=== PATIENT | female | born 1930 | race Caucasian/White ===

== ENCOUNTER 2016-03-25 19:11 | Emergency (ER) | payer MEDICARE, OTHER ==
[~2016-03-25] VITALS: Ht 157.5 cm; Wt 55.0 kg
[~2016-03-25 19:11] MED LIST: CALC-176 PO; ESOM40CA PO; FENO145T25 PO; FOLI-49 PO; IBUP-1542 PO; LEVO100T87 PO; LOSA25TA5 PO
[2016-03-25 19:22] VITALS: Ht 157.5 cm; Wt 55.0 kg
[2016-03-25] MEDS ORDERED: KETOROLAC 30 MG INJ IM STA (23:13)
[2016-03-25] MEDS ORDERED: CYCL5TAB PO (23:23)
[2016-03-25] MEDS ORDERED: ACET1TAB40 PO (23:26)
[2016-03-25] MEDS ORDERED: DICL1ADH6 TD (23:27)
[2016-03-25] MEDS ORDERED: BENZ-5 PO (23:28)
[2016-03-25] MEDS ORDERED: CHOL100062 PO (23:29)
[2016-03-25] MEDS ORDERED: morphine 10 MG INJ IM ONE (23:30)
[2016-03-25] MEDS ORDERED: DIAZEPAM 5 MG/ML SYG IM ONE (23:30)
[2016-03-25] MEDS ORDERED: MAGN250T5 PO (23:34)
[2016-03-25] MEDS ORDERED: DICL100G37 TOP (23:35)
[2016-03-25] MEDS ORDERED: HYDR-3498 PO (23:38)
[2016-03-25] MEDS ORDERED: NAPR-688 PO (23:39)
[2016-03-26] MEDS ORDERED: POLY17PO6 PO (00:34)
[2016-03-26] MEDS ORDERED: MAGN296S40 PO (00:34)
[2016-03-26] MEDS ORDERED: METH500T PO (00:58)
[2016-03-26 01:00] VITALS: BP 136/71; PULSE 89; RESP 17; TEMP 97.8
[2016-03-26] MEDS: HYDROmorphONE 1 MG/ML SYG IM STA ×2 (01:02→01:08)
[2016-03-26] MEDS ORDERED: morphine 10 MG INJ IM ONE (01:30)
[2016-03-27] MEDS ORDERED: LEVO300T PO (01:16)
--- NOTE | 2016-04-11 04:18 | ERD ---
DATE OF SERVICE: 03/26/2016 HISTORY OF PRESENT ILLNESS: This 86-year-old female presented to the emergency room for bilateral l ower back pain that is worse on the left side and radiates down the left thigh posteriorly to the kn ee. She is ambulatory. The patient states that she has chronic back pain with lumbar disk problems and has had back surgery. She states that the pain is exacerbated. She denies any new trauma. Sh e denies any dysuria, fever, chills. She does not have numbness or extra weakness in her legs. She also states that she is out of her home pain medication for which she has taken a variety of things including OxyContin. She states that she has been having trouble with her pain management speciali sts in getting pain medicine. REVIEW OF SYSTEMS: A 10-point review of systems is negative except as in the HPI. PAST MEDICAL HISTORY: Chronic back pain, hypertension, hypercholesterolemia, history of stomach can cer cured. PAST SURGICAL HISTORY: Partial gastrectomy, hysterectomy, and laminectomy at L4 and L5. SOCIAL HISTORY: Denies tobacco, alcohol, or drugs. She is able to care for herself and is ambulato ry with a cane and walker. FAMILY HISTORY: Noncontributory. PHYSICAL EXAMINATION: VITAL SIGNS: Temperature 97.8, pulse 88, blood pressure 154/80, respiratory rate 20, oxygen saturat ion 98% on room air. GENERAL: No acute distress. BACK: Bilateral paraspinal muscle spasm, left greater than right. Tenderness to palpation along th priya paraspinal areas. No midline tenderness. NEUROLOGIC: Alert and oriented x3, no focal deficits. BILATERAL LOWER EXTREMITIES: Strength 5/5. Distal pulses intact. No deformities. ABDOMEN: Soft, nontender, nondistended, no masses. EMERGENCY DEPARTMENT COURSE AND MEDICAL DECISION MAKING: The patient had an exacerbation of her chr onic back pain that feels like her exacerbations of back pain. She does have bilateral paraspinal m uscle spasm. She was given IM Valium 5 mg, IM morphine 4 mg, and Toradol 30 mg IM. She was then gi subha 1 mg of Dilaudid additionally as her pain was only somewhat helped. She stated she was feeling much better with the pain medications. I am having her follow up with her primary care doctor as we ll as her spine doctor. I have also given her verbal and written instructions to see her pain docto r or obtain a new hand touch up painter for chronic narcotic medications. I am discharging wit h Johnson, naproxen, and Robaxin for continued relief of back pain and alleviation of muscle spasm. I have given her return precautions to the ER if these pain medications are not continuing to allevia te her pain. DISCHARGE DIAGNOSES: 1. Acute on chronic back pain. 2. Lumbar muscle spasm. 3. Sciatica. DISPOSITION: Home in stable condition. Dictated By: YANETH HARGROVE/JIGNA Conf#: [id number] DID#: [id number]
== END 2016-03-26 03:05 | disposition home or self-care (01) ==
LOC: E/R 19:11
DX: M54.42 Lumbago with sciatica, left side (principal); M54.41 Lumbago with sciatica, right side; M62.830 Muscle spasm of back; I10 Essential (primary) hypertension; E03.9 Hypothyroidism, unspecified; Z85.028 Personal history of other malignant neoplasm of stomach
CPT/HCPCS: 96372; 99284; J1170; J1885; J2270; J3360

== ENCOUNTER 2016-03-26 12:27 | Inpatient (IN) | payer MEDICARE, OTHER ==
[~2016-03-26] VITALS: Ht 152.4 cm; Wt 49.6 kg
[~2016-03-26 12:27] MED LIST changes: +ACET1TAB40 PO; +BENZ-5 PO; -CALC-176 PO; +CHOL100062 PO; +CYCL5TAB PO; +DICL100G37 TOP; +DICL1ADH6 TD; +HYDR-3498 PO; +MAGN250T5 PO; +MAGN296S40 PO; +METH500T PO; +NAPR-688 PO; +POLY17PO6 PO
[2016-03-26] MEDS ORDERED: morphine 4 MG/ML VIAL IV STA (18:02)
[2016-03-26] MEDS ORDERED: SOD CHLORIDE 0.9% 1,000 ML IV STA (18:02)
[2016-03-26] MEDS ORDERED: ONDANSETRON 4 MG INJ IV STA (18:02)
--- NOTE | 2016-03-26 18:16 | ERA ---
ER Documentation Chief Complaint Date/Time DATE: 03/26/16 TIME: 18:13 Chief Complaint vomiting x3 since yesterday was seen here yesterday for back pain (GASTON ADAMSON) HPI Patient is an 86-year-old female who was seen here yesterday for back pain. The daughter states that she received several injections after which she began vomiting when she returned turned home. The patient has a history of gastric carcinoma which was treated back in 2005. She apparently has difficulty eating at baseline but has been unable to eat even her small meals or drink any liquids since yesterday. The daughter is very concerned as she has also been a unable to hold down any of her medications either. She has not had any fever, diarrhea, dysuria, hematuria, or flank pain. She has continued to complain of her back pain which is chronic. She is also complaining of upper abdominal pain. She denies any chest pain, shortness of breath, coughing, congestion, headache, vertigo, paresthesias, or focal weakness. The remainder of the systems are negative. (GASTON ADAMSON) ROS All systems reviewed and are negative except as per history of present illness. (GASTON ADAMSON) Medications Home Meds Active Scripts Methocarbamol* (Robaxin*) 500 Mg Tab, 500 MG PO Q8, #14 TAB Prov:YANETH RAY DO 03/26/16 Magnesium Citrate* (Magnesium Citrate*) 296 Ml Solution, 296 ML PO ONCE, #1 BOTTLE Prov:YANETH RAY DO 03/26/16 Polyethylene Glycol* (Miralax*) 17 Gm Powd.pack, 17 GM PO DAILY, #7 Prov:YANETH RAY DO 03/26/16 Ibuprofen* (Ibuprofen*) 600 Mg Tablet, 400 MG PO TID for PAIN AND/OR INFLAMMATION, #30 TAB Prov:JUANPABLO OVIEDO MD 08/27/15 Reported Medications Naproxen* (Naproxen*) 500 Mg Tablet, 500 MG PO DAILY Y for PRN, TAB 03/25/16 Hydrocodone Bit-Acetaminophen (Hydrocodone Bit-APAP) 5-325MG Tablet, 1 TAB PO Q6H Y for PAIN, TAB 03/25/16 Diclofenac Sodium* (Voltaren* Gel) 1% -100 Gm Gel, 2 GM TOP TID, #1 TUB 03/25/16 Magnesium Oxide (Magnesium) 250 Mg Tablet, 250 MG PO DAILY, TAB 03/25/16 Cholecalciferol* (Vitamin D3*) 1,000 Unit Tablet, 1000 UNIT PO DAILY, TAB 03/25/16 Benzonatate* (Benzonatate*) 100 Mg Capsule, 100 MG PO TID Y for COUGH, CAP 03/25/16 Diclofenac Epolamine (Flector) 1 Each Patch.td12, 1 EACH TD DAILY 03/25/16 Acetaminophen with Codeine (Acetaminophen-Cod #3 Tablet) 1 Each Tablet, 1 TAB PO Q4 Y for PRN, #20 TAB 03/25/16 Cyclobenzaprine Hcl* (Cyclobenzaprine Hcl*) 5 Mg Tablet, 2.5 MG PO Q4H Y for PRN , #60 TAB 03/25/16 Folic Acid* (Folic Acid*) 1 Mg Tablet, 1 MG PO DAILY, TAB 03/20/14 Levothyroxine Sodium* (Levothyroxine Sodium*) 100 Mcg Tablet, 100 MCG PO DAILY, TAB 03/20/14 Losartan Potassium* (Losartan Potassium*) 25 Mg Tablet, 25 MG PO DAILY, TAB 10/17/13 Esomeprazole Mag Trihydrate (Nexium) 40 Mg Capsule.dr, 40 MG PO DAILY 08/21/11 Fenofibrate Nanocrystallized* (Tricor*) 145 Mg Tablet, 145 MG PO DAILY 08/21/11 Discontinued Reported Medications Calcium Cmb 2-Mag Cmb 12-Vit D3 (Calcium 500) 1 Each Tablet, 1 TAB PO BID, TAB 03/20/14 Allergies Allergies: Coded Allergies: Influenza Virus Vaccines (Verified Allergy, Mild, 03/26/16) iodine (Verified Adverse Reaction, Mild, DIFFICULTY OF BREATHING, 03/26/16) PMhx/Soc History of Surgery: Yes (PARTIAL GASTRECTOMY, HYSTERECTOMY, ABD LAPAROSCOPY, lamenectomy L4 L5) Anesthesia Reaction: No Hx Neurological Disorder: No Hx Respiratory Disorders: No Hx Cardiac Disorders: Yes (HTN) Hx Psychiatric Problems: No Hx Miscellaneous Medical Probl: Yes (HIGH CHOLESTEROL, STOMACH CANCER,sciatica) Hx Alcohol Use: No Hx Substance Use: No Hx Tobacco Use: No Smoking Status: Never smoker (GASTON ADAMSON) Physical Exam Vitals Vital Signs Date Time Temp Pulse Resp B/P Pulse Ox O2 Delivery O2 Flow Rate FiO2 03/26/16 12:51 97.8 86 18 105/50 97 ([place]TA[place],STEVE) Physical Exam Const: [] Well-developed thin female lying on the bed, appears chronically ill Head: Atraumatic normocephalic Eyes: Normal Conjunctiva ENT: Normal External Ears, Nose and Mouth. Mucous membranes appear dry Neck: Full range of motion..~ No meningismus. Resp: Clear to auscultation bilaterally Cardio: Regular rate and rhythm, no murmurs Abd: Soft, non tender, non distended. Normal bowel sounds, no masses, no rebound, no guarding Skin: No petechiae or rashes Back: Patient reports tenderness to palpation throughout her lower lumbosacral region Ext: No cyanosis, or edema Neur: Awake and alert oriented 3 with a GCS of 15, moves all extremities equally Psych: Normal Mood and Affect (GASTON ADAMSON) Result Diagram: 03/26/16192103/26/161921 Results 24 hrs Laboratory Tests Test 03/26/16 19:22 Alanine Aminotransferase (ALT/SGPT) 22IU/L Albumin 3.7g/dl Albumin/Globulin Ratio 1.19 Alkaline Phosphatase 102IU/L Anion Gap 17 Aspartate Amino Transf (AST/SGOT) 29IU/L Basophils # 0.010^3/ul Basophils % 0.3% Blood Urea Nitrogen 26mg/dl Calcium Level 8.3mg/dl Carbon Dioxide Level 24mmol/L Chloride Level 101mmol/L Creatinine 0.64mg/dl Direct Bilirubin 0.00mg/dl Eosinophils # 0.110^3/ul Eosinophils % 1.0% Globulin 3.10g/dl Glucose Level 91mg/dl Hematocrit 35.0% Hemoglobin 11.7g/dl Indirect Bilirubin 0.3mg/dl Lactic Acid Level 1.3mmol/L Lipase 84U/L Lymphocytes # 0.910^3/ul Lymphocytes % 6.3% Mean Corpuscular Hemoglobin 30.2pg Mean Corpuscular Hemoglobin Concent 33.5g/dl Mean Corpuscular Volume 90.2fl Mean Platelet Volume 10.4fl Monocytes # 1.510^3/ul Monocytes % 10.1% Neutrophils # 12.310^3/ul Neutrophils % 82.3% Nucleated Red Blood Cells # 0.010^3/ul Nucleated Red Blood Cells % 0.0/100WBC Platelet Count 78348^3/UL Potassium Level 5.3mmol/L Red Blood Count 3.8810^6/ul Red Cell Distribution Width 12.9% Sodium Level 137mmol/L Total Bilirubin 0.3mg/dl Total Protein 6.8g/dl Urine Bacteria FEW Urine Bilirubin NEGATIVE Urine Clarity SLIGHTLY CLOUDY Urine Color LT. YELLOW Urine Glucose NEGATIVE% Urine Hemoglobin NEGATIVE Urine Ketones NEGATIVE Urine Leukocyte Esterase 1+ Urine Microscopic RBC 0-2/HPF Urine Microscopic WBC 10-25/HPF Urine Nitrite NEGATIVE Urine Specific [place] 1.015 Urine Squamous Epithelial Cells MANY Urine Total Protein NEGATIVE Urine Urobilinogen 0.2 E.U./dL Urine pH 5.5 White Blood Count 14.910^3/ul Current Medications Medications (Trade) Dose Ordered Sig/Jayashree Route PRN Reason Start Time Stop Time Status Last Admin Dose Admin Sodium Chloride (NS) 1,000 ml @ 1,000 mls/hr Q1H STAT IV 03/26/16 18:02 03/26/16 19:01 DC 03/26/16 19:22 Morphine Sulfate (morphine) 4 mg ONCE STAT IV 03/26/16 18:02 03/26/16 18:04 DC 03/26/16 19:13 Ondansetron HCl (Zofran Inj) 4 mg ONCE STAT IV 03/26/16 18:02 03/26/16 18:04 DC 03/26/16 19:13 (STEVE BOYLE) Procedures/MDM Differential includes but is not limited to vomiting, recurrent cancer, bowel obstruction, dehydration, chronic back pain, metastatic cancer, narcotic withdrawal, nonspecific abdominal pain, viral syndrome (GASTON ADAMSON) This patient been seen and evaluated by Dr. Pendleton and signed out to myself, Dr. Boyle. The patient had a urinary tract infection and intractable abdominal pain. CT scan showed no surgical abdomen and an ultrasound of the gallbladder did indicate that there was mild dilatation of the common bile duct but no findings to suggest choledocholithiasis. The patient had leukocytosis. A urine culture was obtained. The patient was given ceftriaxone intravenously by myself. Her primary care physician is Dr. Robbins and I spoke with Dr. Hernandez who was taking call for Dr. Robbins who stated he would admit the patient for observation. She received further antiemetics by myself. When I reevaluated this patient she had no peritoneal signs. (STEVE BOYLE) Departure Diagnosis: Primary Impression: UTI (urinary tract infection) Qualified Code: N30.00 - Acute cystitis without hematuria Additional Impression: Intractable vomiting with nausea Qualified Code: R11.2 - Intractable vomiting with nausea, unspecified vomiting type Condition: Serious GASTON ADAMSON Mar 26, 2016 18:16 STEVE BOYLE Mar 26, 2016 21:01
--- NOTE | 2016-03-26 19:09 | RADRPT ---
PROCEDURE: CT abdomen and pelvis without contrast. CLINICAL INDICATION: Abdominal pain. Clinical concern for small-bowel obstruction TECHNIQUE: CT scan of the abdomen and pelvis without contrast was performed. Sagittal and coronal reformatted images were obtained from the axial source images. CTDI = 4.64 mGy; DLP = 233.44 mGy-cm COMPARISON: CT 01/18/2015 FINDINGS: Visualized lower thorax: Mild dependent bibasilar subsegmental atelectasis is present. Extensive l eft anterior descending coronary artery calcification is visible. There are some microcystic honeyc ombing changes of the lung parenchyma. There is no evidence for pleural effusion. Liver, gallbladder, pancreas and spleen: The liver is normal and size, contour and attenuation. Th ere is no evidence for a solid liver mass or ductal dilatation on this unenhanced exam, scattered si mple cysts of the hepatic parenchyma are unchanged. The gallbladder is unremarkable. The common bi le duct is dilated measuring 13 mm but there is no evidence of calcified choledocholithiasis. Some calcifications adjacent to the common bile duct are similar to the previous examination but there is no obvious pancreatic mass on this unenhanced examination. No pancreatic ductal dilatation is pres ent. The spleen is normal in size. Adrenal glands and genitourinary system: The adrenal glands are normal bilaterally. The kidneys are normal and size, contour and attenuation with no evidence for masses, calculi or hydronephrosis. T he ureters are unremarkable. No urinary bladder abnormality is demonstrated. The uterus is surgica lly absent, clips within the pelvis are again seen. Gastrointestinal system: Postoperative changes compatible with prior gastric surgery are again note d, probably partial gastrectomy. The small bowel is normal in caliber with no ileus, obstruction or wall thickening. The appendix and surrounding fat are within the limits of normal. The colon show s no evidence for wall thickening or acute abnormality. There is no evidence for colitis or diverti culitis. Peritoneum, retroperitoneum, lymph nodes and vessels: The abdominal aorta is normal in caliber. The re is mild aortic atherosclerotic calcification. The inferior vena cava is unremarkable. There is no evidence for adenopathy or mass. There is no ascites. No pneumoperitoneum is present Osseous structures and musculoskeletal findings: There is no fracture, lytic or blastic lesion. Mil d demineralization and diffuse spondylosis of the spine is present No muscular abnormality or soft tissue pathology is present. RPTAT:HJJR IMPRESSION: 1. No evidence of small bowel obstruction in this patient who is status post partial gastrectomy. 2. Common bile duct dilatation of 13 mm is now evident without calcified choledocholithiasis or obv ious pancreatic mass on this unenhanced exam. The gallbladder is unremarkable. Correlation with live r function tests is suggested. 3. Incidental hepatic cysts are again noted. 4. Changes of prior hysterectomy again noted. Pato Matson Physician Date Time Electronically viewed and signed by Pato Matson Physician on 03/26/2016 19:08 JR/
[2016-03-26 19:40] LABS: BASOPHILS % 0.3 % (0.0-2.0); EOSINOPHILS # 0.1 10^3/ul (0.0-0.5); HEMOGLOBIN 11.7 g/dl (12.0-16.0); LYMPHOCYTES # 0.9 10^3/ul (0.8-2.9); LYMPHOCYTES % 6.3 % (15.0-51.0); MEAN CORPUSCULAR HEMOGLOBIN 30.2 pg (29.0-33.0); MEAN CORPUSCULAR HGB CONC 33.5 g/dl (32.0-37.0); MEAN CORPUSCULAR VOLUME 90.2 fl (82.0-101.0); MEAN PLATELET VOLUME 10.4 fl (7.4-10.4); MONOCYTE # 1.5 10^3/ul (0.3-0.9); MONOCYTES % 10.1 % (0.0-11.0); NEUTROPHIL # 12.3 10^3/ul (1.6-7.5); NEUTROPHILS % 82.3 % (39.0-77.0); PLATELET COUNT 168 10^3/UL (140-440); RED BLOOD COUNT 3.88 10^6/ul (4.20-5.40); RED CELL DISTRIBUTION WIDTH 12.9 % (11.5-14.5); UNCORRECTED WBC 14.9 10^3/ul (4.8-10.8); WHITE BLOOD COUNT 14.9 10^3/ul (4.8-10.8)
[2016-03-26 19:42] LABS: CONDITION 1
[2016-03-26 19:44] LABS: ADD UMIC YES; URINE BILIRUBIN (Dip) NEGATIVE (NEGATIVE); URINE BLOOD (Dip) NEGATIVE (NEGATIVE); URINE COLOR LT. YELLOW (YELLOW); URINE GLUCOSE (Dip) NEGATIVE (NEGATIVE); URINE KETONES (Dip) NEGATIVE (NEGATIVE); URINE LEUKOCYTE ESTERASE (Dip) 1+ (NEGATIVE); URINE NITRITE (Dip) NEGATIVE (NEGATIVE); URINE TOTAL PROTEIN (Dip) NEGATIVE (NEGATIVE); URINE UROBILINOGEN (Dip) 0.2 E.U./dL (0.1-1.0)
[2016-03-26 19:50] LABS: ALBUMIN 3.7 g/dl (3.3-4.9); POTASSIUM 5.3 mmol/L (3.5-5.1)
[2016-03-26 19:52] LABS: BILIRUBIN,INDIRECT 0.3 mg/dl (0-1.1); BILIRUBIN,TOTAL 0.3 mg/dl (0.2-1.3); CREATININE 0.64 mg/dl (0.44-1.00)
[2016-03-26 19:53] LABS: ALBUMIN/GLOBULIN RATIO 1.19; CALCIUM 8.3 mg/dl (8.4-10.2); TOTAL PROTEIN 6.8 g/dl (6.1-8.1)
[2016-03-26 20:09] LABS: SQUAMOUS EPITHELIAL CELL,UR MANY; URINE RBCS 0-2 /HPF (0)
[2016-03-26 20:10] LABS: BACTERIA,URINE FEW
--- NOTE | 2016-03-26 20:43 | RADRPT ---
PROCEDURE: US right upper quadrant CLINICAL INDICATION: Abdominal pain. Dilated common bile duct TECHNIQUE: Multiple real-time images were acquired of the patient's right upper abdomen utilizing a high resolution transducer. COMPARISON: CT abdomen and pelvis 03/26/2016 FINDINGS: Liver: Simple cysts of the liver again noted the largest in the right hepatic lobe measures 2.3 x 2 .1 x 1.8 cm. There is normal liver contour without ductal dilatation. The liver size is normal. T he maximum dimension estimated at 14.3 cm . Gallbladder: No gallstones or sludge are identified. There is no evidence of gallbladder wall thick ening or pericholecystic fluid. No sonographic Burroughs's sign is reported. Common bile duct: Dilated; 13 mm. There is no evidence for choledocholithiasis. Right Kidney: Mild hydronephrosis not seen on CT is probably physiologic; maximum length measured a t approximately 9.5 cm. Pancreas: Obscured by bowel gas. RPTAT:HJJR IMPRESSION: 1. Common bile duct dilatation is confirmed measuring 13 mm but without evidence of choledocholithia sis or cholelithiasis, the gallbladder is unremarkable. 2. No evidence of intrahepatic ductal dilatation, simple cysts of the liver are incidentally noted. 3. Mild hydronephrosis of the right kidney not seen on CT is probably physiologic, no right renal c alculus is present. 4. Bowel gas obscures evaluation of the pancreas. Physician Cherie Date Time Electronically viewed and signed by Physician Cherie on 03/26/2016 20:43 JR/
[2016-03-26] MEDS ORDERED: ONDANSETRON 4 MG INJ IV PRN (21:00)
[2016-03-26] MEDS ORDERED: ACETAMINOPHEN 325 MG TAB PO PRN (21:00)
[2016-03-26] MEDS ORDERED: CEFTRIAXONE 1 GM/50 ML (PMX) 50 ML IVPB ONE (21:00)
[2016-03-26 21:09] VITALS: TEMP 97.9
[2016-03-26] MEDS ORDERED: METOCLOPRAMIDE 10 MG INJ IV ONE (21:30)
[2016-03-26 22:47] VITALS: Ht 152.4 cm; Wt 49.6 kg
[2016-03-26 23:03] VITALS: BP 143/71; PULSE 97; RESP 18
[2016-03-26] MEDS ORDERED: morphine 10 MG INJ IM PRN (23:30)
[2016-03-26] MEDS: SOD CHLORIDE 0.45% 1,000 ML IV SCH (23:51)
[2016-03-27] MEDS ORDERED: LEVO300T PO (01:16)
[2016-03-27] MEDS: LEVOTHYROXINE 100 MCG TAB PO SCH (05:49)
[2016-03-27 07:54] VITALS: BP 143/67; RESP 18
[2016-03-27 08:03] LABS: ALBUMIN 3.2 g/dl (3.3-4.9)
[2016-03-27 08:06] LABS: ALBUMIN/GLOBULIN RATIO 1.06; BILIRUBIN,INDIRECT 0.1 mg/dl (0-1.1); BILIRUBIN,TOTAL 0.1 mg/dl (0.2-1.3); CALCIUM 7.5 mg/dl (8.4-10.2); CREATININE 0.65 mg/dl (0.44-1.00); TOTAL PROTEIN 6.2 g/dl (6.1-8.1)
[2016-03-27 08:25] LABS: BASOPHILS % 0.1 % (0.0-2.0); EOSINOPHILS # 0.1 10^3/ul (0.0-0.5); EOSINOPHILS % 0.7 % (0.0-7.0); HEMATOCRIT 32.7 % (37.0-47.0); LYMPHOCYTES # 1.1 10^3/ul (0.8-2.9); LYMPHOCYTES % 9.6 % (15.0-51.0); MEAN CORPUSCULAR HEMOGLOBIN 30.4 pg (29.0-33.0); MEAN CORPUSCULAR HGB CONC 33.7 g/dl (32.0-37.0); MEAN CORPUSCULAR VOLUME 90.4 fl (82.0-101.0); MEAN PLATELET VOLUME 10.9 fl (7.4-10.4); MONOCYTE # 1.8 10^3/ul (0.3-0.9); MONOCYTES % 15.2 % (0.0-11.0); NEUTROPHIL # 8.8 10^3/ul (1.6-7.5); NEUTROPHILS % 74.4 % (39.0-77.0); PLATELET COUNT 162 10^3/UL (140-440); RED BLOOD COUNT 3.62 10^6/ul (4.20-5.40); UNCORRECTED WBC 11.9 10^3/ul (4.8-10.8); WHITE BLOOD COUNT 11.9 10^3/ul (4.8-10.8)
[2016-03-27 08:28] LABS: CONDITION 1; LH ANALYZER COMMENTS 1
[2016-03-27] MEDS: LOSARTAN 25 MG TAB PO SCH (10:18)
[2016-03-27] MEDS: ENOXAPARIN 30 MG/0.3 ML SYG SC SCH (10:19)
[2016-03-27] MEDS: ACETAMINOPHEN 500 MG TAB PO PRN ×2 (10:48→17:39)
[2016-03-27] MEDS: CYCLOBENZAPRINE 10 MG TAB PO PRN ×2 (10:48→17:39)
[2016-03-27] MEDS: CEFTRIAXONE 2 GM/50 ML (PMX) 50 ML IVPB SCH (12:29)
--- NOTE | 2016-03-27 12:52 | CONS ---
DATE OF ADMISSION: 03/26/2016 DATE OF CONSULTATION: 03/27/2016 Thank you for having me see this patient. HISTORY OF PRESENT ILLNESS: As you know, she is an 86-year-old woman whom I am asked to see sudhir bellamy persistent nausea and vomiting. The patient has been seen for numerous gastrointestinal issues i n the past. Most recently she has been most troubled by back pain. Because of this she was seen in the emergency room and given narcotic analgesia. After being discharged with this medicine she beg an vomiting at home. She was then readmitted because of the nausea and vomiting. Since being admit [facility] she has had no further vomiting. Of note, the patient has a gastrointestinal history significan t for gastric cancer resection in 2005. This was followed by chemo and radiation therapy. She most recently had a followup endoscopy in March 2015. PAST MEDICAL HISTORY AND HOSPITALIZATION: For gastric cancer, hysterectomy, small-bowel obstruction . ADULT ILLNESSES: Significant for Rojo's esophagus, CVA, colon polyps, arteriosclerotic heart dis ease, diverticulitis, fibromyalgia, gastric cancer, hyperlipidemia, hypertension, hypothyroidism. CHILDHOOD: Denies rheumatic fever or scarlet fever. ALLERGIES: INCLUDE: 1. INFLUENZA VIRUS VACCINE. 2. HYDROMORPHONE. 3. IODINE. INJURIES: None. MEDICATIONS: Currently include: 1. Ceftriaxone. 2. Lovenox. 3. Cozaar 4. Synthroid. 5. Flexeril. 6. Tylenol. 7. Morphine. 8. Catapres. SOCIAL HISTORY: The patient does not smoke or drink alcohol. FAMILY HISTORY: Noncontributory. REVIEW OF SYSTEMS: Negative except as noted above. PHYSICAL EXAMINATION: GENERAL: Shows in general, the patient is a well-developed, well-nourished female in no acute distr ess. VITAL SIGNS: Temperature 98.2, pulse 80, respirations 18, blood pressure 143/67. SKIN: Clear. HEENT: Negative. LUNGS: Clear to percussion and auscultation. CARDIAC: No murmurs or gallops. ABDOMEN: Soft, nontender, liver 8 cm. Spleen not palpable. No masses. LABORATORY DATA: Remarkable for white count 11, hemoglobin 11, hematocrit 32, platelets 162. Chemi stries: AST 21, ALT 22, alkaline phosphatase 91. CT scan is remarkable for common bile duct of 13 mm. Ultrasound of the gallbladder is remarkable for common bile duct at 13 mm. IMPRESSION: It is most likely that the patient's nausea and vomiting is on the basis of her narcoti c analgesia. I do note the incidental 13 mm common bile duct. Certainly, in the face of normal lulu er tests I think it is far less likely that this is responsible for any her symptoms. It is certain ly possible that she may have had some biliary duct dilatation related to her previous abdominal jil flo. In addition, her narcotic analgesia may be contributing to this as well. PLAN: 1. I have discussed the above in depth with the patient and her daughter. 2. We will proceed with MRCP to rule out choledocholithiasis. 3. Continue conservative management with discharge plans per Dr. Fareed Robbins. Dictated By: LAILA MINAYA/JIGNA Conf#: [id number] DID#: [id number] CC: FAREED ROBBINS MD; LAILA GONG MD;*EndCC*
[2016-03-27] MEDS: SOD CHLORIDE 0.45% 1,000 ML IV SCH (19:13)
[2016-03-27] MEDS: KETOROLAC 30 MG INJ IV PRN (19:52)
[2016-03-27 19:55] VITALS: BP 142/67; RESP 18
[2016-03-27] MEDS ORDERED: PANTOPRAZOLE 40 MG INJ IV ONE (20:00)
--- NOTE | 2016-03-27 21:18 | HP ---
DATE OF ADMISSION: 03/26/2016 ADMITTING DIAGNOSIS: Urinary tract infection with intractable nausea and vomiting. HISTORY OF PRESENT ILLNESS: The patient is an 86-year-old female with a history of gastric c arcinoma status post resection, coronary artery disease, hypertension, fibromyalgia, peripheral neur opathy, and lumbar radiculopathy who presented to the emergency room due to her back pain. The sylvia ent was seen on Sunday and was given a shot for her pain and returned on Sunday with persistent na usea and vomiting while home. The patient has had no further nausea and vomiting since admission an d is currently feeling well without any problems except for her back pain. REVIEW OF SYSTEMS: Significant for moderate to severe, left greater than right, lower back pain rad iating to her legs with knee pain, shoulder pain, and burning sensation over her extremities. No dy suria, no hematuria, no urgency noted. PAST MEDICAL HISTORY: Significant for gastric carcinoma status post partial gastrectomy, chemothera py, and radiation; hypothyroidism, hyperlipidemia, fibromyalgia, peripheral neuropathy, osteoarthrit is, cervical spondylosis, lumbar spondylosis with radiculitis status post laminectomy and decompress ion, type 2 diabetes, diet controlled, chronic constipation, history of a partial small-bowel obstru ction. PAST SURGICAL HISTORY: Status post cataract extraction with lens implantation, status post small-margaret wel obstruction repair, status post partial gastrectomy, status post total abdominal hysterectomy, a nd bilateral salpingo-oophorectomy. FAMILY HISTORY: Noncontributory. ALLERGIES: INTOLERANT TO STATINS WITH SEVERE MUSCLE ACHES AND PAINS. MEDICATIONS: 1. Levothyroxine 0.1 mg daily. 2. Losartan 25 mg daily. 3. Omeprazole 20 mg daily. 4. Tricor 145 mg daily. 5. Lovaza 2 grams daily. 6. PRN Tylenol No.3 or [place] depending on pain control. 7. PRN Dulcolax. SOCIAL HISTORY: The patient is a , lives with her daughter. No tobacco, no alcohol use. PHYSICAL EXAMINATION: VITAL SIGNS: Temperature 98.2, blood pressure 143/67, respirations 18, pulse 80 and regular. Oxyge n saturation 94% on room air. GENERAL: Well-developed, well-nourished female in no acute distress, lying in bed. SKIN: Mild diffuse xerosis and hyperpigmentation. Otherwise, no rashes. HEENT: EOMI, PERRLA. Oropharynx clear without exudate. NECK: Decreased range of motion in all directions, 2+ carotid upstroke without bruits. No lymphade nopathy, no thyromegaly. LUNGS: Clear to auscultation bilaterally. HEART: Regular rate and rhythm. Normal S1, S2. No murmurs, gallops, or rubs noted. ABDOMEN: Soft, nontender, nondistended, normoactive bowel sounds. No hepatosplenomegaly, no masses noted. GENITOURINARY: Normal female externally. Internal exam not performed. RECTAL: Deferred to gastroenterology. NEUROLOGIC: Nonfocal other than decreased pinprick, fine touch, temperature, and vibration in bilat eral upper and lower extremities in a stocking glove distribution. LABORATORY EXAMINATION: Initial white blood cell count of 14.9, which decreased to 11.9 on repeat; hemoglobin 11.7, which decreased to 11.0 on repeat; hematocrit of 35%, which decreased to 32.7 with hydration and repeat; platelet count of 168 initially with decrease to 162. Initial potassium was 5 .3, but on repeat it was 4.0. Sodium of 142, chloride 107, bicarbonate 22, BUN of 17, creatinine 0. 65. AST of 21, ALT of 22, alkaline phosphatase 91, total bilirubin is 0.1. Albumin 3.2. Lipase is 84. Gallbladder ultrasound: Common bile duct is dilated at 13 mm without evidence of choledocholi thiasis or cholelithiasis. Otherwise unremarkable gallbladder. Mild hydronephrosis of the right no t seen on CT. Abdominal and pelvic CT scan without contrast shows no evidence of small-bowel obstru ction, common bile duct 13 mm, with no evidence of choledocholithiasis or pancreatic mass or other. Changes of prior hysterectomy, incidental hepatic cysts. IMPRESSION: The patient is an 86-year-old female with severe low back pain due to her radicu lopathy and compression fracture, coronary artery disease, history of gastric carcinoma, history of small-bowel obstruction who was admitted for persistent nausea and vomiting as well as urinary tract infection. The patient's nausea and vomiting has since resolved since she has been admitted. The patient remains stable. 1. Nausea and vomiting. This may be related to the patient having taken the narcotic on an empty s tomach and had a reaction to that. The patient has had narcotics before without this reaction. The patient is currently without nausea and vomiting since admission almost 24 hours ago, yesterday. I appreciate Dr. Rawls's input into this case. We will be conservative in her management and patient does not require any further workup regarding her nausea and vomiting at this time. Will continue t o feed the patient as tolerated. 2. Urinary tract infection. Urine culture is negative at this point. The patient is on antibiotic s. We will continue this and discharge the patient home on oral antibiotics when discharged. 3. Coronary disease/hypertension. We will continue the patient's losartan. 4. Hypothyroidism. We will continue the patient's levothyroxine. 5. Lumbar spondylosis with compression fracture of lumbar spine. We will continue with p.r.n. anal gesics and increase mobility as tolerated. 6. Hyperlipidemia. We will hold her cholesterol medications for now. Dictated By: OLI CARR MD SR/NTS Conf#: [id number] DID#: [id number] CC: RAUL SANCHEZ MD;*EndCC*
[2016-03-28] MEDS: ACETAMINOPHEN/CODEINE #3 TAB PO PRN (00:38)
[2016-03-28] MEDS: KETOROLAC 30 MG INJ IV PRN ×3 (02:12→19:05)
[2016-03-28 05:41] LABS: BASOPHILS % 0.4 % (0.0-2.0); EOSINOPHILS # 0.2 10^3/ul (0.0-0.5); EOSINOPHILS % 2.2 % (0.0-7.0); HEMATOCRIT 30.8 % (37.0-47.0); HEMOGLOBIN 10.3 g/dl (12.0-16.0); LYMPHOCYTES # 1.5 10^3/ul (0.8-2.9); LYMPHOCYTES % 18.3 % (15.0-51.0); MEAN CORPUSCULAR HEMOGLOBIN 30.5 pg (29.0-33.0); MEAN CORPUSCULAR HGB CONC 33.5 g/dl (32.0-37.0); MEAN PLATELET VOLUME 10.6 fl (7.4-10.4); MONOCYTE # 1.5 10^3/ul (0.3-0.9); NEUTROPHIL # 4.9 10^3/ul (1.6-7.5); NEUTROPHILS % 61.1 % (39.0-77.0); PLATELET COUNT 153 10^3/UL (140-440); RED BLOOD COUNT 3.38 10^6/ul (4.20-5.40); RED CELL DISTRIBUTION WIDTH 13.2 % (11.5-14.5); UNCORRECTED WBC 8.1 10^3/ul (4.8-10.8); WHITE BLOOD COUNT 8.1 10^3/ul (4.8-10.8)
[2016-03-28 05:47] LABS: ALBUMIN 2.9 g/dl (3.3-4.9)
[2016-03-28 05:48] LABS: POTASSIUM 3.9 mmol/L (3.5-5.1)
[2016-03-28 05:50] LABS: BILIRUBIN,INDIRECT 0.1 mg/dl (0-1.1); BILIRUBIN,TOTAL 0.1 mg/dl (0.2-1.3); CREATININE 0.61 mg/dl (0.44-1.00)
[2016-03-28 05:51] LABS: ALBUMIN/GLOBULIN RATIO 0.93; CALCIUM 7.4 mg/dl (8.4-10.2)
[2016-03-28] MEDS: LEVOTHYROXINE 100 MCG TAB PO SCH ×2 (06:00→06:48)
[2016-03-28] MEDS: PANTOPRAZOLE (EC) 40 MG TAB PO SCH ×2 (06:00→06:48)
[2016-03-28 06:12] LABS: CONDITION 1; LH ANALYZER COMMENTS 1
[2016-03-28] MEDS: LOSARTAN 25 MG TAB PO SCH (08:12)
[2016-03-28] MEDS: ENOXAPARIN 30 MG/0.3 ML SYG SC SCH (08:13)
[2016-03-28 08:27] VITALS: BP 146/71; RESP 19
[2016-03-28] MEDS: CEFTRIAXONE 2 GM/50 ML (PMX) 50 ML IVPB SCH (11:26)
--- NOTE | 2016-03-28 14:26 | SP ---
DATE OF VISIT: 03/28/2016 MEDICAL PROGRESS NOTE: SUBJECTIVE: The patient is feeling better but still having moderate to severe right shoulder pain as well as back pain. No more nausea and vomiting. No dysuria. OBJECTIVE: VITAL SIGNS: Temperature 97.7, pulse 73, respirations 19, blood pressure 146/ 71, oxygen saturation 96% on room air. GENERAL: Well-developed, well-nourished female in no acute distress. SKIN: Diffuse xerosis, although no rashes. LUNGS: Clear to auscultation bilaterally. HEART: Regular rate and rhythm, normal S1, S2. No murmurs, gallops or rubs noted. ABDOMEN: Soft, nontender. Normoactive bowel sounds, no masses. EXTREMITIES: Right shoulder with moderate impingement as well as decreased internal and external range of motion as well as decreased abduction with moderate to severe pain throughout the range of motion. Moderate acromioclavicular tenderness as well. LABORATORY EXAMINATION: White blood cell count 8.1, hemoglobin 10.3, hematocrit 30.8, platelets 153. Sodium 140, potassium 3.9, chloride 107, bicarbonate 23, BUN of 10, creatinine 0.61, blood sugar 80. Albumin 2.9. Urine culture shows 10,000 to 20,000 gram-negative rods. PRELIMINARY IMPRESSION: 1. Nausea and vomiting. This has improved since admission. This is likely related to medications, but with an enlarged common bile duct. Patient is to undergo MRCP which keeps getting delayed due to emergencies. The patient will undergo MRCP and if this is unremarkable, the patient will be discharged home. 2. Urinary tract infection. Patient will be continued on IV antibiotics and if she is discharged, she will be discharged on Macrobid 100 mg b.i.d. 3. Hypertension. 4. Coronary artery disease, stable. Continue the patient's medications and diet. 5. 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 We will continue with p.r.n. analgesics and physical therapy as an outpatient. DISCHARGE PLANNING: If the MRCP is negative, we will discharge home later today with followup with Dr. Robbins as scheduled. Dictated By: OLI ROBBINS MD, SR/JIGNA Conf#: [id number] DID#: [id number] [facility]
--- NOTE | 2016-03-28 14:27 | CONS ---
Date/Time of Note Date/Time of Note DATE: 03/28/16 TIME: 14:24 Consult Date/Type/Reason Admit Date/Time Mar 26, 2016 at 20:57 Initial Consult Date Type of Consultation: GI Subjective No further vomiting Tolerating diet Objective Vital Signs Date Time Temp Pulse Resp B/P Pulse Ox O2 Delivery O2 Flow Rate FiO2 03/28/16 08:27 97.7 73 19 146/71 96 03/26/16 23:03 Room Air Abdomen: soft, non tender, nl bs Intake and Output 03/27/16 03/27/16 03/28/16 15:00 23:00 07:00 Intake Total 100 ml 860 ml Balance 100 ml 860 ml Results/Medications Result Diagram: 03/28/1644903/28/16 0450 Results 24 hrs Laboratory Tests Test 03/28/16 04:50 Alanine Aminotransferase (ALT/SGPT) 22 Albumin 2.9 L Albumin/Globulin Ratio 0.93 Alkaline Phosphatase 79 Anion Gap 14 Aspartate Amino Transf (AST/SGOT) 29 Basophils # 0.0 Basophils % 0.4 Blood Morphology Comment Blood Urea Nitrogen 10 Calcium Level 7.4 L Carbon Dioxide Level 23 Chloride Level 107 Creatinine 0.61 Direct Bilirubin 0.00 Eosinophils # 0.2 Eosinophils % 2.2 Globulin 3.10 Glucose Level 80 Hematocrit 30.8 L Hemoglobin 10.3 L Indirect Bilirubin 0.1 Lymphocytes # 1.5 Lymphocytes % 18.3 Mean Corpuscular Hemoglobin 30.5 Mean Corpuscular Hemoglobin Concent 33.5 Mean Corpuscular Volume 91.0 Mean Platelet Volume 10.6 H Monocytes # 1.5 H Monocytes % 18.0 H Neutrophils # 4.9 Neutrophils % 61.1 Nucleated Red Blood Cells # 0.0 Nucleated Red Blood Cells % 0.0 Platelet Count 153 Potassium Level 3.9 Red Blood Count 3.38 L Red Cell Distribution Width 13.2 Sodium Level 140 Total Bilirubin 0.1 L Total Protein 6.0 L White Blood Count 8.1 # Medications Current Medications Ceftriaxone Sodium (Rocephin) 50 ml @ 100 mls/hr Q24H IVPB Last administered on 03/28/16t 11:26; Admin Dose 100 MLS/HR; Start 03/27/16 at 12:00 Morphine Sulfate 2 mg 2 mg Q4H PRN IM pain; Start 03/26/16 at 23:30 Sodium Chloride (1/2 NS) 1,000 ml @ 50 mls/hr Q20H IV Last administered on 03/27 19:13; Admin Dose 50 MLS/HR; Start 03/26/16 at 23:30 Clonidine (Catapres) 0.1 mg TID PRN PO sbp>170; Start 03/26/16 at 23:30 Enoxaparin Sodium (Lovenox) 30 mg DAILY SC Last administered on 03/28/16 08:13 ; Admin Dose 30 MG; Start 03/27/16 at 09:00 Cyclobenzaprine HCl (Flexeril) 2.5 mg Q4H PRN PO MUSCLE SPASM Last administered on 03/27/16 17:39; Admin Dose 2.5 MG; Start 03/27/16 at 01:30 Losartan Potassium (Cozaar) 25 mg DAILY PO Last administered on 03/28/16 08:12 ; Admin Dose 25 MG; Start 03/27/16 at 09:00 Levothyroxine Sodium (Synthroid) 100 mcg DAILY@06 PO Last administered on 06:48; Admin Dose 100 MCG; Start 03/27/16 at 06:00 Acetaminophen (Tylenol Tab) 500 mg Q6H PRN PO PAIN AND OR ELEVATED TEMP Last administered on 03/27/16 17:39; Admin Dose 500 MG; Start 03/27/16 at 01:30 Pantoprazole (Protonix Tab) 40 mg DAILY@06 PO Last administered on 03/28/16 06: 48; Admin Dose 40 MG; Start 03/28/16 at 06:00 Ketorolac Tromethamine (Toradol) 30 mg Q6H PRN IV PAIN Last administered on 03/28 13:29; Admin Dose 30 MG; Start 03/27/16 at 20:00; Stop 03/30/16 at 19:59 Acetaminophen/ Codeine Phosphate (Tylenol No.3) 1 tab Q4H PRN PO PAIN Last administered on 03/28/16 00:38; Admin Dose 1 TAB; Start 03/27/16 at 20:00 Assessment/Plan Chief Complaint/Hosp Course Impression: 1. Nausea and vomiting likely from narcotics - resolved 2. Dilated CBD with normal lfts - likely post op related Plan: 1. Await MRCP which is scheduled for 4pm 2. Anticipate discharge per Dr. Robbins 3. Have spoken to daughter - will see again prn Problems: LAILA GONG MD Mar 28, 2016 14:27
[2016-03-28] MEDS: SOD CHLORIDE 0.45% 1,000 ML IV SCH (14:53)
--- NOTE | 2016-03-28 18:29 | RADRPT ---
PROCEDURE: MRI abdomen / MRCP CLINICAL INDICATION: Abdominal pain. Intractable vomiting. Abnormal CT showing dilated common bi le duct TECHNIQUE: MRI of the abdomen is performed without contrast utilizing axial T2 and T2 fat suppress ion sequences as well as in and out of phase imaging. The MRCP is performed and the MIP series subm itted for review. COMPARISON: CT abdomen and pelvis and gallbladder ultrasound 03/26/2016 FINDINGS: The study is limited by motion artifact Visualized lower thorax: Trace bilateral dependent pleural effusions are present. Liver: Approximately 8 ovoid circumscribed hyperintense T2 foci within the liver parenchyma range i n size from 5 mm up to 2.5 cm consistent with simple cysts. Liver signal intensity, size and contou r are normal. There is mild intrapelvic ductal dilatation involving the left greater than right hep atic lobes. Gallbladder: Normal in caliber with no filling defects to suggest cholelithiasis and no wall [place]. There is no pericholecystic inflammation. Common bile duct: On the axial T2-weighted image (series 5 image 19) an approximately 3 mm filling defect within the mid to distal common bile duct is visualized and raises concern for choledocholith iasis. The caliber of the duct is increased estimated at 12 mm. The MRCP shows evidence for both i ntrahepatic or extrahepatic ductal dilatation, the ductal system of the right hepatic lobe having so me small low signal intensity filling defects concerning for additional small calculi (series 5 imag e 14-16). Some folds of the distal common bile duct are present and a stricture at the most distal aspect is difficult to exclude. Pancreas: There is no finding to suggest pancreatitis, mass or ductal dilatation. Spleen: Normal in size with no masses evident. Adrenal glands: Unremarkable bilaterally. Kidneys: Normal in size with no evidence for masses or hydronephrosis. Simple cortical cyst in the posterior left upper pole is incidentally noted. Stomach, visualized small bowel and visualized large intestine: Susceptibility artifact from clips r elated to partial gastrectomy is noted. The included small bowel and large intestine are unremarkab le. Abdominal aorta: Normal in caliber estimated at 2 cm. Inferior vena cava: Normal. Vertebral bodies and osseous structures: Normal. Musculature and soft tissues: Mild multilevel degenerative spondylosis with superior L4 endplate de generative change. RPTAT:HJJR IMPRESSION: 1. Limited exam because of motion artifact. 2. Tiny filling defect within the mid to distal common bile duct concerning for choledocholithiasis or sludge with a suspected stricture of the most distal common bile duct. 3. Mild intrahepatic ductal dilatation involving the left greater than right lobes with equivocal t iny filling defects in the right intrahepatic ducts reflecting additional calculi. 4. No evidence of pancreatic mass or pancreatic ductal dilatation. 5. Incidental hepatic and renal cysts. Physician Cherie Date Time Electronically viewed and signed by Pato Matson Physician on 03/28/2016 18:29 /
[2016-03-28 19:10] VITALS: BP 143/67; RESP 19
[2016-03-28] MEDS: ACETAMINOPHEN 500 MG TAB PO PRN (22:04)
[2016-03-28] MEDS: MAGNESIUM HYDROXIDE 30ML CUP PO PRN (22:05)
[2016-03-28] MEDS: CYCLOBENZAPRINE 10 MG TAB PO PRN (22:05)
[2016-03-29] MEDS: KETOROLAC 30 MG INJ IV PRN ×3 (01:36→22:24)
[2016-03-29] MEDS: CYCLOBENZAPRINE 10 MG TAB PO PRN (05:42)
[2016-03-29] MEDS: ACETAMINOPHEN 500 MG TAB PO PRN (05:42)
[2016-03-29] MEDS: PANTOPRAZOLE (EC) 40 MG TAB PO SCH (05:43)
[2016-03-29] MEDS: LEVOTHYROXINE 100 MCG TAB PO SCH (05:43)
[2016-03-29 06:36] LABS: INR 0.98
[2016-03-29 06:37] LABS: PARTIAL THROMBOPLASTIN TIME 39.8 Sec (25.0-35.0)
[2016-03-29 06:46] LABS: ALBUMIN 3.5 g/dl (3.3-4.9)
[2016-03-29 06:47] LABS: POTASSIUM 4.5 mmol/L (3.5-5.1)
[2016-03-29 06:49] LABS: ALBUMIN/GLOBULIN RATIO 0.97; CREATININE 0.65 mg/dl (0.44-1.00); TOTAL PROTEIN 7.1 g/dl (6.1-8.1)
[2016-03-29 06:50] LABS: CALCIUM 8.1 mg/dl (8.4-10.2)
[2016-03-29] MEDS ORDERED: DOCUSATE SODIUM 100 MG CAP PO PRN (07:00)
[2016-03-29 07:55] VITALS: BP 141/63; RESP 20
[2016-03-29] MEDS: LOSARTAN 25 MG TAB PO SCH (08:37)
[2016-03-29] MEDS: ENOXAPARIN 30 MG/0.3 ML SYG SC SCH (08:41)
[2016-03-29] MEDS: CEFTRIAXONE 2 GM/50 ML (PMX) 50 ML IVPB SCH (11:02)
[2016-03-29] MEDS: SOD CHLORIDE 0.45% 1,000 ML IV SCH (11:03)
--- NOTE | 2016-03-29 12:46 | CONS ---
DATE OF ADMISSION: 03/28/2016 DATE OF CONSULTATION: 03/29/2016 REFERRING PHYSICIAN: Fareed Robbins MD REASON FOR CONSULTATION: Dilated bile duct. HISTORY OF PRESENT ILLNESS: The patient is an 86-year-old female presented to the ER for nausea and vomiting. The patient was evaluated in the emergency room, had a CAT scan of the abdomen and pelvi s done which showed dilated biliary system. Patient also had a sonogram. She has got intact gallbl adder with dilatation of the biliary system up to 13 mm. MRCP showed multiple stones and a strictur e in the distal part of the bile duct, so GI consult was called in. Looking at the history she also had a history of gastric cancer for which she had a partial gastrectomy and this was confirmed also on CAT scan. We do not know whether patient had intact duodenal bulb or she had been a Billroth II or I surgery. This was done in 2005, almost 10 years ago. Patient had endoscopy in March 2015 a nd I do not have the report. The patient now has no nausea, no vomiting, no abdominal pain. She perdomo s chronic back pain. PAST MEDICAL HISTORY: Surgery for gastric cancer, hysterectomy, small-bowel obstruction for which s he had a surgery. Also Rojo esophagus, CVA, colon polyp, history of gastric cancer, hyperlipidem ia, hypertension and hypothyroidism. ALLERGIES: 1. INFLUENZA VIRUS. 2. HYDROMORPHONE. 3. IODINE. INJURIES: None. MEDICATIONS: All reviewed. She is also on Lovenox. SOCIAL HISTORY: Patient does not smoke or drink alcohol. FAMILY HISTORY: Nothing contributory. PHYSICAL EXAMINATION: GENERAL: Looks good for her age. CARDIOVASCULAR: No murmur, gallop or click. LUNGS: Clear. ABDOMEN: Soft, nontender, no organomegaly, no mass upper abdomen. EXTREMITIES: No edema. BATCH MAKER: Grossly within normal limits. LABORATORY DATA: WBC was 14.9 dropped down to 8.1, hematocrit also . Liver function has been totally normal. Coagulation also was normal. Urine grew E. coli. IMPRESSION: 1. 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 2. Gastric cancer for which she had surgery 10 years ago. 3. Urinary tract infection. 4. Back pain. 5. Hypertension. 6. History of Rojo's. 7. History of colon polyp. 8. Dyslipidemia. 9. Hypothyroidism. 10. Fibromyalgia. 11. History of small-bowel obstruction. 12. Hysterectomy. PLAN: At this point, is to proceed with ERCP. I do not know if the patient has altered anatomy or not. If the altered anatomy is there then technically it is going to be difficult to do ERCP depend ing upon the afferent limbs length. This I would know when I do endoscopy on the patient tomorrow. I have discussed with the daughter also, and everybody is in agreement for the procedure. Thank monico salazar. We will continue antibiotic. We will stop Lovenox tonight. Dictated By: DANIELLA COSTELLO/NTS Conf#: [id number] DID#: [id number] CC: DANIELLA SCANLON MD;*EndCC*
--- NOTE | 2016-03-29 13:46 | SP ---
DATE OF VISIT: 03/29/2016 MEDICAL PROGRESS NOTE: SUBJECTIVE: The patient denies any nausea or vomiting. No dysuria. No abdominal pain. The patient still complains of left shoulder pain greater than her back pain. OBJECTIVE: Temperature 97.0, blood pressure 141/63, pulse 55, respirations 20, oxygen saturation 97% on room air. GENERAL: Well-developed, well-nourished female in no acute distress. CHEST: Clear to auscultation bilaterally. HEART: Regular rate and rhythm without murmurs, gallops or rubs noted. ABDOMEN: Soft, nontender, nondistended, normoactive bowel sounds. LABORATORY EXAMINATION: Shows a sodium 142, potassium 4.5, chloride 106, bicarbonate 23, BUN of 15, creatinine 0.65, blood sugar of 123, AST 26, ALT of 17, alkaline phosphatase 97, total bilirubin 0.0, PT of 13, INR 0.98, PTT 39.8. ASSESSMENT AND PLAN: 1. Choledocholithiasis. The patient had abnormal MRI yesterday showing a filling defect, possible sludge versus stone within the common bile duct as well as a possible stricture. The patient will need ERCP in order to evaluate this and possibly remove the stone and place a stent. Appreciate Dr. Suh's consultation to this patient's care. This will occur tomorrow. 2. Urinary tract infection. Patient is growing Escherichia coli sensitive to antibiotics. We will change her over to oral antibiotics tomorrow after the procedure. 3. Coronary artery disease/hypertension. This is stable. Continue this patient 's medications. 4. Shoulder bursitis and osteoarthritis, stable, but persistent. We will continue with p.r.n. analgesics. 5. Hypothyroidism:stable; Continue the patient's medication. Dictated By: OLI CARR MD SR/NTS Conf#: [id number] DID#: [id number] MTDD
[2016-03-29] MEDS: ACETAMINOPHEN/CODEINE #3 TAB PO PRN (15:21)
[2016-03-29 20:24] VITALS: BP 140/94; RESP 18
[2016-03-30] VITALS (12 sets, daily range): BP systolic 137–172; BP diastolic 67–100; PULSE 76–92; RESP 16–31
[2016-03-30 05:44] LABS: INR 0.96; PROTIME 12.8 Sec (12.2-14.2)
[2016-03-30 05:45] LABS: PARTIAL THROMBOPLASTIN TIME 36.3 Sec (25.0-35.0)
[2016-03-30 05:50] LABS: POTASSIUM 4.9 mmol/L (3.5-5.1)
[2016-03-30 05:52] LABS: CREATININE 0.66 mg/dl (0.44-1.00)
[2016-03-30 05:53] LABS: CALCIUM 8.4 mg/dl (8.4-10.2)
[2016-03-30] MEDS: PANTOPRAZOLE (EC) 40 MG TAB PO SCH (06:00)
[2016-03-30] MEDS: LEVOTHYROXINE 100 MCG TAB PO SCH (06:00)
[2016-03-30] MEDS: LOSARTAN 25 MG TAB PO SCH (08:10)
[2016-03-30] MEDS: SOD CHLORIDE 0.45% 1,000 ML IV SCH (08:47)
[2016-03-30] MEDS: KETOROLAC 30 MG INJ IV PRN (10:09)
[2016-03-30] MEDS: CEFTRIAXONE 2 GM/50 ML (PMX) 50 ML IVPB SCH (11:26)
--- NOTE | 2016-03-30 14:21 | SP ---
MEDICAL PROGNESS NOTE: DATE OF VISIT: 03/30/2016 SUBJECTIVE: The patient denies nausea, vomiting or abdominal pain. Patient does have back pain and shoulder pain. OBJECTIVE: VITAL SIGNS: Temperature 98.7, blood pressure 137/76, pulse of 90, respirations 20, oxygen saturation 97% on room air. GENERAL: Well-developed, well-nourished female in no acute distress, lying in bed. Lungs clear to auscultation bilaterally. HEART: Regular rhythm, normal S1, S2. No murmurs, gallops or rub noted. ABDOMEN: Soft, nontender, nondistended, normoactive bowel sounds. EXTREMITIES: No cyanosis, clubbing or edema. LABORATORY EXAMINATION: Sodium 139, potassium 4.9, chloride 103, bicarbonate 25 , BUN of 12, creatinine 0.82, blood sugar 82, calcium 8.2. INR 0.96, PT of 12.8 , PTT of 36.3. ASSESSMENT AND PLAN: 1. Choledocholithiasis. Patient is to undergo ERCP today by Dr. Suh, it is scheduled at 6:00 p.m. We will continue the patient n.p.o. at this point. If things go well and no complications related to the procedure, patient will likely go home tomorrow. 2. Urinary tract infection. Will continue with antibiotics and ticket dispenser changer to oral antibiotics tomorrow at the time of discharge. 3. Coronary artery disease/hypertension is stable. Continue the patient's medication. 4. Back pain. Continue p.r.n. analgesics. Dictated By: OLI CARR MD, SR/JIGNA Conf#: [id number] DID#: [id number] MTDD
[2016-03-30] MEDS ORDERED: INDOMETHACIN 50 MG SUPP PR ONE (17:17)
[2016-03-30] MEDS ORDERED: IOHEXOL 300MG/ML 30 ML BTL ONE (17:17)
[2016-03-30] MEDS ORDERED: DIPHENHYDRAMINE 50 MG INJ IV PRN (17:30)
[2016-03-30] MEDS ORDERED: FENTAnyl 50 MCG/ML VIAL IV PRN (17:30)
[2016-03-30] MEDS ORDERED: ONDANSETRON 4 MG INJ IV PRN (17:30)
[2016-03-30] MEDS ORDERED: MEPERIDINE 25 MG INJ IV PRN (17:30)
[2016-03-30] MEDS ORDERED: SUCCINYLCHOLINE CHLORIDE 100 MG/5 ML SYG IV ONE (17:36)
[2016-03-30] MEDS ORDERED: LIDOCAINE 2% (SDV) 5 ML INJ ONE (17:36)
[2016-03-30] MEDS ORDERED: PROPOFOL 20 ML ONE (17:36)
[2016-03-30] MEDS ORDERED: MIDAZOLAM 1 MG/ML 2 ML INJ ONE (17:36)
[2016-03-30] MEDS ORDERED: FENTAnyl 50 MCG/ML VIAL ONE ×2 (17:36→18:52)
[2016-03-30] MEDS ORDERED: ONDANSETRON 4 MG INJ ONE (17:58)
[2016-03-30] MEDS ORDERED: LABETALOL HCL 20MG INJ ONE (18:09)
[2016-03-30] MEDS ORDERED: GLUCAGON 1 MG INJ ONE (18:28)
[2016-03-30] MEDS ORDERED: hydrALAzine 20 MG INJ ONE (19:42)
[2016-03-30] MEDS ORDERED: hydrALAzine 20 MG INJ IV PRN (20:00)
[2016-03-30] MEDS ORDERED: LABETALOL HCL 20MG INJ IV PRN (20:00)
[2016-03-31] MEDS: SOD CHLORIDE 0.45% 1,000 ML IV SCH ×2 (03:30→11:15)
--- NOTE | 2016-03-31 04:38 | GILP ---
DATE OF PROCEDURE: PROCEDURE: Endoscopic retrograde cholangiopancreatography with sphincterotomy and placement of sten t. INDICATION: The patient is an 86-year-old female who presented with nausea and vomiting. Sonogram showed dilated bile duct. MRCP confirmed the dilatation and also questionable stone in the distal p art of the bile duct. The purpose of this procedure is to evaluate the biliary system and perform t herapeutic endoscopy at the same time. The risk of the procedure, related and unrelated complicatio ns were thoroughly explained to the patient's daughter who understood, agreed, and consented for it. In view of the altered anatomy, also they were educated that the procedure may be challenging. DESCRIPTION OF PROCEDURE: The patient was brought to the OR room #3. Time-out was done. She was i ntubated by the anesthesiologist and placed in the prone position. Indocin suppository was administe red. Scope was passed with much ease into esophagus, advanced into the stomach. The patient had al most like subtotal gastrectomy, and the anastomosis was identified. ERCP scope to pass beyond that and right in front the ampulla identified. It was not clear cut that this was Billroth I or Billrot h II. I did not see the other loop. 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 Initially tried to selectively cannulate. We were not sure whether it w as in the pancreatic duct or bile duct because of the altered anatomy. We injected a little dye and realized that it was the pancreatic duct. We tried to cannulate the bile duct. It was difficult w ith a normal sphincterotome, so we changed it to the thinner sphincterotome with a guidewire of 0.02 5. We successfully cannulated the bile duct. The wire was deep inside, but the cannula would not g o due to the very tight stenosis. 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 At this point, we did a sphincterotomy, extended the biliary ductal portion of the ampulla, and by extending the sphi ncterotomy by 2 mm, we were able to go deep inside and get a proper cholangiogram. The bile duct ap peared dilated. After obtaining the cholangiogram, we extended the sphincterotomy and stent, 10-Mikhail nch 5 cm successfully deployed with good drainage. The scope was removed. The patient tolerated th e procedure very well. IMPRESSION: Successful sphincterotomy done. Stent deployed,10-Mexican 5 cm. Total fluoro time was 4 to 5 seconds. The patient had altered anatomy. Maybe it was Billroth I. PLAN: Monitor LFT and continue antibiotic, and we will keep the patient n.p.o. until the morning. Dictated By: DANIELLA COSTELLO/NTS Conf#: [id number] DID#: [id number] CC: OLI CARR MD;*End*
[2016-03-31] MEDS: PANTOPRAZOLE (EC) 40 MG TAB PO SCH (05:51)
[2016-03-31] MEDS: LEVOTHYROXINE 100 MCG TAB PO SCH (05:51)
[2016-03-31 07:58] VITALS: BP 167/78; RESP 20
[2016-03-31] MEDS: LOSARTAN 25 MG TAB PO SCH (09:24)
--- NOTE | 2016-03-31 09:30 | RADRPT ---
PROCEDURE: ERCP. CLINICAL INDICATION: Stent placement. TECHNIQUE: AP views in surgery of the right upper quadrant of the abdomen. Radiology: Exposure dose or time reported for procedure using fluoroscopy. 1.86 mGy: The exposure time 15 seconds and 24 fluoroscopic images. COMPARISON: No. FINDINGS: The endoscope was then right upper quadrant with contrast injected into the common bile duct and sharon n pancreatic duct. There is a filling defect in the proximal common bile duct suspicious for a fantasma ined stone. A second 3 mm filling defect is present in the left hepatic ducts suspicious for a fantasma ined stone. There is subsequent placement of a biliary stent in the right upper quadrant with contr ast leaving the biliary system and faintly seen in the area of the duodenum. IMPRESSION: 1. 2 filling defects were identified as described above suspicious for retained stones with subsequ ent placement of a biliary stent in the common bile duct which appears well positioned. RPTAT:AAJJ Physician Iker Date Time Electronically viewed and signed by Physician Iker on 03/31/2016 09:29 RED/
[2016-03-31] MEDS: CEFTRIAXONE 2 GM/50 ML (PMX) 50 ML IVPB SCH (12:53)
[2016-03-31] MEDS ORDERED: ALBUTEROL 0.083% (NEB) 2.5 MG/3 ML AMP HHN PRN (14:30)
[2016-03-31] MEDS ORDERED: TRIMETHOPRIM/SULFAMETHOX (DS) TAB PO SCH (14:30)
--- NOTE | 2016-03-31 14:50 | SP ---
DATE OF VISIT: 03/31/2016 MEDICAL PROGRESS NOTE SUBJECTIVE: The patient complains of cough, weakness, lack of appetite, chest congestion, mild abdominal pain, and ongoing shoulder and back pain. OBJECTIVE: VITAL SIGNS: Temperature 99.4, respirations 20, pulse 89, blood pressure 167/78 , oxygen saturation 96% on room air. GENERAL: Well-developed, thin female, in no acute distress. Ill-appearing, lying in bed. HEENT: Oropharynx with mild posterior pharyngeal erythema. No exudate. CHEST: Bilateral coarse rhonchi. CARDIOVASCULAR: Regular rate and rhythm. ABDOMEN: Soft. Mild right upper quadrant tenderness. Normal active bowel sounds, nondistended, soft. NEUROLOGIC: Alert and oriented x1, is confused. ASSESSMENT AND PLAN 1. Fever, cough, altered mental status. This is new. Patient with a probable upper respiratory infection, possibly viral versus bacterial. The patient has a fever and congestion, as well as altered mental status. Will hold the discharge today. Will do a chest x-ray, CBC, start Bactrim double strength b.i.d. and revaluate tomorrow regarding discharge. 2. Choledocholithiasis. Status post endoscopic retrograde cholangiopancreatography and sphincterotomy. The patient remains stable, without symptoms. The patient has a poor appetite, likely related to #1. Will continue to monitor and check a comprehensive metabolic panel to follow up. 3. Urinary tract infection. Will place the patient on Bactrim which will cover both the lungs, as well as the urine. Will discontinue the ceftriaxone. 4. Coronary artery disease/hypertension. Stable. Continue the patient's medications. 5. Back pain and compression fracture. This is stable. Continue the pain medications, analgesics, and bed rest for now. Dictated By: OLI CARR MD SR/JIGNA Conf#: [id number] DID#: [id number] MTDD
--- NOTE | 2016-03-31 14:59 | CONS ---
Date/Time of Note Date/Time of Note DATE: 03/31/16 TIME: 14:57 Assessment/Plan Assessment/Plan Additional Assessment/Plan MPRESSION: 1. 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 2. Gastric cancer for which she had surgery 10 years ago. 3. Urinary tract infection. 4. Back pain. 5. Hypertension. 6. History of Rojo's. 7. History of colon polyp. 8. Dyslipidemia. 9. Hypothyroidism. 10. Fibromyalgia. 11. History of small-bowel obstruction. 12. Hysterectomy. 13 s/p sphincterotomy and placement of stent Plan advance diet repeat ERCP after 3 months and will remove stones,by that tome ampullary opening will be larger. pt.had severe papillary stenosis Consultation Date/Type/Reason Admit Date/Time Mar 28, 2016 at 19:13 Initial Consult Date Type of Consultation: GI 24 HR Interval Summary Constitutional: improved, no complaints Exam/Review of Systems Vital Signs Vitals Vital Signs Date Time Temp Pulse Resp B/P Pulse Ox O2 Delivery O2 Flow Rate FiO2 03/31/16 13:00 99.2 03/31/16 07:58 89 20 167/78 96 03/30/16 19:59 Room Air 03/30/16 19:23 8.0 Intake and Output 03/30/16 03/30/16 03/31/16 15:00 23:00 07:00 Intake Total 150 ml 450 ml Output Total 1025 ml Balance 150 ml -575 ml Exam Constitutional: alert, oriented, well developed Psych: nl mood/affect, no complaints Head: atraumatic, normocephalic Eyes: EOMI, PERRL, nl conjunctiva, nl lids, nl sclera ENMT: nl external ears & nose, nl lips & teeth, nl nasal mucosa & septum Neck: non-tender, supple Respiratory: clear to auscultation, normal air movement Cardiovascular: nl pulses, regular rate and rhythm Gastrointestinal: nl liver, spleen, non-tender, soft Musculoskeletal: nl extremities to inspection, nl gait and stance Extremities: normal pulses Neurological: PATHOLOGICAL TECHNICIAN II-XII intact, nl mental status, nl speech, nl strength Skin: nl turgor, No rash or lesions Lymph: nl lymph nodes Results Result Diagram: 03/28/16 0450 03/30/16 0453 Medications Medications Current Medications Morphine Sulfate 2 mg 2 mg Q4H PRN IM pain; Start 03/26/16 at 23:30 Sodium Chloride (1/2 NS) 1,000 ml @ 50 mls/hr Q20H IV Last administered on 11:15; Admin Dose 50 MLS/HR; Start 03/26/16 at 23:30 Clonidine (Catapres) 0.1 mg TID PRN PO sbp>170; Start 03/26/16 at 23:30 Cyclobenzaprine HCl (Flexeril) 2.5 mg Q4H PRN PO MUSCLE SPASM Last administered on 03/29/16 05:42; Admin Dose 2.5 MG; Start 03/27/16 at 01:30 Losartan Potassium (Cozaar) 25 mg DAILY PO Last administered on 03/31/16 09:24 ; Admin Dose 25 MG; Start 03/27/16 at 09:00 Levothyroxine Sodium (Synthroid) 100 mcg DAILY@06 PO Last administered on 05:43; Admin Dose 100 MCG; Start 03/27/16 at 06:00 Acetaminophen (Tylenol Tab) 500 mg Q6H PRN PO PAIN AND OR ELEVATED TEMP Last administered on 03/29/16 05:42; Admin Dose 500 MG; Start 03/27/16 at 01:30 Pantoprazole (Protonix Tab) 40 mg DAILY@06 PO Last administered on 03/29/16 05: 43; Admin Dose 40 MG; Start 03/28/16 at 06:00 Acetaminophen/ Codeine Phosphate (Tylenol No.3) 1 tab Q4H PRN PO PAIN Last administered on 03/29/16 15:21; Admin Dose 1 TAB; Start 03/27/16 at 20:00 Magnesium Hydroxide (Milk Of Mag) 30 ml DAILY PRN PO CONSTIPATION Last administered on 03/28/16 22:05; Admin Dose 30 ML; Start 03/28/16 at 19:30 Docusate Sodium 200 mg 200 mg DAILY PRN PO CONSTIPATION Last administered on 11:03; Admin Dose 200 MG; Start 03/29/16 at 07:00 Levofloxacin/ Dextrose (Levaquin 250 Mg/ D5W 50 ml (Pmx)) 50 ml @ 50 mls/hr Q24H IVPB ; Start 03/31/16 at 16:00 Ketorolac Tromethamine (Toradol) 15 mg Q6H PRN IV PAIN; Start 03/31/16 at 15:00 ; Stop 04/03/16 at 14:59 DANIELLA SCANLON MD Mar 31, 2016 14:59
[2016-03-31] MEDS: KETOROLAC 15 MG INJ IV PRN ×2 (15:00→21:36)
[2016-03-31 15:21] LABS: ADD SCAN DIFF NO
[2016-03-31 15:43] LABS: ALBUMIN 3.5 g/dl (3.3-4.9); POTASSIUM 4.6 mmol/L (3.5-5.1)
[2016-03-31 15:46] LABS: ALBUMIN/GLOBULIN RATIO 1.02; CALCIUM 7.6 mg/dl (8.4-10.2); CREATININE 0.63 mg/dl (0.44-1.00); TOTAL PROTEIN 6.9 g/dl (6.1-8.1)
[2016-03-31 15:50] LABS: BASOPHILS % 0.1 % (0.0-2.0); EOSINOPHILS % 0.1 % (0.0-7.0); HEMATOCRIT 36.3 % (37.0-47.0); HEMOGLOBIN 11.8 g/dl (12.0-16.0); LYMPHOCYTES # 0.8 10^3/ul (0.8-2.9); MEAN CORPUSCULAR HEMOGLOBIN 29.7 pg (29.0-33.0); MEAN CORPUSCULAR HGB CONC 32.5 g/dl (32.0-37.0); MEAN CORPUSCULAR VOLUME 91.4 fl (82.0-101.0); MONOCYTE # 1.5 10^3/ul (0.3-0.9); MONOCYTES % 17.1 % (0.0-11.0); NEUTROPHIL # 6.3 10^3/ul (1.6-7.5); NEUTROPHILS % 73.2 % (39.0-77.0); PLATELET COUNT 185 10^3/UL (140-415); RED BLOOD COUNT 3.97 10^6/ul (4.20-5.40); RED CELL DISTRIBUTION WIDTH 12.6 % (11.5-14.5); WHITE BLOOD COUNT 8.5 10^3/ul (4.8-10.8)
[2016-03-31] MEDS: LEVOFLOXACIN 250MG/D5W (PMX) 50 ML IVPB SCH (17:32)
--- NOTE | 2016-03-31 17:44 | RADRPT ---
PROCEDURE: XR Chest. CLINICAL INDICATION: Fever. TECHNIQUE: Single frontal view of the chest was obtained COMPARISON: Chest x-ray 03/14/2015 a of 01:00 p.m. FINDINGS: There are atherosclerotic calcifications in the aortic arch. There are degenerative osteophytes in the thoracic spine. The soft tissues are generous. The heart, pulmonary vasculature, lung lopez an d pleural spaces are normal. There has been no significant change when compared to the prior study. IMPRESSION: 1. There is no evidence of an acute infiltrate. 2. Atherosclerosis and aortic arch. 3. Spondylosis of the thoracic spine. RPTAT:AAJJ Physician Ikre Date Time Electronically viewed and signed by Yunior Tineo Physician on 03/31/2016 17:44 /
[2016-03-31 20:16] VITALS: BP 153/70; RESP 19
[2016-03-31 21:20] VITALS: BP 143/69; PULSE 81
[2016-04-01] MEDS: PROMETHAZINE/CODEINE 5ML CUP PO PRN ×4 (00:14→20:12)
[2016-04-01] MEDS: PANTOPRAZOLE (EC) 40 MG TAB PO SCH (06:00)
[2016-04-01] MEDS: LEVOTHYROXINE 100 MCG TAB PO SCH (06:00)
[2016-04-01] MEDS: SOD CHLORIDE 0.45% 1,000 ML IV SCH (06:07)
[2016-04-01 06:41] LABS: ADD SCAN DIFF NO
[2016-04-01 06:52] LABS: ALBUMIN 3.2 g/dl (3.3-4.9); POTASSIUM 4.3 mmol/L (3.5-5.1)
[2016-04-01 06:54] LABS: CREATININE 0.6 mg/dl (0.44-1.00)
[2016-04-01 06:55] LABS: CALCIUM 7.2 mg/dl (8.4-10.2); TOTAL PROTEIN 6.4 g/dl (6.1-8.1)
[2016-04-01 07:46] LABS: RED BLOOD COUNT 3.94 10^6/ul (4.20-5.40); WHITE BLOOD COUNT 5.4 10^3/ul (4.8-10.8)
[2016-04-01 07:47] LABS: HEMATOCRIT 35.5 % (37.0-47.0); HEMOGLOBIN 11.8 g/dl (12.0-16.0); MEAN CORPUSCULAR HGB CONC 33.3 g/dl (32.0-37.0); MEAN CORPUSCULAR VOLUME 90.1 fl (82.0-101.0); PLATELET COUNT 183 10^3/UL (140-440); RED CELL DISTRIBUTION WIDTH 13.1 % (11.5-14.5)
[2016-04-01] MEDS: KETOROLAC 15 MG INJ IV PRN ×3 (08:04→20:12)
[2016-04-01 08:20] VITALS: BP 148/78; RESP 20
[2016-04-01] MEDS: LOSARTAN 25 MG TAB PO SCH (08:20)
[2016-04-01 09:46] LABS: AMYLASE 119 U/L (11-123)
[2016-04-01] MEDS: LEVOFLOXACIN 250MG/D5W (PMX) 50 ML IVPB SCH (16:03)
[2016-04-01 20:28] VITALS: BP 137/65; RESP 20
[2016-04-02] MEDS: PROMETHAZINE/CODEINE 5ML CUP PO PRN ×4 (00:39→17:33)
[2016-04-02] MEDS: KETOROLAC 15 MG INJ IV PRN ×2 (02:42→13:09)
[2016-04-02] MEDS: SOD CHLORIDE 0.45% 1,000 ML IV SCH (02:42)
[2016-04-02] MEDS: CYCLOBENZAPRINE 10 MG TAB PO PRN (05:49)
[2016-04-02] MEDS: PANTOPRAZOLE (EC) 40 MG TAB PO SCH ×2 (05:49→05:55)
[2016-04-02] MEDS: LEVOTHYROXINE 100 MCG TAB PO SCH (05:51)
[2016-04-02 06:17] LABS: BASOPHILS % 0.2 % (0.0-2.0); EOSINOPHILS # 0.1 10^3/ul (0.0-0.5); EOSINOPHILS % 1.1 % (0.0-7.0); HEMATOCRIT 33.4 % (37.0-47.0); HEMOGLOBIN 11.5 g/dl (12.0-16.0); LYMPHOCYTES # 0.6 10^3/ul (0.8-2.9); LYMPHOCYTES % 9.5 % (15.0-51.0); MEAN CORPUSCULAR HEMOGLOBIN 30.8 pg (29.0-33.0); MEAN CORPUSCULAR HGB CONC 34.3 g/dl (32.0-37.0); MEAN CORPUSCULAR VOLUME 89.7 fl (82.0-101.0); MEAN PLATELET VOLUME 9.5 fl (7.4-10.4); MONOCYTE # 1.1 10^3/ul (0.3-0.9); NEUTROPHIL # 4.4 10^3/ul (1.6-7.5); NEUTROPHILS % 71.2 % (39.0-77.0); PLATELET COUNT 163 10^3/UL (140-440); RED BLOOD COUNT 3.73 10^6/ul (4.20-5.40); RED CELL DISTRIBUTION WIDTH 12.8 % (11.5-14.5); UNCORRECTED WBC 6.2 10^3/ul (4.8-10.8); WHITE BLOOD COUNT 6.2 10^3/ul (4.8-10.8)
[2016-04-02 06:37] LABS: CONDITION 1; LH ANALYZER COMMENTS 1
[2016-04-02 06:44] LABS: POTASSIUM 4.6 mmol/L (3.5-5.1)
[2016-04-02 06:47] LABS: CREATININE 0.64 mg/dl (0.44-1.00)
[2016-04-02 06:48] LABS: CALCIUM 7.4 mg/dl (8.4-10.2)
--- NOTE | 2016-04-02 07:10 | PN ---
DATE: 04/01/2016 The patient is feeling a little bit better, but still has moderate cough with moderate phlegm, as we ll as abdominal pain in the right upper quadrant. OBJECTIVE VITAL SIGNS: Temperature 98.4, pulse of 80, respirations 20, blood pressure 137/65, oxygen saturati on 96% on room air. GENERAL: Well developed, thin female in no acute distress. CHEST: Bilateral rhonchi with increased expiratory phase. HEART: Regular rate and rhythm. Normal S1 and S2. No gallop. ABDOMEN: Mild right upper quadrant tenderness to palpation. Normoactive bowel sounds. Soft, nonte nder, and nondistended. EXTREMITIES: With no cyanosis, clubbing, or edema. LABORATORY EXAMINATION: Sodium 133, potassium 4.3, chloride 100, bicarbonate is 22, BUN 11, creatin ine 0.6, glucose 75, amylase 119, lipase 313, albumin 3.2, total bilirubin 0.0. Urine culture was g rowing E. coli, sensitive to Levaquin. Influenza A and B are negative ASSESSMENT AND PLAN 1. Choledocholithiasis, status post endoscopic retrograde cholangiopancreatogram (ERCP), sphinctero alejandro, stent placement. The patient is doing well, except for some mild right upper quadrant pain. We will continue with advancing diet, as well as p.r.n. analgesics and antiemetics. 2. Cough, congestion. The patient with negative chest x-ray and negative influenza A and B. The p atient with moderate cough and on antibiotics at this point. We will continue with any antibiotics and p.r.n. nebulizer therapy at this time. 3. Urinary tract infection (UTI). The patient is on antibiotics and will continue with these. 4. Coronary artery disease/hypertension. Continue the patient's routine medications. Dictated By: OLI CARR MD SR/NTS Conf#: [id number] DID#: [id number]
[2016-04-02 08:22] VITALS: BP 136/80; RESP 16
[2016-04-02] MEDS: LOSARTAN 25 MG TAB PO SCH (08:52)
[2016-04-02] MEDS: LEVOFLOXACIN 250MG/D5W (PMX) 50 ML IVPB SCH (16:17)
--- NOTE | 2016-04-02 17:01 | CONS ---
Date/Time of Note Date/Time of Note DATE: 04/02/16 TIME: 17:00 Assessment/Plan Assessment/Plan Additional Assessment/Plan Additional Assessment/Plan MPRESSION: 1. 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 2. Gastric cancer for which she had surgery 10 years ago. 3. Urinary tract infection. 4. Back pain. 5. Hypertension. 6. History of Rojo's. 7. History of colon polyp. 8. Dyslipidemia. 9. Hypothyroidism. 10. Fibromyalgia. 11. History of small-bowel obstruction. 12. Hysterectomy. 13 s/p sphincterotomy and placement of stent Plan advance diet repeat ERCP after 3 months and will remove stones,by that tome ampullary opening will be larger. pt.had severe papillary stenosis pt.is stable will remove stone and stent after 3 months Consultation Date/Type/Reason Admit Date/Time Mar 28, 2016 at 19:13 Type of Consultation: GI 24 HR Interval Summary Constitutional: improved Exam/Review of Systems Vital Signs Vitals Vital Signs Date Time Temp Pulse Resp B/P Pulse Ox O2 Delivery O2 Flow Rate FiO2 04/02/16 08:22 98.7 86 16 136/80 96 03/30/16 19:59 Room Air 03/30/16 19:23 8.0 Intake and Output 04/01/16 04/01/16 04/02/16 15:00 23:00 07:00 Intake Total 1390 ml 1080 ml Balance 1390 ml 1080 ml Exam Constitutional: alert, oriented, well developed Psych: nl mood/affect, no complaints Head: atraumatic, normocephalic Eyes: EOMI, PERRL, nl conjunctiva, nl lids, nl sclera ENMT: nl external ears & nose, nl lips & teeth, nl nasal mucosa & septum Neck: non-tender, supple Respiratory: clear to auscultation, normal air movement Cardiovascular: nl pulses, regular rate and rhythm Gastrointestinal: nl liver, spleen, non-tender, soft Musculoskeletal: nl extremities to inspection, nl gait and stance Extremities: normal pulses Neurological: CORPORATE REPRESENTATIVE II-XII intact, nl mental status, nl speech, nl strength Skin: nl turgor, No rash or lesions Lymph: nl lymph nodes Results Result Diagram: 04/02/16 0540 04/02/16 0540 Results 24 hrs Laboratory Tests Test 04/02/16 05:40 Anion Gap 16 Basophils # 0.0 Basophils % 0.2 Blood Urea Nitrogen 13 Calcium Level 7.4 L Carbon Dioxide Level 22 Chloride Level 100 Creatinine 0.64 Eosinophils # 0.1 Eosinophils % 1.1 Glucose Level 82 Hematocrit 33.4 L Hemoglobin 11.5 L Lymphocytes # 0.6 L Lymphocytes % 9.5 L Mean Corpuscular Hemoglobin 30.8 Mean Corpuscular Hemoglobin Concent 34.3 Mean Corpuscular Volume 89.7 Mean Platelet Volume 9.5 Monocytes # 1.1 H Monocytes % 18.0 H Neutrophils # 4.4 Neutrophils % 71.2 Nucleated Red Blood Cells # 0.0 Nucleated Red Blood Cells % 0.0 Platelet Count 163 Potassium Level 4.6 Red Blood Count 3.73 L Red Cell Distribution Width 12.8 Sodium Level 133 L White Blood Count 6.2 Medications Medications Current Medications Morphine Sulfate 2 mg 2 mg Q4H PRN IM pain; Start 03/26/16 at 23:30 Sodium Chloride (1/2 NS) 1,000 ml @ 50 mls/hr Q20H IV Last administered on 02:42; Admin Dose 50 MLS/HR; Start 03/26/16 at 23:30 Clonidine (Catapres) 0.1 mg TID PRN PO sbp>170; Start 03/26/16 at 23:30 Cyclobenzaprine HCl (Flexeril) 2.5 mg Q4H PRN PO MUSCLE SPASM Last administered on 03/29/16 05:42; Admin Dose 2.5 MG; Start 03/27/16 at 01:30 Losartan Potassium (Cozaar) 25 mg DAILY PO Last administered on 04/02/16 08:52 ; Admin Dose 25 MG; Start 03/27/16 at 09:00 Levothyroxine Sodium (Synthroid) 100 mcg DAILY@06 PO Last administered on 05:51; Admin Dose 100 MCG; Start 03/27/16 at 06:00 Acetaminophen (Tylenol Tab) 500 mg Q6H PRN PO PAIN AND OR ELEVATED TEMP Last administered on 03/29/16 05:42; Admin Dose 500 MG; Start 03/27/16 at 01:30 Pantoprazole (Protonix Tab) 40 mg DAILY@06 PO Last administered on 04/01/16 06 :00; Admin Dose 40 MG; Start 03/28/16 at 06:00 Acetaminophen/ Codeine Phosphate (Tylenol No.3) 1 tab Q4H PRN PO PAIN Last administered on 03/29/16 15:21; Admin Dose 1 TAB; Start 03/27/16 at 20:00 Magnesium Hydroxide (Milk Of Mag) 30 ml DAILY PRN PO CONSTIPATION Last administered on 03/28/16 22:05; Admin Dose 30 ML; Start 03/28/16 at 19:30 Docusate Sodium 200 mg 200 mg DAILY PRN PO CONSTIPATION Last administered on 11:03; Admin Dose 200 MG; Start 03/29/16 at 07:00 Levofloxacin/ Dextrose (Levaquin 250 Mg/ D5W 50 ml (Pmx)) 50 ml @ 50 mls/hr Q24H IVPB Last administered on 04/02/16 16:17; Admin Dose 50 MLS/HR; Start 12/05 at 16:00 Ketorolac Tromethamine (Toradol) 15 mg Q6H PRN IV PAIN Last administered on 13:09; Admin Dose 15 MG; Start 03/31/16 at 15:00; Stop 04/03/16 at 14:59 Promethazine HCl/ Codeine (Phenergan/ Codeine) 5 ml Q4H PRN PO COUGH Last administered on 04/02/16 11:28; Admin Dose 5 ML; Start 03/31/16 at 21:30 DANIELLA SCANLON MD Apr 02, 2016 17:01
--- NOTE | 2016-04-02 19:05 | CONS ---
DATE OF ADMISSION: 03/28/2016 DATE OF CONSULTATION: 04/01/2016 HISTORY OF PRESENT ILLNESS: An 86-year-old female was seen by me yesterday in the morning. She was complaining of diffuse sternal pain, but no nausea, no vomiting, no chest pain, no shortness of chandler ath. OBJECTIVE: VITAL SIGNS: Stable. ABDOMEN: Benign. CARDIOVASCULAR AND CENTRAL NERVOUS SYSTEM: Grossly within normal limits. LABORATORY DATA: CBC was stable. CMP was stable. LFTs all within normal limits. Amylase, lipase, and those were within normal limits. IMPRESSION: 1. Status post sphincterotomy with the placement of stent. 2. Urinary tract infection. 3. Epigastric discomfort for most probably related to her position while during the ERCP, so it is muscular in origin. PLAN: To control the pain. Advance the diet as tolerated by the patient. Dictated By: DANIELLA COSTELLO/NTS Conf#: [id number] DID#: [id number] CC: DANIELLA SCANLON MD; RAUL SANCHEZ MD;*EndCC*
[2016-04-02 20:00] VITALS: BP 138/79; PULSE 87; RESP 17
[2016-04-02 20:37] VITALS: BP 138/79; RESP 17
[2016-04-03] MEDS: PROMETHAZINE/CODEINE 5ML CUP PO PRN ×3 (00:59→11:11)
[2016-04-03] MEDS: KETOROLAC 15 MG INJ IV PRN ×2 (01:00→09:49)
[2016-04-03] MEDS: SOD CHLORIDE 0.45% 1,000 ML IV SCH (01:01)
--- NOTE | 2016-04-03 02:25 | SP ---
MEDICAL PROGRESS NOTE: DATE OF VISIT: 04/02/2016 SUBJECTIVE: The patient is feeling better, has less cough, less abdominal pain , no nausea or vomiting. No dysuria. OBJECTIVE: VITAL SIGNS: Temperature 98.4, pulse 87, respirations 17, blood pressure 138/79 , oxygen saturation 97% on room air. GENERAL: Well-developed, thin female in no acute distress. CHEST: Scant bilateral rhonchi. CARDIOVASCULAR: Regular rate and rhythm. No murmurs, gallops or rubs noted. ABDOMEN: Mild right upper quadrant tenderness to deep palpation, otherwise soft , nondistended, normoactive bowel sounds. No masses noted. EXTREMITIES: No cyanosis, clubbing or edema. LABORATORY EXAMINATION: White blood cell count is 6.2, hemoglobin 11.5, hematocrit 33.4, platelets 163. Sodium 133, potassium 4.6, bicarbonate 22, chloride 100, BUN of 13, creatinine 0.64, blood sugar of 82. ASSESSMENT AND PLAN 1. Choledocholithiasis, status post endoscopic retrograde cholangiopancreatography and sphincterotomy. The patient is improved and having less abdominal pain and tolerating diet. Will advance diet and continue to give p.r.n. analgesics. 2. Urinary tract infection. The patient remains stable on antibiotics and will change management consultant to oral antibiotics tomorrow. 3. Cough, congestion. This is improved and likely represents bronchitis. Continue with antibiotics and discharge the patient home on oral antibiotics. 4. Coronary artery disease/hypertension. This remains stable. Continue the patient's routine medications. 5. Shoulder bursitis and compression fracture of the back and lumbar radiculitis. This remains stable. The patient continues to receive p.r.n. analgesics and will have patient get PT, OT possibly after discharge. Dictated By: OLI CARR MD SR/NTS Conf#: [id number] DID#: [id number] MTDD
[2016-04-03 06:01] LABS: HEMATOCRIT 34.2 % (37.0-47.0); HEMOGLOBIN 11.7 g/dl (12.0-16.0); MEAN CORPUSCULAR HEMOGLOBIN 30.5 pg (29.0-33.0); MEAN CORPUSCULAR HGB CONC 34.2 g/dl (32.0-37.0); MEAN CORPUSCULAR VOLUME 89.1 fl (82.0-101.0); MEAN PLATELET VOLUME 10.1 fl (7.4-10.4); PLATELET COUNT 166 10^3/UL (140-440); RED BLOOD COUNT 3.84 10^6/ul (4.20-5.40); RED CELL DISTRIBUTION WIDTH 12.8 % (11.5-14.5); UNCORRECTED WBC 5.3 10^3/ul (4.8-10.8); WHITE BLOOD COUNT 5.3 10^3/ul (4.8-10.8)
[2016-04-03] MEDS: PANTOPRAZOLE (EC) 40 MG TAB PO SCH (06:01)
[2016-04-03] MEDS: LEVOTHYROXINE 100 MCG TAB PO SCH (06:01)
[2016-04-03 06:15] LABS: CONDITION 1; LH ANALYZER COMMENTS 1; SUSPECT 1
[2016-04-03 06:21] LABS: ALBUMIN 2.9 g/dl (3.3-4.9); POTASSIUM 4.6 mmol/L (3.5-5.1)
[2016-04-03 06:24] LABS: ALBUMIN/GLOBULIN RATIO 0.93; CALCIUM 7.5 mg/dl (8.4-10.2); CREATININE 0.66 mg/dl (0.44-1.00)
[2016-04-03 08:25] VITALS: BP 132/63; RESP 16
[2016-04-03] MEDS: LOSARTAN 25 MG TAB PO SCH (09:49)
[2016-04-03] MEDS: MAGNESIUM HYDROXIDE 30ML CUP PO PRN (11:11)
--- NOTE | 2016-04-03 12:41 | PDOCDIS ---
Discharge Instructions DIAGNOSIS Discharge Diagnosis: 1.UTI 2.CHOLEDOCHLITHIASIS 3.BRONCHITIS CONDITION Patient Condition: Good HOME CARE INSTRUCTIONS: Diet Instructions: Low Fat /Cholesterol ACTIVITY: Activity Restrictions: No Restrictions FOLLOW UP/APPOINTMENTS Appointments follow up with Dr. Robbins within the next 2wks; call for appt OLI ROBBINS MD- Apr 03, 2016 12:41
[2016-04-03 12:42] LABS: EOSINOPHILS # 0.2 10^3/ul (0.0-0.5); LYMPHOCYTES # 0.8 10^3/ul (0.8-2.9); MONOCYTE # 0.9 10^3/ul (0.3-0.9); NEUTROPHIL # 3.4 10^3/ul (1.6-7.5)
[2016-04-03] MEDS: ACETAMINOPHEN/CODEINE #3 TAB PO PRN (13:53)
[2016-04-03] MEDS: LEVOFLOXACIN 250MG/D5W (PMX) 50 ML IVPB SCH (17:00)
--- NOTE | 2016-04-03 17:04 | SP ---
DATE OF PROCEDURE: 04/03/2016 SUBJECTIVE: The patient is feeling better, has less cough, less abdominal pain. OBJECTIVE: VITAL SIGNS: Temperature 98.3, pulse of 72, respirations 16, blood pressure 132/63, oxygen saturati on 97% room air. GENERAL: Well-developed, thin female in no acute distress, lying in bed. CHEST: Scant bilateral rhonchi that decreases with cough. Otherwise, clear. HEART: Regular rate and rhythm, normal S1, S2. No murmurs, gallops or rubs noted. ABDOMEN: Soft, nondistended, normoactive bowel sounds. No hepatosplenomegaly. ASSESSMENT AND PLAN: 1. Choledocholithiasis, status post endoscopic retrograde cholangiopancreatography with sphincterot kristyn, stone removal and stent placement. The patient remained stable, tolerating diet with no abdomi nal pain, nausea, vomiting. Patient is stable for discharge. 2. Bronchitis, stable. Continue patient on antibiotics. 3. Urinary tract infection, remains stable. The patient will be able to be discharged on p.o. Leva jessy 250 mg daily for 7 days. 4. Coronary disease/hypertension. She remains stable and continue patient's routine medications. 5. Shoulder bursitis and compression fracture of the vertebra and lumbar radiculitis. These are st able, but persistent. We will continue with p.r.n. analgesics. 6. Discharge plan: The patient is stable for discharge to home. Patient will follow up with Dr. Barb booker as scheduled. Dictated By: OLI CARR MD, SR/JIGNA Conf#: [id number] DID#: [id number]
--- NOTE | 2016-04-03 19:21 | CONS ---
Date/Time of Note Date/Time of Note DATE: 04/03/16 TIME: 19:13 Assessment/Plan Assessment/Plan Additional Assessment/Plan IMPRESSION: 1. Status post sphincterotomy with the placement of stent. 2. Urinary tract infection. 3. Epigastric discomfort for most probably related to her position while during the ERCP, so it is muscular in origin. Plan stable advance diet Consultation Date/Type/Reason Admit Date/Time Mar 28, 2016 at 19:13 Type of Consultation: GI 24 HR Interval Summary Constitutional: improved Exam/Review of Systems Vital Signs Vitals Vital Signs Date Time Temp Pulse Resp B/P Pulse Ox O2 Delivery O2 Flow Rate FiO2 04/03/16 08:25 98.3 72 16 132/63 97 04/02/16 20:00 Room Air 03/30/16 19:23 8.0 Intake and Output 04/02/16 04/02/16 04/03/16 15:00 23:00 07:00 Intake Total 1160 ml 860 ml Output Total 1200 ml Balance -40 ml 860 ml Exam Constitutional: alert, oriented, well developed Psych: nl mood/affect, no complaints Head: atraumatic, normocephalic Eyes: EOMI, PERRL, nl conjunctiva, nl lids, nl sclera ENMT: nl external ears & nose, nl lips & teeth, nl nasal mucosa & septum Neck: non-tender, supple Respiratory: clear to auscultation, normal air movement Cardiovascular: nl pulses, regular rate and rhythm Gastrointestinal: nl liver, spleen, non-tender, soft Musculoskeletal: nl extremities to inspection, nl gait and stance Extremities: normal pulses Neurological: GRIEVANCE AND APPEALS COORDINATOR II-XII intact, nl mental status, nl speech, nl strength Skin: nl turgor, No rash or lesions Lymph: nl lymph nodes Results Result Diagram: 04/03/1652104/03/16521 Results 24 hrs Laboratory Tests Test 04/03/16 05:22 Alanine Aminotransferase (ALT/SGPT) 21 Albumin 2.9 L Albumin/Globulin Ratio 0.93 Alkaline Phosphatase 73 Anion Gap 16 Aspartate Amino Transf (AST/SGOT) 28 Basophils # Basophils % Blood Urea Nitrogen 13 Calcium Level 7.5 L Carbon Dioxide Level 22 Chloride Level 101 Creatinine 0.66 Direct Bilirubin 0.00 Eosinophils # 0.2 Eosinophils % 3.0 Globulin 3.10 Glucose Level 81 Hematocrit 34.2 L Hemoglobin 11.7 L Indirect Bilirubin 0.0 Lymphocytes # 0.8 Lymphocytes % 15.0 Magnesium Level 2.0 Mean Corpuscular Hemoglobin 30.5 Mean Corpuscular Hemoglobin Concent 34.2 Mean Corpuscular Volume 89.1 Mean Platelet Volume 10.1 Monocytes # 0.9 Monocytes % 17.0 H Neutrophils # 3.4 Neutrophils % 64.0 Nucleated Red Blood Cells # Nucleated Red Blood Cells % 0.0 Platelet Count 166 Potassium Level 4.6 Red Blood Count 3.84 L Red Cell Distribution Width 12.8 Sodium Level 134 L Total Bilirubin 0.0 L Total Protein 6.0 L White Blood Count 5.3 Medications Medications Current Medications Morphine Sulfate 2 mg 2 mg Q4H PRN IM pain; Start 03/26/16 at 23:30 Sodium Chloride (1/2 NS) 1,000 ml @ 50 mls/hr Q20H IV Last administered on 01:01; Admin Dose 50 MLS/HR; Start 03/26/16 at 23:30 Clonidine (Catapres) 0.1 mg TID PRN PO sbp>170; Start 03/26/16 at 23:30 Cyclobenzaprine HCl (Flexeril) 2.5 mg Q4H PRN PO MUSCLE SPASM Last administered on 03/29/16 05:42; Admin Dose 2.5 MG; Start 03/27/16 at 01:30 Losartan Potassium (Cozaar) 25 mg DAILY PO Last administered on 04/03/16 09:49 ; Admin Dose 25 MG; Start 03/27/16 at 09:00 Levothyroxine Sodium (Synthroid) 100 mcg DAILY@06 PO Last administered on 06:01; Admin Dose 100 MCG; Start 03/27/16 at 06:00 Acetaminophen (Tylenol Tab) 500 mg Q6H PRN PO PAIN AND OR ELEVATED TEMP Last administered on 03/29/16 05:42; Admin Dose 500 MG; Start 03/27/16 at 01:30 Pantoprazole (Protonix Tab) 40 mg DAILY@06 PO Last administered on 04/03/16 06 :01; Admin Dose 40 MG; Start 03/28/16 at 06:00 Acetaminophen/ Codeine Phosphate (Tylenol No.3) 1 tab Q4H PRN PO PAIN Last administered on 04/03/16 13:53; Admin Dose 1 TAB; Start 03/27/16 at 20:00 Magnesium Hydroxide (Milk Of Mag) 30 ml DAILY PRN PO CONSTIPATION Last administered on 04/03/16 11:11; Admin Dose 30 ML; Start 03/28/16 at 19:30 Docusate Sodium 200 mg 200 mg DAILY PRN PO CONSTIPATION Last administered on 11:03; Admin Dose 200 MG; Start 03/29/16 at 07:00 Levofloxacin/ Dextrose (Levaquin 250 Mg/ D5W 50 ml (Pmx)) 50 ml @ 50 mls/hr Q24H IVPB Last administered on 04/03/16 17:00; Admin Dose 50 MLS/HR; Start 12/05 at 16:00 Promethazine HCl/ Codeine (Phenergan/ Codeine) 5 ml Q4H PRN PO COUGH Last administered on 04/03/16 11:11; Admin Dose 5 ML; Start 03/31/16 at 21:30 DANIELLA SCANLON MD Apr 03, 2016 19:21
== END 2016-04-03 19:57 | disposition home or self-care (01) | DRG 445 ==
LOC: E/R 12:27 → PP2 20:57 → OBSVTOIN 03-28 19:13 → PP2 04-03 15:57
PROVIDERS: ADMIT Internal Medicine; ATTEND Internal Medicine
PROC: 0FJB8ZZ Inspection of Hepatobiliary Duct, Via Natural or Artificial Opening Endoscopic (ICD-10-PCS; 2016-03-30)
PROC: 0F798ZZ Dilation of Common Bile Duct, Via Natural or Artificial Opening Endoscopic (ICD-10-PCS; principal; 2016-03-30 18:00)
DX: K80.50 Calculus of bile duct without cholangitis or cholecystitis without obstruction (principal); N39.0 Urinary tract infection, site not specified; I25.10 Atherosclerotic heart disease of native coronary artery without angina pectoris; I10 Essential (primary) hypertension; E03.9 Hypothyroidism, unspecified; M47.896 Other spondylosis, lumbar region; E78.5 Hyperlipidemia, unspecified; Z90.3 Acquired absence of stomach [part of]; Z85.028 Personal history of other malignant neoplasm of stomach; R05 Cough
CPT/HCPCS: 36415; 71010; 74176; 74181; 74330; 76705; 80048; 80053; 81001; 81003; 82150; 83605; 83690; 83735; 85025; 85610; 85730; 87086; 87400; 96374; 96375; 99217; G0378; A4310; C2617; C9113; J0330; J0360; J0696; J1200; J1610; J1650; J1885; J1956; J2250; J2270; J2405; J2765; J3010; J7030; Q9967

== ENCOUNTER 2016-05-16 22:59 | Emergency (ER) | payer MEDICARE, OTHER ==
[~2016-05-16] VITALS: Ht 149.9 cm; Wt 45.5 kg
[~2016-05-16 22:59] MED LIST changes: -BENZ-5 PO; -DICL1ADH6 TD; -IBUP-1542 PO; -NAPR-688 PO
[2016-05-16 23:17] VITALS: Ht 149.9 cm; Wt 45.5 kg
[2016-05-16] MEDS ORDERED: ONDANSETRON 4 MG INJ IV STA (23:52)
[2016-05-16] MEDS ORDERED: DICLOFENAC SODIUM 37.5 MG/ML VIAL IV STA (23:52)
[2016-05-16] MEDS ORDERED: SOD CHLORIDE 0.9% 500 ML IV STA (23:52)
[2016-05-17 00:40] LABS: ADD SCAN DIFF NO
[2016-05-17 00:53] LABS: BASOPHILS % 0.4 % (0.0-2.0); EOSINOPHILS % 0.3 % (0.0-7.0); HEMATOCRIT 34.9 % (37.0-47.0); HEMOGLOBIN 11.3 g/dl (12.0-16.0); LYMPHOCYTES # 1.4 10^3/ul (0.8-2.9); LYMPHOCYTES % 12.3 % (15.0-51.0); MEAN CORPUSCULAR HEMOGLOBIN 29.5 pg (29.0-33.0); MEAN CORPUSCULAR HGB CONC 32.4 g/dl (32.0-37.0); MEAN CORPUSCULAR VOLUME 91.1 fl (82.0-101.0); MEAN PLATELET VOLUME 11.5 fl (7.4-10.4); MONOCYTE # 1.1 10^3/ul (0.3-0.9); MONOCYTES % 9.8 % (0.0-11.0); NEUTROPHIL # 8.6 10^3/ul (1.6-7.5); NEUTROPHILS % 76.8 % (39.0-77.0); PLATELET COUNT 231 10^3/UL (140-415); RED BLOOD COUNT 3.83 10^6/ul (4.20-5.40); RED CELL DISTRIBUTION WIDTH 13.4 % (11.5-14.5); WHITE BLOOD COUNT 11.1 10^3/ul (4.8-10.8)
[2016-05-17 00:57] LABS: ADD UMIC NO; URINE BILIRUBIN (Dip) NEGATIVE (NEGATIVE); URINE BLOOD (Dip) NEGATIVE (NEGATIVE); URINE COLOR LT. YELLOW (YELLOW); URINE GLUCOSE (Dip) NEGATIVE (NEGATIVE); URINE KETONES (Dip) NEGATIVE (NEGATIVE); URINE LEUKOCYTE ESTERASE (Dip) NEGATIVE (NEGATIVE); URINE NITRITE (Dip) NEGATIVE (NEGATIVE); URINE TOTAL PROTEIN (Dip) NEGATIVE (NEGATIVE); URINE UROBILINOGEN (Dip) 0.2 E.U./dL (0.1-1.0)
[2016-05-17 01:00] LABS: ALBUMIN 4.1 g/dl (3.3-4.9)
[2016-05-17 01:01] LABS: POTASSIUM 4.5 mmol/L (3.5-5.1)
[2016-05-17 01:03] LABS: ALBUMIN/GLOBULIN RATIO 1.02; BILIRUBIN,INDIRECT 0.1 mg/dl (0-1.1); BILIRUBIN,TOTAL 0.1 mg/dl (0.2-1.3); CREATININE 0.89 mg/dl (0.44-1.00); TOTAL PROTEIN 8.1 g/dl (6.1-8.1)
[2016-05-17 01:04] LABS: CALCIUM 9.1 mg/dl (8.4-10.2)
--- NOTE | 2016-05-17 01:48 | ERD ---
ER Documentation Chief Complaint Date/Time DATE: 05/17/16 TIME: 01:46 Chief Complaint Pt c/o back pain and vomiting today HPI This is an 86-year-old female who is brought in for low back pain. Patient states she has been vomiting because s back hurts so much. Patient has history of metastatic cancer. No numbness no tingling. Pain radiates down the right leg. Patient does have history of sciatica and this does fit her sciatic nerve pain pattern. Pain is mild to moderate ROS All systems reviewed and are negative except as per history of present illness. Medications Home Meds Active Scripts Methocarbamol* (Robaxin*) 500 Mg Tab, 500 MG PO Q8, #14 TAB Prov:YANETH RAY DO 03/26/16 Magnesium Citrate* (Magnesium Citrate*) 296 Ml Solution, 296 ML PO ONCE, #1 BOTTLE Prov:YANETH RAY DO 03/26/16 Polyethylene Glycol* (Miralax*) 17 Gm Powd.pack, 17 GM PO DAILY, #7 Prov:CORYYANETH DO 03/26/16 Reported Medications Hydrocodone Bit-Acetaminophen (Hydrocodone Bit-APAP) 5-325MG Tablet, 1 TAB PO Q6H Y for PAIN, TAB 03/25/16 Diclofenac Sodium* (Voltaren* Gel) 1% -100 Gm Gel, 2 GM TOP TID, #1 TUB 03/25/16 Magnesium Oxide (Magnesium) 250 Mg Tablet, 250 MG PO DAILY, TAB 03/25/16 Cholecalciferol* (Vitamin D3*) 1,000 Unit Tablet, 1000 UNIT PO DAILY, TAB 03/25/16 Acetaminophen with Codeine (Acetaminophen-Cod #3 Tablet) 1 Each Tablet, 1 TAB PO Q4 Y for PRN, #20 TAB 03/25/16 Cyclobenzaprine Hcl* (Cyclobenzaprine Hcl*) 5 Mg Tablet, 2.5 MG PO Q4H Y for PRN , #60 TAB 03/25/16 Folic Acid* (Folic Acid*) 1 Mg Tablet, 1 MG PO DAILY, TAB 03/20/14 Levothyroxine Sodium* (Levothyroxine Sodium*) 100 Mcg Tablet, 100 MCG PO DAILY, TAB 03/20/14 Losartan Potassium* (Losartan Potassium*) 25 Mg Tablet, 25 MG PO DAILY, TAB 10/17/13 Esomeprazole Mag Trihydrate (Nexium) 40 Mg Capsule.dr, 40 MG PO DAILY 08/21/11 Fenofibrate Nanocrystallized* (Tricor*) 145 Mg Tablet, 145 MG PO DAILY 08/21/11 Allergies Allergies: Coded Allergies: hydromorphone (Verified Allergy, Intermediate, 03/27/16) Influenza Virus Vaccines (Verified Allergy, Mild, 03/26/16) iodine (Verified Adverse Reaction, Mild, DIFFICULTY OF BREATHING, 03/26/16) PMhx/Soc Anesthesia Reaction: No Hx Neurological Disorder: Yes (SCIATICA, PINCHED NERVE BELOW L4, STROKE 35 YRS AGO) Hx Respiratory Disorders: No Hx Cardiac Disorders: Yes (HTN, 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 Neck: Full range of motion..~ No meningismus. Resp: Clear to auscultation bilaterally Cardio: Regular rate and rhythm, no murmurs Abd: Soft, non tender, non distended. Normal bowel sounds Skin: No petechiae or rashes Back: No midline or flank tenderness Ext: No cyanosis, or edema Neur: Awake and alert Psych: Normal Mood and Affect Result Diagram: 05/17/16 0010 05/17/16 0010 Results 24 hrs Laboratory Tests Test 05/17/16 00:10 White Blood Count 11.110^3/ul Red Blood Count 3.8310^6/ul Hemoglobin 11.3g/dl Hematocrit 34.9% Mean Corpuscular Volume 91.1fl Mean Corpuscular Hemoglobin 29.5pg Mean Corpuscular Hemoglobin Concent 32.4g/dl Red Cell Distribution Width 13.4% Platelet Count 84956^3/UL Mean Platelet Volume 11.5fl Neutrophils % 76.8% Lymphocytes % 12.3% Monocytes % 9.8% Eosinophils % 0.3% Basophils % 0.4% Nucleated Red Blood Cells % 0.0/100WBC Neutrophils # 8.610^3/ul Lymphocytes # 1.410^3/ul Monocytes # 1.110^3/ul Eosinophils # 0.010^3/ul Basophils # 0.010^3/ul Nucleated Red Blood Cells # 0.010^3/ul Urine Color LT. YELLOW Urine Clarity CLEAR Urine pH 5.0 Urine Specific [place] 1.020 Urine Ketones NEGATIVE Urine Nitrite NEGATIVE Urine Bilirubin NEGATIVE Urine Urobilinogen 0.2 E.U./dL Urine Leukocyte Esterase NEGATIVE Urine Hemoglobin NEGATIVE Urine Glucose NEGATIVE% Urine Total Protein NEGATIVE Sodium Level 130mmol/L Potassium Level 4.5mmol/L Chloride Level 98mmol/L Carbon Dioxide Level 22mmol/L Anion Gap 15 Blood Urea Nitrogen 43mg/dl Creatinine 0.89mg/dl Glucose Level 160mg/dl Calcium Level 9.1mg/dl Total Bilirubin 0.1mg/dl Direct Bilirubin 0.00mg/dl Indirect Bilirubin 0.1mg/dl Aspartate Amino Transf (AST/SGOT) 21IU/L Alanine Aminotransferase (ALT/SGPT) 16IU/L Alkaline Phosphatase 104IU/L Total Protein 8.1g/dl Albumin 4.1g/dl Globulin 4.00g/dl Albumin/Globulin Ratio 1.02 Lipase 181U/L Current Medications Medications (Trade) Dose Ordered Sig/Jayashree Route PRN Reason Start Time Stop Time Status Last Admin Dose Admin Sodium Chloride (NS) 500 ml @ 500 mls/hr Q1H STAT IV 05/16/16 23:52 05/17/16 00:51 DC 05/17/16 00:32 Ondansetron HCl (Zofran Inj) 4 mg ONCE STAT IV 05/16/16 23:52 05/16/16 23:54 DC 05/17/16 00:32 Diclofenac Sodium (Dyloject) 37.5 mg ONCE STAT IV 05/16/16 23:52 05/16/16 23:54 DC 05/17/16 00:32 Procedures/MDM Medical decision-making: Patient's musculoskeletal symptoms have stabilized while they have been evaluated in the department and are appropriate for outpatient work up. No evidence of cauda equina, cord compression, infiltrative, or infectious etiology. Departure Diagnosis: Primary Impression: Back pain Back pain location: back pain in unspecified location Chronicity: chronic Back pain laterality: right Qualified Code: M54.9 - Chronic right-sided back pain, unspecified back location Condition: Stable ERENDIRA CANTRELL S. May 17, 2016 01:48
[2016-05-17] MEDS ORDERED: FENT1PAT7 TD (01:49)
[2016-05-17 02:00] VITALS: BP 147/83; PULSE 68; RESP 16; TEMP 98
== END 2016-05-17 02:17 | disposition home or self-care (01) ==
LOC: E/R 22:59
DX: M54.5 Low back pain (principal); I10 Essential (primary) hypertension; E03.9 Hypothyroidism, unspecified; R11.10 Vomiting, unspecified; Z85.9 Personal history of malignant neoplasm, unspecified
CPT/HCPCS: 36415; 80053; 81003; 83690; 85025; 87086; 96374; 96375; 99284; J2405; J7040

== ENCOUNTER 2016-05-20 13:13 | Emergency (ER) | payer MEDICARE, OTHER ==
[~2016-05-20] VITALS: Wt 62.0 kg
[~2016-05-20 13:13] MED LIST changes: +FENT1PAT7 TD
[2016-05-20] MEDS ORDERED: KETOROLAC 15 MG INJ IM STA (13:51)
[2016-05-20] MEDS ORDERED: FENT1PAT7 TD (14:19)
--- NOTE | 2016-05-20 14:39 | ERD ---
ER Documentation Chief Complaint Date/Time DATE: 05/20/16 TIME: 14:35 Chief Complaint CONSTIPATION HPI 86-year-old female history of chronic pain, chronic back pain and constipation presents with constipation. However the family does note that the patient had a bowel movement earlier today. She states that she tried to manually disimpact the patient without success. She also after the fact reported that the patient has been falling and did hit her lumbar back. She is describing of worsening lumbar back pain. No motor weakness. No head trauma or loss of consciousness. ROS All systems reviewed and are negative except as per history of present illness. Medications Home Meds Active Scripts Glycerin* (Glycerin (Adult)*) 1 Each Supp.rect, 1 EACH [place] DAILY Y for CONSTIPATION, #10 SUPP.RECT Prov:MISAEL LIGHT MD 05/20/16 Magnesium Citrate* (Magnesium Citrate*) 296 Ml Solution, 296 ML PO ONCE Y for CONSTIPATION, #1 BOTTLE 5 Refills Prov:MISAEL LIGHT MD 05/20/16 Fentanyl Patch* (Duragesic Patch*) 12 Mcg/Hr Transdermal Patch, 1 PATCH TD Q72H , #5 PATCH Prov:ERENDIRA CANTRELL 05/17/16 Methocarbamol* (Robaxin*) 500 Mg Tab, 500 MG PO Q8, #14 TAB Prov:YANETH RAY DO 03/26/16 Magnesium Citrate* (Magnesium Citrate*) 296 Ml Solution, 296 ML PO ONCE, #1 BOTTLE Prov:YANETH RAY DO 03/26/16 Polyethylene Glycol* (Miralax*) 17 Gm Powd.pack, 17 GM PO DAILY, #7 Prov:YANETH RAY DO 03/26/16 Reported Medications Fentanyl Patch* (Duragesic Patch*) 12 Mcg/Hr Transdermal Patch, 1 PATCH TD Q72H , PATCH 25MCG 05/20/16 Hydrocodone Bit-Acetaminophen (Hydrocodone Bit-APAP) 5-325MG Tablet, 1 TAB PO Q6H Y for PAIN, TAB 03/25/16 Diclofenac Sodium* (Voltaren* Gel) 1% -100 Gm Gel, 2 GM TOP TID, #1 TUB 03/25/16 Magnesium Oxide (Magnesium) 250 Mg Tablet, 250 MG PO DAILY, TAB 03/25/16 Cholecalciferol* (Vitamin D3*) 1,000 Unit Tablet, 1000 UNIT PO DAILY, TAB 03/25/16 Acetaminophen with Codeine (Acetaminophen-Cod #3 Tablet) 1 Each Tablet, 1 TAB PO Q4 Y for PRN, #20 TAB 03/25/16 Cyclobenzaprine Hcl* (Cyclobenzaprine Hcl*) 5 Mg Tablet, 2.5 MG PO Q4H Y for PRN , #60 TAB 03/25/16 Folic Acid* (Folic Acid*) 1 Mg Tablet, 1 MG PO DAILY, TAB 03/20/14 Levothyroxine Sodium* (Levothyroxine Sodium*) 100 Mcg Tablet, 100 MCG PO DAILY, TAB 03/20/14 Losartan Potassium* (Losartan Potassium*) 25 Mg Tablet, 25 MG PO DAILY, TAB 10/17/13 Esomeprazole Mag Trihydrate (Nexium) 40 Mg Capsule.dr, 40 MG PO DAILY 08/21/11 Fenofibrate Nanocrystallized* (Tricor*) 145 Mg Tablet, 145 MG PO DAILY 08/21/11 Allergies Allergies: Coded Allergies: hydromorphone (Verified Allergy, Intermediate, 05/20/16) Influenza Virus Vaccines (Verified Allergy, Mild, 05/20/16) iodine (Verified Adverse Reaction, Mild, DIFFICULTY OF BREATHING, 05/20/16) PMhx/Soc Anesthesia Reaction: No Hx Neurological Disorder: Yes (SCIATICA, PINCHED NERVE BELOW L4, 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 Eyes: Pupils equally reactive, EOM intact ENT: Moist mucous membranes Neck: Supple, no lymphadenopathy, The patient does not meet high-risk criteria and based on NEXUS cervical spine criteria there is no indication for cervical spine imaging at this time. Respiratory: Lungs clear bilaterally, no distress Cardiovascular: RRR, no murmurs, rubs, or gallops Abdominal: Soft, non-tender, non-distended, no peritoneal signs : Undercover Cop rectal exam with no stool in the vault MSK: No edema, no unilateral swelling, 5/5 strength, no midline tenderness deformities or step-offs to the thoracolumbar spine Neurologic: Alert and oriented, moving all extremities, normal speech, no focal weakness, no cerebellar signs Skin: No rash Psych: Normal mood Results 24 hrs Current Medications Medications (Trade) Dose Ordered Sig/Jayashree Route PRN Reason Start Time Stop Time Status Last Admin Dose Admin Ketorolac Tromethamine (Toradol) 15 mg ONCE STAT IM 05/20/16 13:51 05/20/16 13:52 DC 05/20/16 14:09 Procedures/MDM EKG, MONITORS, & DIAGNOSTIC IMAGING: X-ray lumbar spine: IMPRESSION: 1. No evidence of acute fracture or malalignment. 2. Mild diffuse degenerative spondylosis and mild to moderate lower lumbar facet arthrosis are noted. RPTAT: QQ MEDICAL DECISION MAKING: The patient has chronic pain and chronic back pain. Back pain is unchanged from baseline. The family after the fact reported that she did have a fall several days ago. No head trauma or loss of consciousness. The patient's low back pain is unlikely related to serious etiology. The patient exhibits no clinical signs or symptoms and has no history or risk factors to suggest cauda equina, cord compression, epidural abscess, epidural hematoma, acute aortic aneurysm or dissection. Family is requesting x-ray imaging of the lumbar spine which seems reasonable. On digital rectal examination the patient has no stool in the vault. I advised Fleet enema and or glycerin suppository with magnesium citrate at home. 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 The patient uses fentanyl patches. The patient is asking for pain medication the emergency room and I advised that this is likely can worsen her constipation. She agreed with Toradol. She has a recent blood draw that showed normal renal function. ER COURSE: Pain is improved. X-ray imaging is negative. Outpatient management of constipation is reasonable. I kept the patient and/or family informed of laboratory and diagnostic imaging results throughout the emergency room course. DISPOSITION PLAN: We discussed follow up with the patient's primary care doctor within 24 to 48 hours as needed. We also discussed return to the emergency room for worsening symptoms or worsening condition. Outpatient referral: [None required] Discharge Medications: Magnesium citrate, glycerin suppository Departure Diagnosis: Primary Impression: Constipation Constipation type: unspecified constipation type Qualified Code: K59.00 - Constipation, unspecified constipation type Additional Impression: Chronic back pain Back pain location: low back pain Back pain laterality: unspecified Sciatica presence: without sciatica Qualified Code: M54.5 - Chronic low back pain without sciatica, unspecified back pain laterality Condition: MISAEL Kim MD May 20, 2016 14:39
--- NOTE | 2016-05-20 15:07 | RADRPT ---
PROCEDURE: XR Lumbar Spine. CLINICAL INDICATION: Fall, back pain TECHNIQUE: 5 views of the lumbar spine are available for review COMPARISON: None available FINDINGS: No acute fracture or malalignment is identified. The vertebral body heights and intervertebral disk spaces are all maintained. There is mild diffuse endplate osteophyte formation. Mild to moderate facet arthrosis is noted at L4-5 and L5-S1. On the frontal view, there is normal alignment. Parasp inous soft tissues are grossly unremarkable. Common bile duct stent projects over the right upper qu adrant of the abdomen. IMPRESSION: 1. No evidence of acute fracture or malalignment. 2. Mild diffuse degenerative spondylosis and mild to moderate lower lumbar facet arthrosis are note d. RPTAT: QQ .Cuong Bhandari MD, Date Time Electronically viewed and signed by .Cuong Bhandari MD, on 05/20/2016 15:07 .R/
[2016-05-20] MEDS ORDERED: MAGN296S40 PO (15:11)
[2016-05-20] MEDS ORDERED: GLYC1SUP92 PR (15:11)
[2016-05-20] MEDS ORDERED: morphine 10 MG INJ IM ONE (15:30)
[2016-05-20 16:10] VITALS: BP 126/71; PULSE 75; RESP 18; TEMP 98
== END 2016-05-20 16:10 | disposition home or self-care (01) ==
LOC: E/R 13:13
DX: K59.00 Constipation, unspecified (principal); M54.5 Low back pain; I10 Essential (primary) hypertension; E03.9 Hypothyroidism, unspecified
CPT/HCPCS: 72110; 96372; 99284; J1885; J2270

== ENCOUNTER 2016-05-24 16:53 | Emergency (ER) | payer MEDICARE, OTHER ==
[~2016-05-24] VITALS: Ht 152.4 cm; Wt 45.0 kg
[~2016-05-24 16:53] MED LIST changes: +GLYC1SUP92 PR
[2016-05-24 17:16] VITALS: Ht 152.4 cm; Wt 45.0 kg
== END 2016-05-24 19:30 | disposition left against medical advice (07) ==
LOC: E/R 16:53
DX: Z53.21 Procedure and treatment not carried out due to patient leaving prior to being seen by health care provider (principal)

== ENCOUNTER 2016-05-28 21:17 | Emergency (ER) | payer MEDICARE, OTHER ==
[~2016-05-28] VITALS: Ht 144.8 cm; Wt 45.4 kg
[2016-05-28 21:20] VITALS: Ht 144.8 cm; Wt 45.4 kg
--- NOTE | 2016-05-28 23:26 | RADRPT ---
PROCEDURE: XR Chest. CLINICAL INDICATION: Chest pain. Abdominal pain TECHNIQUE: Portable AP upright view of the chest was obtained. COMPARISON: 03/31/2016 FINDINGS: The cardiomediastinal silhouette is within normal limits. The lungs are clear. There is no evidenc e for pleural effusion, pneumothorax or pulmonary vascular congestion. The osseous structures are i ntact with no evidence for acute abnormality. Calcification of the aorta is again noted RPTAT:HJJR IMPRESSION: No evidence for acute intrathoracic pathology or interval change from 03/31/2016. Physician Cherie Date Time Electronically viewed and signed by Physician Cherie on 05/28/2016 23:26 /
[2016-05-29 00:12] LABS: ADD SCAN DIFF NO
[2016-05-29 00:13] LABS: BASOPHILS % 0.3 % (0.0-2.0); EOSINOPHILS # 0.1 10^3/ul (0.0-0.5); EOSINOPHILS % 0.6 % (0.0-7.0); HEMOGLOBIN 11.5 g/dl (12.0-16.0); LYMPHOCYTES # 1.5 10^3/ul (0.8-2.9); LYMPHOCYTES % 12.3 % (15.0-51.0); MEAN CORPUSCULAR HEMOGLOBIN 29.9 pg (29.0-33.0); MEAN CORPUSCULAR HGB CONC 31.9 g/dl (32.0-37.0); MEAN CORPUSCULAR VOLUME 93.5 fl (82.0-101.0); MEAN PLATELET VOLUME 11.3 fl (7.4-10.4); MONOCYTES % 8.4 % (0.0-11.0); NEUTROPHIL # 9.2 10^3/ul (1.6-7.5); PLATELET COUNT 206 10^3/UL (140-415); RED BLOOD COUNT 3.85 10^6/ul (4.20-5.40); RED CELL DISTRIBUTION WIDTH 13.3 % (11.5-14.5); WHITE BLOOD COUNT 11.8 10^3/ul (4.8-10.8)
--- NOTE | 2016-05-29 00:22 | RADRPT ---
PROCEDURE: CT Abdomen and pelvis without contrast. CLINICAL INDICATION: Abdominal pain. TECHNIQUE: CT scan of the abdomen and pelvis was performed on a multi-detector high-resolution CT scanner. Contiguous axial images were obtained from the lung bases to the ischial tuberosities wit hout intravenous contrast. Coronal and sagittal reformatted images were also obtained. Images were reviewed on the PACS workstation. One or more of the following dose reduction techniques were used: - Automated exposure control. - Adjustment of the mA and/or kV according to patient size. - Use of iterative reconstruction technique. Exam CTD/vol = 4.93 mGy. Total exam DLP = 247.81 mGy-cm. COMPARISON: 03/26/2016. FINDINGS: Evaluation of the lung bases demonstrates mild bibasilar atelectasis. There are interstitial fibrot ic changes within the left lung base. Abdomen: The liver is normal in size. There are multiple hepatic cysts with the largest measuring 1.9 x 2.1 cm which are stable compared with the prior study. There is a biliary stent present. The re is moderate pneumobilia within the left lobe of the liver, gallbladder and common bile duct. The gallbladder is not distended. The spleen, pancreas and bilateral adrenal glands are within normal limits. Bilateral kidneys are normal in size with no contour deforming mass identified. There is n o radiopaque renal or ureteral calculus identified. There is no hydronephrosis or hydroureter. The re is no retroperitoneal adenopathy. The abdominal aorta is of normal caliber with scattered athero sclerotic calcifications. There is prior gastric surgery. There is moderate rectal fecal impaction. There is no bowel obstru ction or free air. A normal appendix is identified. There is no diverticulosis or diverticulitis. There is no ascites. Pelvis: The bladder is unremarkable. The uterus is absent. There is no significant pelvic adenopat hy or free fluid. Evaluation of the osseous structures demonstrates no suspicious lytic or blastic lesion. There are c alcified injection granulomas over bilateral buttocks. IMPRESSION: Status post biliary stent placement with moderate pneumobilia as described. Mild bibasilar atelectasis and left basilar interstitial fibrotic changes. Multiple hepatic cysts. Vascular calcifications reflective of atherosclerosis. Prior gastric surgery. Moderate rectal fecal impaction. .Justin Pérez MD, MD Date Time Electronically viewed and signed by .Justin Pérez MD, MD on 05/29/2016 00:21 .T/
[2016-05-29 00:26] LABS: INR 0.93; PROTIME 12.5 Sec (12.2-14.2)
[2016-05-29 00:32] LABS: ALBUMIN/GLOBULIN RATIO 1.25; BILIRUBIN,INDIRECT 0.2 mg/dl (0-1.1); BILIRUBIN,TOTAL 0.2 mg/dl (0.2-1.3); CREATININE 0.81 mg/dl (0.44-1.00); POTASSIUM 4.9 mmol/L (3.5-5.1); TOTAL PROTEIN 7.2 g/dl (6.1-8.1)
[2016-05-29] MEDS ORDERED: ONDANSETRON 4 MG INJ IV STA (00:36)
[2016-05-29] MEDS ORDERED: morphine 4 MG/ML VIAL IV STA (00:36)
[2016-05-29 00:39] LABS: ADD UMIC YES; URINE BILIRUBIN (Dip) NEGATIVE (NEGATIVE); URINE BLOOD (Dip) NEGATIVE (NEGATIVE); URINE COLOR LT. YELLOW (YELLOW); URINE GLUCOSE (Dip) NEGATIVE (NEGATIVE); URINE KETONES (Dip) NEGATIVE (NEGATIVE); URINE LEUKOCYTE ESTERASE (Dip) TRACE (NEGATIVE); URINE NITRITE (Dip) NEGATIVE (NEGATIVE); URINE TOTAL PROTEIN (Dip) NEGATIVE (NEGATIVE); URINE UROBILINOGEN (Dip) 0.2 E.U./dL (0.1-1.0)
[2016-05-29 00:40] LABS: PARTIAL THROMBOPLASTIN TIME 88.9 Sec (25.0-35.0)
[2016-05-29 00:52] LABS: BACTERIA,URINE RARE; URINE RBCS NONE SEEN /HPF (0)
--- NOTE | 2016-05-29 01:08 | ERD ---
ER Documentation Chief Complaint Date/Time DATE: 05/29/16 TIME: 01:06 Chief Complaint blood in stool x 1 day HPI This is an 86-year-old female complaining of blood in the stool for 1 day. Patient noticed blood in one bowel movement today after she was straining significantly. Patient has had constipation over the past few weeks. No nausea no vomiting no fevers no chills. No other noted bleeding from any other orifice. ROS All systems reviewed and are negative except as per history of present illness. Medications Home Meds Active Scripts Glycerin* (Glycerin (Adult)*) 1 Each Supp.rect, 1 EACH [place] DAILY Y for CONSTIPATION, #10 SUPP.RECT Prov:MISAEL LIGHT MD 05/20/16 Magnesium Citrate* (Magnesium Citrate*) 296 Ml Solution, 296 ML PO ONCE Y for CONSTIPATION, #1 BOTTLE 5 Refills Prov:MISAEL LIGHT MD 05/20/16 Fentanyl Patch* (Duragesic Patch*) 12 Mcg/Hr Transdermal Patch, 1 PATCH TD Q72H , #5 PATCH Prov:ERENDIRA CANTRELL 05/17/16 Methocarbamol* (Robaxin*) 500 Mg Tab, 500 MG PO Q8, #14 TAB Prov:YANETH RAY DO 03/26/16 Magnesium Citrate* (Magnesium Citrate*) 296 Ml Solution, 296 ML PO ONCE, #1 BOTTLE Prov:YANETH RAY DO 03/26/16 Polyethylene Glycol* (Miralax*) 17 Gm Powd.pack, 17 GM PO DAILY, #7 Prov:YANETH RAY DO 03/26/16 Reported Medications Fentanyl Patch* (Duragesic Patch*) 12 Mcg/Hr Transdermal Patch, 1 PATCH TD Q72H , PATCH 25MCG 05/20/16 Hydrocodone Bit-Acetaminophen (Hydrocodone Bit-APAP) 5-325MG Tablet, 1 TAB PO Q6H Y for PAIN, TAB 03/25/16 Diclofenac Sodium* (Voltaren* Gel) 1% -100 Gm Gel, 2 GM TOP TID, #1 TUB 03/25/16 Magnesium Oxide (Magnesium) 250 Mg Tablet, 250 MG PO DAILY, TAB 03/25/16 Cholecalciferol* (Vitamin D3*) 1,000 Unit Tablet, 1000 UNIT PO DAILY, TAB 03/25/16 Acetaminophen with Codeine (Acetaminophen-Cod #3 Tablet) 1 Each Tablet, 1 TAB PO Q4 Y for PRN, #20 TAB 03/25/16 Cyclobenzaprine Hcl* (Cyclobenzaprine Hcl*) 5 Mg Tablet, 2.5 MG PO Q4H Y for PRN , #60 TAB 03/25/16 Folic Acid* (Folic Acid*) 1 Mg Tablet, 1 MG PO DAILY, TAB 03/20/14 Levothyroxine Sodium* (Levothyroxine Sodium*) 100 Mcg Tablet, 100 MCG PO DAILY, TAB 03/20/14 Losartan Potassium* (Losartan Potassium*) 25 Mg Tablet, 25 MG PO DAILY, TAB 10/17/13 Esomeprazole Mag Trihydrate (Nexium) 40 Mg Capsule.dr, 40 MG PO DAILY 08/21/11 Fenofibrate Nanocrystallized* (Tricor*) 145 Mg Tablet, 145 MG PO DAILY 08/21/11 Allergies Allergies: Coded Allergies: hydromorphone (Verified Allergy, Intermediate, 05/20/16) Influenza Virus Vaccines (Verified Allergy, Mild, 05/20/16) iodine (Verified Adverse Reaction, Mild, DIFFICULTY OF BREATHING, 05/20/16) PMhx/Soc Anesthesia Reaction: No Hx Neurological Disorder: Yes (SCIATICA, PINCHED NERVE BELOW L4, 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 Neck: Full range of motion..~ No meningismus. Resp: Clear to auscultation bilaterally Cardio: Regular rate and rhythm, no murmurs Abd: Soft, non tender, non distended. Normal bowel sounds Skin: No petechiae or rashes Back: No midline or flank tenderness Ext: No cyanosis, or edema Neur: Awake and alert Psych: Normal Mood and Affect Result Diagram: 05/28/16 2350 05/28/16 2350 Results 24 hrs Laboratory Tests Test 05/28/16 23:50 White Blood Count 11.810^3/ul Red Blood Count 3.8510^6/ul Hemoglobin 11.5g/dl Hematocrit 36.0% Mean Corpuscular Volume 93.5fl Mean Corpuscular Hemoglobin 29.9pg Mean Corpuscular Hemoglobin Concent 31.9g/dl Red Cell Distribution Width 13.3% Platelet Count 93395^3/UL Mean Platelet Volume 11.3fl Neutrophils % 78.0% Lymphocytes % 12.3% Monocytes % 8.4% Eosinophils % 0.6% Basophils % 0.3% Nucleated Red Blood Cells % 0.0/100WBC Neutrophils # 9.210^3/ul Lymphocytes # 1.510^3/ul Monocytes # 1.010^3/ul Eosinophils # 0.110^3/ul Basophils # 0.010^3/ul Nucleated Red Blood Cells # 0.010^3/ul Prothrombin Time 12.5Sec Prothrombin Time Ratio 1.0 INR International Normalized Ratio 0.93 Activated Partial Thromboplast Time 88.9Sec Urine Color LT. YELLOW Urine Clarity CLEAR Urine pH 5.5 Urine Specific [place] 1.020 Urine Ketones NEGATIVE Urine Nitrite NEGATIVE Urine Bilirubin NEGATIVE Urine Urobilinogen 0.2 E.U./dL Urine Leukocyte Esterase TRACE Urine Microscopic RBC NONE SEEN/HPF Urine Microscopic WBC 2-5/HPF Urine Bacteria RARE Urine Hemoglobin NEGATIVE Urine Glucose NEGATIVE% Urine Total Protein NEGATIVE Sodium Level 131mmol/L Potassium Level 4.9mmol/L Chloride Level 101mmol/L Carbon Dioxide Level 21mmol/L Anion Gap 14 Blood Urea Nitrogen 30mg/dl Creatinine 0.81mg/dl Glucose Level 110mg/dl Lactic Acid Level 1.3mmol/L Calcium Level 9.0mg/dl Total Bilirubin 0.2mg/dl Direct Bilirubin 0.00mg/dl Indirect Bilirubin 0.2mg/dl Aspartate Amino Transf (AST/SGOT) 23IU/L Alanine Aminotransferase (ALT/SGPT) 20IU/L Alkaline Phosphatase 87IU/L Total Protein 7.2g/dl Albumin 4.0g/dl Globulin 3.20g/dl Albumin/Globulin Ratio 1.25 Lipase 166U/L Current Medications Medications (Trade) Dose Ordered Sig/Jayashree Route PRN Reason Start Time Stop Time Status Last Admin Dose Admin Morphine Sulfate (morphine) 4 mg ONCE STAT IV 05/29/16 00:36 05/29/16 00:37 DC 05/29/16 00:47 Ondansetron HCl (Zofran Inj) 4 mg ONCE STAT IV 05/29/16 00:36 05/29/16 00:37 DC 05/29/16 00:47 Procedures/MDM EKG: Rate/Rhythm: Normal Sinus Rhythm QRS, ST, T-waves: No changes consistent w/ acute ischemia Impression: No evidence of ischemia or arrhythmia Chest X-ray 1V Interpreted by me: Soft Tissue: No acute abnormalities Bones: No acute abnormalities Mediastinum/Cardiac Silhouette/Lungs: No acute abnormalities Medical decision-makin-year-old female as well as to be is mild fecal impaction and constipation. At this point is clinically stable for outpatient management. She will be discharged home with Colace and Fleet enema. She is follow-up with PCP tomorrow. Return in 8 hours for serial abdominal exams. Departure Diagnosis: Primary Impression: Abdominal pain Abdominal location: generalized Qualified Code: R10.84 - Generalized abdominal pain Condition: Stable ERENDIRA CANTRELL May 29, 2016 01:07
[2016-05-29] MEDS ORDERED: DOCU-144 PO (01:09)
[2016-05-29] MEDS ORDERED: FLEETOIL PR (01:09)
[2016-05-29 02:12] VITALS: BP 110/68; PULSE 75; RESP 16
== END 2016-05-29 02:14 | disposition home or self-care (01) ==
LOC: E/R 21:17
DX: R10.84 Generalized abdominal pain (principal); R07.9 Chest pain, unspecified
CPT/HCPCS: 36415; 71010; 74176; 80053; 81001; 81003; 83605; 83690; 85025; 85610; 85730; 96374; 96375; 99285; J2270; J2405

== ENCOUNTER 2016-05-30 09:07 | Day surgery (SDC) | payer MEDICARE, OTHER ==
[~2016-05-30] VITALS: Ht 147.3 cm; Wt 44.3 kg
[~2016-05-30 09:07] MED LIST changes: +CLINDAMYCIN IVPB SCH; +DESFLURANE 15 MIN ONE; +DIPHENHYDRAMINE 50 MG INJ IV PRN; +DOCU-144 PO; +EPHEDrine SULFATE 50 MG/5 ML SYG IV PRN; +FENTAnyl 50 MCG/ML VIAL IV PRN; +FENTAnyl 50 MCG/ML VIAL ONE; +FLEETOIL PR; +LABETALOL HCL 20MG INJ IV PRN; +LIDOCAINE 2% (SDV) 5 ML INJ ONE; +MEPERIDINE 25 MG INJ IV PRN; +ONDANSETRON 4 MG INJ IV PRN; +OXYCODONE/ACETAMINOPHEN (5/325) TAB PO PRN; +PROCHLORPERAZINE 10 MG INJ IV PRN; +PROPOFOL 20 ML ONE; +SOD CHLORIDE 0.9% IVPB SCH; +SUCCINYLCHOLINE CHLORIDE 100 MG/5 ML SYG IV ONE; +hydrALAzine 20 MG INJ IV PRN
[2016-05-30] MEDS ORDERED: LACTATED RINGER'S 1,000 ML IV* SCH (10:00)
[2016-05-30 11:12] VITALS: Ht 147.3 cm; Wt 44.3 kg
[2016-05-30 11:23] LABS: ADD SCAN DIFF NO
[2016-05-30 11:30] LABS: BASOPHILS % 0.2 % (0.0-2.0); EOSINOPHILS # 0.1 10^3/ul (0.0-0.5); EOSINOPHILS % 1.4 % (0.0-7.0); HEMATOCRIT 30.7 % (37.0-47.0); HEMOGLOBIN 10.3 g/dl (12.0-16.0); LYMPHOCYTES # 1.2 10^3/ul (0.8-2.9); LYMPHOCYTES % 14.3 % (15.0-51.0); MEAN CORPUSCULAR HEMOGLOBIN 30.6 pg (29.0-33.0); MEAN CORPUSCULAR HGB CONC 33.6 g/dl (32.0-37.0); MEAN CORPUSCULAR VOLUME 91.1 fl (82.0-101.0); MEAN PLATELET VOLUME 11.3 fl (7.4-10.4); MONOCYTE # 0.9 10^3/ul (0.3-0.9); MONOCYTES % 10.6 % (0.0-11.0); NEUTROPHIL # 5.9 10^3/ul (1.6-7.5); PLATELET COUNT 179 10^3/UL (140-415); RED BLOOD COUNT 3.37 10^6/ul (4.20-5.40); RED CELL DISTRIBUTION WIDTH 13.2 % (11.5-14.5)
[2016-05-30] MEDS ORDERED: INDOMETHACIN 50 MG SUPP PR ONE (11:44)
[2016-05-30] MEDS ORDERED: CIPROFLOXACIN 400MG/D5W 200 ML ONE (11:44)
[2016-05-30 11:45] VITALS: BP 149/75; PULSE 77; RESP 16
--- NOTE | 2016-05-30 11:49 | HPN ---
Date/Time of Note Date/Time of Note DATE: 05/30/16 TIME: 11:49 Interval H&P Admission Note Pt. seen H&P reviewed: No system changes DANIELLA SCANLON MD May 30, 2016 11:49
[2016-05-30 12:03] LABS: CALCIUM 8.3 mg/dl (8.4-10.2); CREATININE 0.75 mg/dl (0.44-1.00); POTASSIUM 4.7 mmol/L (3.5-5.1)
[2016-05-30] MEDS ORDERED: ONDANSETRON 4 MG INJ ONE (12:11)
[2016-05-30] MEDS ORDERED: DEXAMETHASONE 4 MG/ML 1 ML INJ ONE (12:11)
[2016-05-30 12:36] VITALS: BP_SYST 161; BP_SYST 162; BP_DIAS 80; BP_DIAS 82; PULSE 71; PULSE 78; RESP 16; RESP 25
[2016-05-30 12:41] VITALS: BP 162/80; PULSE 80; RESP 16
[2016-05-30 12:46] VITALS: BP 161/82; PULSE 74; RESP 16
[2016-05-30 12:51] VITALS: BP 158/72; PULSE 70; RESP 16
[2016-05-30 13:35] VITALS: BP 168/78; PULSE 66; RESP 18
--- NOTE | 2016-05-30 13:44 | RADRPT ---
PROCEDURE: CHEST 1VW CLINICAL INDICATION: Preoperative TECHNIQUE: Single frontal view of the chest was obtained COMPARISON: 05/28/2016 FINDINGS: The cardiac size is normal. Aortic vascular calcifications are demonstrated. There is no pulmonary vascular congestion. The lungs are clear. No consolidation, effusion, or pneumothorax. Mild degenerative changes of the visualized osseous structures are visualized. IMPRESSION: 1. No acute cardiopulmonary process. 2. Atherosclerosis. RPTAT:PP .Cristofer Larose MD, MD Date Time Electronically viewed and signed by .Cristofer Larose MD, on 05/30/2016 13:43 .V/
--- NOTE | 2016-05-30 14:27 | GILP ---
DATE OF PROCEDURE: PROCEDURE PERFORMED: ERCP, removal of stent and stone. INDICATION: An 86-year-old female had a bile duct stone. She has a Billroth I type of surgery. Th e patient had a CAT scan done after the placement of biliary stent and there were 2 small stones teodoro ntified. So the purpose of this procedure is to remove the stent and also remove the stone. INFORMED CONSENT: The risk of the procedure, related and unrelated complications, anesthetic risks, alternatives discussed. Informed consent was obtained. DESCRIPTION OF PROCEDURE: The patient was brought to the GI lab, sedated by Dr. Hicks and after opti mal sedation, the patient was placed in a prone position. She was intubated, Indocin suppository w as given, the patient also received Cipro. The ERCP scope passed with much ease into esophagus and advanced further down into stomach. The patient had an antrectomy, went into the duodenum, the sten t was identified which was barely visible. With the help of a snare we removed the stent and then s electively cannulated the bile duct with the help of balloon, a 9 to 12 mm balloon was used and we s wept the bile duct multiple times. A small stone and debris came out. Bile duct was ____. A 12 mm balloon also would come out easily through the sphincterotomy site. On the repeat occlusive cholan giogram, no stone was identified, so the wire and the balloon both were removed along with the scope . The patient tolerated the procedure very well. Total fluid time was 3 seconds. IMPRESSION: 1. Removal of stent. 2. Removal of debris and small stone. 3. Status post Billroth I surgery. PLAN: Monitor the symptoms and LFT as an outpatient. 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 Dictated By: DANIELLA COSTELLO/NTS Conf#: [id number] DID#: [id number] CC: OLI CARR MD;*End*
--- NOTE | 2016-05-30 15:41 | RADRPT ---
PROCEDURE: Intraoperative imaging for ERCP with fluoroscopy. CLINICAL INDICATION: Right upper quadrant pain. Intraoperative. TECHNIQUE: 3 images of the right upper quadrant of the abdomen were obtained in the operating room with an image intensifier. No radiologist was in attendance. 2.2 seconds of fluoroscopy time was used. COMPARISON: ERCP dated 03/30/2016. FINDINGS: Images demonstrate the endoscope in position and contrast injected into the common bile duct. A bal loon sweep was made. The pancreatic duct was not injected. IMPRESSION: 1. ERCP as described above. RPTAT: QQ .John Lopez MD, Date Time Electronically viewed and signed by .John Lopez MD, on 05/30/2016 15:41 .R/
--- NOTE | 2016-05-30 18:30 | RADRPT ---
Vent Rate: 76 bpm RR Interval: 0 msec MT Interval: 162 msec QRS Duration: 78 msec QT Interval: 378 msec QTC Interval: 425 msec P-R-T [place]: 64 - 41 - 72 degrees Normal sinus rhythm Normal ECG Electronically Signed By: Daniel Mendoza [id number]
== END 2016-05-30 15:20 | disposition home or self-care (01) ==
LOC: SDS 09:07
PROVIDERS: ATTEND Internal Medicine Gastroenterology
DX: K80.50 Calculus of bile duct without cholangitis or cholecystitis without obstruction (principal); I10 Essential (primary) hypertension; E03.9 Hypothyroidism, unspecified; I25.10 Atherosclerotic heart disease of native coronary artery without angina pectoris; E78.5 Hyperlipidemia, unspecified; Z86.73 Personal history of transient ischemic attack (TIA), and cerebral infarction without residual deficits
CPT/HCPCS: 43264; 71010; 74330; 80048; 85025; 93005; J0330; J0744; J1100; J2405; J3010

== ENCOUNTER 2016-06-10 22:10 | Emergency (ER) | payer MEDICARE, OTHER ==
[~2016-06-10] VITALS: Ht 144.8 cm; Wt 44.1 kg
[~2016-06-10 22:10] MED LIST changes: -CLINDAMYCIN IVPB SCH; -DESFLURANE 15 MIN ONE; -DIPHENHYDRAMINE 50 MG INJ IV PRN; -EPHEDrine SULFATE 50 MG/5 ML SYG IV PRN; -FENTAnyl 50 MCG/ML VIAL IV PRN; -FENTAnyl 50 MCG/ML VIAL ONE; -LABETALOL HCL 20MG INJ IV PRN; -LIDOCAINE 2% (SDV) 5 ML INJ ONE; -MEPERIDINE 25 MG INJ IV PRN; -ONDANSETRON 4 MG INJ IV PRN; -OXYCODONE/ACETAMINOPHEN (5/325) TAB PO PRN; -PROCHLORPERAZINE 10 MG INJ IV PRN; -PROPOFOL 20 ML ONE; -SOD CHLORIDE 0.9% IVPB SCH; -SUCCINYLCHOLINE CHLORIDE 100 MG/5 ML SYG IV ONE; -hydrALAzine 20 MG INJ IV PRN
[2016-06-10 22:16] VITALS: Ht 144.8 cm; Wt 44.1 kg
[2016-06-11] MEDS ORDERED: HYDROCODONE/APAP (5/325) TAB PO ONE (02:00)
--- NOTE | 2016-06-11 03:57 | RADRPT ---
PROCEDURE: RIGHT KNEE - 3 VIEWS CLINICAL INDICATION: 86-year-old female with chronic right knee pain. TECHNIQUE: AP, lateral and oblique view of the right knee were obtained. The images reviewed on a PACS workstation. COMPARISON: None. FINDINGS: There is no evidence for an acute fracture or dislocation. There is mild narrowing of the medial an d lateral compartments with marked narrowing of the patellofemoral compartment. There are small ost eophyte present. There is a small superior patellar enthesiophyte. The bone marrow mineralization is within normal limits. Scattered vascular calcifications are present. IMPRESSION: 1. No acute fracture or dislocation. 2. Degenerative changes most prominently within the patellofemoral compartment. 3. Vascular calcifications. .Tyshawn Cutler MD, MD Date Time Electronically viewed and signed by .Tyshawn Cutler MD, on 06/11/2016 03:57 .M/
--- NOTE | 2016-06-11 04:08 | RADRPT ---
PROCEDURE: LEFT HIP - 2 VIEWS CLINICAL INDICATION: 86-year-old female with chronic left hip pain. TECHNIQUE: AP and frog lateral views of the left hip were performed. The images reviewed on a PACS workstation. COMPARISON: CT abdomen/pelvis May 28, 2016; lumbar spine radiographs May 20, 2016. FINDINGS: There is no evidence for an acute fracture or dislocation. Dystrophic calcification is seen adjacen t to the lateral aspect of the right iliac crest. Mild scattered vascular calcifications are noted. IMPRESSION: 1. No acute fracture or dislocation. 2. Dystrophic calcification adjacent to the lateral aspect of the left iliac crest. 3. Minimal vascular calcifications. .Tyshawn Cutler MD, MD Date Time Electronically viewed and signed by .Tyshawn Cutler MD, on 06/11/2016 04:08 .[employer]
[2016-06-11] MEDS ORDERED: ONDA4TAB11 PO (05:47)
[2016-06-11] MEDS ORDERED: MAGN296S40 PO (05:47)
[2016-06-11] MEDS ORDERED: NAPR-685 PO (05:47)
[2016-06-11] MEDS ORDERED: LACT20SO2 PO (05:47)
--- NOTE | 2016-06-11 05:54 | ERD ---
ER Documentation Chief Complaint Date/Time DATE: 06/11/16 TIME: 05:49 Chief Complaint chronic left hip pain and right knee pain that started today HPI 86-year-old female comes with her daughter for having left hip pain and right knee pain for several years. Patient was complaining of it being worse today. Granddaughter Isai she is afraid to take medicine and she takes a single regular strength Tylenol only. Daughter gave her naproxen tab today. Currently the patient states that she is pain-free. Another issue is that she suffers from chronic constipation is also afraid to take medications because she is afraid it'll upset her stomach. She is on Nexium for acid reflux. No history of any kidney problems. She has bowel movements daily but they're very small. ROS All systems reviewed and are negative except as per history of present illness. Medications Home Meds Active Scripts Naproxen* (Naproxen*) 375 Mg Tablet, 375 MG PO BID Y for leann, #20 TAB Prov:YANETH RAY DO 06/11/16 Ondansetron (Zofran Odt) 4 Mg Tab.rapdis, 4 MG PO Q6 for NAUSEA AND/OR VOMITING , #10 Prov:YANETH RAY DO 06/11/16 Magnesium Citrate* (Magnesium Citrate*) 296 Ml Solution, 296 ML PO ONCE, #1 BOTTLE Prov:YANETH RAY DO 06/11/16 Lactulose* (Lactulose*) 20 Gm/30 Ml Solution, 20 GM PO BID for 7 Days, ML Prov:YANETH RAY DO 06/11/16 Mineral Oil* (Fleet* Mineral Oil Enema) 133 Ml Oil, 133 ML [place] DAILY Y for CONSTIPATION, #3 ENEMA Prov:REENDIRA CANTRELL 05/29/16 Docusate Sodium* (Colace*) 100 Mg Capsule, 100 MG PO TID, #30 CAP Prov:ERENDIRA CANTRELL 05/29/16 Glycerin* (Glycerin (Adult)*) 1 Each Supp.rect, 1 EACH [place] DAILY Y for CONSTIPATION, #10 SUPP.RECT Prov:MISAEL LIGHT MD 05/20/16 Magnesium Citrate* (Magnesium Citrate*) 296 Ml Solution, 296 ML PO ONCE Y for CONSTIPATION, #1 BOTTLE 5 Refills Prov:MISAEL LIGHT MD 05/20/16 Methocarbamol* (Robaxin*) 500 Mg Tab, 500 MG PO Q8, #14 TAB Prov:YANETH RAY DO 03/26/16 Polyethylene Glycol* (Miralax*) 17 Gm Powd.pack, 17 GM PO DAILY, #7 Prov:YANETH RAY DO 03/26/16 Reported Medications Fentanyl Patch* (Duragesic Patch*) 12 Mcg/Hr Transdermal Patch, 1 PATCH TD Q72H , PATCH 25MCG 05/20/16 Hydrocodone Bit-Acetaminophen (Hydrocodone Bit-APAP) 5-325MG Tablet, 1 TAB PO Q6H Y for PAIN, TAB 03/25/16 Diclofenac Sodium* (Voltaren* Gel) 1% -100 Gm Gel, 2 GM TOP TID, #1 TUB 03/25/16 Magnesium Oxide (Magnesium) 250 Mg Tablet, 250 MG PO DAILY, TAB 03/25/16 Cholecalciferol* (Vitamin D3*) 1,000 Unit Tablet, 1000 UNIT PO DAILY, TAB 03/25/16 Acetaminophen with Codeine (Acetaminophen-Cod #3 Tablet) 1 Each Tablet, 1 TAB PO Q4 Y for PRN, #20 TAB 03/25/16 Cyclobenzaprine Hcl* (Cyclobenzaprine Hcl*) 5 Mg Tablet, 2.5 MG PO Q4H Y for PRN , #60 TAB 03/25/16 Folic Acid* (Folic Acid*) 1 Mg Tablet, 1 MG PO DAILY, TAB 03/20/14 Levothyroxine Sodium* (Levothyroxine Sodium*) 100 Mcg Tablet, 100 MCG PO DAILY, TAB 03/20/14 Losartan Potassium* (Losartan Potassium*) 25 Mg Tablet, 25 MG PO DAILY, TAB 10/17/13 Esomeprazole Mag Trihydrate (Nexium) 40 Mg Capsule.dr, 40 MG PO DAILY 08/21/11 Fenofibrate Nanocrystallized* (Tricor*) 145 Mg Tablet, 145 MG PO DAILY 08/21/11 Allergies Allergies: Coded Allergies: hydromorphone (Verified Allergy, Intermediate, 05/30/16) Influenza Virus Vaccines (Verified Allergy, Mild, 05/30/16) iodine (Verified Adverse Reaction, Mild, DIFFICULTY OF BREATHING, 05/30/16) PMhx/Soc 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 Normal bowel sounds Back: No midline or flank tenderness Ext: Bilateral crepitus with knee movement. Patient reports no pain on passive movement. Ligaments laxity. Rocking of the hips and palpation also produces no pain. No deformities. Distal pulses intact bilateral lower extremities. Neur: Awake and alert and oriented 3 Results 24 hrs Current Medications Medications (Trade) Dose Ordered Sig/Jayashree Route PRN Reason Start Time Stop Time Status Last Admin Dose Admin Acetaminophen/ Hydrocodone Bitart ([place] (5/325)) 1 tab ONCE ONCE PO 06/11/16 02:00 06/11/16 02:01 DC 06/11/16 01:58 Procedures/MDM Patient with chronic pain of arthritis and seemed to respond well to naproxen given prior to the emergency room. Also gave her single [place] tablet and the ER and she is currently pain-free completely. Says she is not currently having abdominal pain or nausea but does have chronic constipation. Going to prescribe her Naprosyn for this arthritis pain. Also going to help with the constipation by prescribing lactulose and magnesium citrate. She's been using Colace only home. Jen any of Zofran ODT's T-sheet breezes any nausea so that she can hydrate properly as I explained hydration is very important with these medications. Primary care follow-up in 2-3 days and return precautions given. Departure Diagnosis: Primary Impression: Constipation Additional Impression: Osteoarthritis Condition: Stable Patient Instructions: Treating Constipation, Osteoarthritis: Coping with Pain Additional Instructions: Llame al doctor MAANA y shannan vito OJ PARA DENTRO DE 2-3 SEVERINO.Dgale a la secretaria que nosotros le instruimos hacer esta oj.Avise o llame si breen condicin se empeora antes de la oj. Regresa aqui si peor o no mejor. YANETH RAY DO Jun 11, 2016 05:53
[2016-06-11 06:24] VITALS: BP 138/71; PULSE 78; RESP 18; TEMP 98.9
== END 2016-06-11 06:28 | disposition home or self-care (01) ==
LOC: E/R 22:10
DX: K59.00 Constipation, unspecified (principal); M17.11 Unilateral primary osteoarthritis, right knee; I10 Essential (primary) hypertension
CPT/HCPCS: 73510; 73562

== ENCOUNTER 2016-07-26 22:16 | Emergency (ER) | payer MEDICARE, OTHER ==
[~2016-07-26] VITALS: Ht 157.5 cm; Wt 45.0 kg
[~2016-07-26 22:16] MED LIST changes: +LACT20SO2 PO; +NAPR-685 PO; +ONDA4TAB11 PO
[2016-07-26 22:18] VITALS: Ht 157.5 cm; Wt 45.0 kg
--- NOTE | 2016-07-26 23:02 | ERA ---
ER Documentation Chief Complaint Date/Time DATE: 07/26/16 TIME: 23:01 Chief Complaint back pain . hx- back surgeries, laminectomy 2016 HPI The patient is a 86-year-old female, presenting with history of chronic lower back pain. She was on fentanyl patch 25 mcg/hr for the last 3 months, however she took it off 4 days ago because it made her dizzy. She has not been on any pain medication for the last 4 days. She complains of diarrhea, denies fever, chills, neck pain, chest pain, abdominal pain, vomiting, dysuria. She does not smoke nor drink Past medical history: Chronic pain syndrome, chronic low back pain, fibromyalgia , history of CVA, hypertension, CAD, lumbar radiculopathy, peripheral neuropathy , history of vertebral fractures, history of gastric cancer status post surgery many years ago Past surgical history: History of choledocholithiasis with stent and sphincterotomy ROS All systems reviewed and are negative except as per history of present illness. Medications Home Meds Active Scripts Ondansetron (Ondansetron Odt) 4 Mg Tab.rapdis, 4 MG PO Q6H Y for NAUSEA AND/OR VOMITING, #10 TAB Prov:MITCH ROSADO MD 07/26/16 Hydrocodone/Acetaminophen ([place] 5-325 Tablet) 1 Each Tablet, 1 EACH PO Q6, #10 TAB Prov:MITCH ROSADO MD 07/26/16 Naproxen* (Naproxen*) 375 Mg Tablet, 375 MG PO BID Y for leann, #20 TAB Prov:YANETH RAY DO 06/11/16 Ondansetron (Zofran Odt) 4 Mg Tab.rapdis, 4 MG PO Q6 for NAUSEA AND/OR VOMITING , #10 Prov:YANETH RAY DO 06/11/16 Magnesium Citrate* (Magnesium Citrate*) 296 Ml Solution, 296 ML PO ONCE, #1 BOTTLE Prov:YANETH RAY DO 06/11/16 Lactulose* (Lactulose*) 20 Gm/30 Ml Solution, 20 GM PO BID for 7 Days, ML Prov:YANETH RAY DO 06/11/16 Mineral Oil* (Fleet* Mineral Oil Enema) 133 Ml Oil, 133 ML [place] DAILY Y for CONSTIPATION, #3 ENEMA Prov:ERENDIRA CANTRELL 05/29/16 Docusate Sodium* (Colace*) 100 Mg Capsule, 100 MG PO TID, #30 CAP Prov:ERENDIRA CANTRELLMagi 05/29/16 Glycerin* (Glycerin (Adult)*) 1 Each Supp.rect, 1 EACH [place] DAILY Y for CONSTIPATION, #10 SUPP.RECT Prov:MISAEL LIGHT MD 05/20/16 Magnesium Citrate* (Magnesium Citrate*) 296 Ml Solution, 296 ML PO ONCE Y for CONSTIPATION, #1 BOTTLE 5 Refills Prov:MISAEL LIGHT MD 05/20/16 Methocarbamol* (Robaxin*) 500 Mg Tab, 500 MG PO Q8, #14 TAB Prov:JULIENNE RAYTIMOTHY LEGGETT 03/26/16 Polyethylene Glycol* (Miralax*) 17 Gm Powd.pack, 17 GM PO DAILY, #7 Prov:CORYYANETHTIMOTHY LEGGETT 03/26/16 Reported Medications Fentanyl Patch* (Duragesic Patch*) 12 Mcg/Hr Transdermal Patch, 1 PATCH TD Q72H , PATCH 25MCG 05/20/16 Hydrocodone Bit-Acetaminophen (Hydrocodone Bit-APAP) 5-325MG Tablet, 1 TAB PO Q6H Y for PAIN, TAB 03/25/16 Diclofenac Sodium* (Voltaren* Gel) 1% -100 Gm Gel, 2 GM TOP TID, #1 TUB 03/25/16 Magnesium Oxide (Magnesium) 250 Mg Tablet, 250 MG PO DAILY, TAB 03/25/16 Cholecalciferol* (Vitamin D3*) 1,000 Unit Tablet, 1000 UNIT PO DAILY, TAB 03/25/16 Acetaminophen with Codeine (Acetaminophen-Cod #3 Tablet) 1 Each Tablet, 1 TAB PO Q4 Y for PRN, #20 TAB 03/25/16 Cyclobenzaprine Hcl* (Cyclobenzaprine Hcl*) 5 Mg Tablet, 2.5 MG PO Q4H Y for PRN , #60 TAB 03/25/16 Folic Acid* (Folic Acid*) 1 Mg Tablet, 1 MG PO DAILY, TAB 03/20/14 Levothyroxine Sodium* (Levothyroxine Sodium*) 100 Mcg Tablet, 100 MCG PO DAILY, TAB 03/20/14 Losartan Potassium* (Losartan Potassium*) 25 Mg Tablet, 25 MG PO DAILY, TAB 10/17/13 Esomeprazole Mag Trihydrate (Nexium) 40 Mg Capsule., 40 MG PO DAILY 08/21/11 Fenofibrate Nanocrystallized* (Tricor*) 145 Mg Tablet, 145 MG PO DAILY 08/21/11 Allergies Allergies: Coded Allergies: hydromorphone (Verified Allergy, Intermediate, 05/30/16) Influenza Virus Vaccines (Verified Allergy, Mild, 05/30/16) iodine (Verified Adverse Reaction, Mild, DIFFICULTY OF BREATHING, 05/30/16) PMhx/Soc 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 Head: Atraumatic. Eyes: Normal Conjunctiva. ENT: Normal External Ears, Nose and Mouth. Neck: Full range of motion. No meningismus. Resp: Clear to auscultation bilaterally. Cardio: Regular rate and rhythm. Abd: Soft, non distended, normal bowel sounds, non tender. Skin: No petechiae or rashes. Back: No midline or flank tenderness. Ext: No cyanosis, or edema. Neur: Awake and alert. No focal deficit Psych: Normal Mood and Affect. Results 24 hrs Current Medications Medications (Trade) Dose Ordered Sig/Jayashree Route PRN Reason Start Time Stop Time Status Last Admin Dose Admin Acetaminophen/ Hydrocodone Bitart ([place] (5/325)) 1 tab ONCE ONCE PO 07/26/16 23:30 07/26/16 23:31 Ondansetron HCl (Zofran Odt) 4 mg ONCE STAT ODT 07/26/16 23:21 07/26/16 23:22 DC Procedures/MDM MEDICAL MAKING DECISION: The patient is a 86-year-old female, presenting to the ER because of chronic low back pain, acute opioid withdrawal. She is stable for outpatient follow-up. She was treated with [place] 5 mg p.o. and Zofran ODT for nausea with good response. The differential diagnoses considered include but are not limited to caudal equina syndrome, spinal abscess, DJD, diskitis, lumbar radiculopathy. Departure Diagnosis: Primary Impression: Chronic pain syndrome Additional Impression: Acute opioid withdrawal Condition: Good Comments I discussed the findings with the patient. I advised the patient to follow-up with the primary physician in the morning for reevaluation and decrease fentanyl patch and referral to chronic pain management physician, advised to return if any concern MITCH ROSADO MD Jul 26, 2016 23:02
[2016-07-26] MEDS ORDERED: ONDANSETRON (ODT) 4 MG TAB ODT STA (23:21)
[2016-07-26] MEDS ORDERED: ONDA4TAB14 PO (23:23)
[2016-07-26] MEDS ORDERED: HYDR-906 PO (23:23)
[2016-07-26] MEDS ORDERED: HYDROCODONE/APAP (5/325) TAB PO ONE (23:30)
== END 2016-07-26 23:43 | disposition home or self-care (01) ==
LOC: E/R 22:16
DX: G89.4 Chronic pain syndrome (principal); F11.23 Opioid dependence with withdrawal; R11.0 Nausea; I10 Essential (primary) hypertension; I25.10 Atherosclerotic heart disease of native coronary artery without angina pectoris; Z85.028 Personal history of other malignant neoplasm of stomach
CPT/HCPCS: 99284

== ENCOUNTER 2016-07-27 12:56 | Inpatient (IN) | payer MEDICARE, OTHER ==
[~2016-07-27] VITALS: Ht 152.4 cm; Wt 50.0 kg
[~2016-07-27 12:56] MED LIST changes: +HYDR-906 PO; +ONDA4TAB14 PO
[2016-07-27 13:07] VITALS: Ht 152.4 cm; Wt 50.0 kg
--- NOTE | 2016-07-27 14:09 | ERD ---
ER Documentation Chief Complaint Date/Time DATE: 07/27/16 TIME: 14:08 Chief Complaint BACK PAIN, HERE YESTERDAY, NAUSEA,POOR APETITE HPI 86-year-old woman here with multiple complaints including chronic recurrent abdominal pain, back pain, multiple episodes of clear nonbloody nonbilious emesis and multiple episodes of diarrhea over the last few days. She was seen and evaluated recently and workup was unremarkable and she was discharged with prescriptions which she has not yet taken, she returns here for reevaluation and for continued symptomatology. She denies blood per rectum, no fevers or chills, no dysuria, no complaints of chest pain or shortness of breath. ROS All systems reviewed and are negative except as per history of present illness. Medications Home Meds Active Scripts Ondansetron (Ondansetron Odt) 4 Mg Tab.rapdis, 4 MG PO Q6H Y for NAUSEA AND/OR VOMITING, #10 TAB Prov:MITCH ROSADO MD 07/26/16 Naproxen* (Naproxen*) 375 Mg Tablet, 375 MG PO BID Y for leann, #20 TAB Prov:YANETH RAY DO 06/11/16 Lactulose* (Lactulose*) 20 Gm/30 Ml Solution, 20 GM PO BID for 7 Days, ML Prov:YANETH RAY DO 06/11/16 Mineral Oil* (Fleet* Mineral Oil Enema) 133 Ml Oil, 133 ML [place] DAILY Y for CONSTIPATION, #3 ENEMA Prov:ERENDIRA CANTRELL 05/29/16 Docusate Sodium* (Colace*) 100 Mg Capsule, 100 MG PO TID, #30 CAP Prov:ERENDIRA CANTRELL 05/29/16 Glycerin* (Glycerin (Adult)*) 1 Each Supp.rect, 1 EACH [place] DAILY Y for CONSTIPATION, #10 SUPP.RECT Prov:MISAEL LIGHT MD 05/20/16 Methocarbamol* (Robaxin*) 500 Mg Tab, 500 MG PO Q8, #14 TAB Prov:YANETH RAY DO 03/26/16 Reported Medications Fentanyl Patch* (Duragesic Patch*) 12 Mcg/Hr Transdermal Patch, 1 PATCH TD Q72H , PATCH 25MCG 05/20/16 Hydrocodone Bit-Acetaminophen (Hydrocodone Bit-APAP) 5-325MG Tablet, 1 TAB PO Q6H Y for PAIN, TAB 03/25/16 Diclofenac Sodium* (Voltaren* Gel) 1% -100 Gm Gel, 2 GM TOP TID, #1 TUB 03/25/16 Magnesium Oxide (Magnesium) 250 Mg Tablet, 250 MG PO DAILY, TAB 03/25/16 Cholecalciferol* (Vitamin D3*) 1,000 Unit Tablet, 1000 UNIT PO DAILY, TAB 03/25/16 Cyclobenzaprine Hcl* (Cyclobenzaprine Hcl*) 5 Mg Tablet, 2.5 MG PO Q4H Y for PRN , #60 TAB 03/25/16 Folic Acid* (Folic Acid*) 1 Mg Tablet, 1 MG PO DAILY, TAB 03/20/14 Levothyroxine Sodium* (Levothyroxine Sodium*) 100 Mcg Tablet, 100 MCG PO DAILY, TAB 03/20/14 Losartan Potassium* (Losartan Potassium*) 25 Mg Tablet, 25 MG PO DAILY, TAB 10/17/13 Esomeprazole Mag Trihydrate (Nexium) 40 Mg Capsule.dr, 40 MG PO DAILY 08/21/11 Fenofibrate Nanocrystallized* (Tricor*) 145 Mg Tablet, 145 MG PO DAILY 08/21/11 Discontinued Reported Medications Acetaminophen with Codeine (Acetaminophen-Cod #3 Tablet) 1 Each Tablet, 1 TAB PO Q4 Y for PRN, #20 TAB 03/25/16 Discontinued Scripts Hydrocodone/Acetaminophen ([place] 5-325 Tablet) 1 Each Tablet, 1 EACH PO Q6, #10 TAB Prov:MITCH ROSADO MD 07/26/16 Ondansetron (Zofran Odt) 4 Mg Tab.rapdis, 4 MG PO Q6 for NAUSEA AND/OR VOMITING , #10 Prov:YANETH RAY DO 06/11/16 Magnesium Citrate* (Magnesium Citrate*) 296 Ml Solution, 296 ML PO ONCE, #1 BOTTLE Prov:YANETH RAY DO 06/11/16 Magnesium Citrate* (Magnesium Citrate*) 296 Ml Solution, 296 ML PO ONCE Y for CONSTIPATION, #1 BOTTLE 5 Refills Prov:MISAEL LIGHT MD 05/20/16 Polyethylene Glycol* (Miralax*) 17 Gm Powd.pack, 17 GM PO DAILY, #7 Prov:YANETH RAY DO 03/26/16 Allergies Allergies: Coded Allergies: hydromorphone (Verified Allergy, Intermediate, 07/27/16) Influenza Virus Vaccines (Verified Allergy, Mild, 07/27/16) iodine (Verified Adverse Reaction, Mild, DIFFICULTY OF BREATHING, 07/27/16) PMhx/Soc Chronic pain syndrome, opioid dependence, chronic low back pain, stroke, fibromyalgia, hypertension, peripheral and lumbar radiculopathy, coronary artery disease, gastric cancer chronic pain syndrome, history of vertebral fractures, recent ERCP with sphincterectomy and biliary stent placement. 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) Hx Respiratory Disorders: No Hx Cardiac Disorders: Yes (HTN) Hx Psychiatric Problems: No Hx Miscellaneous Medical Probl: Yes (COMPLEX H AND P ) Hx Alcohol Use: Yes (NOT CURRENTLY) Hx Substance Use: Yes Hx Tobacco Use: No (UNKOWN) FmHx Family History: diabetes Physical Exam Vitals Vital Signs Date Time Temp Pulse Resp B/P Pulse Ox O2 Delivery O2 Flow Rate FiO2 07/27/16 16:00 99.1 83 18 157/79 99 Room Air 07/27/16 13:07 99.5 81 20 169/75 99 Physical Exam GENERAL: Well-developed, elderly, appears dehydrated, afebrile HEENT: Dry mucous membranes, pink conjunctiva, no cervical spine tenderness or step-off deformities, no goiter, no jaundice or icterus, extraocular movements intact without pain. No submandibular induration, and no pharyngeal erythema NEURO: Alert and oriented 3, cranial nerves II through XII intact bilaterally, pupils equal round reactive to light, no focal deficits or facial asymmetry, sensation intact distally Strength 5/5 in upper and lower extremities bilaterally CARDIAC: Regular rate and rhythm, no murmurs rubs or gallops LUNGS: Clear bilaterally no wheezing crackles or stridor ABDOMEN: Soft nontender, no guarding, no rigidity, no rebound, no psoas sign no obturator sign. SKIN: Warm and dry to touch, no abrasions, contusions, or hematomas, no lacerations, no ecchymosis, no target lesions, and without ulcers EXTREMITIES: No clubbing cyanosis or edema, calves are bilaterally symmetrical, no Homans sign, no popliteal cord sign. Distal pulses equal and bilateral PSYCH: Anxious Result Diagram: 07/27/16 1449 07/27/16 1449 Results 24 hrs Laboratory Tests Test 07/27/16 14:49 White Blood Count 13.910^3/ul Red Blood Count 3.7310^6/ul Hemoglobin 11.1g/dl Hematocrit 33.1% Mean Corpuscular Volume 88.7fl Mean Corpuscular Hemoglobin 29.8pg Mean Corpuscular Hemoglobin Concent 33.5g/dl Red Cell Distribution Width 12.4% Platelet Count 24888^3/UL Mean Platelet Volume 10.8fl Neutrophils % 83.7% Lymphocytes % 7.2% Monocytes % 8.3% Eosinophils % 0.2% Basophils % 0.2% Nucleated Red Blood Cells % 0.0/100WBC Neutrophils # 11.610^3/ul Lymphocytes # 1.010^3/ul Monocytes # 1.210^3/ul Eosinophils # 0.010^3/ul Basophils # 0.010^3/ul Nucleated Red Blood Cells # 0.010^3/ul Prothrombin Time 12.9Sec Prothrombin Time Ratio 1.0 INR International Normalized Ratio 0.97 Urine Color LT. YELLOW Urine Clarity CLEAR Urine pH 5.5 Urine Specific [place] 1.015 Urine Ketones NEGATIVE Urine Nitrite NEGATIVE Urine Bilirubin NEGATIVE Urine Urobilinogen 0.2 E.U./dL Urine Leukocyte Esterase NEGATIVE Urine Hemoglobin NEGATIVE Urine Glucose NEGATIVE% Urine Total Protein NEGATIVE Sodium Level 125mmol/L Potassium Level 5.2mmol/L Chloride Level 92mmol/L Carbon Dioxide Level 23mmol/L Anion Gap 15 Blood Urea Nitrogen 22mg/dl Creatinine 0.93mg/dl Glucose Level 93mg/dl Calcium Level 9.4mg/dl Total Bilirubin 0.2mg/dl Direct Bilirubin 0.00mg/dl Indirect Bilirubin 0.2mg/dl Aspartate Amino Transf (AST/SGOT) 27IU/L Alanine Aminotransferase (ALT/SGPT) 24IU/L Alkaline Phosphatase 148IU/L Troponin I < 0.012ng/ml Total Protein 7.9g/dl Albumin 4.7g/dl Globulin 3.20g/dl Albumin/Globulin Ratio 1.46 Lipase 219U/L Current Medications Medications (Trade) Dose Ordered Sig/Jayashree Route PRN Reason Start Time Stop Time Status Last Admin Dose Admin Sodium Chloride (NS) 1,000 ml @ 1,000 mls/hr Q1H STAT IV 07/27/16 14:35 07/27/16 15:34 DC 07/27/16 14:48 Hydromorphone HCl (Dilaudid) 1 mg ONCE STAT IV 07/27/16 14:35 07/27/16 14:42 DC Ondansetron HCl (Zofran Inj) 4 mg ONCE STAT IV 07/27/16 14:35 07/27/16 14:37 DC 07/27/16 14:48 Ketorolac Tromethamine (Toradol) 15 mg ONCE STAT IV 07/27/16 14:41 07/27/16 14:43 DC 07/27/16 14:48 Losartan Potassium (Cozaar) 25 mg AM PO 07/28/16 09:00 Ondansetron HCl (Zofran Inj) 4 mg Q4 PRN IV NAUSEA AND/OR VOMITING 07/27/16 17:30 Pantoprazole (Protonix Iv) 40 mg DAILY IV 07/28/16 09:00 Levothyroxine Sodium (Synthroid) 100 mcg AM PO 07/28/16 09:00 Hydralazine HCl (Apresoline) 5 mg Q6 PRN IV SBP>180 OR DBP>100 07/27/16 17:30 Morphine Sulfate (morphine) 2 mg Q3H PRN IV PAIN LEVEL 6-10 07/27/16 17:30 Acetaminophen 650 mg 650 mg Q6 PRN PO PAIN OR TEMP ABOVE 38C 07/27/16 17:30 Sodium Chloride (NS) 1,000 ml @ 125 mls/hr Q8H IV 07/27/16 17:30 Procedures/MDM IV line was established patient was placed on teletypesetter monitor rhythm strip revealed a sinus rhythm at about 70 bpm with upright P and T waves. Patient was afebrile. EKG performed, read by me: 71 bpm, normal sinus rhythm, normal axis, no acute ST segment changes, narrow QRS complex, with good R-wave progression in precordial leads. CT scan of the abdomen and pelvis was performed there was no acute infectious or inflammatory pathology noted. Please refer to radiologist dictation for full report. CBC reveals a leukocytosis of 14, consistent with recent vomiting, hemoglobin is low at 11, electrolytes revealed dehydration with a BUN/creatinine of 22/0.9 and hyponatremia at 125. Liver function tests were normal, troponin was negative, urine analysis was negative for infection. I administered 1 L normal saline intravenously for dehydration, Zofran 4 mg IV, Toradol 15 mg IV with minimal effect. Patient initially refused opioid analgesics although she has continued pain. Patient will be admitted to [facility] for continued medical management and rehydration. I then administered hydromorphone 1 mg IV Departure Diagnosis: Primary Impression: Abdominal pain of unknown etiology Additional Impressions: Vomiting and diarrhea Dehydration Hyponatremia Condition: JUANPABLO Lopez MD Jul 27, 2016 14:09
[2016-07-27] MEDS ORDERED: ONDANSETRON 4 MG INJ IV STA (14:35)
[2016-07-27] MEDS ORDERED: HYDROmorphONE 1 MG/ML SYG IV STA (14:35)
[2016-07-27] MEDS ORDERED: SOD CHLORIDE 0.9% 1,000 ML IV STA (14:35)
[2016-07-27] MEDS ORDERED: KETOROLAC 15 MG INJ IV STA (14:41)
[2016-07-27 15:01] LABS: ADD SCAN DIFF NO
[2016-07-27 15:03] LABS: BASOPHILS % 0.2 % (0.0-2.0); EOSINOPHILS % 0.2 % (0.0-7.0); HEMATOCRIT 33.1 % (37.0-47.0); HEMOGLOBIN 11.1 g/dl (12.0-16.0); LYMPHOCYTES % 7.2 % (15.0-51.0); MEAN CORPUSCULAR HEMOGLOBIN 29.8 pg (29.0-33.0); MEAN CORPUSCULAR HGB CONC 33.5 g/dl (32.0-37.0); MEAN CORPUSCULAR VOLUME 88.7 fl (82.0-101.0); MEAN PLATELET VOLUME 10.8 fl (7.4-10.4); MONOCYTE # 1.2 10^3/ul (0.3-0.9); MONOCYTES % 8.3 % (0.0-11.0); NEUTROPHIL # 11.6 10^3/ul (1.6-7.5); NEUTROPHILS % 83.7 % (39.0-77.0); PLATELET COUNT 229 10^3/UL (140-415); RED BLOOD COUNT 3.73 10^6/ul (4.20-5.40); RED CELL DISTRIBUTION WIDTH 12.4 % (11.5-14.5); WHITE BLOOD COUNT 13.9 10^3/ul (4.8-10.8)
[2016-07-27 15:19] LABS: ADD UMIC NO; URINE BILIRUBIN (Dip) NEGATIVE (NEGATIVE); URINE BLOOD (Dip) NEGATIVE (NEGATIVE); URINE COLOR LT. YELLOW (YELLOW); URINE GLUCOSE (Dip) NEGATIVE (NEGATIVE); URINE KETONES (Dip) NEGATIVE (NEGATIVE); URINE LEUKOCYTE ESTERASE (Dip) NEGATIVE (NEGATIVE); URINE NITRITE (Dip) NEGATIVE (NEGATIVE); URINE TOTAL PROTEIN (Dip) NEGATIVE (NEGATIVE); URINE UROBILINOGEN (Dip) 0.2 E.U./dL (0.1-1.0)
[2016-07-27 15:21] LABS: INR 0.97; PROTIME 12.9 Sec (12.2-14.2)
[2016-07-27 15:27] LABS: ALANINE AMINOTRANSFERASE 24 IU/L (13-69); ALBUMIN 4.7 g/dl (3.3-4.9); ALBUMIN/GLOBULIN RATIO 1.46; ALKALINE PHOSPHATASE 148 IU/L (42-121); ANION GAP 15 (8-16); ASPARTATE AMINO TRANSFERASE 27 IU/L (15-46); BILIRUBIN,INDIRECT 0.2 mg/dl (0-1.1); BILIRUBIN,TOTAL 0.2 mg/dl (0.2-1.3); BLOOD UREA NITROGEN 22 mg/dl (7-20); CALCIUM 9.4 mg/dl (8.4-10.2); CARBON DIOXIDE 23 mmol/L (21-31); CHLORIDE 92 mmol/L (97-110); CREATININE 0.93 mg/dl (0.44-1.00); GLUCOSE 93 mg/dl (70-220); POTASSIUM 5.2 mmol/L (3.5-5.1); SODIUM 125 mmol/L (135-144); TOTAL PROTEIN 7.9 g/dl (6.1-8.1)
--- NOTE | 2016-07-27 15:35 | RADRPT ---
PROCEDURE: CT Abdomen and Pelvis without contrast. CLINICAL INDICATION: Abdominal pain TECHNIQUE: CT scan of the abdomen and pelvis was performed on a multidetector high-resolution CT s canner without intravenous contrast. Coronal and sagittal reformatted images were obtained from the axial source images. Images were reviewed on a high-resolution PACS workstation. The total exam CTD I equals 5mGy and the total exam DLP equals 258mGy-cm. One or more of the following dose reduction t echniques were used: Automated exposure control, Adjustment of the mA and/or kV according to patient size, and/or use of iterative reconstruction technique. COMPARISON: Abdominal CT 05/28/2016 FINDINGS: Evaluation of the solid organs is limited given the lack of intravenous contrast administration. Bilateral lung base fibrotic changes, left greater than right. Multiple hepatic cysts. The prior biliary stent has been removed with resolution of prior intrahepa tic pneumobilia. Now seen is mild left intrahepatic biliary dilatation. Gastric surgical changes are seen. The pancreas, spleen and adrenals are unchanged in appearance. No focal pericholecystic inflammatory changes. No hydronephrosis. No renal or ureteral stone. No bowel obstruction. Normal-caliber appendix. No significant retroperitoneal lymphadenopathy, ascites or evidence of pneumoperitoneum. Aortoiliac atherosclerosis. Mild chronic L4 compression fracture. Uterus is absent. Bilateral gluteal calcified injection granulomas. IMPRESSION: The prior biliary stent has been removed with resolution of prior intrahepatic pneumobilia. Now see n is mild left intrahepatic biliary dilatation. Recommend correlation with bilirubin values. If war ranted, consider follow-up MRCP. No other significant change since 05/28/2016. No renal or ureteral stone. No evidence of bowel obstruction. Normal-caliber appendix. Prior gastric surgery. Status post hysterectomy. Mild chronic L4 compression fracture. RPTAT: AA .Luc Anderson MD, MD Date Time Electronically viewed and signed by .Luc Anderson MD, on 07/27/2016 15:34 .T/
[2016-07-27 15:43] LABS: TROPONIN-I < 0.012 ng/ml (0.00-0.12)
[2016-07-27] MEDS ORDERED: ACETAMINOPHEN 325 MG TAB PO PRN (17:30)
[2016-07-27] MEDS ORDERED: ONDANSETRON 4 MG INJ IV PRN (17:30)
[2016-07-27] MEDS ORDERED: hydrALAzine 20 MG INJ IV PRN (17:30)
[2016-07-27] MEDS: morphine 2 MG INJ IV PRN ×2 (18:31→21:26)
[2016-07-27] MEDS: SOD CHLORIDE 0.9% 1,000 ML IV SCH (18:32)
[2016-07-27 18:43] VITALS: TEMP 98.9
[2016-07-27 22:15] VITALS: BP 138/68; RESP 20
[2016-07-28 00:15] VITALS: BP 138/68; PULSE 66; RESP 18
[2016-07-28] MEDS: SOD CHLORIDE 0.9% 1,000 ML IV SCH ×5 (01:30→19:58)
[2016-07-28 05:32] LABS: ADD SCAN DIFF NO
[2016-07-28 05:39] LABS: BASOPHILS % 0.2 % (0.0-2.0); EOSINOPHILS # 0.1 10^3/ul (0.0-0.5); EOSINOPHILS % 0.7 % (0.0-7.0); HEMATOCRIT 26.1 % (37.0-47.0); HEMOGLOBIN 8.8 g/dl (12.0-16.0); LYMPHOCYTES # 1.2 10^3/ul (0.8-2.9); LYMPHOCYTES % 13.8 % (15.0-51.0); MEAN CORPUSCULAR HEMOGLOBIN 29.9 pg (29.0-33.0); MEAN CORPUSCULAR HGB CONC 33.7 g/dl (32.0-37.0); MEAN CORPUSCULAR VOLUME 88.8 fl (82.0-101.0); MEAN PLATELET VOLUME 10.9 fl (7.4-10.4); MONOCYTE # 1.2 10^3/ul (0.3-0.9); MONOCYTES % 13.4 % (0.0-11.0); NEUTROPHIL # 6.4 10^3/ul (1.6-7.5); NEUTROPHILS % 71.6 % (39.0-77.0); PLATELET COUNT 179 10^3/UL (140-415); RED BLOOD COUNT 2.94 10^6/ul (4.20-5.40); RED CELL DISTRIBUTION WIDTH 12.2 % (11.5-14.5)
[2016-07-28 05:57] LABS: ALBUMIN 3.5 g/dl (3.3-4.9); ALBUMIN/GLOBULIN RATIO 1.45; BILIRUBIN,INDIRECT 0.2 mg/dl (0-1.1); BILIRUBIN,TOTAL 0.2 mg/dl (0.2-1.3); CALCIUM 8.4 mg/dl (8.4-10.2); CREATININE 0.8 mg/dl (0.44-1.00); MAGNESIUM 1.7 mg/dl (1.7-2.5); POTASSIUM 4.6 mmol/L (3.5-5.1); TOTAL PROTEIN 5.9 g/dl (6.1-8.1)
--- NOTE | 2016-07-28 08:02 | CONS ---
DATE OF ADMISSION: 07/27/2016 DATE OF CONSULTATION: 07/28/2016 Thank you for having me see this patient. HISTORY OF PRESENT ILLNESS: As you know, Mrs. Rodriguez is an 86-year-old woman who I am asked to se e regarding abdominal complaints. I have obtained a history from the daughter, who acts as translat or. The patient has a long and complicated gastrointestinal history, including issues in the past w ith gastric cancer which was resected, Rojo's esophagus, colon polyps, diverticulosis, a small-margaret wel obstruction, and most recently bile duct stones. Nonetheless, she has been complaining a great deal of back pain. With this, she receives various narcotic analgesics. She has used Zo-Colace a nd lactulose as laxatives. Nonetheless, she has had severe back pain over the past week. In additi on, she had an emergency room visit on Sunday, at which time she was given [place] for pain. She r eturned on with complaints of nausea, vomiting and diarrhea as well. By this morning her p ain complaints have resolved. Currently she has not had any further bowel movements. She denies an y nausea, vomiting, fever or chills. In fact, she is hungry for breakfast. Of note, her laboratory data on admission revealed an elevated alkaline phosphatase, which has since returned to normal. I n addition, her CAT scan shows dilation of the left intrahepatic biliary system. PAST MEDICAL HISTORY: Significant for hospitalization related to gastric cancer surgery, small-conner l obstruction, hysterectomy and oophorectomy. ADULT ILLNESSES: Include arthritis, Rojo's, CVA, colon polyps, arteriosclerotic heart disease, d epression, diverticulitis, fibromyalgia, gastric cancer, gastric ulcer, hyperlipidemia, hypertension , hypothyroidism, duodenal diverticulum, liver cyst, bile duct stone. CHILDHOOD: Denies rheumatic fever or scarlet fever. ALLERGIES: IODINE. INJURIES: None. MEDICATIONS: Include: 1. Thyroid. 2. Losartan. 3. Megace. 4. Nexium. 5. Zo-Colace 6. Tramadol. 7. Tricor. 8. Fentanyl patch. 9. Forteo. SOCIAL HISTORY: The patient has never been a smoker and does not drink alcohol. 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 FAMILY HISTORY: Noncontributory. REVIEW OF SYSTEMS: Negative, except as noted above. PHYSICAL EXAMINATION: GENERAL: The patient is an elderly, well-developed, well-nourished, thin female, in no acute distres s. SKIN: Clear. HEENT: Negative. LUNGS: Clear to percussion and auscultation. CARDIAC: No murmurs, rubs or gallops. ABDOMEN: Soft, nontender, scar noted. No rebound or rigidity. RECTAL: No stool in rectal vault. LABORATORY DATA: Remarkable for white count initially on admission of 13.9, subsequently 9.0. Hemo globin 11, repeat 8.8. Platelets 229, repeat 179. Chemistries remarkable for an alkaline phosphata se of 148 on admission, which has since dropped to 94. CAT scan has been reviewed and is remarkable for left intrahepatic biliary dilation. IMPRESSION: At this point the patient's abdominal complaints have resolved. However, I am concerned about her bump in her alkaline phosphatase, as well as her CT scan findings. This raises the possi bility of a retained stone within the bile duct. PLAN: 1. Discussed above with Dr. Robbins. 2. MRCP ordered. 3. Advance diet. 4. Further recommendations to follow above and clinical course. Thank you for having me see this patient. Dictated By: LAILA MINAYA/JIGNA Conf#: [id number] DID#: [id number]
[2016-07-28 08:15] VITALS: BP 154/72; RESP 18
[2016-07-28] MEDS: LEVOTHYROXINE 100 MCG TAB PO SCH (08:48)
[2016-07-28] MEDS: PANTOPRAZOLE (EC) 40 MG TAB PO SCH ×2 (08:49→18:46)
[2016-07-28] MEDS: LOSARTAN 25 MG TAB PO SCH (08:49)
[2016-07-28] MEDS: morphine 2 MG INJ IV PRN ×4 (08:51→19:58)
[2016-07-28] MEDS ORDERED: PANTOPRAZOLE 40 MG INJ IV SCH (09:00)
--- NOTE | 2016-07-28 09:45 | HP ---
DATE OF ADMISSION: 07/27/2016 ADMITTING DIAGNOSIS: Intractable nausea and vomiting. HISTORY OF PRESENT ILLNESS: The patient is an 86-year-old female with a history of choledoch olithiasis, gastric cancer, coronary artery disease, fibromyalgia, peripheral neuropathy, who presen maxwell to the hospital with complaints of nausea, vomiting, and diarrhea. The patient had presented to the emergency room the day prior and was given antibiotics and [place] for possible urinary tract inf ection. The patient continued to get worse with persistent nausea and vomiting, and he presented to the emergency room. At this time, patient has no more nausea, vomiting and no more bowel movements since yesterday. The patient is currently without abdominal pain, and has an appetite and is curre ntly eating. REVIEW OF SYSTEMS: No chest pain, no shortness of breath. Has severe low back pain radiating to th e left greater than the right leg. PAST MEDICAL HISTORY: 1. Post laminectomy syndrome with lumbar radiculopathy. 2. History of choledocholithiasis, status post ERCP, stenting, with recent stent removal. 3. History of gastric cancer. 4. Coronary artery disease. 5. Hypertension. 6. Hypothyroidism. 7. Fibromyalgia. 8. Diverticulitis and diverticulosis. 9. Hyperlipidemia. 10. Osteoporosis. 11. Peripheral neuropathy. PAST SURGICAL HISTORY: Significant for partial gastrectomy, small bowel resection and repair, hyste rectomy and oophorectomy, cataract extraction, lens implantation of the right. FAMILY HISTORY: Noncontributory. ALLERGIES: IODINE. MEDICATIONS: 1. Levothyroxine 100 mcg daily. 2. Losartan 25 mg daily. 3. Nexium 40 mg daily. 4. Zo-Colace 1 daily. 5. Fentanyl patch, stopped, last placed July 27. 6. Forteo, daily injections. SOCIAL HISTORY: The patient is . No tobacco, no alcohol use. Lives with her daughter. PHYSICAL EXAMINATION: VITAL SIGNS: Temperature 98.3, pulse 66, respirations 18, blood pressure 138/68, pulse oximetry 97% on room air oxygen saturation. GENERAL: Well-developed, thin female in no acute distress, sitting up in bed eating. HEENT: EOMI, post surgical changes right eye. Oropharynx clear without exudate. NECK: No jugular venous distention, 2+ carotid upstroke decreased range of motion in all directions . CHEST: Clear to auscultation bilaterally. HEART: Regular rate and rhythm. Normal S1, S2. No murmurs, gallops, or rubs. ABDOMEN: Soft, nontender, nondistended, normoactive bowel sounds. No rebound, no masses. EXTREMITIES: No cyanosis, clubbing, or edema. There is tenderness to palpation in the left lumbosa cral junction and sciatic notch causing pain to radiate down left lower extremity. Otherwise, nonfo philip. LABORATORY EXAMINATION: White blood cell count on admission was 13.9, platelet count 229, hemoglobi n 11.1, hematocrit 33.1. White blood cell count this morning shows a 9.0 with a hemoglobin of 8.8, and hematocrit of 26.1, platelets 179. Initial sodium was 125, potassium 5.2, chloride 92, BUN 22, creatinine 0.93, calcium 9.2, AST of 27, ALT of 24, alkaline phosphatase 148. Troponin is less than 0.012, albumin 4.7. Sodium this morning is 130, potassium 4.6, chloride 103, bicarbonate 23, BUN o f 13, creatinine 0.8. Magnesium is 1.7. Alkaline phosphatase 94, ALT of 28, AST of 17, total bilir ubin is 0.2. Urinalysis is unremarkable. Urine sodium is [address] scan without contrast shows prior biliary stent was removed with mild left intrahepatic biliary dilatation, but n o stones noted, mild chronic L4 compression fracture, otherwise unremarkable. IMPRESSION: The patient is an 86-year-old female with history of choledocholithiasis, status post stenting and removal, history of gastric cancer, chronic pain from post-laminectomy syndrome w ho presented with intractable nausea and vomiting and diarrhea yesterday. The patient admitted for further evaluation and treatment. 1. Nausea, vomiting. The patient is improved now and in part, her symptoms may have been a result of narcotic withdrawal, as the patient's daughter removed her narcotic patch a few days ago. The kulwinder isbell does have intrahepatic dilatation of the biliary duct and is to get an MRCP later today to riddhi santiagoate further. I appreciate Dr. Johnson's input into this case. We will continue with pantoprazole fo r her GI prophylaxis and history of gastritis and gastric cancer and advance diet as tolerated and p rovide p.r.n. morphine for pain as well as p.r.n. Zofran for nausea. 2. Post laminectomy syndrome, lumbar radiculopathy. The patient has severe low back pain, unresolv ed with various treatment modalities. The patient has been receiving fentanyl patch with some relie f in her pain. Will continue this at this time at 25 mcg every 3 days. 3. Coronary disease/hypertension. This is stable. Continue with the patient's medications. 4. Hyperlipidemia. Continue with diet but hold medications at this time. 5. Hypothyroidism. We will continue with the patient's medications. Dictated By: OLI CARR MD SR/NTS Conf#: [id number] DID#: [id number]
--- NOTE | 2016-07-28 12:04 | RADRPT ---
PROCEDURE: MRCP. CLINICAL INDICATION: Abdominal pain. TECHNIQUE: MRCP was performed on the a high-resolution, high Devika field strength scanner. Patien t was examined without contrast. 3-D coronal rotating MIP images of the biliary tree are available for review. COMPARISON: CT abdomen and pelvis 07/27/2016 and 05/28/2016. And MRCP 03/28/2016 FINDINGS: Gallbladder is unremarkable. There is mild intrahepatic biliary ductal dilatation more evident in th e left hepatic lobe. There is common bile duct dilatation measures up to 1.2 cm which previously me asures up to 1.4 cm on MRI dated 03/28/2016. No CBD stone is identified. There are multiple hepatic cysts and small left renal cysts. There are postsurgical changes of gastric bypass. IMPRESSION: The study is somewhat limited due to motion artifacts. The patient was unable to tolerate thin-slic e MRCP images. 1. Mild intrahepatic biliary ductal dilatation more evident in the left hepatic lobe, slightly impr neo compared to MRCP dated 03/28/2016. 2. Slightly improved caliber of moderately dilated common bile duct with persistent distal strictur e. No CBD stone is identified. RPTAT: BB .Mike Finnegan MD, MD Date Time Electronically viewed and signed by .Mike Finnegan MD, on 07/28/2016 12:04 .O/
[2016-07-28 19:30] VITALS: BP 155/77; RESP 18
[2016-07-28 21:02] VITALS: BP 156/75; PULSE 73
[2016-07-29] MEDS: SOD CHLORIDE 0.9% 1,000 ML IV SCH ×4 (01:30→17:30)
[2016-07-29 05:44] LABS: ADD SCAN DIFF NO
[2016-07-29 05:52] LABS: BASOPHILS % 0.5 % (0.0-2.0); EOSINOPHILS # 0.2 10^3/ul (0.0-0.5); EOSINOPHILS % 1.8 % (0.0-7.0); HEMOGLOBIN 9.5 g/dl (12.0-16.0); LYMPHOCYTES % 11.7 % (15.0-51.0); MEAN CORPUSCULAR HEMOGLOBIN 30.1 pg (29.0-33.0); MEAN CORPUSCULAR HGB CONC 32.8 g/dl (32.0-37.0); MEAN CORPUSCULAR VOLUME 91.8 fl (82.0-101.0); MEAN PLATELET VOLUME 10.7 fl (7.4-10.4); MONOCYTE # 1.1 10^3/ul (0.3-0.9); MONOCYTES % 12.5 % (0.0-11.0); NEUTROPHIL # 6.5 10^3/ul (1.6-7.5); NEUTROPHILS % 73.3 % (39.0-77.0); PLATELET COUNT 213 10^3/UL (140-415); RED BLOOD COUNT 3.16 10^6/ul (4.20-5.40); RED CELL DISTRIBUTION WIDTH 12.4 % (11.5-14.5); WHITE BLOOD COUNT 8.9 10^3/ul (4.8-10.8)
[2016-07-29] MEDS: morphine 2 MG INJ IV PRN ×5 (06:12→23:48)
[2016-07-29] MEDS: PANTOPRAZOLE (EC) 40 MG TAB PO SCH ×2 (06:12→18:12)
[2016-07-29 06:20] LABS: ALBUMIN 3.7 g/dl (3.3-4.9); ALBUMIN/GLOBULIN RATIO 1.42; CALCIUM 8.9 mg/dl (8.4-10.2); CREATININE 0.71 mg/dl (0.44-1.00); MAGNESIUM 1.7 mg/dl (1.7-2.5); POTASSIUM 4.7 mmol/L (3.5-5.1); TOTAL PROTEIN 6.3 g/dl (6.1-8.1)
[2016-07-29 08:00] VITALS: BP 153/69; RESP 17
[2016-07-29] MEDS: LEVOTHYROXINE 100 MCG TAB PO SCH (09:31)
[2016-07-29] MEDS: LOSARTAN 25 MG TAB PO SCH (09:31)
[2016-07-29] MEDS ORDERED: NA PHOSPHATE/BIPHOS 133 ML ENEMA PR ONE (12:00)
[2016-07-29] MEDS ORDERED: MAGNESIUM HYDROXIDE 30ML CUP PO SCH (12:00)
--- NOTE | 2016-07-29 12:08 | HP ---
DATE OF ADMISSION: 07/27/2016 SUBJECTIVE: The patient having lumbar pain, is awake and alert and complaining of constipation. OBJECTIVE: VITAL SIGNS: Temperature is 98.5, pulse 65, respirations 17, blood pressure is 153/68, pulse ox is 98 on room air. HEENT: Head is normocephalic, atraumatic. EYES: Pupils are equal, round, and react to light and accommodation. CARDIOVASCULAR: Regular rate and rhythm. LUNGS: Clear to auscultation bilaterally. ABDOMEN: Soft, nontender. No palpable masses. LABORATORY TESTS: Demonstrates a WBC of 8.9, hemoglobin 9.5. Sodium 138, potassium is 4.7, creatin ine is 0.71. MRI on 07/28/2016 of the abdomen the patient was unable to tolerate the thin slice [facility] P. Had mild biliary ductal dilatation, which was improved from March. No common bile duct stone . ASSESSMENT AND PLAN: 1. Lower back pain with lumbar radiculopathy. Still having pain medications and is getting constipa maxwell due to these pain medications. 2. Constipation. Patient normally takes Colace at home and does not work too well. Will continue with the Colace, add Milk of Magnesia and for 1 time will give a Fleets enema. DISCHARGE possibilities: Will wait for Dr. Johnson if any other orders are going to be becoming up and wait for the pain management to be controlled. Dictated By: RAUL CANTU/JIGNA Conf#: [id number] DID#: [id number]
[2016-07-29] MEDS: DOCUSATE SODIUM 100 MG CAP PO SCH ×2 (12:12→21:19)
[2016-07-29] MEDS ORDERED: VITAMIN A & D 5 GM OINT PACKET TOP ONE (13:42)
[2016-07-29 19:39] VITALS: BP 120/62; RESP 20
[2016-07-30] MEDS: SOD CHLORIDE 0.9% 1,000 ML IV SCH ×4 (00:52→23:45)
[2016-07-30] MEDS: PANTOPRAZOLE (EC) 40 MG TAB PO SCH ×2 (05:36→17:20)
[2016-07-30 06:30] LABS: CREATININE 0.68 mg/dl (0.44-1.00); POTASSIUM 4.6 mmol/L (3.5-5.1)
[2016-07-30 08:00] VITALS: BP 145/71; PULSE 69; RESP 18
[2016-07-30] MEDS: LEVOTHYROXINE 100 MCG TAB PO SCH (08:09)
[2016-07-30] MEDS: DOCUSATE SODIUM 100 MG CAP PO SCH ×2 (08:09→20:39)
[2016-07-30] MEDS: LOSARTAN 25 MG TAB PO SCH (08:13)
[2016-07-30] MEDS: morphine 2 MG INJ IV PRN ×3 (09:53→23:45)
--- NOTE | 2016-07-30 14:10 | PN ---
DATE: 07/30/2016 SUBJECTIVE: No acute changes. The patient reports having had a bowel movement and less pain. OBJECTIVE: VITAL SIGNS: Temperature 98.6, pulse of 69, respirations 18, blood pressure 145/71, pulse ox is 97% on room air. HEENT: Normocephalic, atraumatic. Eyes: Pupils equal, round, react to light and accommodation. CARDIOVASCULAR: Regular rate and rhythm. LUNGS: Clear to auscultation bilaterally. ABDOMEN: Soft. LABORATORY DATA: Demonstrate sodium 137, potassium 4.6, creatinine is 0.68. ASSESSMENT AND PLAN: 1. Lower back pain with radiculopathy on pain medication which seems to be helping. Pain seems to have improved. 2. Constipation. The patient has been started on Milk of magnesia and Colace and a Fleet enema to continue up until the time the patient has a bowel movement. Currently, it appears the patient has had some improvement. Dictated By: RAUL CANTU/JIGNA Conf#: [id number] DID#: [id number]
[2016-07-30 20:05] VITALS: BP 155/67; RESP 16
[2016-07-31] MEDS: PANTOPRAZOLE (EC) 40 MG TAB PO SCH (05:18)
[2016-07-31] MEDS: morphine 2 MG INJ IV PRN ×4 (05:18→16:25)
[2016-07-31 05:43] LABS: ADD SCAN DIFF NO
[2016-07-31] MEDS: SOD CHLORIDE 0.9% 1,000 ML IV SCH ×2 (05:52→14:09)
[2016-07-31 06:04] LABS: BASOPHILS % 0.2 % (0.0-2.0); EOSINOPHILS # 0.2 10^3/ul (0.0-0.5); EOSINOPHILS % 1.9 % (0.0-7.0); HEMATOCRIT 26.6 % (37.0-47.0); HEMOGLOBIN 8.9 g/dl (12.0-16.0); LYMPHOCYTES # 1.5 10^3/ul (0.8-2.9); MEAN CORPUSCULAR HEMOGLOBIN 31.1 pg (29.0-33.0); MEAN CORPUSCULAR HGB CONC 33.5 g/dl (32.0-37.0); MEAN PLATELET VOLUME 10.8 fl (7.4-10.4); MONOCYTES % 10.5 % (0.0-11.0); NEUTROPHIL # 6.6 10^3/ul (1.6-7.5); NEUTROPHILS % 71.1 % (39.0-77.0); PLATELET COUNT 201 10^3/UL (140-415); RED BLOOD COUNT 2.86 10^6/ul (4.20-5.40); RED CELL DISTRIBUTION WIDTH 12.8 % (11.5-14.5); WHITE BLOOD COUNT 9.3 10^3/ul (4.8-10.8)
[2016-07-31 06:17] LABS: CALCIUM 9.1 mg/dl (8.4-10.2); CREATININE 0.67 mg/dl (0.44-1.00); POTASSIUM 4.5 mmol/L (3.5-5.1)
[2016-07-31 07:25] VITALS: BP 144/66; RESP 20
[2016-07-31] MEDS: DOCUSATE SODIUM 100 MG CAP PO SCH (08:05)
[2016-07-31] MEDS: LEVOTHYROXINE 100 MCG TAB PO SCH (08:05)
[2016-07-31] MEDS: LOSARTAN 25 MG TAB PO SCH (08:07)
--- NOTE | 2016-07-31 09:12 | PN ---
DATE: 07/31/2016 SUBJECTIVE: The patient is feeling better, complains of back pain, but otherwise no nausea, vomitin g, or abdominal pain. OBJECTIVE: VITAL SIGNS: Temperature 97.8, blood pressure 144/66, pulse 65, respirations 20, oxygen saturation 96% on room air. GENERAL: Well-developed, thin female in no obvious distress, lying in bed. CHEST: Clear to auscultation bilaterally. HEART: Regular rate and rhythm. ABDOMEN: Soft, nontender, nondistended, normoactive bowel sounds. LABORATORY DATA: White blood cell count 9.3, hemoglobin of 8.9, hematocrit 26.6, platelets 201,000. Sodium 139, potassium 4.5, chloride 111, creatinine 0.67, blood sugar 76. ASSESSMENT AND PLAN 1. Intractable nausea and vomiting, resolved, and no further symptoms. The patient is tolerating e ating without any symptoms. The patient had unremarkable MRCP, showed no stones or obstruction, but mild stricture narrowing, but improved compared to last. 2. Post-laminectomy syndrome. Low back pain, stable, but persistent. We will continue with fentan yl patch and p.r.n. analgesics. 3. Constipation, improved. We will continue with Lactulose, p.r.n. enemas, and diet. 4. Coronary artery disease/hypertension, stable. Continue with medications. 5. Hypothyroidism, stable. Continue with medications. 6. Hyperlipidemia, stable. Continue with medications. Dictated By: OLI CARR MD SR/JIGNA Conf#: [id number] DID#: [id number]
[2016-07-31] MEDS ORDERED: DOCU-216 PO (10:53)
[2016-07-31 16:45] VITALS: BP 199/93; PULSE 98
[2016-07-31 17:00] VITALS: BP 179/79; PULSE 79
[2016-07-31 17:15] VITALS: BP 162/77; PULSE 78
[2016-07-31 18:00] VITALS: BP 149/69; PULSE 80
== END 2016-07-31 18:55 | disposition home or self-care (01) | DRG 897 ==
LOC: E/R 12:56 → MS2 17:19
PROVIDERS: ADMIT Internal Medicine; ATTEND Internal Medicine
DX: F11.23 Opioid dependence with withdrawal (principal); G62.9 Polyneuropathy, unspecified; E87.1 Hypo-osmolality and hyponatremia; E86.0 Dehydration; R11.2 Nausea with vomiting, unspecified; T40.2X5A Adverse effect of other opioids, initial encounter; Y92.019 Unspecified place in single-family (private) house as the place of occurrence of the external cause; M96.1 Postlaminectomy syndrome, not elsewhere classified; Y84.8 Other medical procedures as the cause of abnormal reaction of the patient, or of later complication, without mention of misadventure at the time of the procedure; I10 Essential (primary) hypertension; E03.9 Hypothyroidism, unspecified; E78.5 Hyperlipidemia, unspecified; M81.0 Age-related osteoporosis without current pathological fracture; M79.7 Fibromyalgia; I25.10 Atherosclerotic heart disease of native coronary artery without angina pectoris; M54.16 Radiculopathy, lumbar region; K59.00 Constipation, unspecified; Z96.1 Presence of intraocular lens; Z98.41 Cataract extraction status, right eye; Z90.3 Acquired absence of stomach [part of]; Z90.710 Acquired absence of both cervix and uterus; Z85.028 Personal history of other malignant neoplasm of stomach
CPT/HCPCS: 36415; 74176; 74181; 80048; 80053; 81003; 82270; 83690; 83735; 83935; 84300; 84484; 85025; 85610; 87086; 93005; 96361; 96374; 96375; J0360; J1885; J2270; J2405; J7030

== ENCOUNTER 2016-09-23 02:26 | Emergency (ER) | payer MEDICARE, OTHER ==
[~2016-09-23] VITALS: Ht 160 cm; Wt 39.0 kg
[~2016-09-23 02:26] MED LIST changes: -ACET1TAB40 PO; -DICL100G37 TOP; +DOCU-216 PO; -FENT1PAT7 TD; -FLEETOIL PR; -HYDR-3498 PO; -HYDR-906 PO; -MAGN296S40 PO; -METH500T PO; -NAPR-685 PO; -ONDA4TAB11 PO; -ONDA4TAB14 PO; -POLY17PO6 PO
[2016-09-23 02:28] VITALS: Ht 160 cm; Wt 39.0 kg
[2016-09-23] MEDS ORDERED: POLY17PO6 PO (18:21)
[2016-09-23] MEDS ORDERED: CIPR500T4 PO (18:21)
[2016-09-23] MEDS ORDERED: HYDR-906 PO (18:22)
[2016-09-23] MEDS ORDERED: TYL500 PO (18:22)
== END 2016-09-23 02:58 | disposition left against medical advice (07) ==
LOC: E/R 02:26
DX: Z53.21 Procedure and treatment not carried out due to patient leaving prior to being seen by health care provider (principal)

== ENCOUNTER 2016-09-23 15:55 | Emergency (ER) | payer MEDICARE, OTHER ==
[~2016-09-23] VITALS: Wt 39.0 kg
[2016-09-23] MEDS ORDERED: ONDANSETRON 4 MG INJ IV STA (16:01)
[2016-09-23] MEDS ORDERED: morphine 4 MG/ML VIAL IV STA (16:01)
[2016-09-23] MEDS ORDERED: SOD CHLORIDE 0.9% 1,000 ML IV STA (16:01)
[2016-09-23 16:42] LABS: BASOPHILS % 0.2 % (0.0-2.0); EOSINOPHILS # 0.1 10^3/ul (0.0-0.5); EOSINOPHILS % 0.6 % (0.0-7.0); HEMATOCRIT 33.1 % (37.0-47.0); HEMOGLOBIN 10.7 g/dl (12.0-16.0); LYMPHOCYTES # 1.5 10^3/ul (0.8-2.9); LYMPHOCYTES % 11.7 % (15.0-51.0); MEAN CORPUSCULAR HEMOGLOBIN 29.2 pg (29.0-33.0); MEAN CORPUSCULAR HGB CONC 32.3 g/dl (32.0-37.0); MEAN CORPUSCULAR VOLUME 90.4 fl (82.0-101.0); MEAN PLATELET VOLUME 10.8 fl (7.4-10.4); MONOCYTE # 1.2 10^3/ul (0.3-0.9); MONOCYTES % 9.3 % (0.0-11.0); NEUTROPHIL # 9.7 10^3/ul (1.6-7.5); NEUTROPHILS % 77.8 % (39.0-77.0); PLATELET COUNT 180 10^3/UL (140-415); RED BLOOD COUNT 3.66 10^6/ul (4.20-5.40); RED CELL DISTRIBUTION WIDTH 12.9 % (11.5-14.5); WHITE BLOOD COUNT 12.4 10^3/ul (4.8-10.8)
--- NOTE | 2016-09-23 16:48 | RADRPT ---
PROCEDURE: CT Abdomen and Pelvis without contrast. CLINICAL INDICATION: Abdominal pain. TECHNIQUE: Routine abdominopelvic CT was performed without intravenous contrast. Radiation dose: CTDIvol (mGy) = 5.2; total DLP (mGy-cm) = 258. One or more of the following dose reduction techniques were used: - Automated exposure control. - Adjustment of the mA and/or kV according to patient size. - Use of iterative reconstruction technique. COMPARISON: 07/27/2016. FINDINGS: There are stable low density lesions in the liver that are likely benign. Unchanged mild dilatation of the left intrahepatic biliary system without significant dilatation of the extrahepatic biliary system. Gallbladder, pancreas, adrenal glands, and spleen are grossly unremarkable by unenhanced CT. Kidneys demonstrate symmetric attenuation without hydronephrosis or nephrolithiasis. There is a moderate amount of stool identified within the rectum. The appendix is within normal vasquez its. Mild to moderate aortic calcifications without aneurysm. The uterus is surgically absent. No adnexal cyst or mass. No free fluid or fluid collection. Mild nonspecific interstitial fibrotic changes are noted at the lung bases. Mild compression fracture involving the L4 vertebral body with evidence of prior kyphoplasty. IMPRESSION: This limited noncontrast CT demonstrates no significant change in comparison to the prior examinatio n. RPTAT: [facility] .Alex Wyatt MD, Date Time Electronically viewed and signed by .Alex Wyatt MD, on 09/23/2016 16:48 .C/
[2016-09-23 17:11] LABS: ALBUMIN 4.2 g/dl (3.3-4.9); ALBUMIN/GLOBULIN RATIO 1.2; BILIRUBIN,INDIRECT 0.3 mg/dl (0-1.1); BILIRUBIN,TOTAL 0.3 mg/dl (0.2-1.3); CALCIUM 9.1 mg/dl (8.4-10.2); CREATININE 1.01 mg/dl (0.44-1.00); POTASSIUM 4.5 mmol/L (3.5-5.1); TOTAL PROTEIN 7.7 g/dl (6.1-8.1)
[2016-09-23] MEDS ORDERED: KETOROLAC 15 MG INJ IV STA (17:14)
[2016-09-23] MEDS ORDERED: MAGNESIUM CITRATE 300 ML BTL PO ONE (17:30)
--- NOTE | 2016-09-23 17:58 | ERD ---
ER Documentation Chief Complaint Date/Time DATE: 09/23/16 TIME: 17:53 Chief Complaint ABD PAIN AND RECTAL PAIN FOR THE PAST FEW DAYS. CONSTIPATION NOTED. HPI This 86-year-old female presents for diffuse abdominal pain more pronounced in the mid and left abdomen as well as constipation. She is accompanied by her granddaughter who states that she does not like to take her laxatives. No vomiting she has gastric cancer long-standing and decreased p.o. intake. Is a new medication that is getting FDA approved that the patient will get next week for appetite increase. She has had no fevers or chills. This is a pain that she gets frequently with no significant changes. ROS All systems reviewed and are negative except as per history of present illness. Medications Home Meds Active Scripts Acetaminophen* (Tylenol*) 500 Mg Tab, 500 MG PO Q6 Y for MILD PAIN LEVEL 1-3, # 14 TAB Prov:CORYYANETH DO 09/23/16 Hydrocodone/Acetaminophen ([place] 5-325 Tablet) 1 Each Tablet, 1 EACH PO Q6 for SEVERE PAIN LEVEL 7-10, #10 TAB Prov:YANETH RAY DO 09/23/16 Ciprofloxacin Hcl* (Ciprofloxacin Hcl*) 500 Mg Tablet, 500 MG PO BID for 3 Days , TAB Prov:CORYYANETH DO 09/23/16 Polyethylene Glycol* (Miralax*) 17 Gm Powd.pack, 17 GM PO DAILY, #7 Prov:CORYYANETH DO 09/23/16 Docusate Sodium (Dok) 100 Mg Capsule, 100 MG PO BID for 30 Days, #30 CAP Prov:OLI CARR MD- 07/31/16 Lactulose* (Lactulose*) 20 Gm/30 Ml Solution, 20 GM PO BID for 7 Days, ML Prov:YANETH RAY DO 06/11/16 Docusate Sodium* (Colace*) 100 Mg Capsule, 100 MG PO TID, #30 CAP Prov:ERENDIRA CANTRELL 05/29/16 Glycerin* (Glycerin (Adult)*) 1 Each Supp.rect, 1 EACH UT DAILY Y for CONSTIPATION, #10 SUPP.RECT Prov:MISAEL LIGHT MD 05/20/16 Reported Medications Magnesium Oxide (Magnesium) 250 Mg Tablet, 250 MG PO DAILY, TAB 2/4/17 Cholecalciferol* (Vitamin D3*) 1,000 Unit Tablet, 1000 UNIT PO DAILY, TAB 03/25/16 Cyclobenzaprine Hcl* (Cyclobenzaprine Hcl*) 5 Mg Tablet, 2.5 MG PO Q4H Y for PRN , #60 TAB 03/25/16 Folic Acid* (Folic Acid*) 1 Mg Tablet, 1 MG PO DAILY, TAB 03/20/14 Levothyroxine Sodium* (Levothyroxine Sodium*) 100 Mcg Tablet, 100 MCG PO DAILY, TAB 03/20/14 Losartan Potassium* (Losartan Potassium*) 25 Mg Tablet, 25 MG PO DAILY, TAB 10/17/13 Esomeprazole Mag Trihydrate (Nexium) 40 Mg Capsule.dr, 40 MG PO DAILY 08/21/11 Fenofibrate Nanocrystallized* (Tricor*) 145 Mg Tablet, 145 MG PO DAILY 08/21/11 Allergies Allergies: Coded Allergies: hydromorphone (Verified Allergy, Intermediate, 07/27/16) Influenza Virus Vaccines (Verified Allergy, Mild, 07/27/16) iodine (Verified Adverse Reaction, Mild, DIFFICULTY OF BREATHING, 07/27/16) PMhx/Soc History of Surgery: Yes (GASTRECTOMY 2006, HYSTERECTOMY, EYE SX, BACK SX, lumbar sx (08/2016)) Anesthesia Reaction: No Hx Neurological Disorder: No Hx Respiratory Disorders: No Hx Cardiac Disorders: No Hx Psychiatric Problems: No Hx Miscellaneous Medical Probl: No Hx Alcohol Use: No Hx Substance Use: No Hx Tobacco Use: No Smoking Status: Never smoker Physical Exam Vitals Vital Signs Date Time Temp Pulse Resp B/P Pulse Ox O2 Delivery O2 Flow Rate FiO2 09/23/16 18:16 70 20 142/76 98 Room Air 09/23/16 15:58 98.9 88 18 122/64 96 Physical Exam Const: [] No distress, frail elderly female Eyes: Normal Conjunctiva ENT: Normal External Ears, Nose and Mouth. Neck: Full range of motion..~No JVD Resp: Clear to auscultation bilaterally Cardio: Regular rate and rhythm, no murmurs Abd: Soft, mild mid and left abdominal tenderness without guarding or rebound , non distended. Normal bowel sounds Skin: No petechiae or rashes Ext: No cyanosis, or edema Neur: Awake and alert and oriented 3, no focal deficit Psych: Normal Mood and Affect Result Diagram: 09/23/16 1635 09/23/16 1635 Results 24 hrs Laboratory Tests Test 09/23/16 16:35 09/23/16 18:13 White Blood Count 12.410^3/ul Red Blood Count 3.6610^6/ul Hemoglobin 10.7g/dl Hematocrit 33.1% Mean Corpuscular Volume 90.4fl Mean Corpuscular Hemoglobin 29.2pg Mean Corpuscular Hemoglobin Concent 32.3g/dl Red Cell Distribution Width 12.9% Platelet Count 73924^3/UL Mean Platelet Volume 10.8fl Neutrophils % 77.8% Lymphocytes % 11.7% Monocytes % 9.3% Eosinophils % 0.6% Basophils % 0.2% Nucleated Red Blood Cells % 0.0/100WBC Neutrophils # 9.710^3/ul Lymphocytes # 1.510^3/ul Monocytes # 1.210^3/ul Eosinophils # 0.110^3/ul Basophils # 0.010^3/ul Nucleated Red Blood Cells # 0.010^3/ul Sodium Level 140mmol/L Potassium Level 4.5mmol/L Chloride Level 100mmol/L Carbon Dioxide Level 24mmol/L Anion Gap 21 Blood Urea Nitrogen 37mg/dl Creatinine 1.01mg/dl Glucose Level 131mg/dl Calcium Level 9.1mg/dl Total Bilirubin 0.3mg/dl Direct Bilirubin 0.00mg/dl Indirect Bilirubin 0.3mg/dl Aspartate Amino Transf (AST/SGOT) 21IU/L Alanine Aminotransferase (ALT/SGPT) 22IU/L Alkaline Phosphatase 172IU/L Total Protein 7.7g/dl Albumin 4.2g/dl Globulin 3.50g/dl Albumin/Globulin Ratio 1.20 Lipase 217U/L Bedside Urine pH (LAB) 5.5 Bedside Urine Protein (LAB) Negative Bedside Urine Glucose (UA) Negative Bedside Urine Ketones (LAB) Negative Bedside Urine Blood Trace-intact Bedside Urine Nitrite (LAB) Negative Bedside Urine Leukocyte Esterase (L 1+ Current Medications Medications (Trade) Dose Ordered Sig/Jayashree Route PRN Reason Start Time Stop Time Status Last Admin Dose Admin Sodium Chloride (NS) 1,000 ml @ 1,000 mls/hr Q1H STAT IV 09/23/16 16:01 09/23/16 17:00 DC 09/23/16 16:26 Morphine Sulfate (morphine) 4 mg ONCE STAT IV 09/23/16 16:01 09/23/16 16:03 DC 09/23/16 16:31 Ondansetron HCl (Zofran Inj) 4 mg ONCE STAT IV 09/23/16 16:01 09/23/16 16:03 DC 09/23/16 16:31 Ketorolac Tromethamine (Toradol) 15 mg ONCE STAT IV 09/23/16 17:14 09/23/16 17:15 DC 09/23/16 17:48 Magnesium Citrate 300 ml 300 ml ONCE ONCE PO 09/23/16 17:30 09/23/16 17:31 DC 09/23/16 17:49 Sodium Chloride 500 ml @ 500 mls/hr Q1H ONCE IV 09/23/16 18:00 09/23/16 18:59 09/23/16 18:18 Sodium Chloride 500 ml @ 500 mls/hr Q1H ONCE IV 09/23/16 18:00 09/23/16 18:59 09/23/16 18:18 Ceftriaxone Sodium (Rocephin) 50 ml @ 100 mls/hr ONCE ONCE IVPB 09/23/16 18:30 09/23/16 18:59 Procedures/MDM Elderly female with long-standing gastric cancer, UTI, and constipation. Abdominal pain is likely secondary to partially constipation as well as possibly from the metastasis itself. She is dehydrated somewhat with mild renal insufficiency. She was given 2 mg of morphine as well as small dose of Toradol for the pain which did help with her pain. Was also given Zofran. She was hydrated 2 L of normal saline. Her CT is unchanged from prior and shows no signs of bowel obstruction. She was also given 1 g of Rocephin in the ER. Patient does not want to stay in the hospital. She is in stable condition. Going to discharge her with MiraLAX, a few [place] pills for severe pain only, Tylenol, ciprofloxacin. CT abdomen pelvis interpretation: Moderate constipation, no vijay bowel obstruction or ileus, no free air or abnormal fat stranding. All compression fracture with no new fractures Departure Diagnosis: Primary Impression: Abdominal pain, generalized Additional Impressions: Constipation Renal insufficiency Condition: Stable YANETH RAY DO Sep 23, 2016 17:58
[2016-09-23] MEDS ORDERED: SOD CHLORIDE 0.9% 500 ML IV ONE ×2 (18:00)
[2016-09-23 18:07] LABS: URINE BLOOD (Dip) POC Trace-intact (NEGATIVE)
[2016-09-23] MEDS ORDERED: CIPR500T4 PO (18:21)
[2016-09-23] MEDS ORDERED: POLY17PO6 PO (18:21)
[2016-09-23] MEDS ORDERED: TYL500 PO (18:22)
[2016-09-23] MEDS ORDERED: HYDR-906 PO (18:22)
[2016-09-23] MEDS ORDERED: CEFTRIAXONE 1 GM/50 ML (PMX) 50 ML IVPB ONE (18:30)
[2016-09-23 20:10] VITALS: BP 150/76; PULSE 76; RESP 15; TEMP 97.8
== END 2016-09-23 20:11 | disposition home or self-care (01) ==
LOC: E/R 15:55
DX: R10.84 Generalized abdominal pain (principal); K59.00 Constipation, unspecified; N28.9 Disorder of kidney and ureter, unspecified; Z85.028 Personal history of other malignant neoplasm of stomach
CPT/HCPCS: 36415; 74176; 80053; 81003; 83690; 85025; 96361; 96365; 96375; 99285; J0696; J1885; J2270; J2405; J7030; J7040

== ENCOUNTER 2016-09-27 03:00 | Emergency (ER) | payer MEDICARE, OTHER ==
[~2016-09-27] VITALS: Ht 157.5 cm; Wt 39.0 kg
[~2016-09-27 03:00] MED LIST changes: +CIPR500T4 PO; +HYDR-906 PO; +POLY17PO6 PO; +TYL500 PO
[2016-09-27 03:05] VITALS: Ht 157.5 cm; Wt 39.0 kg
[2016-09-27] MEDS ORDERED: SOD CHLORIDE 0.9% 500 ML IV STA (03:46)
[2016-09-27] MEDS ORDERED: ONDANSETRON 4 MG INJ IV STA (03:46)
[2016-09-27] MEDS ORDERED: morphine 2 MG INJ IV STA (03:46)
--- NOTE | 2016-09-27 04:25 | RADRPT ---
PROCEDURE: XR Chest. CLINICAL INDICATION: Abdominal Pain TECHNIQUE: Portable single view of the chest COMPARISON: 03/31/2016 FINDINGS: The heart size appears within normal limits. Minimal aortic calcification. No acute infiltrate, pl eural effusion, or overt congestive heart failure. Left upper quadrant clips are seen. Degenerativ e change of the spine and shoulders. Narrowing of the right acromiohumeral distance suggests underl monique rotator cuff tear. IMPRESSION: Aortic atherosclerosis. No definite acute pulmonary disease. RPTAT: [facility] Pauline Eugene Physician Date Time Electronically viewed and signed by Pauline Eugene, Physician on 09/27/2016 04:24 LE/
--- NOTE | 2016-09-27 04:28 | RADRPT ---
PROCEDURE: CT Abdomen and pelvis without contrast. CLINICAL INDICATION: Abdominal pain. TECHNIQUE: CT scan of the abdomen and pelvis was performed on a multi-detector high-resolution CT scanner. Contiguous axial images were obtained from the lung bases to the ischial tuberosities wit hout intravenous contrast. Coronal and sagittal reformatted images were also obtained. Images were reviewed on the PACS workstation. One or more of the following dose reduction techniques were used: - Automated exposure control. - Adjustment of the mA and/or kV according to patient size. - Use of iterative reconstruction technique. Exam CTD/vol = 6.98 mGy. Total exam DLP = 344.64 mGy-cm. COMPARISON: 09/23/2016. FINDINGS: Evaluation of the lung bases demonstrates mild bibasilar atelectasis and interstitial fibrotic mercado es. Abdomen: The liver is normal in size. There are multiple hepatic cysts with the largest measuring 2.1 x 2.1 cm. There is no dilatation of the biliary tree. The gallbladder is not distended. The s pleen, pancreas and bilateral adrenal glands are within normal limits. Bilateral kidneys are normal in size with a small left renal cysts. There is no radiopaque renal or ureteral calculus identifie d. There is no hydronephrosis or hydroureter. There is no retroperitoneal adenopathy. The abdomin al aorta is of normal caliber with mild scattered atherosclerotic calcifications. There is prior gastric surgery. There is no bowel obstruction or free air. A normal appendix is id entified. There is no diverticulosis or diverticulitis. There is no ascites. Pelvis: The bladder is unremarkable. The uterus is absent. There is no significant pelvic adenopa thy or free fluid. Evaluation of the osseous structures demonstrates no suspicious lytic or blastic lesion. There is mi nor mild compression deformity of L4 with evidence of prior vertebroplasty. There are bilateral philip cified injection granulomas. IMPRESSION: No acute abnormality identified within the abdomen and pelvis. Prior gastric surgery. Multiple hepatic cysts. Mild bibasilar atelectasis and interstitial fibrotic changes. Mild vascular calcifications reflective of atherosclerosis. .Justin Pérez MD, MD Date Time Electronically viewed and signed by .Justin Pérez MD, MD on 09/27/2016 04:28 .T/
[2016-09-27 05:01] LABS: ADD UMIC NO; UR ASCORBIC ACID NEGATIVE (NEGATIVE); UR BILIRUBIN (Dip) NEGATIVE (NEGATIVE); UR BLOOD (Dip) NEGATIVE (NEGATIVE); UR CLARITY CLEAR (CLEAR); UR COLOR YELLOW (YELLOW); UR GLUCOSE (Dip) NEGATIVE (NEGATIVE); UR KETONES (Dip) NEGATIVE (NEGATIVE); UR LEUKOCYTE ESTERASE (Dip) NEGATIVE Leu/ul (NEGATIVE); UR NITRITE (Dip) NEGATIVE (NEGATIVE); UR SPECIFIC GRAVITY (Dip) 1.019 (1.003-1.030); UR TOTAL PROTEIN (Dip) NEGATIVE (NEGATIVE); UR UROBILINOGEN (Dip) NEGATIVE (NEGATIVE)
--- NOTE | 2016-09-27 05:14 | ERD ---
ER Documentation Chief Complaint Date/Time DATE: 09/27/16 TIME: 05:13 Chief Complaint mid abd pain x 4 days HPI 86-year-old female mid lower abdominal pain that has been going on for 4 days. Patient has history of chronic constipation issues. She stopped taking her constipation meds. Pain is mild to moderate intensity. Mild nausea but no vomiting. No fevers no chills. No other current complaints. ROS All systems reviewed and are negative except as per history of present illness. Medications Home Meds Active Scripts Acetaminophen* (Tylenol*) 500 Mg Tab, 500 MG PO Q6 Y for MILD PAIN LEVEL 1-3, # 14 TAB Prov:YANETH RAY DO 09/23/16 Hydrocodone/Acetaminophen ([place] 5-325 Tablet) 1 Each Tablet, 1 EACH PO Q6 for SEVERE PAIN LEVEL 7-10, #10 TAB Prov:YANETH RAY DO 09/23/16 Ciprofloxacin Hcl* (Ciprofloxacin Hcl*) 500 Mg Tablet, 500 MG PO BID for 3 Days , TAB Prov:CORYYANETH DO 09/23/16 Polyethylene Glycol* (Miralax*) 17 Gm Powd.pack, 17 GM PO DAILY, #7 Prov:YANETH RAY DO 09/23/16 Docusate Sodium (Dok) 100 Mg Capsule, 100 MG PO BID for 30 Days, #30 CAP Prov:OLI CARR MD- 07/31/16 Lactulose* (Lactulose*) 20 Gm/30 Ml Solution, 20 GM PO BID for 7 Days, ML Prov:YANETH RAY 06/11/16 Docusate Sodium* (Colace*) 100 Mg Capsule, 100 MG PO TID, #30 CAP Prov:ERENDIRA CANTRELL 05/29/16 Glycerin* (Glycerin (Adult)*) 1 Each Supp.rect, 1 EACH UT DAILY Y for CONSTIPATION, #10 SUPP.RECT Prov:MISAEL LIGHT MD 05/20/16 Reported Medications Magnesium Oxide (Magnesium) 250 Mg Tablet, 250 MG PO DAILY, TAB 03/25/16 Cholecalciferol* (Vitamin D3*) 1,000 Unit Tablet, 1000 UNIT PO DAILY, TAB 03/25/16 Cyclobenzaprine Hcl* (Cyclobenzaprine Hcl*) 5 Mg Tablet, 2.5 MG PO Q4H Y for PRN , #60 TAB 03/25/16 Folic Acid* (Folic Acid*) 1 Mg Tablet, 1 MG PO DAILY, TAB 03/20/14 Levothyroxine Sodium* (Levothyroxine Sodium*) 100 Mcg Tablet, 100 MCG PO DAILY, TAB 03/20/14 Losartan Potassium* (Losartan Potassium*) 25 Mg Tablet, 25 MG PO DAILY, TAB 10/17/13 Esomeprazole Mag Trihydrate (Nexium) 40 Mg Capsule.dr, 40 MG PO DAILY 08/21/11 Fenofibrate Nanocrystallized* (Tricor*) 145 Mg Tablet, 145 MG PO DAILY 08/21/11 Allergies Allergies: Coded Allergies: hydromorphone (Verified Allergy, Intermediate, 07/27/16) Influenza Virus Vaccines (Verified Allergy, Mild, 07/27/16) iodine (Verified Adverse Reaction, Mild, DIFFICULTY OF BREATHING, 07/27/16) PMhx/Soc History of Surgery: Yes (GASTRECTOMY 2006, HYSTERECTOMY, EYE SX, BACK SX, lumbar sx (08/2016)) Anesthesia Reaction: No Hx Neurological Disorder: No Hx Respiratory Disorders: No Hx Cardiac Disorders: No Hx Psychiatric Problems: No Hx Miscellaneous Medical Probl: No Hx Alcohol Use: No Hx Substance Use: No Hx Tobacco Use: No Smoking Status: Never smoker Physical Exam Vitals Vital Signs Date Time Temp Pulse Resp B/P Pulse Ox O2 Delivery O2 Flow Rate FiO2 09/27/16 03:05 97.8 91 20 168/74 98 Physical Exam Const: [] Head: Atraumatic Eyes: Normal Conjunctiva ENT: Normal External Ears, Nose and Mouth. Neck: Full range of motion..~ No meningismus. Resp: Clear to auscultation bilaterally Cardio: Regular rate and rhythm, no murmurs Abd: Soft, non tender, non distended. Normal bowel sounds Skin: No petechiae or rashes Back: No midline or flank tenderness Ext: No cyanosis, or edema Neur: Awake and alert Psych: Normal Mood and Affect Results 24 hrs Laboratory Tests Test 09/27/16 04:03 Urine Color YELLOW Urine Clarity CLEAR Urine pH 6.0 Urine Specific [place] 1.019 Urine Ketones NEGATIVEmg/dL Urine Nitrite NEGATIVEmg/dL Urine Bilirubin NEGATIVEmg/dL Urine Urobilinogen NEGATIVEmg/dL Urine Leukocyte Esterase NEGATIVELeu/ul Urine Hemoglobin NEGATIVEmg/dL Urine Glucose NEGATIVEmg/dL Urine Total Protein NEGATIVEmg/dl Current Medications Medications (Trade) Dose Ordered Sig/Jayashree Route PRN Reason Start Time Stop Time Status Last Admin Dose Admin Sodium Chloride (NS) 500 ml @ 500 mls/hr Q1H STAT IV 09/27/16 03:46 09/27/16 04:45 DC 09/27/16 04:36 Morphine Sulfate (morphine) 2 mg ONCE STAT IV 09/27/16 03:46 09/27/16 03:48 DC 09/27/16 04:37 Ondansetron HCl (Zofran Inj) 4 mg ONCE STAT IV 09/27/16 03:46 09/27/16 03:48 DC 09/27/16 04:37 Procedures/MDM EKG: Rate/Rhythm: [Normal Sinus Rhythm] QRS, ST, T-waves: [No changes consistent w/ acute ischemia] Impression: [No evidence of ischemia or arrhythmia] Chest X-ray 1V Interpreted by me: Soft Tissue: No acute abnormalities Bones: No acute abnormalities Mediastinum/Cardiac Silhouette/Lungs: [No acute abnormalities] Medical decision-makin year female constipation. It has been clinically stable. No evidence of surgical abdomen. Patient was discharged home with Colace and Fleet enema. Told to follow with PCP. Departure Diagnosis: Primary Impression: Abdominal pain Abdominal location: unspecified location Qualified Code: R10.9 - Abdominal pain, unspecified location Condition: Stable ERENDIRA CANTRELL Sep 27, 2016 05:14
[2016-09-27] MEDS ORDERED: MINE133E23 PR (05:23)
[2016-09-27] MEDS ORDERED: DOCU-144 PO (05:23)
[2016-09-27] MEDS ORDERED: ESOM40CA PO (05:41)
[2016-09-27] MEDS ORDERED: CIPR500T4 PO (05:41)
[2016-09-27] MEDS ORDERED: VITA1CAP PO (05:41)
[2016-09-27] MEDS ORDERED: DRON5CAP2 PO (05:48)
[2016-09-27] MEDS ORDERED: MORP10SO4 PO (05:48)
[2016-09-27 05:59] LABS: BASOPHILS % 0.1 % (0.0-2.0); EOSINOPHILS # 0.1 10^3/ul (0.0-0.5); EOSINOPHILS % 0.6 % (0.0-7.0); HEMOGLOBIN 9.4 g/dl (12.0-16.0); LYMPHOCYTES # 1.1 10^3/ul (0.8-2.9); LYMPHOCYTES % 14.1 % (15.0-51.0); MEAN CORPUSCULAR HEMOGLOBIN 29.7 pg (29.0-33.0); MEAN CORPUSCULAR HGB CONC 32.4 g/dl (32.0-37.0); MEAN CORPUSCULAR VOLUME 91.5 fl (82.0-101.0); MEAN PLATELET VOLUME 11.2 fl (7.4-10.4); MONOCYTE # 0.8 10^3/ul (0.3-0.9); MONOCYTES % 9.9 % (0.0-11.0); PLATELET COUNT 153 10^3/UL (140-415); RED BLOOD COUNT 3.17 10^6/ul (4.20-5.40); RED CELL DISTRIBUTION WIDTH 12.9 % (11.5-14.5)
[2016-09-27 06:37] LABS: ALANINE AMINOTRANSFERASE 25 IU/L (13-69); ALBUMIN 3.2 g/dl (3.3-4.9); ALBUMIN/GLOBULIN RATIO 1.06; ALKALINE PHOSPHATASE 141 IU/L (42-121); ANION GAP 17 (8-16); ASPARTATE AMINO TRANSFERASE 17 IU/L (15-46); BILIRUBIN,INDIRECT 0.1 mg/dl (0-1.1); BILIRUBIN,TOTAL 0.1 mg/dl (0.2-1.3); BLOOD UREA NITROGEN 24 mg/dl (7-20); CALCIUM 8.9 mg/dl (8.4-10.2); CARBON DIOXIDE 25 mmol/L (21-31); CHLORIDE 103 mmol/L (97-110); CREATININE 0.73 mg/dl (0.44-1.00); GLUCOSE 83 mg/dl (70-220); POTASSIUM 4.8 mmol/L (3.5-5.1); SODIUM 140 mmol/L (135-144); TOTAL PROTEIN 6.2 g/dl (6.1-8.1)
[2016-09-27 06:57] LABS: TROPONIN-I < 0.012 ng/ml (0.00-0.12)
[2016-09-27 07:34] VITALS: BP 127/50; PULSE 73; RESP 16; TEMP 98.1
== END 2016-09-27 07:37 | disposition home or self-care (01) ==
LOC: E/R 03:00
DX: R10.30 Lower abdominal pain, unspecified (principal); R11.0 Nausea; R07.9 Chest pain, unspecified
CPT/HCPCS: 71010; 74176; 80053; 81003; 83605; 83690; 84484; 85025; 93005; 96374; 96375; 99285; J2270; J2405; J7040

== ENCOUNTER 2016-10-06 07:27 | Emergency (ER) | payer MEDICARE, OTHER ==
[~2016-10-06] VITALS: Wt 39.0 kg
[~2016-10-06 07:27] MED LIST changes: -DOCU-216 PO; +DRON5CAP2 PO; +MINE133E23 PR; +MORP10SO4 PO; +VITA1CAP PO
[2016-10-06] MEDS ORDERED: ONDANSETRON (ODT) 4 MG TAB ODT STA (07:53)
[2016-10-06] MEDS ORDERED: HYDROCODONE/APAP (10/325) TAB PO ONE (08:00)
[2016-10-06] MEDS ORDERED: HYDR-902 PO (08:19)
[2016-10-06] MEDS ORDERED: DOCU-144 PO (08:19)
--- NOTE | 2016-10-06 13:02 | ERD ---
ER Documentation Chief Complaint Date/Time DATE: 10/06/16 TIME: 13:01 Chief Complaint lower abd pain HPI Patient is an 86-year-old female with stomach cancer and back pain who presents with back pain. This is similar to previous visits to the emergency department. The daughter says that it is related to her sciatic pain. She feels pain in her lower back which goes down her left leg. She tried pain medicine at home. She does have a pain management doctor. She has constipation. She saw her pain management doctor yesterday. She denies incontinence or fevers. Upon review of old medical records the patient has multiple visits to the ER for similar. ROS All systems reviewed and are negative except as per history of present illness. Medications Home Meds Active Scripts Docusate Sodium* (Colace*) 100 Mg Capsule, 100 MG PO TID, #30 CAP Prov:TREVA ANAYA MD 10/06/16 Hydrocodone/Acetaminophen ([place] 10-325 Tablet) 1 Each Tablet, 1 TAB PO Q6H Y for PAIN, #7 TAB Prov:TREVA ANAYA MD 10/06/16 Mineral Oil* (Fleet* Mineral Oil Enema) 133 Ml Oil, 133 ML MA NEEDED Y for CONSTIPATION, #1 ENEMA Prov:ERENDIRA CANTRELL 09/27/16 Docusate Sodium* (Colace*) 100 Mg Capsule, 100 MG PO TID, #30 CAP Prov:ERENDIRA CANTRELL 09/27/16 Acetaminophen* (Tylenol*) 500 Mg Tab, 500 MG PO Q6 Y for MILD PAIN LEVEL 1-3, # 14 TAB Prov:YANETH RAY DO 09/23/16 Hydrocodone/Acetaminophen ([place] 5-325 Tablet) 1 Each Tablet, 1 EACH PO Q6 for SEVERE PAIN LEVEL 7-10, #10 TAB Prov:YANETH RAY DO 09/23/16 Ciprofloxacin Hcl* (Ciprofloxacin Hcl*) 500 Mg Tablet, 500 MG PO BID for 3 Days , TAB Prov:YANETH RAY DO 09/23/16 Polyethylene Glycol* (Miralax*) 17 Gm Powd.pack, 17 GM PO DAILY, #7 Prov:YANETH RAY DO 09/23/16 Lactulose* (Lactulose*) 20 Gm/30 Ml Solution, 20 GM PO BID for 7 Days, ML Prov:YANETH RAY DO 06/11/16 Glycerin* (Glycerin (Adult)*) 1 Each Supp.rect, 1 EACH MA DAILY Y for CONSTIPATION, #10 SUPP.RECT Prov:MISAEL LIGHT MD 05/20/16 Reported Medications Morphine Sulfate* (Morphine* Liq) 10 Mg/5 Ml Solution, 10 MG PO Q4H Y for PAIN LEVEL 6-10, ML 09/27/16 Dronabinol* (Dronabinol*) 5 Mg Capsule, 2.5 MG PO DAILY, CAP 09/27/16 Ciprofloxacin Hcl* (Ciprofloxacin Hcl*) 500 Mg Tablet, 500 MG PO BID for 3 Days , #14 TAB 09/27/16 Esomeprazole Mag Trihydrate (Nexium) 40 Mg Capsule.dr, 40 MG PO DAILY, #30 CAP 09/27/16 Vitamin B Complex (Vitamin B Complex) 1 Each Capsule, 1 EACH PO, CAP 09/27/16 Magnesium Oxide (Magnesium) 250 Mg Tablet, 250 MG PO DAILY, TAB 03/25/16 Cholecalciferol* (Vitamin D3*) 1,000 Unit Tablet, 1000 UNIT PO DAILY, TAB 03/25/16 Cyclobenzaprine Hcl* (Cyclobenzaprine Hcl*) 5 Mg Tablet, 2.5 MG PO Q4H Y for PRN , #60 TAB 03/25/16 Folic Acid* (Folic Acid*) 1 Mg Tablet, 1 MG PO DAILY, TAB 03/20/14 Levothyroxine Sodium* (Levothyroxine Sodium*) 100 Mcg Tablet, 100 MCG PO DAILY, TAB 03/20/14 Losartan Potassium* (Losartan Potassium*) 25 Mg Tablet, 25 MG PO DAILY, TAB 10/17/13 Esomeprazole Mag Trihydrate (Nexium) 40 Mg Capsule.dr, 40 MG PO DAILY 08/21/11 Fenofibrate Nanocrystallized* (Tricor*) 145 Mg Tablet, 145 MG PO DAILY 08/21/11 Allergies Allergies: Coded Allergies: hydromorphone (Unverified Allergy, Intermediate, 09/27/16) Influenza Virus Vaccines (Unverified Allergy, Mild, 09/27/16) iodine (Unverified Adverse Reaction, Mild, DIFFICULTY OF BREATHING, 09/27/16 ) PMhx/Soc History of Surgery: Yes (GASTRECTOMY 2006, HYSTERECTOMY, EYE SX, BACK SX, lumbar sx (08/2016)) Anesthesia Reaction: No Hx Neurological Disorder: No Hx Respiratory Disorders: No Hx Cardiac Disorders: No Hx Psychiatric Problems: No Hx Miscellaneous Medical Probl: No Hx Alcohol Use: No Hx Substance Use: No Hx Tobacco Use: No Smoking Status: Never smoker FmHx Family History: No diabetes Physical Exam Vitals Vital Signs Date Time Temp Pulse Resp B/P Pulse Ox O2 Delivery O2 Flow Rate FiO2 10/06/16 07:36 99.2 100 20 107/63 96 Physical Exam Const: Moderate distress secondary to pain Head: Atraumatic Eyes: Normal Conjunctiva ENT: Normal External Ears, Nose and Mouth. Neck: Full range of motion..~ No meningismus. Resp: Clear to auscultation bilaterally Cardio: Regular rate and rhythm, no murmurs Abd: Soft, non tender, non distended. Normal bowel sounds Skin: No petechiae or rashes Back: No midline or flank tenderness Ext: No cyanosis, or edema Neur: Awake and alert Results 24 hrs Current Medications Medications (Trade) Dose Ordered Sig/Jayashree Route PRN Reason Start Time Stop Time Status Last Admin Dose Admin Acetaminophen/ Hydrocodone Bitart ([place] (10/325)) 1 tab ONCE ONCE PO 10/06/16 08:00 10/06/16 08:01 DC 10/06/16 08:20 Ondansetron HCl (Zofran Odt) 4 mg ONCE STAT ODT 10/06/16 07:53 10/06/16 07:55 DC 10/06/16 08:20 Procedures/MDM Patient is an 86-year-old female presents with what appears to be acute on chronic lower back pain with sciatica. The patient will be given [place] and Zofran in the emergency department. She will need to take her pain medicines at home and follow-up with her pain management doctor within 24-48 hours. She can return for any worsening symptoms. At this point I doubt cauda equina syndrome, epidural abscess, or epidural hematoma. The patient can return for any worsening symptoms. Departure Diagnosis: Primary Impression: Sciatica Laterality: left Qualified Code: M54.32 - Sciatica of left side Condition: Fair Patient Instructions: Back Pain W/ Sciatica Referrals: Your pain management doctor Additional Instructions: Specialist:Usted tiene vito condicin mdica que requiere que hiram a un especialista dentro de los prximos 1-2 castellano.POR FAVOR,CON LOVE SEGUIMIENTO DE PRIMARIA PHSICIAN refferal. SI USTED NO TIENE UN MDICO GENERAL Y / O USTED NO PUEDE PAGAR carol a un mdico,los siguientes de la cruz RECURSOS sido suministrado a usted. ES LOVE RESPONSABILIDAD PARA SER VISTOS POR EL ESPECIALISTA: TREVA ANAYA MD Oct 06, 2016 13:02
== END 2016-10-06 09:14 | disposition home or self-care (01) ==
LOC: E/R 07:27
DX: M54.32 Sciatica, left side (principal)
CPT/HCPCS: 99283

== ENCOUNTER 2016-10-10 12:28 | Emergency (ER) | payer MEDICARE, OTHER ==
[~2016-10-10] VITALS: Ht 154.9 cm; Wt 38.0 kg
[~2016-10-10 12:28] MED LIST changes: +HYDR-902 PO
[2016-10-10 12:29] VITALS: Ht 154.9 cm; Wt 38.0 kg
--- NOTE | 2016-10-10 12:41 | ERA ---
ER Documentation Chief Complaint Date/Time DATE: 10/10/16 TIME: 12:41 Chief Complaint LEFT HIP PAIN AFTER A [facility] FALL HPI The patient is a 86-year-old female, presenting to the ER because of left hip and left knee pain after she had a mechanical fall around 6 AM today. She denies any head trauma, facial pain, neck pain, chest pain, dyspnea, abdominal pain, vomiting. She does not smoke, drink, walks with a cane Past medical history: Chronic low back pain, history of gastric cancer, CAD, hypertension, hypothyroidism, dementia, dyslipidemia, peripheral neuropathy Past surgical history: Gastrectomy, hysterectomy, back surgery, small bowel obstruction ROS All systems reviewed and are negative except as per history of present illness. Medications Home Meds Active Scripts Ibuprofen* (Motrin*) 400 Mg Tab, 400 MG PO Q6, #20 TAB Prov:MITCH ROSADO MD 10/10/16 Reported Medications Teriparatide ([place]) 2.4 Ml Pen.injctr, 20 MCG SQ DAILY, EA 10/10/16 Cyclobenzaprine Hcl* (Cyclobenzaprine Hcl*) 5 Mg Tablet, 2.5 MG PO Q8H, #60 TAB 10/10/16 Ondansetron Hcl* (Ondansetron Hcl*) 4 Mg Tablet, 4 MG PO DAILY Y for NAUSEA AND OR VOMITING, TAB 10/10/16 Naproxen* (Naproxen*) 500 Mg Tablet, 500 MG PO BID, TAB 10/10/16 Fentanyl Patch* (Duragesic Patch*) 12 Mcg/Hr Transdermal Patch, 1 PATCH TD Q72H , PATCH 10/10/16 Morphine Sulfate* (Morphine* Liq) 10 Mg/5 Ml Solution, 10 MG PO Q4H Y for PAIN LEVEL 6-10, ML 09/27/16 Dronabinol* (Dronabinol*) 5 Mg Capsule, 2.5 MG PO DAILY, CAP 09/27/16 Esomeprazole Mag Trihydrate (Nexium) 40 Mg Capsule.dr, 40 MG PO DAILY, #30 CAP 09/27/16 Vitamin B Complex (Vitamin B Complex) 1 Each Capsule, 1 EACH PO, CAP 09/27/16 Magnesium Oxide (Magnesium) 250 Mg Tablet, 250 MG PO DAILY, TAB 03/25/16 Cholecalciferol* (Vitamin D3*) 1,000 Unit Tablet, 1000 UNIT PO DAILY, TAB 03/25/16 Levothyroxine Sodium* (Levothyroxine Sodium*) 100 Mcg Tablet, 100 MCG PO DAILY, TAB 03/20/14 Losartan Potassium* (Losartan Potassium*) 25 Mg Tablet, 25 MG PO DAILY, TAB 10/17/13 Discontinued Reported Medications Ciprofloxacin Hcl* (Ciprofloxacin Hcl*) 500 Mg Tablet, 500 MG PO BID for 3 Days , #14 TAB 09/27/16 Cyclobenzaprine Hcl* (Cyclobenzaprine Hcl*) 5 Mg Tablet, 2.5 MG PO Q4H Y for PRN , #60 TAB 03/25/16 Folic Acid* (Folic Acid*) 1 Mg Tablet, 1 MG PO DAILY, TAB 03/20/14 Esomeprazole Mag Trihydrate (Nexium) 40 Mg Capsule.dr, 40 MG PO DAILY 08/21/11 Fenofibrate Nanocrystallized* (Tricor*) 145 Mg Tablet, 145 MG PO DAILY 08/21/11 Discontinued Scripts Docusate Sodium* (Colace*) 100 Mg Capsule, 100 MG PO TID, #30 CAP Prov:TREVA ANAYA MD 10/06/16 Hydrocodone/Acetaminophen ([place] 10-325 Tablet) 1 Each Tablet, 1 TAB PO Q6H Y for PAIN, #7 TAB Prov:TREVA ANAYA MD 10/06/16 Mineral Oil* (Fleet* Mineral Oil Enema) 133 Ml Oil, [address] NEEDED Y for CONSTIPATION, #1 ENEMA Prov:ERENDIRA CANTRELL 09/27/16 Docusate Sodium* (Colace*) 100 Mg Capsule, 100 MG PO TID, #30 CAP Prov:ERENDIRA CANTRELL 09/27/16 Acetaminophen* (Tylenol*) 500 Mg Tab, 500 MG PO Q6 Y for MILD PAIN LEVEL 1-3, # 14 TAB Prov:YANETH RAY DO 09/23/16 Hydrocodone/Acetaminophen ([place] 5-325 Tablet) 1 Each Tablet, 1 EACH PO Q6 for SEVERE PAIN LEVEL 7-10, #10 TAB Prov:YANETH RAY DO 09/23/16 Ciprofloxacin Hcl* (Ciprofloxacin Hcl*) 500 Mg Tablet, 500 MG PO BID for 3 Days , TAB Prov:YANETH RAY DO 09/23/16 Polyethylene Glycol* (Miralax*) 17 Gm Powd.pack, 17 GM PO DAILY, #7 Prov:YANETH RAY DO 09/23/16 Lactulose* (Lactulose*) 20 Gm/30 Ml Solution, 20 GM PO BID for 7 Days, ML Prov:YANETH RAY DO 06/11/16 Glycerin* (Glycerin (Adult)*) 1 Each Supp.rect, [address] DAILY Y for CONSTIPATION, #10 SUPP.RECT Prov:MISAEL LIGHT MD 05/20/16 Allergies Allergies: Coded Allergies: hydromorphone (Unverified Allergy, Intermediate, 10/10/16) Influenza Virus Vaccines (Unverified Allergy, Mild, 10/10/16) iodine (Unverified Adverse Reaction, Mild, DIFFICULTY OF BREATHING, ) PMhx/Soc History of Surgery: Yes (GASTRECTOMY 2006, HYSTERECTOMY, EYE SX, BACK SX, lumbar sx (08/2016)) Anesthesia Reaction: No Hx Neurological Disorder: No Hx Respiratory Disorders: No Hx Cardiac Disorders: No Hx Psychiatric Problems: No Hx Miscellaneous Medical Probl: Yes (Chronic back pain.) Hx Alcohol Use: No Hx Substance Use: No Hx Tobacco Use: No Physical Exam Vitals Vital Signs Date Time Temp Pulse Resp B/P Pulse Ox O2 Delivery O2 Flow Rate FiO2 10/10/16 15:23 68 17 140/94 99 Room Air 10/10/16 12:29 97.6 86 18 110/60 99 Physical Exam Const: No acute distress. Head: Atraumatic. Eyes: Normal Conjunctiva. ENT: Normal External Ears, Nose and Mouth. Neck: Full range of motion. No meningismus. Resp: Clear to auscultation bilaterally. Cardio: Regular rate and rhythm. Abd: Soft, non distended, normal bowel sounds, non tender. Skin: No petechiae or rashes. Back: No midline or flank tenderness. Ext: Minimal and vague left hip and left knee tenderness, no ecchymosis, full range of motion Neur: Awake and alert. No focal deficit Psych: Normal Mood and Affect. Procedures/MDM [place] [id number] Radiology Main Line: [phone] DIAGNOSTIC IMAGING REPORT Patient: RANDY STEWART : 1930 Age: 86 Sex: F MR #: [id number] DOS: 10/10/16 1249 Ordering MD: MITCH ROSADO MD Location: E/R Room/Bed: PROCEDURE: XR Tibia and Fibula. CLINICAL INDICATION: Left lower extremity pain TECHNIQUE: 2 views of the left tibia and fibula were obtained. COMPARISON: No prior studies are available for comparison. FINDINGS: There is no evidence of acute fracture. Joint spaces are preserved. There are vascular calcifications. Soft tissues are otherwise unremarkable. IMPRESSION: 1. No radiographic evidence of acute osseous abnormality. RPTAT: UU .Jak José MD, MD Date Time Electronically viewed and signed by .Jak José MD, MD on 10/10/2016 14: 09 .K/ CC: MITCH ROSADO MD [place] [id number] Radiology Main Line: [phone] DIAGNOSTIC IMAGING REPORT Patient: RANDY STEWART : 1930 Age: 86 Sex: F MR #: [id number] DOS: 10/10/16 1249 Ordering MD: MITCH ROSADO MD Location: E/R Room/Bed: PROCEDURE: XR Knee. CLINICAL INDICATION: Left knee pain TECHNIQUE: 4 images of the left knee are available for review. COMPARISON: None available FINDINGS: There is no acute fracture. Alignment is normal. There is mild tricompartmental osteoarthrosis with small marginal osteophytes. There is a small joint effusion. There is a probable chronic intra-articular body anteriorly measuring 8 mm in size. IMPRESSION: 1. No radiographic evidence of acute osseous abnormality 2. Mild tricompartmental osteoarthrosis. RPTAT: UU .Jak José MD, Date Time Electronically viewed and signed by .Jak José MD, on 10/10/2016 14: 08 .K/ CC: MITCH ROSADO MD [place] [id number] Radiology Main Line: [phone] DIAGNOSTIC IMAGING REPORT Patient: RANDY STEWART : 1930 Age: 86 Sex: F MR #: [id number] DOS: 10/10/16 1249 Ordering MD: MITCH ROSADO MD Location: E/R Room/Bed: PROCEDURE: XR left femur CLINICAL INDICATION: Left lower extremity pain TECHNIQUE: 4 images of the left femur COMPARISON: None available FINDINGS: There is no evidence of acute fracture. There are mild degenerative changes of the hip and knee. There are vascular calcifications. The soft tissues appear grossly unremarkable otherwise. IMPRESSION: No radiographic evidence of acute osseous abnormality. RPTAT: UU .Jak José MD, Date Time Electronically viewed and signed by .Jak José MD, MD on 10/10/2016 14: 10 .K/ CC: MITCH ROSADO MD [place] [id number] Radiology Main Line: [phone] DIAGNOSTIC IMAGING REPORT Patient: RANDY STEWART : 1930 Age: 86 Sex: F MR #: [id number] DOS: 10/10/16 1315 Ordering MD: MITCH ROSADO MD Location: E/R Room/Bed: PROCEDURE: XR left Hip. CLINICAL INDICATION: Left hip pain TECHNIQUE: AP and frog lateral views of the left hip were performed. COMPARISON: None. FINDINGS: There is no radiographic evidence of acute fracture. There are mild degenerative changes of the left hip with small marginal osteophyte formation. There are vascular calcifications. There is stool throughout the colon. IMPRESSION: No radiographic evidence of acute osseous abnormality of the left hip noting mild vascular calcifications. RPTAT: UU .Jak José MD, MD Date Time Electronically viewed and signed by .Jak José MD, MD on 10/10/2016 14: 11 .K/ CC: MITCH ROSADO MD MEDICAL MAKING DECISION: The patient is a 86-year-old female, presenting with acute left hip and acute left knee pain. She is stable for outpatient follow-up The differential diagnoses considered include but are not limited to fracture, contusion, sprain, internal derangement Departure Diagnosis: Primary Impression: Knee pain, left Additional Impression: Left hip pain Condition: Good Comments She was discharged with Motrin I discussed the findings with the patient. I advised the patient to follow-up with the primary physician in about 1-2 days, sooner if needed and return if any concern. MITCH ROSADO MD Oct 10, 2016 12:41
--- NOTE | 2016-10-10 14:09 | RADRPT ---
PROCEDURE: XR Knee. CLINICAL INDICATION: Left knee pain TECHNIQUE: 4 images of the left knee are available for review. COMPARISON: None available FINDINGS: There is no acute fracture. Alignment is normal. There is mild tricompartmental osteoarthrosis with small marginal osteophytes. There is a small joint effusion. There is a probable chronic intra-articular body anteriorly measuri ng 8 mm in size. IMPRESSION: 1. No radiographic evidence of acute osseous abnormality 2. Mild tricompartmental osteoarthrosis. RPTAT: UU .Jak José MD, MD Date Time Electronically viewed and signed by .Jak José MD, MD on 10/10/2016 14:08 .K/
--- NOTE | 2016-10-10 14:10 | RADRPT ---
PROCEDURE: XR Tibia and Fibula. CLINICAL INDICATION: Left lower extremity pain TECHNIQUE: 2 views of the left tibia and fibula were obtained. COMPARISON: No prior studies are available for comparison. FINDINGS: There is no evidence of acute fracture. Joint spaces are preserved. There are vascular calcificati ons. Soft tissues are otherwise unremarkable. IMPRESSION: 1. No radiographic evidence of acute osseous abnormality. RPTAT: UU .Jak José MD, MD Date Time Electronically viewed and signed by .Jak José MD, MD on 10/10/2016 14:09 .K/
--- NOTE | 2016-10-10 14:10 | RADRPT ---
PROCEDURE: XR left femur CLINICAL INDICATION: Left lower extremity pain TECHNIQUE: 4 images of the left femur COMPARISON: None available FINDINGS: There is no evidence of acute fracture. There are mild degenerative changes of the hip and knee. T here are vascular calcifications. The soft tissues appear grossly unremarkable otherwise. IMPRESSION: No radiographic evidence of acute osseous abnormality. RPTAT: UU .Jak José MD, MD Date Time Electronically viewed and signed by .Jak José MD, on 10/10/2016 14:10 .K/
--- NOTE | 2016-10-10 14:11 | RADRPT ---
PROCEDURE: XR left Hip. CLINICAL INDICATION: Left hip pain TECHNIQUE: AP and frog lateral views of the left hip were performed. COMPARISON: None. FINDINGS: There is no radiographic evidence of acute fracture. There are mild degenerative changes of the lef t hip with small marginal osteophyte formation. There are vascular calcifications. There is stool throughout the colon. IMPRESSION: No radiographic evidence of acute osseous abnormality of the left hip noting mild vascular calcifica tions. RPTAT: UU .Jak José MD, Date Time Electronically viewed and signed by .Jak José MD, on 10/10/2016 14:11 .K/
[2016-10-10] MEDS ORDERED: IBUP400T22 PO (14:59)
[2016-10-10] MEDS ORDERED: NAPR-688 PO (15:19)
[2016-10-10] MEDS ORDERED: FENT1PAT7 TD (15:19)
[2016-10-10] MEDS ORDERED: ONDA4TAB95 PO (15:20)
[2016-10-10] MEDS ORDERED: CYCL5TAB PO (15:22)
[2016-10-10] MEDS ORDERED: TERI2.4P SQ (15:22)
[2016-10-10 15:23] VITALS: BP 140/94; PULSE 68; RESP 17
== END 2016-10-10 15:27 | disposition home or self-care (01) ==
LOC: E/R 12:28
DX: M25.562 Pain in left knee (principal); I25.10 Atherosclerotic heart disease of native coronary artery without angina pectoris; I10 Essential (primary) hypertension; E03.9 Hypothyroidism, unspecified
CPT/HCPCS: 73510; 73550; 73562; 73590

== ENCOUNTER 2016-10-21 10:24 | Emergency (ER) | payer MEDICARE, OTHER ==
[~2016-10-21] VITALS: Ht 144.8 cm; Wt 38.5 kg
[~2016-10-21 10:24] MED LIST changes: -CIPR500T4 PO; -DOCU-144 PO; -FENO145T25 PO; +FENT1PAT7 TD; -FOLI-49 PO; -GLYC1SUP92 PR; -HYDR-902 PO; -HYDR-906 PO; +IBUP400T22 PO; -LACT20SO2 PO; -MINE133E23 PR; +NAPR-688 PO; +ONDA4TAB95 PO; -POLY17PO6 PO; +TERI2.4P SQ; -TYL500 PO
[2016-10-21 10:41] VITALS: Ht 144.8 cm; Wt 38.5 kg
[2016-10-21] MEDS ORDERED: KETOROLAC 15 MG INJ IM STA (11:17)
[2016-10-21] MEDS ORDERED: LACTULOSE 30ML CUP PO ONE (12:00)
[2016-10-21] MEDS ORDERED: MAGNESIUM CITRATE 300 ML BTL PO ONE (12:00)
--- NOTE | 2016-10-21 12:56 | RADRPT ---
PROCEDURE: XR Abdomen. CLINICAL INDICATION: Abdominal pain TECHNIQUE: 2 frontal AP views of the abdomen are available for review. COMPARISON: Small bowel follow-through study dated 01/16/2015; CT scan abdomen pelvis 10/14/2016 FINDINGS: The bowel gas pattern is normal. There is no evidence of obstruction. There are no abnormal calcific ations overlying the urinary tracts. The osseous structures are remarkable for mild degenerative ent hesopathy and moderate levoscoliosis of the lumbar spine. Previous kyphoplasty at the L4 level is i dentified. Benign soft tissue calcifications are seen within the posterior buttock regions bilatera lly from previous subcutaneous injections. Surgical clips and postsurgical changes are seen in the left upper quadrant of the abdomen from previous gastric bypass surgery. Surgical clips are seen in the right lower pelvis, stable over time. IMPRESSION: 1. Unremarkable abdomen x-ray series. 2. No evidence for bowel distension or bowel obstruction. RPTAT: HMJB .Lit Rangel MD, Date Time Electronically viewed and signed by .Lit Rangel MD, on 10/21/2016 12:55 .B/
[2016-10-21] MEDS ORDERED: NA PHOSPHATE/BIPHOS 133 ML ENEMA PR ONE (14:00)
--- NOTE | 2016-10-21 14:14 | ERD ---
ER Documentation Chief Complaint Date/Time DATE: 10/21/16 TIME: 14:07 Chief Complaint CONSTIPATION "FOR SEVERAL DAYS" PO MEDS INEFFECTIVE. HPI This is an 86-year-old female who presents to the emergency room for evaluation of constipation. Patient is here with her daughter who is giving the majority of the history and states that this patient does have a history of gastric cancer, and is on chronic pain medication including oral morphine. She states that she has been constipated for the past 48 hours and was having some abdominal cramping and the patient is taking MiraLAX however has not had a bowel movement. The patient is passing gas, and the patient wanted to come to the emergency room because of her abdominal cramping. She states that morphine does improve her abdominal cramping. ROS All systems reviewed and are negative except as per history of present illness. Medications Home Meds Active Scripts Ibuprofen* (Motrin*) 400 Mg Tab, 400 MG PO Q6, #20 TAB Prov:MITCH ROSADO MD 10/10/16 Reported Medications Teriparatide (Forteo) 2.4 Ml Pen.injctr, 20 MCG SQ DAILY, EA 10/10/16 Cyclobenzaprine Hcl* (Cyclobenzaprine Hcl*) 5 Mg Tablet, 2.5 MG PO Q8H, #60 TAB 10/10/16 Ondansetron Hcl* (Ondansetron Hcl*) 4 Mg Tablet, 4 MG PO DAILY Y for NAUSEA AND OR VOMITING, TAB 10/10/16 Naproxen* (Naproxen*) 500 Mg Tablet, 500 MG PO BID, TAB 10/10/16 Fentanyl Patch* (Duragesic Patch*) 12 Mcg/Hr Transdermal Patch, 1 PATCH TD Q72H , PATCH 10/10/16 Morphine Sulfate* (Morphine* Liq) 10 Mg/5 Ml Solution, 10 MG PO Q4H Y for PAIN LEVEL 6-10, ML 09/27/16 Dronabinol* (Dronabinol*) 5 Mg Capsule, 2.5 MG PO DAILY, CAP 09/27/16 Esomeprazole Mag Trihydrate (Nexium) 40 Mg Capsule.dr, 40 MG PO DAILY, #30 CAP 09/27/16 Vitamin B Complex (Vitamin B Complex) 1 Each Capsule, 1 EACH PO, CAP 09/27/16 Magnesium Oxide (Magnesium) 250 Mg Tablet, 250 MG PO DAILY, TAB 03/25/16 Cholecalciferol* (Vitamin D3*) 1,000 Unit Tablet, 1000 UNIT PO DAILY, TAB 03/25/16 Levothyroxine Sodium* (Levothyroxine Sodium*) 100 Mcg Tablet, 100 MCG PO DAILY, TAB 03/20/14 Losartan Potassium* (Losartan Potassium*) 25 Mg Tablet, 25 MG PO DAILY, TAB 10/17/13 Allergies Allergies: Coded Allergies: hydromorphone (Unverified Allergy, Intermediate, 10/10/16) Influenza Virus Vaccines (Unverified Allergy, Mild, 10/10/16) iodine (Unverified Adverse Reaction, Mild, DIFFICULTY OF BREATHING, ) PMhx/Soc History of Surgery: Yes (GASTRECTOMY 2006, HYSTERECTOMY, EYE SX, BACK SX, lumbar sx (08/2016)) Anesthesia Reaction: No Hx Neurological Disorder: No Hx Respiratory Disorders: No Hx Cardiac Disorders: Yes (HTN) Hx Psychiatric Problems: No Hx Miscellaneous Medical Probl: Yes (Chronic back pain.) Hx Alcohol Use: No Hx Substance Use: No Hx Tobacco Use: No Smoking Status: Never smoker Physical Exam Vitals Vital Signs Date Time Temp Pulse Resp B/P Pulse Ox O2 Delivery O2 Flow Rate FiO2 10/21/16 10:41 97.9 93 16 147/72 98 Physical Exam X-ray Abdomen 2V Interpreted by me: Free Air: [None] Bowel Gas: [Nonspecific] Soft Tissue: [Normal] This 86-year-old female presents to the emergency room for evaluation of constipation. When I evaluated this patient she had bowel sounds in all 4 quadrants. The patient does have a history of gastric cancer and is on chronic opiate medication at home. I do feel that this is opiate induced constipation. The patient underwent today an acute abdominal series which does not show any signs of obstruction. The patient was given lactulose, and magnesium citrate in the emergency room. After approximately 90 minutes this patient did have a bowel movement. The patient will be discharged at this time with a prescription for magnesium citrate, and lactulose at home. Both her and her daughter are comfortable with the plan of care and advised him he can return to the emergency room anytime for reevaluation. Results 24 hrs Current Medications Medications (Trade) Dose Ordered Sig/Jayashree Route PRN Reason Start Time Stop Time Status Last Admin Dose Admin Ketorolac Tromethamine (Toradol) 15 mg ONCE STAT IM 10/21/16 11:17 10/21/16 11:19 DC 10/21/16 11:38 Magnesium Citrate (Citroma) 300 ml ONCE ONCE PO 10/21/16 12:00 10/21/16 12:01 DC 10/21/16 12:19 Lactulose (Enulose) 20 gm ONCE ONCE PO 10/21/16 12:00 10/21/16 12:01 DC 10/21/16 12:19 Sodium Biphosphate/ Sodium Phosphate (Fleet Enema) 133 ml ONCE ONCE WV 10/21/16 14:00 10/21/16 14:01 DC Departure Diagnosis: Primary Impression: Constipation Additional Impression: Constipation due to opioid therapy Condition: Stable ANTHONY CANALES DO Oct 21, 2016 14:14
[2016-10-21] MEDS ORDERED: LACT10SO5 PO (14:16)
[2016-10-21] MEDS ORDERED: MAGN296S PO (14:16)
[2016-10-21 14:43] VITALS: BP 135/74; PULSE 68; RESP 20
== END 2016-10-21 14:55 | disposition home or self-care (01) ==
LOC: E/R 10:24
DX: K59.03 Drug induced constipation (principal); I10 Essential (primary) hypertension; R40.2142 Coma scale, eyes open, spontaneous, at arrival to emergency department; R40.2252 Coma scale, best verbal response, oriented, at arrival to emergency department; R40.2362 Coma scale, best motor response, obeys commands, at arrival to emergency department; Z85.028 Personal history of other malignant neoplasm of stomach
CPT/HCPCS: 74010; 96372; 99284; J1885

== ENCOUNTER 2016-11-02 13:36 | Emergency (ER) | payer MEDICARE, OTHER ==
[~2016-11-02] VITALS: Ht 144.8 cm; Wt 36.4 kg
[~2016-11-02 13:36] MED LIST changes: +LACT10SO5 PO; +MAGN296S PO
[2016-11-02 14:08] VITALS: Ht 144.8 cm; Wt 36.4 kg
== END 2016-11-02 20:38 | disposition left against medical advice (07) ==
LOC: E/R 13:36
DX: Z53.21 Procedure and treatment not carried out due to patient leaving prior to being seen by health care provider (principal)

== ENCOUNTER 2016-11-10 18:59 | Emergency (ER) | payer MEDICARE, OTHER ==
[~2016-11-10] VITALS: Ht 147.3 cm; Wt 36.4 kg
[2016-11-10 19:47] VITALS: Ht 147.3 cm; Wt 36.4 kg
--- NOTE | 2016-11-10 22:07 | ERA ---
ER Documentation Chief Complaint Date/Time DATE: 11/10/16 TIME: 22:06 Chief Complaint abdominal pain x 1 day HPI The patient is a 86-year-old female, presenting with intermittent diffuse abdominal pain today, worse for the last hour prior to arrival after eating, she had similar symptoms previously, 10/29, worse with constipation, vomited twice initially food and phlegm, denies dysuria. 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 Past surgical history: Hysterectomy, gastrectomy, back ROS All systems reviewed and are negative except as per history of present illness. Medications Home Meds Active Scripts Bisacodyl* (Dulcolax*) 5 Mg Tablet.dr, 10 MG [place] DAILY Y for CONSTIPATION, #10 TAB Prov:MITCH ROSADO MD 11/10/16 Magnesium Citrate* (Citrate Of Magnesia*) 296 Ml Solution, 300 ML PO ONCE, #1 BOTTLE Prov:ANTHONY CANALES DO 10/21/16 Lactulose* (Lactulose*) 10 Gm/15 Ml Solution, 10 GM PO Q8 for 5 Days, ML Prov:ANTHONY CANALES DO 10/21/16 Ibuprofen* (Motrin*) 400 Mg Tab, 400 MG PO Q6, #20 TAB Prov:MITCH ROSADO MD 10/10/16 Reported Medications Teriparatide (Forteo) 2.4 Ml Pen.injctr, 20 MCG SQ DAILY, EA 10/10/16 Cyclobenzaprine Hcl* (Cyclobenzaprine Hcl*) 5 Mg Tablet, 2.5 MG PO Q8H, #60 TAB 10/10/16 Ondansetron Hcl* (Ondansetron Hcl*) 4 Mg Tablet, 4 MG PO DAILY Y for NAUSEA AND OR VOMITING, TAB 10/10/16 Naproxen* (Naproxen*) 500 Mg Tablet, 500 MG PO BID, TAB 10/10/16 Fentanyl Patch* (Duragesic Patch*) 12 Mcg/Hr Transdermal Patch, 1 PATCH TD Q72H , PATCH 10/10/16 Morphine Sulfate* (Morphine* Liq) 10 Mg/5 Ml Solution, 10 MG PO Q4H Y for PAIN LEVEL 6-10, ML 09/27/16 Dronabinol* (Dronabinol*) 5 Mg Capsule, 2.5 MG PO DAILY, CAP 09/27/16 Esomeprazole Mag Trihydrate (Nexium) 40 Mg Capsule.dr, 40 MG PO DAILY, #30 CAP 09/27/16 Vitamin B Complex (Vitamin B Complex) 1 Each Capsule, 1 EACH PO, CAP 09/27/16 Magnesium Oxide (Magnesium) 250 Mg Tablet, 250 MG PO DAILY, TAB 03/25/16 Cholecalciferol* (Vitamin D3*) 1,000 Unit Tablet, 1000 UNIT PO DAILY, TAB 03/25/16 Levothyroxine Sodium* (Levothyroxine Sodium*) 100 Mcg Tablet, 100 MCG PO DAILY, TAB 03/20/14 Losartan Potassium* (Losartan Potassium*) 25 Mg Tablet, 25 MG PO DAILY, TAB 10/17/13 Allergies Allergies: Coded Allergies: hydromorphone (Unverified Allergy, Intermediate, 11/10/16) Influenza Virus Vaccines (Unverified Allergy, Mild, 11/10/16) iodine (Unverified Adverse Reaction, Mild, DIFFICULTY OF BREATHING, ) PMhx/Soc History of Surgery: Yes (GASTRECTOMY 2006, HYSTERECTOMY, EYE SX, BACK SX, lumbar sx (08/2016)) Anesthesia Reaction: No Hx Neurological Disorder: No Hx Respiratory Disorders: No Hx Cardiac Disorders: Yes (HTN) Hx Psychiatric Problems: No Hx Miscellaneous Medical Probl: Yes (Chronic back pain.) Hx Alcohol Use: No Hx Substance Use: No Hx Tobacco Use: No Smoking Status: Never smoker Physical Exam Vitals Vital Signs Date Time Temp Pulse Resp B/P Pulse Ox O2 Delivery O2 Flow Rate FiO2 11/10/16 20:56 103 20 137/74 98 Room Air 11/10/16 19:47 99.2 84 20 138/64 98 Physical Exam Const: No acute distress. Head: Atraumatic. Eyes: Normal Conjunctiva. ENT: Normal External Ears, Nose and Mouth. Neck: Full range of motion. No meningismus. Resp: Clear to auscultation bilaterally. Cardio: Regular rate and rhythm. Abd: Soft, non distended, normal bowel sounds, Vague and mild diffuse abdominal tenderness, no rigidity, rebound, CVA tenderness Skin: No petechiae or rashes. Back: No midline or flank tenderness. Ext: No cyanosis, or edema. Neur: Awake and alert. No focal deficit Psych: Normal Mood and Affect. Result Diagram: 11/10/16212911/10/162129 Results 24 hrs Laboratory Tests Test 11/10/16 21:30 11/10/16 23:22 White Blood Count 7.710^3/ul Red Blood Count 3.6710^6/ul Hemoglobin 11.1g/dl Hematocrit 33.1% Mean Corpuscular Volume 90.2fl Mean Corpuscular Hemoglobin 30.2pg Mean Corpuscular Hemoglobin Concent 33.5g/dl Red Cell Distribution Width 12.1% Platelet Count 13645^3/UL Mean Platelet Volume 11.6fl Neutrophils % 67.4% Lymphocytes % 18.1% Monocytes % 12.5% Eosinophils % 1.6% Basophils % 0.3% Nucleated Red Blood Cells % 0.0/100WBC Neutrophils # 5.210^3/ul Lymphocytes # 1.410^3/ul Monocytes # 1.010^3/ul Eosinophils # 0.110^3/ul Basophils # 0.010^3/ul Nucleated Red Blood Cells # 0.010^3/ul Sodium Level 128mmol/L Potassium Level 4.7mmol/L Chloride Level 95mmol/L Carbon Dioxide Level 23mmol/L Anion Gap 15 Blood Urea Nitrogen 24mg/dl Creatinine 0.77mg/dl Glucose Level 89mg/dl Calcium Level 9.5mg/dl Total Bilirubin 0.1mg/dl Direct Bilirubin 0.00mg/dl Indirect Bilirubin 0.1mg/dl Aspartate Amino Transf (AST/SGOT) 30IU/L Alanine Aminotransferase (ALT/SGPT) 29IU/L Alkaline Phosphatase 141IU/L Total Protein 7.4g/dl Albumin 3.9g/dl Globulin 3.50g/dl Albumin/Globulin Ratio 1.11 Lipase 130U/L Bedside Urine pH (LAB) 7.0 Bedside Urine Protein (LAB) Trace Bedside Urine Glucose (UA) Negative Bedside Urine Ketones (LAB) 1+ Bedside Urine Blood Negative Bedside Urine Nitrite (LAB) Negative Bedside Urine Leukocyte Esterase (L Negative Current Medications Medications (Trade) Dose Ordered Sig/Jayashree Route PRN Reason Start Time Stop Time Status Last Admin Dose Admin Morphine Sulfate (morphine) 4 mg ONCE STAT IV 11/10/16 22:17 11/10/16 22:19 DC 11/10/16 22:29 Ondansetron HCl (Zofran Inj) 4 mg ONCE STAT IV 11/10/16 22:17 11/10/16 22:19 DC 11/10/16 22:30 Procedures/[place] [id number] Radiology Main Line: [phone] DIAGNOSTIC IMAGING REPORT Patient: RANDY STEWART : 1930 Age: 86 Sex: F [id number] DOS: 11/10/16 2217 Ordering MD: MITCH ROSADO MD Location: E/R Room/Bed: PROCEDURE: CT Abdomen and Pelvis without contrast. CLINICAL INDICATION: Abdominal and pelvic pain. TECHNIQUE: CT scan of the abdomen and pelvis without contrast was performed. Coronal and sagittal reformatted images were obtained from the axial source images. Images were reviewed on a high-resolution PACS workstation. Total exam DLP is 183.08 mGy-cm. CTDIvol is 3.95 mGy. One or more of the following dose reduction techniques were used: Automated exposure control, adjustment of the mA and/or kV according to patient size, use of iterative reconstruction technique. COMPARISON: None. FINDINGS: There is chronic scarring at both lung bases with left worse than right. The lung bases are otherwise normal. There is no pleural effusion or pericardial effusion. The heart size is normal. The liver is normal in size and attenuation. There are benign hepatic cysts. There is no other focal hepatic lesion. The gallbladder and bile ducts are normal. The spleen is normal in size. There is no focal splenic lesion. Both adrenals are normal with no enlargement or mass. The pancreas is unremarkable with no mass or evidence of pancreatitis. There is no renal mass or hydronephrosis. There is no renal calculus or ureteral calculus. The abdominal aorta is not dilated. There is calcification in the aorta consistent with atherosclerosis. There is no retroperitoneal lymphadenopathy or mass. There is no pelvic lymphadenopathy or mass. Surgical clips are present in the pelvis. The bladder and distal ureters are normal. The periappendiceal region is unremarkable with no evidence of appendicitis. There has been prior gastric surgery with multiple surgical lorenzo noted. The bowel and mesentery are otherwise unremarkable. There is no free fluid or free gas. There are mild degenerative changes of the spine. There has been previous kyphoplasty at L4. IMPRESSION: 1. Chronic scarring at the lung bases with left worse than right. 2. Benign hepatic cysts. 3. Atherosclerosis. 4. Prior pelvic surgery. 5. Prior gastric surgery. 6. Mild degenerative changes of the spine. 7. Previous kyphoplasty at L4. 8. Otherwise unremarkable study. RPTAT: QQ .John Lopez MD, MD Date Time Electronically viewed and signed by .John Lopez MD, on 11/10/2016 22:51 .R/ CC: MITCH ROSADO MD MEDICAL MAKING DECISION: the patient is a 86-year-old female, presenting with abdominal pain most likely due to constipation. She was treated with morphine 4 mg IV for pain and Zofran 4 mg IV for nausea with good response. The differential diagnoses considered include but are not limited to cholelithiasis, cholecystitis, cystitis, pancreatitis, hepatitis, gastritis, peptic ulcer disease, gastric ulcer, appendicitis, diverticulitis, cholangitis, choledocholithiasis, partial small bowel obstruction. Departure Diagnosis: Primary Impression: Abdominal pain Additional Impression: Constipation Condition: Good Comments She was discharged with Dulcolax suppository and advised to continue her MiraLAX I discussed the findings with the patient. I advised the patient to follow-up with the primary physician in about 1-2 days, sooner if needed and return if any concern. MITCH ROSADO MD Nov 10, 2016 22:07
[2016-11-10] MEDS ORDERED: ONDANSETRON 4 MG INJ IV STA (22:17)
[2016-11-10] MEDS ORDERED: morphine 4 MG/ML VIAL IV STA (22:17)
[2016-11-10 22:26] LABS: BASOPHILS % 0.3 % (0.0-2.0); EOSINOPHILS # 0.1 10^3/ul (0.0-0.5); EOSINOPHILS % 1.6 % (0.0-7.0); HEMATOCRIT 33.1 % (37.0-47.0); HEMOGLOBIN 11.1 g/dl (12.0-16.0); LYMPHOCYTES # 1.4 10^3/ul (0.8-2.9); LYMPHOCYTES % 18.1 % (15.0-51.0); MEAN CORPUSCULAR HEMOGLOBIN 30.2 pg (29.0-33.0); MEAN CORPUSCULAR HGB CONC 33.5 g/dl (32.0-37.0); MEAN CORPUSCULAR VOLUME 90.2 fl (82.0-101.0); MEAN PLATELET VOLUME 11.6 fl (7.4-10.4); MONOCYTES % 12.5 % (0.0-11.0); NEUTROPHIL # 5.2 10^3/ul (1.6-7.5); NEUTROPHILS % 67.4 % (39.0-77.0); PLATELET COUNT 198 10^3/UL (140-415); RED BLOOD COUNT 3.67 10^6/ul (4.20-5.40); RED CELL DISTRIBUTION WIDTH 12.1 % (11.5-14.5); WHITE BLOOD COUNT 7.7 10^3/ul (4.8-10.8)
[2016-11-10 22:33] LABS: ALBUMIN 3.9 g/dl (3.3-4.9); ALBUMIN/GLOBULIN RATIO 1.11; BILIRUBIN,INDIRECT 0.1 mg/dl (0-1.1); BILIRUBIN,TOTAL 0.1 mg/dl (0.2-1.3); CALCIUM 9.5 mg/dl (8.4-10.2); CREATININE 0.77 mg/dl (0.44-1.00); POTASSIUM 4.7 mmol/L (3.5-5.1); TOTAL PROTEIN 7.4 g/dl (6.1-8.1)
--- NOTE | 2016-11-10 22:52 | RADRPT ---
PROCEDURE: CT Abdomen and Pelvis without contrast. CLINICAL INDICATION: Abdominal and pelvic pain. TECHNIQUE: CT scan of the abdomen and pelvis without contrast was performed. Coronal and sagittal reformatted images were obtained from the axial source images. Images were reviewed on a high-resolu [employer] PACS workstation. Total exam DLP is 183.08 mGy-cm. CTDIvol is 3.95 mGy. One or more of the fo llowin dose reduction techniques were used: Automated exposure control, adjustment of the mA and/or kV according to patient size, use of iterative reconstruction technique. COMPARISON: None. FINDINGS: There is chronic scarring at both lung bases with left worse than right. The lung bases are otherwis e normal. There is no pleural effusion or pericardial effusion. The heart size is normal. The liver is normal in size and attenuation. There are benign hepatic cysts. There is no other foca l hepatic lesion. The gallbladder and bile ducts are normal. The spleen is normal in size. There is no focal splenic lesion. Both adrenals are normal with no enlargement or mass. The pancreas is unremarkable with no mass or evidence of pancreatitis. There is no renal mass or hydronephrosis. There is no renal calculus or ureteral calculus. The abdominal aorta is not dilated. There is calcification in the aorta consistent with atherosclero sis. There is no retroperitoneal lymphadenopathy or mass. There is no pelvic lymphadenopathy or mass. Surgical clips are present in the pelvis. The bladder and distal ureters are normal. The periappendiceal region is unremarkable with no evidence of appendicitis. There has been prior gastric surgery with multiple surgical lorenzo noted. The bowel and mesentery a re otherwise unremarkable. There is no free fluid or free gas. There are mild degenerative changes of the spine. There has been previous kyphoplasty at L4. IMPRESSION: 1. Chronic scarring at the lung bases with left worse than right. 2. Benign hepatic cysts. 3. Atherosclerosis. 4. Prior pelvic surgery. 5. Prior gastric surgery. 6. Mild degenerative changes of the spine. 7. Previous kyphoplasty at L4. 8. Otherwise unremarkable study. RPTAT: QQ .John Lopez MD, MD Date Time Electronically viewed and signed by .John Lopez MD, MD on 11/10/2016 22:51 .R/
[2016-11-10 23:15] LABS: URINE BLOOD (Dip) POC Negative (NEGATIVE)
[2016-11-10] MEDS ORDERED: BISA-57 PR (23:25)
[2016-11-10 23:31] VITALS: BP 140/73; PULSE 71; RESP 18; TEMP 98.2
== END 2016-11-10 23:38 | disposition home or self-care (01) ==
LOC: E/R 18:59
DX: R10.84 Generalized abdominal pain (principal); K59.00 Constipation, unspecified; I10 Essential (primary) hypertension; E03.9 Hypothyroidism, unspecified; I25.10 Atherosclerotic heart disease of native coronary artery without angina pectoris; Z85.028 Personal history of other malignant neoplasm of stomach; Z98.61 Coronary angioplasty status
CPT/HCPCS: 36415; 74176; 80053; 81003; 83690; 85025; 96374; 96375; 99285; J2270; J2405

== ENCOUNTER 2016-11-17 16:05 | Emergency (ER) | payer MEDICARE, OTHER ==
[~2016-11-17] VITALS: Ht 165.1 cm; Wt 40.0 kg
[~2016-11-17 16:05] MED LIST changes: +BISA-57 PR
[2016-11-17 16:10] VITALS: Ht 165.1 cm; Wt 40.0 kg
[2016-11-17] MEDS ORDERED: MAGN296S40 PO (19:45)
[2016-11-17] MEDS ORDERED: POLY17PO6 PO (19:45)
[2016-11-17] MEDS ORDERED: BISACODYL 10 MG SUPP PR ONE (20:00)
[2016-11-17] MEDS ORDERED: LACTULOSE 30ML CUP PO ONE (20:00)
[2016-11-17 20:05] VITALS: BP 121/72; PULSE 70; RESP 20
--- NOTE | 2016-11-17 22:55 | ERD ---
ER Documentation Chief Complaint Date/Time DATE: 11/17/16 TIME: 22:54 Chief Complaint Patient complains of constipation states her stool is stuck senior care out HPI Patient is an 86-year-old female with a history of stomach cancer who presents with constipation. The patient has not had a bowel movement for the past 3 days. She did have a "thick hard poop" tonight prior to arrival. But she then got short of breath per the daughter. She was seen here for abdominal pain and had a CT abdomen and pelvis on November 10 which showed no surgical process. The patient saw Dr. Carr the primary doctor yesterday to discuss constipation. Upon review of old medical records the patient has multiple visits to the ER for various complaints. ROS All systems reviewed and are negative except as per history of present illness. Medications Home Meds Active Scripts Polyethylene Glycol* (Miralax*) 17 Gm Powd.pack, 17 GM PO DAILY, #7 Prov:TREVA ANAYA MD 11/17/16 Magnesium Citrate* (Magnesium Citrate*) 296 Ml Solution, 296 ML PO ONCE, #1 BOTTLE Prov:TREVA ANAYA MD 11/17/16 Bisacodyl* (Dulcolax*) 5 Mg Tablet., 10 MG [place] DAILY Y for CONSTIPATION, #10 TAB Prov:MITCH ROSADO MD 11/10/16 Magnesium Citrate* (Citrate Of Magnesia*) 296 Ml Solution, 300 ML PO ONCE, #1 BOTTLE Prov:ANTHONY CANALES DO 10/21/16 Lactulose* (Lactulose*) 10 Gm/15 Ml Solution, 10 GM PO Q8 for 5 Days, ML Prov:ANTHONY CANALES DO 10/21/16 Ibuprofen* (Motrin*) 400 Mg Tab, 400 MG PO Q6, #20 TAB Prov:MITCH ROSADO MD 10/10/16 Reported Medications Teriparatide (Forteo) 2.4 Ml Pen.injctr, 20 MCG SQ DAILY, EA 10/10/16 Cyclobenzaprine Hcl* (Cyclobenzaprine Hcl*) 5 Mg Tablet, 2.5 MG PO Q8H, #60 TAB 10/10/16 Ondansetron Hcl* (Ondansetron Hcl*) 4 Mg Tablet, 4 MG PO DAILY Y for NAUSEA AND OR VOMITING, TAB 10/10/16 Naproxen* (Naproxen*) 500 Mg Tablet, 500 MG PO BID, TAB 10/10/16 Fentanyl Patch* (Duragesic Patch*) 12 Mcg/Hr Transdermal Patch, 1 PATCH TD Q72H , PATCH 10/10/16 Morphine Sulfate* (Morphine* Liq) 10 Mg/5 Ml Solution, 10 MG PO Q4H Y for PAIN LEVEL 6-10, ML 09/27/16 Dronabinol* (Dronabinol*) 5 Mg Capsule, 2.5 MG PO DAILY, CAP 09/27/16 Esomeprazole Mag Trihydrate (Nexium) 40 Mg Capsule.dr, 40 MG PO DAILY, #30 CAP 09/27/16 Vitamin B Complex (Vitamin B Complex) 1 Each Capsule, 1 EACH PO, CAP 09/27/16 Magnesium Oxide (Magnesium) 250 Mg Tablet, 250 MG PO DAILY, TAB 03/25/16 Cholecalciferol* (Vitamin D3*) 1,000 Unit Tablet, 1000 UNIT PO DAILY, TAB 03/25/16 Levothyroxine Sodium* (Levothyroxine Sodium*) 100 Mcg Tablet, 100 MCG PO DAILY, TAB 03/20/14 Losartan Potassium* (Losartan Potassium*) 25 Mg Tablet, 25 MG PO DAILY, TAB 10/17/13 Allergies Allergies: Coded Allergies: hydromorphone (Unverified Allergy, Intermediate, 11/10/16) Influenza Virus Vaccines (Unverified Allergy, Mild, 11/10/16) iodine (Unverified Adverse Reaction, Mild, DIFFICULTY OF BREATHING, ) PMhx/Soc History of Surgery: Yes (gastrectomy, hysterectomy, laminectomy, kyphoplastia.) Anesthesia Reaction: No Hx Neurological Disorder: Yes (fibromyalgia, neuropathy) Hx Respiratory Disorders: No Hx Cardiac Disorders: Yes (HTN) Hx Psychiatric Problems: Yes (anxiety) Hx Miscellaneous Medical Probl: Yes (stomach CA) Hx Alcohol Use: No Hx Substance Use: No Hx Tobacco Use: No Smoking Status: Never smoker FmHx Family History: No diabetes Physical Exam Vitals Vital Signs Date Time Temp Pulse Resp B/P Pulse Ox O2 Delivery O2 Flow Rate FiO2 11/17/16 20:05 70 20 121/72 96 11/17/16 16:10 98.2 105 20 120/72 96 Physical Exam Const: Mild distress Head: Atraumatic Eyes: Normal Conjunctiva ENT: Normal External Ears, Nose and Mouth. Neck: Full range of motion..~ No meningismus. Resp: Clear to auscultation bilaterally Cardio: Regular rate and rhythm, no murmurs Abd: Soft, non tender, non distended. Normal bowel sounds Skin: No petechiae or rashes Back: No midline or flank tenderness Ext: No cyanosis, or edema Neur: Awake and alert Psych: Normal Mood and Affect Results 24 hrs Current Medications Medications (Trade) Dose Ordered Sig/Jayashree Route PRN Reason Start Time Stop Time Status Last Admin Dose Admin Lactulose (Enulose) 20 gm ONCE ONCE PO 11/17/16 20:00 11/17/16 20:01 DC 11/17/16 20:04 Bisacodyl (Dulcolax Supp) 10 mg ONCE ONCE W[place] 11/17/16 20:00 11/17/16 20:01 DC 11/17/16 20:04 Procedures/MDM Patient is a 86-year-old female who presents with what appears to be acute constipation. I doubt bowel obstruction at this time. The patient was given lactulose by mouth and Dulcolax suppository. The patient will be given a prescription for magnesium citrate and MiraLAX. The patient should follow-up with Dr. Carr within 24-48 hours for reevaluation. The patient has had a recent CT scan and I think the risk of doing another CT scan outweigh the benefits. She can return for any worsening symptoms. Departure Diagnosis: Primary Impression: Constipation Constipation type: unspecified constipation type Qualified Code: K59.00 - Constipation, unspecified constipation type Condition: Fair Patient Instructions: Constipation (Adult) Referrals: OLI CARR MD- (PCP) Additional Instructions: Llame al doctor MAANA y shannan vito OJ PARA DENTRO DE 1-2 SEVERINO.Dgale a la secretaria que nosotros le instruimos hacer esta oj.Avise o llame si breen condicin se empeora antes de la oj. Regresa aqui si peor o no mejor. TREVA ANAYA MD Nov 17, 2016 22:55
== END 2016-11-17 20:05 | disposition home or self-care (01) ==
LOC: E/R 16:05
DX: K59.00 Constipation, unspecified (principal); I10 Essential (primary) hypertension; Z85.028 Personal history of other malignant neoplasm of stomach
CPT/HCPCS: 99283

== ENCOUNTER 2016-11-24 16:28 | Emergency (ER) | payer MEDICARE, OTHER ==
[~2016-11-24] VITALS: Wt 36.3 kg
[~2016-11-24 16:28] MED LIST changes: +MAGN296S40 PO; +POLY17PO6 PO
[2016-11-24] MEDS ORDERED: DOCU-144 PO (20:23)
[2016-11-24] MEDS ORDERED: MAGN296S40 PO (20:23)
[2016-11-24] MEDS ORDERED: LACTULOSE 30ML CUP PO ONE (20:30)
[2016-11-24] MEDS ORDERED: BISACODYL 10 MG SUPP PR ONE (20:30)
[2016-11-24] MEDS ORDERED: TRAM50TA2 PO (20:35)
[2016-11-24 20:41] VITALS: BP 131/72; PULSE 81; RESP 19; TEMP 98.3
[2016-11-24] MEDS ORDERED: NA PHOSPHATE/BIPHOS 133 ML ENEMA PR ONE ×2 (21:17→21:30)
--- NOTE | 2016-11-24 23:04 | ERD ---
ER Documentation Chief Complaint Date/Time DATE: 11/24/16 TIME: 23:02 Chief Complaint ABD PAIN, NAUSEA, ONSET TODAY HPI Patient is an 86-year-old female with a history of cancer presents with abdominal pain and constipation. She had a small bowel movement yesterday but feels like she is constipated. She did not take her constipation medications. She has no fevers and no vomiting. She did see her primary doctor Dr. Carr yesterday. Upon review of old medical records the patient has multiple visits to the ER with similar type complaints. She is well-known to myself and to our staff. ROS All systems reviewed and are negative except as per history of present illness. Medications Home Meds Active Scripts Tramadol HCl (Tramadol HCl) 50 Mg Tablet, 50 MG PO Q4 Y for PAIN, #10 TAB Prov:TREVA ANAYA MD 11/24/16 Magnesium Citrate* (Magnesium Citrate*) 296 Ml Solution, 296 ML PO ONCE, #1 BOTTLE Prov:TREVA ANAYA MD 11/24/16 Docusate Sodium* (Colace*) 100 Mg Capsule, 100 MG PO TID, #30 CAP Prov:TREVA ANAYA MD 11/24/16 Polyethylene Glycol* (Miralax*) 17 Gm Powd.pack, 17 GM PO DAILY, #7 Prov:TREVA ANAYA MD 11/17/16 Magnesium Citrate* (Magnesium Citrate*) 296 Ml Solution, 296 ML PO ONCE, #1 BOTTLE Prov:TREVA ANAYA MD 11/17/16 Bisacodyl* (Dulcolax*) 5 Mg Tablet., 10 MG ME DAILY Y for CONSTIPATION, #10 TAB Prov:MITCH ROSADO MD 11/10/16 Magnesium Citrate* (Citrate Of Magnesia*) 296 Ml Solution, 300 ML PO ONCE, #1 BOTTLE Prov:ANTHONY CANALES DO 10/21/16 Lactulose* (Lactulose*) 10 Gm/15 Ml Solution, 10 GM PO Q8 for 5 Days, ML Prov:ANTHONY CANALES DO 10/21/16 Ibuprofen* (Motrin*) 400 Mg Tab, 400 MG PO Q6, #20 TAB Prov:MITCH ROSADO MD 10/10/16 Reported Medications Teriparatide (Forteo) 2.4 Ml Pen.injctr, 20 MCG SQ DAILY, EA 10/10/16 Cyclobenzaprine Hcl* (Cyclobenzaprine Hcl*) 5 Mg Tablet, 2.5 MG PO Q8H, #60 TAB 10/10/16 Ondansetron Hcl* (Ondansetron Hcl*) 4 Mg Tablet, 4 MG PO DAILY Y for NAUSEA AND OR VOMITING, TAB 10/10/16 Naproxen* (Naproxen*) 500 Mg Tablet, 500 MG PO BID, TAB 10/10/16 Fentanyl Patch* (Duragesic Patch*) 12 Mcg/Hr Transdermal Patch, 1 PATCH TD Q72H , PATCH 10/10/16 Morphine Sulfate* (Morphine* Liq) 10 Mg/5 Ml Solution, 10 MG PO Q4H Y for PAIN LEVEL 6-10, ML 09/27/16 Dronabinol* (Dronabinol*) 5 Mg Capsule, 2.5 MG PO DAILY, CAP 09/27/16 Esomeprazole Mag Trihydrate (Nexium) 40 Mg Capsule.dr, 40 MG PO DAILY, #30 CAP 09/27/16 Vitamin B Complex (Vitamin B Complex) 1 Each Capsule, 1 EACH PO, CAP 09/27/16 Magnesium Oxide (Magnesium) 250 Mg Tablet, 250 MG PO DAILY, TAB 03/25/16 Cholecalciferol* (Vitamin D3*) 1,000 Unit Tablet, 1000 UNIT PO DAILY, TAB 03/25/16 Levothyroxine Sodium* (Levothyroxine Sodium*) 100 Mcg Tablet, 100 MCG PO DAILY, TAB 03/20/14 Losartan Potassium* (Losartan Potassium*) 25 Mg Tablet, 25 MG PO DAILY, TAB 10/17/13 Allergies Allergies: Coded Allergies: hydromorphone (Unverified Allergy, Intermediate, 11/10/16) Influenza Virus Vaccines (Unverified Allergy, Mild, 11/10/16) iodine (Unverified Adverse Reaction, Mild, DIFFICULTY OF BREATHING, ) PMhx/Soc History of Surgery: Yes (gastrectomy, hysterectomy, laminectomy, kyphoplastia.) Anesthesia Reaction: No Hx Neurological Disorder: Yes (fibromyalgia, neuropathy) Hx Respiratory Disorders: No Hx Cardiac Disorders: Yes (HTN) Hx Psychiatric Problems: Yes (anxiety) Hx Miscellaneous Medical Probl: Yes (stomach CA) Hx Alcohol Use: No Hx Substance Use: No Hx Tobacco Use: No FmHx Family History: No diabetes Physical Exam Vitals Vital Signs Date Time Temp Pulse Resp B/P Pulse Ox O2 Delivery O2 Flow Rate FiO2 11/24/16 20:41 98.3 81 19 131/72 99 Room Air 11/24/16 16:31 98.3 85 19 125/69 99 Physical Exam Const: Moderate distress secondary to pain Head: Atraumatic Eyes: Normal Conjunctiva ENT: Normal External Ears, Nose and Mouth. Neck: Full range of motion..~ No meningismus. Resp: Clear to auscultation bilaterally Cardio: Regular rate and rhythm, no murmurs Abd: Soft, diffuse abdominal pain with palpation, no rebound or guarding, no distended abdomen Skin: No petechiae or rashes Back: No midline or flank tenderness Ext: No cyanosis, or edema Neur: Awake and alert Psych: Normal Mood and Affect Results 24 hrs Current Medications Medications (Trade) Dose Ordered Sig/Jayashree Route PRN Reason Start Time Stop Time Status Last Admin Dose Admin Lactulose (Enulose) 20 gm ONCE ONCE PO 11/24/16 20:30 11/24/16 20:31 DC 11/24/16 20:29 Bisacodyl (Dulcolax Supp) 10 mg ONCE ONCE ME 11/24/16 20:30 11/24/16 20:31 DC 11/24/16 20:29 Sodium Biphosphate/ Sodium Phosphate (Fleet Enema) 133 ml STK-MED ONCE ME 11/24/16 21:17 11/24/16 21:18 DC Sodium Biphosphate/ Sodium Phosphate (Fleet Enema) 133 ml ONCE ONCE ME 11/24/16 21:30 11/24/16 21:31 DC Procedures/MDM Patient is an 86-year-old female presents with abdominal pain and constipation. She was given lactulose, Dulcolax, and enema. She feels better. She will be discharged home with a prescription for magnesium citrate. I told her that she needs to be on a chronic bowel regimen so that she can avoid getting constipated as she takes narcotic medicines for her pain. She can follow-up with Dr. Carr within 24-48 hours. She can return sooner for any worsening symptoms. Departure Diagnosis: Primary Impression: Abdominal pain Abdominal location: generalized Qualified Code: R10.84 - Generalized abdominal pain Additional Impression: Constipation Constipation type: unspecified constipation type Qualified Code: K59.00 - Constipation, unspecified constipation type Condition: Fair Patient Instructions: Abdominal Pain, Constipation (Adult) Referrals: OLI CARR MD- (PCP) Additional Instructions: Llame al doctor MAANA y shannan vito OJ PARA DENTRO DE 1-2 SEVERINO.Dgale a la secretaria que nosotros le instruimos hacer esta oj.Avise o llame si breen condicin se empeora antes de la oj. Regresa aqui si peor o no mejor. TREVA ANAYA MD Nov 24, 2016 23:04
== END 2016-11-25 03:16 | disposition home or self-care (01) ==
LOC: E/R 16:28
DX: K59.00 Constipation, unspecified (principal); I10 Essential (primary) hypertension; Z85.028 Personal history of other malignant neoplasm of stomach
CPT/HCPCS: 99283

== ENCOUNTER 2016-11-27 21:25 | Emergency (ER) | payer MEDICARE, OTHER ==
[~2016-11-27] VITALS: Ht 157.5 cm; Wt 36.0 kg
[~2016-11-27 21:25] MED LIST changes: +DOCU-144 PO; +TRAM50TA2 PO
[2016-11-27 21:49] VITALS: Ht 157.5 cm; Wt 36.0 kg
[2016-11-28] MEDS ORDERED: HYDROCODONE/APAP (10/325) TAB PO ONE (00:30)
--- NOTE | 2016-11-28 02:58 | RADRPT ---
PROCEDURE: CT L-Spine. CLINICAL INDICATION: Fall. Back pain. TECHNIQUE: Section spiral CT images through the lumbar spine without contrast. Multiplanar recons tructions. .The CTDIvol is 6.38 mGy and the DLP is 202.12 mGycm. One or more of the following dose reduction techniques were used: automated exposure control, adjustment of the mA and/or kV accordin g to patient size, or use of iterative reconstruction technique. COMPARISON: CT of the abdomen and pelvis from 11/10/2016 FINDINGS: Again seen is mild osteopenia and degenerative change of the lumbar spine with small osteophytes. Mi ld old L4 compression fracture with vertebroplasty cement is again seen. There is no evidence for ac [place] fracture. Left greater than right fibrotic change of the lung bases is seen. Extensive atheroscl erotic vascular calcification is seen. Clips are seen in the pelvis. No new compression fracture is seen. Probable hepatic cysts are again seen. T12-L1: The disk is normal in height. Minimal central disc bulge. L1-2: The disk is normal in height. Minimal central disc bulge is present. Minimal left foraminal n arrowing.. L2-3: The disk is normal in height. Moderate diffuse disc bulge is present with facet and ligamento us hypertrophic changes contributing to slight bilateral foraminal narrowing and a degree of canal s tenosis with AP canal diameter of 7 mm.. L3-4: The disk is normal in height. Moderate diffuse disc bulge with short pedicles and facet and li gamentous hypertrophic changes contributing to moderate right greater than left foraminal narrowing and spinal stenosis with AP canal diameter of 7 mm.. L4-5: The disk is normal in height. Large diffuse disc bulge with facet and ligamentous hypertrophi c changes contributing to moderate bilateral foraminal narrowing and some canal narrowing with AP ca nal diameter of 9 mm.. L5-S1: The disk is normal in height. Diffuse disc bulge with mild right and moderate left foraminal narrowing. There is increased density in the left lateral recess and a degree of canal narrowing wit h AP canal diameter of 9 mm.. IMPRESSION: No definite acute fracture. Prior L4 vertebroplasty. Multilevel lumbar spondylosis with multilevel f oraminal narrowing and spinal stenosis as described. Increased density in the left lateral recess of L5-S1 may be due to ligamentous hypertrophic changes but disc herniation cannot be excluded. Follow -up MRI could be considered if indicated. RPTAT: HLBE Pauline Eugene Physician Date Time Electronically viewed and signed by Pauline Eugene Physician on 11/28/2016 02:58 LE/
[2016-11-28 03:17] VITALS: BP 134/78; PULSE 72; RESP 18
[2016-11-28] MEDS ORDERED: HYDR-902 PO (03:20)
--- NOTE | 2016-11-28 03:26 | ERD ---
ER Documentation Chief Complaint Date/Time DATE: 11/28/16 TIME: 03:25 Chief Complaint fall today; lost her balance; denies dizziness; walks with cane w/ difficul HPI This is an 86-year-old female suffered a mechanical fall earlier today. She fell in her lower back. No head trauma. Pain is mild to moderate intensity. Nonfocal neurologically. No bowel or bladder incontinence. No urinary retention. ROS All systems reviewed and are negative except as per history of present illness. Medications Home Meds Active Scripts Hydrocodone/Acetaminophen ([place] 10-325 Tablet) 1 Each Tablet, 1 TAB PO Q6H Y for PAIN, #20 TAB Prov:AMILCAR CANTRELLPABLO BlanchardMagi 11/28/16 Tramadol HCl (Tramadol HCl) 50 Mg Tablet, 50 MG PO Q4 Y for PAIN, #10 TAB Prov:TREVA ANAYA MD 11/24/16 Magnesium Citrate* (Magnesium Citrate*) 296 Ml Solution, 296 ML PO ONCE, #1 BOTTLE Prov:TREVA ANAYA MD 11/24/16 Docusate Sodium* (Colace*) 100 Mg Capsule, 100 MG PO TID, #30 CAP Prov:TREVA ANAYA MD 11/24/16 Polyethylene Glycol* (Miralax*) 17 Gm Powd.pack, 17 GM PO DAILY, #7 Prov:TREVA ANAYA MD 11/17/16 Magnesium Citrate* (Magnesium Citrate*) 296 Ml Solution, 296 ML PO ONCE, #1 BOTTLE Prov:TREVA ANAYA MD 11/17/16 Bisacodyl* (Dulcolax*) 5 Mg Tablet.dr, 10 MG CA DAILY Y for CONSTIPATION, #10 TAB Prov:MITCH ROSADO MD 11/10/16 Magnesium Citrate* (Citrate Of Magnesia*) 296 Ml Solution, 300 ML PO ONCE, #1 BOTTLE Prov:ANTHONY CANALES DO 10/21/16 Lactulose* (Lactulose*) 10 Gm/15 Ml Solution, 10 GM PO Q8 for 5 Days, ML Prov:ANTHONY CANALES DO 10/21/16 Ibuprofen* (Motrin*) 400 Mg Tab, 400 MG PO Q6, #20 TAB Prov:MITCH ROSADO MD 10/10/16 Reported Medications Teriparatide (Forteo) 2.4 Ml Pen.injctr, 20 MCG SQ DAILY, EA 10/10/16 Cyclobenzaprine Hcl* (Cyclobenzaprine Hcl*) 5 Mg Tablet, 2.5 MG PO Q8H, #60 TAB 10/10/16 Ondansetron Hcl* (Ondansetron Hcl*) 4 Mg Tablet, 4 MG PO DAILY Y for NAUSEA AND OR VOMITING, TAB 10/10/16 Naproxen* (Naproxen*) 500 Mg Tablet, 500 MG PO BID, TAB 10/10/16 Fentanyl Patch* (Duragesic Patch*) 12 Mcg/Hr Transdermal Patch, 1 PATCH TD Q72H , PATCH 10/10/16 Morphine Sulfate* (Morphine* Liq) 10 Mg/5 Ml Solution, 10 MG PO Q4H Y for PAIN LEVEL 6-10, ML 09/27/16 Dronabinol* (Dronabinol*) 5 Mg Capsule, 2.5 MG PO DAILY, CAP 09/27/16 Esomeprazole Mag Trihydrate (Nexium) 40 Mg Capsule.dr, 40 MG PO DAILY, #30 CAP 09/27/16 Vitamin B Complex (Vitamin B Complex) 1 Each Capsule, 1 EACH PO, CAP 09/27/16 Magnesium Oxide (Magnesium) 250 Mg Tablet, 250 MG PO DAILY, TAB 03/25/16 Cholecalciferol* (Vitamin D3*) 1,000 Unit Tablet, 1000 UNIT PO DAILY, TAB 03/25/16 Levothyroxine Sodium* (Levothyroxine Sodium*) 100 Mcg Tablet, 100 MCG PO DAILY, TAB 03/20/14 Losartan Potassium* (Losartan Potassium*) 25 Mg Tablet, 25 MG PO DAILY, TAB 10/17/13 Allergies Allergies: Coded Allergies: hydromorphone (Unverified Allergy, Intermediate, 11/28/16) Influenza Virus Vaccines (Unverified Allergy, Mild, 11/28/16) iodine (Unverified Adverse Reaction, Mild, DIFFICULTY OF BREATHING, ) PMhx/Soc History of Surgery: Yes (gastrectomy, hysterectomy, laminectomy, kyphoplastia.) Anesthesia Reaction: No Hx Neurological Disorder: Yes (fibromyalgia, neuropathy) Hx Respiratory Disorders: No Hx Cardiac Disorders: Yes (HTN) Hx Psychiatric Problems: Yes (anxiety) Hx Miscellaneous Medical Probl: Yes (stomach CA, arthritis, OP, HLD) Hx Alcohol Use: No Hx Substance Use: No Hx Tobacco Use: No Smoking Status: Never smoker Physical Exam Vitals Vital Signs Date Time Temp Pulse Resp B/P Pulse Ox O2 Delivery O2 Flow Rate FiO2 11/28/16 03:17 72 18 134/78 100 Room Air 11/28/16 01:25 73 16 126/89 100 Room Air 11/27/16 21:49 98.0 86 20 126/67 99 Physical Exam Const: [] Head: Atraumatic Eyes: Normal Conjunctiva ENT: Normal External Ears, Nose and Mouth. Neck: Full range of motion..~ No meningismus. Resp: Clear to auscultation bilaterally Cardio: Regular rate and rhythm, no murmurs Abd: Soft, non tender, non distended. Normal bowel sounds Skin: No petechiae or rashes Back: No midline or flank tenderness Ext: No cyanosis, or edema Neur: Awake and alert Psych: Normal Mood and Affect Results 24 hrs Current Medications Medications (Trade) Dose Ordered Sig/Jayashree Route PRN Reason Start Time Stop Time Status Last Admin Dose Admin Acetaminophen/ Hydrocodone Bitart ([place] ()) 1 tab ONCE ONCE PO 11/28/16 00:30 11/28/16 00:31 DC 11/28/16 00:19 Procedures/MDM Lumbar spine is negative. Medical decision-makin-year-old female with lower back contusion. At this point clinically stable for outpatient management. Follow-up with PCP. Return for worsening symptoms. Departure Diagnosis: Primary Impression: Fall with no significant injury Encounter type: initial encounter Qualified Code: W19.XXXA - Fall with no significant injury, initial encounter Condition: Stable Patient Instructions: Contusion, Back ERENDIRA CANTRELL Nov 28, 2016 03:26
== END 2016-11-28 03:25 | disposition home or self-care (01) ==
LOC: E/R 21:25
DX: S30.0XXA Contusion of lower back and pelvis, initial encounter (principal); I10 Essential (primary) hypertension; W19.XXXA Unspecified fall, initial encounter; Y92.9 Unspecified place or not applicable; Z85.028 Personal history of other malignant neoplasm of stomach
CPT/HCPCS: 72131

== ENCOUNTER 2016-12-01 17:59 | Emergency (ER) | payer MEDICARE, OTHER ==
[~2016-12-01] VITALS: Ht 157.5 cm; Wt 45.0 kg
[~2016-12-01 17:59] MED LIST changes: +HYDR-902 PO
[2016-12-01 18:04] VITALS: Ht 157.5 cm; Wt 45.0 kg
[2016-12-01 20:05] VITALS: TEMP 98.5
[2016-12-01] MEDS ORDERED: SOD CHLORIDE 0.9% 500 ML IV STA (20:27)
[2016-12-01] MEDS ORDERED: morphine 4 MG/ML VIAL IV STA (20:27)
[2016-12-01] MEDS ORDERED: ONDANSETRON 4 MG INJ IV STA ×2 (20:27)
[2016-12-01 20:58] LABS: BASOPHILS % 0.2 % (0.0-2.0); EOSINOPHILS % 0.2 % (0.0-7.0); HEMATOCRIT 30.6 % (37.0-47.0); HEMOGLOBIN 10.2 g/dl (12.0-16.0); LYMPHOCYTES # 0.7 10^3/ul (0.8-2.9); LYMPHOCYTES % 6.2 % (15.0-51.0); MEAN CORPUSCULAR HEMOGLOBIN 29.9 pg (29.0-33.0); MEAN CORPUSCULAR HGB CONC 33.3 g/dl (32.0-37.0); MEAN CORPUSCULAR VOLUME 89.7 fl (82.0-101.0); MEAN PLATELET VOLUME 10.9 fl (7.4-10.4); MONOCYTE # 0.7 10^3/ul (0.3-0.9); MONOCYTES % 5.7 % (0.0-11.0); NEUTROPHIL # 10.4 10^3/ul (1.6-7.5); NEUTROPHILS % 87.4 % (39.0-77.0); PLATELET COUNT 201 10^3/UL (140-415); RED BLOOD COUNT 3.41 10^6/ul (4.20-5.40); RED CELL DISTRIBUTION WIDTH 12.2 % (11.5-14.5); WHITE BLOOD COUNT 11.9 10^3/ul (4.8-10.8)
[2016-12-01 21:28] LABS: ALBUMIN 3.6 g/dl (3.3-4.9); ALBUMIN/GLOBULIN RATIO 1.12; BILIRUBIN,INDIRECT 0.2 mg/dl (0-1.1); BILIRUBIN,TOTAL 0.2 mg/dl (0.2-1.3); CALCIUM 8.9 mg/dl (8.4-10.2); CREATININE 0.78 mg/dl (0.44-1.00); POTASSIUM 4.7 mmol/L (3.5-5.1); TOTAL PROTEIN 6.8 g/dl (6.1-8.1)
[2016-12-01] MEDS ORDERED: SOD CHLORIDE 0.9% 100 ML ONE (22:20)
[2016-12-01] MEDS ORDERED: IOHEXOL 300MG/ML 150 ML BTL ONE (22:20)
--- NOTE | 2016-12-01 22:23 | ERD ---
ER Documentation Chief Complaint Date/Time DATE: 12/01/16 TIME: 22:21 Chief Complaint Complains of severe abdominal pain x 2 days HPI This is a 86-year-old female with a history of stomach cancer is complaining of abdominal pain and constipation. Patient was seen here on several visits for the same problem in the past. Patient is having no nausea or vomiting and states she is unable to pass a stool for the past couple days and with lots of straining. She says her stomach hurts all over but mostly in the left side. Pain is described as sharp with crampy episodes. No pain in the back no dysuria hematuria chest pain no shortness of breath. ROS All systems reviewed and are negative except as per history of present illness. Medications Home Meds Active Scripts Bisacodyl (Dulcolax) 10 Mg Supp.rect, 10 MG RC every day, #14 SUPP.RECT Prov:ELIECER CORREA DO 12/01/16 Alprazolam* (Xanax*) 0.25 Mg Tablet, 0.25 MG PO Q8H Y for ANXIETY, #14 TAB Prov:ELIECER CORREA DO 12/01/16 Polyethylene Glycol* (Miralax*) 17 Gm Powd.pack, 17 GM PO DAILY, #10 Prov:ELIECER CORREA DO 12/01/16 Hydrocodone/Acetaminophen ([place] 10-325 Tablet) 1 Each Tablet, 1 TAB PO Q6H Y for PAIN, #20 TAB Prov:ERENDIRA CANTRELL 11/28/16 Tramadol HCl (Tramadol HCl) 50 Mg Tablet, 50 MG PO Q4 Y for PAIN, #10 TAB Prov:TREVA ANAYA MD 11/24/16 Magnesium Citrate* (Magnesium Citrate*) 296 Ml Solution, 296 ML PO ONCE, #1 BOTTLE Prov:TREVA ANAYA MD 11/24/16 Docusate Sodium* (Colace*) 100 Mg Capsule, 100 MG PO TID, #30 CAP Prov:TREVA ANAYA MD 11/24/16 Polyethylene Glycol* (Miralax*) 17 Gm Powd.pack, 17 GM PO DAILY, #7 Prov:TREVA ANAYA MD 11/17/16 Magnesium Citrate* (Magnesium Citrate*) 296 Ml Solution, 296 ML PO ONCE, #1 BOTTLE Prov:TREVA ANAYA MD 11/17/16 Bisacodyl* (Dulcolax*) 5 Mg Tablet.dr, 10 MG [place] DAILY Y for CONSTIPATION, #10 TAB Prov:MITCH ROSADO MD 11/10/16 Magnesium Citrate* (Citrate Of Magnesia*) 296 Ml Solution, 300 ML PO ONCE, #1 BOTTLE Prov:ANETAAraANTHONY DO 10/21/16 Lactulose* (Lactulose*) 10 Gm/15 Ml Solution, 10 GM PO Q8 for 5 Days, ML Prov:ANTHONY CANALES DO 10/21/16 Ibuprofen* (Motrin*) 400 Mg Tab, 400 MG PO Q6, #20 TAB Prov:MITCH ROSADO MD 10/10/16 Reported Medications Teriparatide (Forteo) 2.4 Ml Pen.injctr, 20 MCG SQ DAILY, EA 10/10/16 Cyclobenzaprine Hcl* (Cyclobenzaprine Hcl*) 5 Mg Tablet, 2.5 MG PO Q8H, #60 TAB 10/10/16 Ondansetron Hcl* (Ondansetron Hcl*) 4 Mg Tablet, 4 MG PO DAILY Y for NAUSEA AND OR VOMITING, TAB 10/10/16 Naproxen* (Naproxen*) 500 Mg Tablet, 500 MG PO BID, TAB 10/10/16 Fentanyl Patch* (Duragesic Patch*) 12 Mcg/Hr Transdermal Patch, 1 PATCH TD Q72H , PATCH 10/10/16 Morphine Sulfate* (Morphine* Liq) 10 Mg/5 Ml Solution, 10 MG PO Q4H Y for PAIN LEVEL 6-10, ML 09/27/16 Dronabinol* (Dronabinol*) 5 Mg Capsule, 2.5 MG PO DAILY, CAP 09/27/16 Esomeprazole Mag Trihydrate (Nexium) 40 Mg Capsule.dr, 40 MG PO DAILY, #30 CAP 09/27/16 Vitamin B Complex (Vitamin B Complex) 1 Each Capsule, 1 EACH PO, CAP 09/27/16 Magnesium Oxide (Magnesium) 250 Mg Tablet, 250 MG PO DAILY, TAB 03/25/16 Cholecalciferol* (Vitamin D3*) 1,000 Unit Tablet, 1000 UNIT PO DAILY, TAB 03/25/16 Levothyroxine Sodium* (Levothyroxine Sodium*) 100 Mcg Tablet, 100 MCG PO DAILY, TAB 03/20/14 Losartan Potassium* (Losartan Potassium*) 25 Mg Tablet, 25 MG PO DAILY, TAB 10/17/13 Allergies Allergies: Coded Allergies: hydromorphone (Unverified Allergy, Intermediate, 11/28/16) Influenza Virus Vaccines (Unverified Allergy, Mild, 11/28/16) iodine (Unverified Adverse Reaction, Mild, DIFFICULTY OF BREATHING, ) PMhx/Soc History of Surgery: Yes (gastrectomy, hysterectomy, laminectomy, kyphoplastia.) Anesthesia Reaction: No Hx Neurological Disorder: Yes (fibromyalgia, neuropathy) Hx Respiratory Disorders: No Hx Cardiac Disorders: Yes (HTN) Hx Psychiatric Problems: Yes (anxiety) Hx Miscellaneous Medical Probl: Yes (stomach CA, arthritis, OP, HLD) Hx Alcohol Use: No Hx Substance Use: No Hx Tobacco Use: No Smoking Status: Never smoker FmHx Family History: No coronary disease Physical Exam Vitals Vital Signs Date Time Temp Pulse Resp B/P Pulse Ox O2 Delivery O2 Flow Rate FiO2 12/01/16 22:15 71 17 135/77 98 12/01/16 20:05 98.5 71 22 141/69 98 12/01/16 18:04 98.8 94 20 136/59 98 Physical Exam Const: Well-developed, well-nourished Head: Atraumatic, normocephalic Eyes: Normal Conjunctiva, PERRLA, EOMI, normal sclera, no nystagmus ENT: Normal External Ears, Nose and Mouth, moist mucus membranes. Neck: Full range of motion. No meningismus, no lymphadenopathy. Resp: Clear to auscultation bilaterally, no wheezing, rhonchi, rales Cardio: Regular rate and rhythm, no murmurs, S1 S2 present Abd: Soft, mild diffuse pain mild to moderate tenderness in the left abdomen, non distended. Normal bowel sounds, no guarding or rebound, no pulsitile abdominal masses or bruits Skin: No petechiae or rashes, no ecchymosis , no maculopapular rash Back: No midline or flank tenderness Ext: No cyanosis, or edema, FROM x 4, normal inspection, neurovascularly intact x 4 Neur: Awake and alert, STR 5/5 x 4, sensation intact x 4, no focal findings, cerebellum intact Psych: Normal Mood and Affect Result Diagram: 12/01/16204412/01/162044 Results 24 hrs Laboratory Tests Test 12/01/16 20:45 White Blood Count 11.910^3/ul Red Blood Count 3.4110^6/ul Hemoglobin 10.2g/dl Hematocrit 30.6% Mean Corpuscular Volume 89.7fl Mean Corpuscular Hemoglobin 29.9pg Mean Corpuscular Hemoglobin Concent 33.3g/dl Red Cell Distribution Width 12.2% Platelet Count 63757^3/UL Mean Platelet Volume 10.9fl Neutrophils % 87.4% Lymphocytes % 6.2% Monocytes % 5.7% Eosinophils % 0.2% Basophils % 0.2% Nucleated Red Blood Cells % 0.0/100WBC Neutrophils # 10.410^3/ul Lymphocytes # 0.710^3/ul Monocytes # 0.710^3/ul Eosinophils # 0.010^3/ul Basophils # 0.010^3/ul Nucleated Red Blood Cells # 0.010^3/ul Sodium Level 133mmol/L Potassium Level 4.7mmol/L Chloride Level 99mmol/L Carbon Dioxide Level 27mmol/L Anion Gap 12 Blood Urea Nitrogen 24mg/dl Creatinine 0.78mg/dl Glucose Level 81mg/dl Calcium Level 8.9mg/dl Total Bilirubin 0.2mg/dl Direct Bilirubin 0.00mg/dl Indirect Bilirubin 0.2mg/dl Aspartate Amino Transf (AST/SGOT) 27IU/L Alanine Aminotransferase (ALT/SGPT) 30IU/L Alkaline Phosphatase 128IU/L Total Protein 6.8g/dl Albumin 3.6g/dl Globulin 3.20g/dl Albumin/Globulin Ratio 1.12 Lipase 127U/L Current Medications Medications (Trade) Dose Ordered Sig/Jayashree Route PRN Reason Start Time Stop Time Status Last Admin Dose Admin Sodium Chloride (NS) 500 ml @ 500 mls/hr Q1H STAT IV 12/01/16 20:27 12/01/16 21:26 DC 12/01/16 20:47 Ondansetron HCl (Zofran Inj) 4 mg ONCE STAT IV 12/01/16 20:27 12/01/16 20:28 DC 12/01/16 20:57 Morphine Sulfate (morphine) 4 mg ONCE STAT IV 12/01/16 20:27 12/01/16 20:28 DC 12/01/16 20:57 Ondansetron HCl (Zofran Inj) 4 mg ONCE STAT IV 12/01/16 20:27 12/01/16 20:28 DC IV Flush 10 ml 10 ml STK-MED ONCE .ROUTE 12/01/16 22:20 12/01/16 22:21 DC Sodium Chloride (NS) 100 ml @ ud STK-MED ONCE .ROUTE 12/01/16 22:20 12/01/16 22:21 DC Iohexol (Omnipaque 300mg/ ml) 150 ml STK-MED ONCE .ROUTE 12/01/16 22:20 12/01/16 22:21 DC Procedures/MDM PROCEDURE: CT abdomen and pelvis without intravenous contrast. CLINICAL INDICATION: Pain. TECHNIQUE: CT of the abdomen/pelvis was performed utilizing axial images with reconstructions in sagittal and coronal planes. The administered radiation dose is CTDI 3.9 mGy, DLP 199 mGy-cm. One or more of the following dose reduction techniques were used: automated exposure control, adjustment of the mA and/or kV according to patient size and/or use of iterative reconstruction technique. COMPARISON: No pertinent prior examinations were submitted for comparison. FINDINGS: Visualized Chest: Coronary artery calcifications are noted. Some subpleural cystic changes are noted within the left greater than right lung bases along with some prominent interstitial markings. Abdomen: The liver, spleen, pancreas, gallbladder,and adrenal glands are unremarkable. Small hypoattenuating lesions are noted within the liver, likely cysts. The kidneys are without hydronephrosis. No definite urinary calculi are seen. Prior gastric surgery is noted, likely gastric bypass. There is no evidence of bowel obstruction. There is no evidence of intra-abdominal adenopathy or free fluid. Vascular calcifications are noted within the aorta and its branches. Pelvis: Prior hysterectomy is noted. The urinary bladder is unremarkable. There is no pelvic adenopathy of free fluid. Osseous structures: Some mild compression deformity of 04 status post kyphoplasty is noted. IMPRESSION: No acute findings. Status post gastric surgery, likely gastric bypass without evidence of bowel obstruction. Subpleural cystic changes within the left greater than right lung bases along with prominent interstitial markings suggestive of pulmonary fibrotic process. RPTAT: HIKT .Shar Jones MD, Date Time Electronically viewed and signed by .Shar Jones MD, on 12/01/2016 23:29 .T/ CC: ELIECER CORREA DO No acute pathology on CAT scan will discharge home on constipation medication Departure Diagnosis: Primary Impression: Abdominal pain Abdominal location: left lower quadrant Qualified Code: R10.32 - Left lower quadrant pain Additional Impression: Constipation Constipation type: unspecified constipation type Qualified Code: K59.00 - Constipation, unspecified constipation type Condition: Stable ELIECER CORREA DO Dec 01, 2016 22:23
[2016-12-01] MEDS ORDERED: BISA10SU55 RC (23:28)
[2016-12-01] MEDS ORDERED: POLY17PO6 PO (23:28)
[2016-12-01] MEDS ORDERED: ALPR0.25 PO (23:28)
[2016-12-01 23:30] VITALS: BP 131/64; PULSE 75; RESP 18
--- NOTE | 2016-12-01 23:30 | RADRPT ---
PROCEDURE: CT abdomen and pelvis without intravenous contrast. CLINICAL INDICATION: Pain. TECHNIQUE: CT of the abdomen/pelvis was performed utilizing axial images with reconstructions in s agittal and coronal planes. The administered radiation dose is CTDI 3.9 mGy, DLP 199 mGy-cm. One or more of the following dose reduction techniques were used: automated exposure control, adjustment of the mA and/or kV according to patient size and/or use of iterative reconstruction technique. COMPARISON: No pertinent prior examinations were submitted for comparison. FINDINGS: Visualized Chest: Coronary artery calcifications are noted. Some subpleural cystic changes are noted within the left greater than right lung bases along with some prominent interstitial markings. Abdomen: The liver, spleen, pancreas, gallbladder,and adrenal glands are unremarkable. Small hypoattenuatin g lesions are noted within the liver, likely cysts. The kidneys are without hydronephrosis. No definite urinary calculi are seen. Prior gastric surgery is noted, likely gastric bypass. There is no evidence of bowel obstruction. There is no evidence of intra-abdominal adenopathy or free fluid. Vascular calcifications are noted within the aorta and its branches. Pelvis: Prior hysterectomy is noted. The urinary bladder is unremarkable. There is no pelvic adenopathy of free fluid. Osseous structures: Some mild compression deformity of 04 status post kyphoplasty is noted. IMPRESSION: No acute findings. Status post gastric surgery, likely gastric bypass without evidence of bowel obstruction. Subpleural cystic changes within the left greater than right lung bases along with prominent interst itial markings suggestive of pulmonary fibrotic process. RPTAT: HIKT .Shar Jones MD, MD Date Time Electronically viewed and signed by .Shar Jones MD, on 12/01/2016 23:29 .T/
== END 2016-12-01 23:52 | disposition home or self-care (01) ==
LOC: E/R 17:59
DX: K59.00 Constipation, unspecified (principal); I10 Essential (primary) hypertension; R40.2142 Coma scale, eyes open, spontaneous, at arrival to emergency department; R40.2252 Coma scale, best verbal response, oriented, at arrival to emergency department; R40.2362 Coma scale, best motor response, obeys commands, at arrival to emergency department; Z85.028 Personal history of other malignant neoplasm of stomach
CPT/HCPCS: 36415; 74176; 80053; 83690; 85025; 96374; 96375; 99285; J2270; J2405; J7040; Q9967

== ENCOUNTER 2016-12-03 19:14 | Emergency (ER) | payer MEDICARE, OTHER ==
[~2016-12-03] VITALS: Ht 134.6 cm; Wt 36.4 kg
[~2016-12-03 19:14] MED LIST changes: +ALPR0.25 PO; +BISA10SU55 RC
[2016-12-03 19:23] VITALS: Ht 134.6 cm; Wt 36.4 kg
[2016-12-03] MEDS ORDERED: SOD CHLORIDE 0.9% 1,000 ML IV STA (20:48)
[2016-12-03] MEDS ORDERED: NA PHOSPHATE/BIPHOS 133 ML ENEMA PR ONE (21:00)
[2016-12-03] MEDS ORDERED: MAGNESIUM HYDROXIDE 30ML CUP PO ONE (21:00)
[2016-12-03] MEDS ORDERED: MAGNESIUM CITRATE 300 ML BTL PO ONE (22:00)
--- NOTE | 2016-12-03 22:39 | RADRPT ---
PROCEDURE: CT Abdomen and Pelvis without contrast. CLINICAL INDICATION: Abdominal pelvic pain. Constipation. TECHNIQUE: CT scan of the abdomen and pelvis without contrast was performed on a multidetector hig h-resolution CT scanner. The patient was scanned without intravenous contrast. Coronal and sagittal reformatted images were obtained from the axial source images. Images were reviewed on a high-resol [employer] PACS workstation. The total exam CTDI equals 3.91 mGy and the total exam DLP equals 186.70 mGy -cm. One or more of the following dose reduction techniques were used: - Automated exposure control. - Adjustment of the mA and/or kV according to patient size. - Use of iterative reconstruction technique. COMPARISON: CT scan 12/01/2016 FINDINGS: CT abdomen: The lung bases are remarkable for fibrotic changes with honeycombing within the lung bases, mainly o n the left side. This is a stable finding compared to the prior CT scan. The heart size is normal, without pericardial thickening or effusion. The liver is normal in size and density without focal m ass or intrahepatic biliary dilatation. Numerous cysts are seen scattered throughout the liver, jose gn in appearance. The spleen is normal in size and homogeneous in density. The stomach is remarkabl e for postsurgical changes from previous gastric bypass surgery. The pancreas as visualized is norm al. The gallbladder and biliary tree are unremarkable and there is no evidence for biliary dilatati on. The adrenal glands are symmetric and normal. The kidneys are symmetrically unremarkable as wel l. No renal calculus or obstructive uropathy or mass lesion is seen. The aorta is of normal caliber. Aortic vascular calcifications are present. There is no retroperit swan lymphadenopathy. The marcie hepatis region is clear. The bowel and mesentery, as visualized, are equally unremarkable. Duodenal diverticulum is identified. CT pelvis: The small bowel loops situated within the pelvis are unremarkable. The pelvic organs are normal. T he pelvic sidewalls and inguinal regions are clear. The sigmoid colon and rectum are remarkable for significant stool within the rectal vault. No mass or adenopathy is seen. No free fluid is present . No acute inflammation is identified at this time. The surrounding osseous structures are remarkable for degenerative spondylosis of the spine. No ost eolytic or osteoblastic lesion is detected. The patient is status post kyphoplasty at the L4 level. IMPRESSION: 1. Benign postsurgical changes, status post gastric bypass surgery. 2. No mass, lymphadenopathy, or focal acute inflammatory process. 3. Scattered diffuse benign chronic age-related senescent changes. 4. Stool retention and constipation within the rectum. 5. Overall grossly stable appearances when compared to the recent prior study. RPTAT: HMJB .Lit Rangel MD, MD Date Time Electronically viewed and signed by .Lit Rangel MD, on 12/03/2016 22:39 .B/
[2016-12-03] MEDS ORDERED: METHYLNALTREXONE 12 MG/0.6 ML VIAL SC SCH (23:55)
[2016-12-04 00:06] VITALS: BP 151/80; PULSE 78; RESP 18; TEMP 98
--- NOTE | 2016-12-04 04:59 | ERD ---
DATE OF SERVICE: 12/04/2016 PRIMARY CARE PHYSICIAN: Fareed Robbins MD CHIEF COMPLAINT: Constipation. HISTORY OF PRESENT ILLNESS: This is an 86-year-old female with a remote history of stomach carcinoma status post gastrectomy, fibromyalgia, and neuropathy who presents to the Emergency Department complaining of constipation for the past 3 days. The patient indicates that she has been having intermittent abdominal pain during that 3-day period as well. She indicates that the pain is a cramping-like sensation and more prominent on the left flank region. She has had no fevers, no shaking, and no chills. She denies any shortness of breath at rest or exertion. She denies any chest pain or pressure that radiates to the neck, arm, back or jaw. She denies any hemoptysis, hematemesis or melanotic stools. The patient presents with her daughter, who indicates she has had multiple similar visits for similar complaints. She has been dealing with constipation for the past several months. She was seen several times prior to arrival, on December 01, November 27, November 24, November 17, November 10, and November 02. During that time, she had been evaluated for abdominal pain and constipation. She does take opiates, which include fentanyl patch and morphine. Her daughter indicated that they were instructed to follow up with a electronic publisher, but they have not yet done so. The patient, 2 days prior to arrival, had been seen and evaluated for the same complaint and discharged home with stool softeners, which she indicated she had not taken. She does indicate she had pebble-like stools over the past 3 days and has passed gas, but states she feels she is constipated and, therefore, wants re- evaluation. PAST MEDICAL HISTORY: 1. Adenocarcinoma. 2. Fibromyalgia. 3. Neuropathy. PAST SURGICAL HISTORY: 1. Kyphoplasty. 2. Gastrectomy. 3. Hysterectomy. ALLERGIES: INFLUENZA VIRUS VACCINE. HYDROMORPHONE. IODINE. SOCIAL HISTORY: No history of tobacco, ETOH or illicit drug use. REVIEW OF SYSTEMS: All 12 systems reviewed and negative unless otherwise stated in the History of Present Illness. PHYSICAL EXAMINATION: VITAL SIGNS: Blood pressure is 148/80. Respiratory rate 18. Pulse rate 81. Temperature 98.0. Pulse ox 100 percent on room air. CONSTITUTIONAL: A well-developed, well-nourished female. She was sitting upright in her wheelchair not in acute respiratory distress. HEENT: Normocephalic, atraumatic. Moist mucous membranes. No tonsillar exudates or erythema within the oropharynx. NECK: Supple. No masses, no tenderness. Trachea midline. No lymphadenopathy. RESPIRATORY: Lungs were clear to auscultation bilaterally with no wheezing, no rales, and no rales. CARDIOVASCULAR: Regular rate and rhythm with an S1 and S2. No significant murmurs are appreciated. GASTROINTESTINAL: Abdomen is soft. Mild tenderness in the left lower quadrant. Hypoactive bowel sounds. No rebound, no guarding, and no pulsatile abdominal masses or bruits. RECTAL: Fecal occult blood test negative. No palpable stool within the rectal vault. SKIN: Warm and dry with no cyanosis, clubbing, or edema. No petechiae and no purpura. NEUROLOGIC: The patient is alert and oriented x3. No focal neurological deficits. Gait not observed as the patient refused to ambulate. She was brought into the Emergency Department in a wheelchair by her daughter. DIAGNOSTIC TEST INTERPRETATIONS: CT of the abdomen, without contrast, are reviewed by myself, as well as the radiologist and indicated the patient has benign postsurgical changes, status post gastric bypass surgery, no lymphadenopathy, stool retention, constipation within the rectum, and no changes since the recent study which was done 2 days prior to arrival on 12/01/2016, scattered, diffuse, benign chronic, age-related senescence changes. MEDICAL DECISION MAKING/EMERGENCY DEPARTMENT COURSE: This patient was seen and evaluated by me when the patient presented to the Emergency Department with an acute exacerbation of her chronic constipation. The patient also was complaining of abdominal cramping and on physical exam did have reproducible tenderness in left lower quadrant. However, the patient has no peritoneal signs. I did feel it was necessary, however, to repeat a CT scan given her past surgical history to rule out the possibility of an obstruction. Given that this was not present, I did explain to the patient and her daughter that I felt that this could also be exacerbated by her opiate analgesic medication, which she takes on a regular basis. There did not appear to be an acute life-threatening etiology today with the patient's constipation such as a tumor, stricture, hernia, adhesions volvulus or severe fecal impaction; therefore, the patient was given IM Relistor. The patient had no rectal pain, no fever, no nausea or vomiting, and no rectal bleeding or significant weight loss. I explained to the daughter, as well as the patient, that it is extremely important for them to follow up on an outpatient basis with a GI specialist for further evaluation and to adhere to their outpatient regime of medication options such as stimulants, including Dulcolax, which they were recently prescribed, as well as the hyperosmolar agent, lactulose, which she states she has not been adherent with. The patient felt comfortable being discharged home. They will follow up with their outpatient physician within the next 24 hours and were instructed to return to the Emergency Department for any new concerns or if her condition worsen. IMPRESSION: 1. Acute on chronic constipation. 2. Abdominal pain, unclear etiology. FINAL DISPOSITION: The patient was discharged home in fair condition. Dictated By: Destiney Najera MD /leon/arnav /Document#: [id number]
[2016-12-04] MEDS ORDERED: METHYLNALTREXONE 12 MG/0.6 ML VIAL SC SCH (09:00)
== END 2016-12-04 00:13 | disposition home or self-care (01) ==
LOC: E/R 19:14
DX: K59.00 Constipation, unspecified (principal)
CPT/HCPCS: 74176; 96372; J7030

== ENCOUNTER 2016-12-24 17:44 | Emergency (ER) | payer MEDICARE, OTHER ==
[~2016-12-24] VITALS: Wt 60.6 kg
--- NOTE | 2016-12-24 18:59 | ERD ---
ER Documentation Chief Complaint Chief Complaint CONSTIPATION X 1 WEEK WITH LOWER ABD PAIN; DENIES N/V HPI This is an 86-year-old female with a past medical history of stomach cancer status post gastrectomy, previous hysterectomy, chronic constipation and abdominal pain, hypertension, hypothyroidism who is presenting with lower crampy abdominal pain and constipation for 1 week. The patient does not endorse feeling sick otherwise. She denies any fever or chills. She denies any nausea or vomiting. The patient denies any pain or burning or bleeding with urination. However, she does endorse urinary frequency. The patient has had no headache or vision changes. The patient does not endorse neck or back pain. The patient denies lightheadedness or dizziness. The patient has had no chest pain or shortness of breath or trouble breathing. The patient has had no focal deficits. The patient has had no weakness or numbness or tingling to the face or extremities. ROS All systems reviewed and are negative except as per history of present illness. Medications Home Meds Active Scripts Cephalexin* (Keflex*) 500 Mg Capsule, 500 MG PO BID for 10 Days, CAP Prov:JABIER KAMARA MD 12/24/16 Bisacodyl (Dulcolax) 10 Mg Supp.rect, 10 MG RC every day, #14 SUPP.RECT Prov:ELIECER CORREA DO 12/01/16 Alprazolam* (Xanax*) 0.25 Mg Tablet, 0.25 MG PO Q8H Y for ANXIETY, #14 TAB Prov:ELIECER CORREA DO 12/01/16 Polyethylene Glycol* (Miralax*) 17 Gm Powd.pack, 17 GM PO DAILY, #10 Prov:ELIECER CORREA DO 12/01/16 Hydrocodone/Acetaminophen ([place] 10-325 Tablet) 1 Each Tablet, 1 TAB PO Q6H Y for PAIN, #20 TAB Prov:ERENDIRA CANTRELL 11/28/16 Tramadol HCl (Tramadol HCl) 50 Mg Tablet, 50 MG PO Q4 Y for PAIN, #10 TAB Prov:TREVA ANAYA MD 11/24/16 Magnesium Citrate* (Magnesium Citrate*) 296 Ml Solution, 296 ML PO ONCE, #1 BOTTLE Prov:TREVA ANAYA MD 11/24/16 Docusate Sodium* (Colace*) 100 Mg Capsule, 100 MG PO TID, #30 CAP Prov:TREVA ANAYA MD 11/24/16 Polyethylene Glycol* (Miralax*) 17 Gm Powd.pack, 17 GM PO DAILY, #7 Prov:TREVA ANAYA MD 11/17/16 Magnesium Citrate* (Magnesium Citrate*) 296 Ml Solution, 296 ML PO ONCE, #1 BOTTLE Prov:TREVA ANAYA MD 11/17/16 Bisacodyl* (Dulcolax*) 5 Mg Tablet.dr, 10 MG [place] DAILY Y for CONSTIPATION, #10 TAB Prov:MITCH ROSADO MD 11/10/16 Magnesium Citrate* (Citrate Of Magnesia*) 296 Ml Solution, 300 ML PO ONCE, #1 BOTTLE Prov:ANTHONY CANALES DO 10/21/16 Lactulose* (Lactulose*) 10 Gm/15 Ml Solution, 10 GM PO Q8 for 5 Days, ML Prov:ANTHONY CANALES DO 10/21/16 Ibuprofen* (Motrin*) 400 Mg Tab, 400 MG PO Q6, #20 TAB Prov:MITCH ROSADO MD 10/10/16 Reported Medications Teriparatide (Forteo) 2.4 Ml Pen.injctr, 20 MCG SQ DAILY, EA 10/10/16 Cyclobenzaprine Hcl* (Cyclobenzaprine Hcl*) 5 Mg Tablet, 2.5 MG PO Q8H, #60 TAB 10/10/16 Ondansetron Hcl* (Ondansetron Hcl*) 4 Mg Tablet, 4 MG PO DAILY Y for NAUSEA AND OR VOMITING, TAB 10/10/16 Naproxen* (Naproxen*) 500 Mg Tablet, 500 MG PO BID, TAB 10/10/16 Fentanyl Patch* (Duragesic Patch*) 12 Mcg/Hr Transdermal Patch, 1 PATCH TD Q72H , PATCH 10/10/16 Morphine Sulfate* (Morphine* Liq) 10 Mg/5 Ml Solution, 10 MG PO Q4H Y for PAIN LEVEL 6-10, ML 09/27/16 Dronabinol* (Dronabinol*) 5 Mg Capsule, 2.5 MG PO DAILY, CAP 09/27/16 Esomeprazole Mag Trihydrate (Nexium) 40 Mg Capsule.dr, 40 MG PO DAILY, #30 CAP 09/27/16 Vitamin B Complex (Vitamin B Complex) 1 Each Capsule, 1 EACH PO, CAP 09/27/16 Magnesium Oxide (Magnesium) 250 Mg Tablet, 250 MG PO DAILY, TAB 03/25/16 Cholecalciferol* (Vitamin D3*) 1,000 Unit Tablet, 1000 UNIT PO DAILY, TAB 03/25/16 Levothyroxine Sodium* (Levothyroxine Sodium*) 100 Mcg Tablet, 100 MCG PO DAILY, TAB 03/20/14 Losartan Potassium* (Losartan Potassium*) 25 Mg Tablet, 25 MG PO DAILY, TAB 10/17/13 Allergies Allergies: Coded Allergies: hydromorphone (Unverified Allergy, Intermediate, 12/03/16) Influenza Virus Vaccines (Unverified Allergy, Mild, 12/03/16) iodine (Unverified Adverse Reaction, Mild, DIFFICULTY OF BREATHING, ) PMhx/Soc History of Surgery: Yes (gastrectomy, hysterectomy, laminectomy, kyphoplastia.) Anesthesia Reaction: No Hx Neurological Disorder: Yes (fibromyalgia, neuropathy) Hx Respiratory Disorders: No Hx Cardiac Disorders: Yes (HTN) Hx Psychiatric Problems: Yes (anxiety) Hx Miscellaneous Medical Probl: Yes (stomach CA, arthritis, OP, HLD) Hx Alcohol Use: No Hx Substance Use: No Hx Tobacco Use: No FmHx Family History: coronary disease, diabetes Physical Exam Vitals Vital Signs Date Time Temp Pulse Resp B/P Pulse Ox O2 Delivery O2 Flow Rate FiO2 12/24/16 22:40 79 18 142/67 97 Room Air 12/24/16 21:15 84 18 128/78 98 Room Air 12/24/16 19:43 86 17 127/75 99 High Flow 12/24/16 17:46 98.0 69 18 130/71 99 Physical Exam Const: No apparent distress, well-developed, cachectic Head: Atraumatic Eyes: Normal Conjunctiva. Extraocular movements intact. ENT: Normal External Ears, Nose and Mouth. Neck: Full range of motion. No meningismus. Resp: Clear to auscultation bilaterally Cardio: Regular rate and rhythm, no murmurs Abd: Soft, non distended, mild lower abdominal discomfort. Normal bowel sounds Skin: No petechiae or rashes Back: No midline or flank tenderness Ext: No cyanosis, or edema Neur: Awake and alert, oriented 4. Cranial nerves intact. No facial droop. Normal strength and sensation in all extremities. Coordination with finger to nose normal. Psych: Normal Mood and Affect Result Diagram: 12/24/16 1950 12/24/16 1950 Results 24 hrs Laboratory Tests Test 12/24/16 19:00 12/24/16 19:50 Urine Color YELLOW Urine Clarity CLEAR Urine pH 5.0 Urine Specific [place] 1.023 Urine Ketones NEGATIVEmg/dL Urine Nitrite POSITIVEmg/dL Urine Bilirubin NEGATIVEmg/dL Urine Urobilinogen NEGATIVEmg/dL Urine Leukocyte Esterase 1+Johnnie/ul Urine Microscopic RBC 1/HPF Urine Microscopic WBC 10/HPF Urine Bacteria MANY/HPF Urine Mucus FEW/HPF Urine Hemoglobin NEGATIVEmg/dL Urine Glucose NEGATIVEmg/dL Urine Total Protein NEGATIVEmg/dl White Blood Count 10.010^3/ul Red Blood Count 3.8910^6/ul Hemoglobin 11.1g/dl Hematocrit 34.8% Mean Corpuscular Volume 89.5fl Mean Corpuscular Hemoglobin 28.5pg Mean Corpuscular Hemoglobin Concent 31.9g/dl Red Cell Distribution Width 12.8% Platelet Count 03734^3/UL Mean Platelet Volume 10.9fl Neutrophils % 81.8% Lymphocytes % 7.4% Monocytes % 9.8% Eosinophils % 0.5% Basophils % 0.2% Nucleated Red Blood Cells % 0.0/100WBC Neutrophils # 8.210^3/ul Lymphocytes # 0.710^3/ul Monocytes # 1.010^3/ul Eosinophils # 0.110^3/ul Basophils # 0.010^3/ul Nucleated Red Blood Cells # 0.010^3/ul Sodium Level 135mmol/L Potassium Level 4.7mmol/L Chloride Level 99mmol/L Carbon Dioxide Level 27mmol/L Anion Gap 14 Blood Urea Nitrogen 39mg/dl Creatinine 0.93mg/dl Glucose Level 163mg/dl Lactic Acid Level 1.2mmol/L Calcium Level 9.2mg/dl Total Bilirubin 0.1mg/dl Direct Bilirubin 0.00mg/dl Indirect Bilirubin 0.1mg/dl Aspartate Amino Transf (AST/SGOT) 20IU/L Alanine Aminotransferase (ALT/SGPT) 24IU/L Alkaline Phosphatase 161IU/L Total Protein 7.0g/dl Albumin 3.7g/dl Globulin 3.30g/dl Albumin/Globulin Ratio 1.12 Lipase 139U/L Current Medications Medications (Trade) Dose Ordered Sig/Jayashree Route PRN Reason Start Time Stop Time Status Last Admin Dose Admin Sodium Chloride (NS) 500 ml @ 500 mls/hr Q1H ONCE IV 12/24/16 19:00 12/24/16 19:59 DC 12/24/16 19:46 Acetaminophen (Tylenol Tab) 650 mg ONCE ONCE PO 12/24/16 21:00 12/24/16 21:01 DC 12/24/16 20:44 Procedures/MDM MDM The patient's presentation warrants further investigation. The patient does have mild lower abdominal pain, but she is actually quite well-appearing with unremarkable vital signs. The patient does not have a distended abdomen, and I have less suspicion for constipation, though this is a possibility. The patient likely does not have many mild movements as her appetite is chronically poor. I will completed abdominal workup including evaluating the liver, pancreas, kidneys via CBC and CMP. I will also obtain a lactic, though I have less suspicion for mesenteric ischemia or ischemic colitis. I will also obtain a urinalysis. LABS The patient's blood work was obtained and reviewed. The patient's CBC shows no leukocytosis or left shift. The patient is afebrile and does not appear systemically ill. I do not suspect a systemic infection. The patient is mildly anemic today, but this does not require emergent treatment. The patient's platelet count is unremarkable. The patient's CMP shows no signs of emergent metabolic or electrolyte abnormality. The patient does have an elevated BUN that may be associated with dehydration. The patient's creatinine is unremarkable. Aside from an elevated alk phos, the patient's LFTs are also unremarkable. The patient's lactic acid was also within normal limits. I do not feel that the patient's symptoms are consistent with mesenteric ischemia. The patient's urinalysis is positive for nitrates, leukoesterase, white cells and bacteria, which is highly suspicious for urinary tract infection. IMAGING Abdominal x-ray FINDINGS: The bowel gas pattern is normal with no evidence of obstruction. Surgical clips are present in the left upper quadrant of the abdomen. There are no abnormal calcifications overlying the urinary tracts. There are degenerative changes of the spine. There has been previous vertebroplasty at L4. IMPRESSION: No evidence of obstruction. Prior left upper quadrant surgery. Previous vertebroplasty at L4. Electronically viewed and signed by .John Lopez MD, MD on 12/24/2016 19:51 TREATMENT/DISPOSITION The patient's overall presentation is consistent with a urinary tract infection. The patient will be given a prescription for Keflex. At this time, I feel that the patient stable for discharge. He will need follow -up with his primary care physician in 2-3 days. He will be given strict precautions with which to return to the emergency department. The patient's blood pressure was elevated at greater than 120/80 while in the emergency department. The patient was otherwise stable with no evidence of hypertensive urgency or emergency. The patient will require reevaluation of his blood pressure in 2-3 days, but this may be completed by a primary care physician as an outpatient. He does not require admission for blood pressure control. Departure Diagnosis: Primary Impression: Urinary tract infection Urinary tract infection type: site unspecified Hematuria presence: without hematuria Qualified Code: N39.0 - Urinary tract infection without hematuria, site unspecified Additional Impression: Abdominal pain Abdominal location: lower abdomen, unspecified Qualified Code: R10.30 - Lower abdominal pain Condition: Stable JABIER KAMARA MD Dec 24, 2016 18:59
[2016-12-24] MEDS ORDERED: SOD CHLORIDE 0.9% 500 ML IV ONE (19:00)
--- NOTE | 2016-12-24 19:51 | RADRPT ---
PROCEDURE: XR Abdomen. CLINICAL INDICATION: Abdomen pain. TECHNIQUE: AP supine abdomen x-ray. COMPARISON: 10/21/2016. FINDINGS: The bowel gas pattern is normal with no evidence of obstruction. Surgical clips are present in the left upper quadrant of the abdomen. There are no abnormal calcifications overlying the urinary tracts. There are degenerative changes of the spine. There has been previous vertebroplasty at L4. IMPRESSION: 1. No evidence of obstruction. 2. Prior left upper quadrant surgery. 3. Previous vertebroplasty at L4. RPTAT: QQ .John Lopez MD, MD Date Time Electronically viewed and signed by .John Lopez MD, MD on 12/24/2016 19:51 .R/
[2016-12-24] MEDS ORDERED: ACETAMINOPHEN 325 MG TAB PO ONE (21:00)
[2016-12-24 22:40] VITALS: BP 142/67; PULSE 79; RESP 18
[2016-12-24] MEDS ORDERED: CEPH-443 PO (22:43)
== END 2016-12-24 23:23 | disposition home or self-care (01) ==
LOC: E/R 17:44
DX: N39.0 Urinary tract infection, site not specified (principal); I10 Essential (primary) hypertension; Z85.028 Personal history of other malignant neoplasm of stomach
CPT/HCPCS: 36415; 74000; 80053; 81001; 83605; 83690; 85025; 87086; 99284; J7040

== ENCOUNTER 2017-02-04 22:01 | Emergency (ER) | payer MEDICARE, OTHER ==
[~2017-02-04] VITALS: Ht 147.3 cm; Wt 32.0 kg
[~2017-02-04 22:01] MED LIST changes: +CEPH-443 PO
[2017-02-04 22:04] VITALS: Ht 147.3 cm; Wt 32.0 kg
== END 2017-02-04 23:43 | disposition left against medical advice (07) ==
LOC: E/R 22:01
DX: Z53.21 Procedure and treatment not carried out due to patient leaving prior to being seen by health care provider (principal)

== ENCOUNTER 2017-02-05 12:29 | Emergency (ER) | payer SELFPAY ==
[~2017-02-05] VITALS: Ht 139.7 cm; Wt 35.5 kg
[2017-02-05 12:32] VITALS: Ht 139.7 cm; Wt 35.5 kg
== END 2017-02-05 19:41 | disposition left against medical advice (07) ==
LOC: E/R 12:29
DX: Z53.21 Procedure and treatment not carried out due to patient leaving prior to being seen by health care provider (principal)

== ENCOUNTER 2017-07-25 02:25 | Emergency (ER) | END 2017-07-25 06:18 | disposition home or self-care (01) ==

== ENCOUNTER 2018-06-16 16:52 | Emergency (ER) | payer MEDICARE, OTHER ==
[~2018-06-16] VITALS: Wt 45.5 kg
[~2018-06-16 16:52] MED LIST changes: -ALPR0.25 PO; -BISA10SU55 RC; -CEPH-443 PO; -FENT1PAT7 TD; -HYDR-902 PO; +IBUP-1561 PO; -IBUP400T22 PO; -LACT10SO5 PO; +LEVO100T8 PO; -LEVO100T87 PO; -LOSA25TA5 PO; +MAGN250T10 PO; -MAGN250T5 PO; -MAGN296S PO; -MAGN296S40 PO; -MORP10SO4 PO
[2018-06-16] MEDS ORDERED: AMOX1TAB10 PO (18:09)
--- NOTE | 2018-06-16 18:19 | ERD ---
ER Documentation Chief Complaint Chief Complaint dog bite to l. hand, no active bleeding HPI 88-year-old female who presents status post dog bite. Patient states she was sleeping last night when her small lesion on freeze dog panicked at the sound of loud noise but her left hand. Reports dog is at all his shots and is healthy. Her primary concern is worsening pain to left hand. She otherwise denies left hand weakness or numbness. She otherwise is without complaints. She is unsure when she had her last tetanus shot. Otherwise she denies any allergies to any medications. ROS All systems reviewed and are negative except as per history of present illness. Medications Home Meds Active Scripts Amoxicillin/Potassium Clav (Amox-Clav 875-125 mg Tablet) 875-125 mg Tab, 1 TAB PO BID for 10 Days, #20 TAB Prov:JULISSA TORO PA-C 06/16/18 Tramadol HCl (Tramadol HCl) 50 Mg Tablet, 50 MG PO Q4 PRN for PAIN, #20 TAB Prov:ERENDIRA CANTRELL 07/25/17 Polyethylene Glycol* (Miralax*) 17 Gm Powd.pack, 17 GM PO DAILY, #10 Prov:ELIECER CORREA DO 12/01/16 Tramadol HCl (Tramadol HCl) 50 Mg Tablet, 50 MG PO Q4 PRN for PAIN, #10 TAB Prov:TREVA ANAYA MD 11/24/16 Docusate Sodium* (Colace*) 100 Mg Capsule, 100 MG PO TID, #30 CAP Prov:TREVA ANAYA MD 11/24/16 Bisacodyl* (Dulcolax*) 5 Mg Tablet.dr, 10 MG ME DAILY PRN for CONSTIPATION, #10 TAB Prov:MITCH ROSADO MD 11/10/16 Ibuprofen* (Motrin*) 400 Mg Tab, 400 MG PO Q6, #20 TAB Prov:MITCH ROSADO MD 10/10/16 Reported Medications Teriparatide (Forteo) 2.4 Ml Pen.injctr, 20 MCG SQ DAILY, EA 10/10/16 Cyclobenzaprine Hcl* (Cyclobenzaprine Hcl*) 5 Mg Tablet, 2.5 MG PO Q8H, #60 TAB 10/10/16 Ondansetron Hcl* (Ondansetron Hcl*) 4 Mg Tablet, 4 MG PO DAILY PRN for NAUSEA A ND OR VOMITING, TAB 10/10/16 Naproxen* (Naproxen*) 500 Mg Tablet, 500 MG PO BID, TAB 10/10/16 Dronabinol* (Dronabinol*) 5 Mg Capsule, 2.5 MG PO DAILY, CAP 09/27/16 Esomeprazole Mag Trihydrate (Nexium) 40 Mg Capsule.dr, 40 MG PO DAILY, #30 CAP 09/27/16 Vitamin B Complex (Vitamin B Complex) 1 Each Capsule, 1 EACH PO, CAP 09/27/16 Magnesium Oxide (Magnesium) 250 Mg Tablet, 250 MG PO DAILY, TAB 03/25/16 Cholecalciferol* (Vitamin D3*) 1,000 Unit Tablet, 1000 UNIT PO DAILY, TAB 03/25/16 Levothyroxine Sodium* (Levothyroxine Sodium*) 100 Mcg Tablet, 100 MCG PO DAILY, TAB 03/20/14 Allergies Allergies: Coded Allergies: hydromorphone (Unverified Allergy, Intermediate, 12/03/16) Influenza Virus Vaccines (Unverified Allergy, Mild, 12/03/16) iodine (Unverified Adverse Reaction, Mild, DIFFICULTY OF BREATHING, 12/03/16) PMhx/Soc History of Surgery: Yes (gastrectomy, hysterectomy, laminectomy, kyphoplastia.) Anesthesia Reaction: No Hx Neurological Disorder: Yes (fibromyalgia, neuropathy) Hx Respiratory Disorders: No Hx Cardiac Disorders: Yes (HTN) Hx Psychiatric Problems: Yes (anxiety) Hx Miscellaneous Medical Probl: Yes (stomach CA, arthritis, OP, HLD,chronic body pain) Hx Alcohol Use: No Hx Substance Use: No Hx Tobacco Use: Yes (quit) Physical Exam Vitals Vital Signs Date Temp Pulse Resp B/P (MAP) Pulse Ox O2 O2 Flow FiO2 Time Delivery Rate 06/16/18 98.3 97 20 156/76 98 17:00 (102) Physical Exam Const: No acute distress Head: Atraumatic Eyes: Normal Conjunctiva ENT: Normal External Ears, Nose and Mouth. Neck: Full range of motion. No meningismus. Resp: Clear to auscultation bilaterally Cardio: Regular rate and rhythm, no murmurs Abd: Soft, non tender, non distended. Normal bowel sounds Skin: 2 small puncture wounds to the palm of left hand, no bleeding, small area of surrounding erythema, no evidence of retained foreign body on palpation Back: No midline or flank tenderness Ext: No cyanosis, or edema Neur: Awake and alert Psych: Normal Mood and Affect Results 24 hrs Current Medications Medications Dose Sig/Jayashree Start Time Status Last (Trade) Ordered Route PRN Stop Time Admin Dose Reason Admin Diphtheria/ 0.5 ml ONCE ONCE 06/16/18 Tetanus/Acell IM* 18:30 Pertussis 06/16/18 18:31 (Adacel) Procedures/MDM 88-year-old female presents status post dog bite yesterday. I have low suspicion for disseminated infection, retained foreign body, or other etiology requiring further emergent work-up. Plan: Augmentin on discharge, Tdap update, MD follow-up and strict return precautions DISPOSITION PLAN: We discussed follow up with the patient's primary care doctor within 24 to 48 hours. Patient counseled regarding my diagnostic impression and care plan. Prior to discharge all questions answered. Pt agrees with treatment plan and understands strict return precautions. Precautionary instructions provided including instructions to return to the ER if not improving or for any worsening or changing symptoms or concerns. Disclaimer: Inadvertent spelling and grammatical errors are likely due to EHR/dictation software use and do not reflect on the overall quality of patient care. Also, please note that the electronic time recorded on this note does not necessarily reflect the actual time of the patient encounter. Departure Diagnosis: Primary Impression: Dog bite Condition: Stable Patient Instructions: Dog Bite Additional Instructions: Call your primary care doctor TOMORROW for an appointment during the next 2-3 days.See the doctor sooner or return here if your condition worsens before your appointment time. JULISSA TORO PA-C Jun 16, 2018 18:19
[2018-06-16] MEDS ORDERED: ACET500C5 PO (18:20)
[2018-06-16] MEDS ORDERED: DIPHTH/TET/ACEL PERTUSS (ADULT) 0.5 ML VIAL IM* ONE (18:30)
[2018-06-16 18:46] VITALS: BP 142/82; PULSE 68; RESP 19
== END 2018-06-16 18:47 | disposition home or self-care (01) ==
LOC: FTE 16:52
DX: S61.432A Puncture wound without foreign body of left hand, initial encounter (principal); I10 Essential (primary) hypertension; W54.0XXA Bitten by dog, initial encounter; Y92.9 Unspecified place or not applicable; Z23 Encounter for immunization; Z85.028 Personal history of other malignant neoplasm of stomach; Z87.891 Personal history of nicotine dependence
CPT/HCPCS: 90471; 90715

== ENCOUNTER 2018-07-08 15:18 | Emergency (ER) | payer MEDICARE, OTHER ==
[~2018-07-08] VITALS: Ht 149.9 cm; Wt 46.0 kg
[~2018-07-08 15:18] MED LIST changes: +ACET500C5 PO; +AMOX1TAB10 PO
[2018-07-08 15:22] VITALS: Ht 149.9 cm; Wt 46.0 kg
--- NOTE | 2018-07-08 15:53 | EN ---
Date/Time of Note Date/Time of Note DATE: 07/08/18 TIME: 15:52 ER Progress Note MSE performed in ED 3. Patient has a history of neuropathy and numbness in her legs. She has frequent falls. She fell 2 days ago and once again yesterday trying to stand from bed. She has pain in her pelvis, low back, left knee as well as left hip. Radiologic studies initiated via provider in triage. RADHA RENO MD July 08, 2018 15:53
[2018-07-08] MEDS ORDERED: ONDANSETRON (ODT) 4 MG TAB ODT STA (18:28)
[2018-07-08] MEDS ORDERED: DOCU-144 PO (18:29)
[2018-07-08] MEDS ORDERED: HYDR-4011 PO (18:29)
[2018-07-08] MEDS ORDERED: ONDA4TAB14 PO (18:29)
[2018-07-08] MEDS ORDERED: HYDROCODONE/APAP (5/325) TAB PO ONE (18:30)
[2018-07-08] MEDS ORDERED: TRAM50TA PO (18:49)
[2018-07-08] MEDS ORDERED: OMEP20CA16 PO (18:49)
[2018-07-08] MEDS ORDERED: LEVO100T8 PO (18:49)
[2018-07-08] MEDS ORDERED: RANI150T5 PO (18:50)
[2018-07-08] MEDS ORDERED: CYCL5TAB PO (18:50)
[2018-07-08 19:16] VITALS: BP 144/81; PULSE 76; RESP 20
--- NOTE | 2018-07-08 20:39 | ERD ---
ER Documentation Chief Complaint Chief Complaint lt knee pain s/p fall at home on sunday HPI Patient is an 88-year-old female with hypertension who presents after a fall. The patient fell on Sunday. The daughter says that it was "a minor fall". She has had pain with walking however. She has lower back pain. She had previous back surgery in 2016. Upon review of old medical records the patient has multiple visits to the ER for various complaints. Her primary doctor is Dr. Robbins. ROS All systems reviewed and are negative except as per history of present illness. Medications Home Meds Active Scripts Docusate Sodium* (Colace*) 100 Mg Capsule, 100 MG PO TID, #30 CAP Prov:TREVA ANAYA MD 07/08/18 Ondansetron (Ondansetron Odt) 4 Mg Tab.rapdis, 4 MG PO Q6H PRN for NAUSEA AND/OR VOMITING, #10 TAB Prov:TREVA ANAYA MD 07/08/18 Hydrocodone/Acetaminophen ([place] 5-325 Tablet) 1 Each Tablet, 1 TAB PO Q6H PRN for PAIN, #7 TAB Prov:TREVA ANAYA MD 07/08/18 Reported Medications Cyclobenzaprine Hcl* (Cyclobenzaprine Hcl*) 5 Mg Tablet, 2.5 MG PO BID, #60 TAB 07/08/18 Ranitidine Hcl* (Ranitidine Hcl*) 150 Mg Tablet, 150 MG PO HS PRN for NEEDED, #30 TAB 07/08/18 Tramadol Hcl* (Ultram*) 50 Mg Tablet, 50 MG PO BID PRN for PAIN, TAB 07/08/18 Omeprazole* (Omeprazole*) 20 Mg Capsule.dr, 20 MG PO DAILY, #30 CAP 07/08/18 Levothyroxine Sodium* (Levothyroxine Sodium*) 100 Mcg Tablet, 100 MCG PO BEFORE BREAKFAST, #30 TAB 07/08/18 Discontinued Reported Medications Teriparatide (Forteo) 2.4 Ml Pen.injctr, 20 MCG SQ DAILY, EA 10/10/16 Cyclobenzaprine Hcl* (Cyclobenzaprine Hcl*) 5 Mg Tablet, 2.5 MG PO Q8H, #60 TAB 10/10/16 Ondansetron Hcl* (Ondansetron Hcl*) 4 Mg Tablet, 4 MG PO DAILY PRN for NAUSEA AND OR VOMITING, TAB 10/10/16 Naproxen* (Naproxen*) 500 Mg Tablet, 500 MG PO BID, TAB 10/10/16 Dronabinol* (Dronabinol*) 5 Mg Capsule, 2.5 MG PO DAILY, CAP 09/27/16 Esomeprazole Mag Trihydrate (Nexium) 40 Mg Capsule.dr, 40 MG PO DAILY, #30 CAP 09/27/16 Vitamin B Complex (Vitamin B Complex) 1 Each Capsule, 1 EACH PO, CAP 09/27/16 Magnesium Oxide (Magnesium) 250 Mg Tablet, 250 MG PO DAILY, TAB 03/25/16 Cholecalciferol* (Vitamin D3*) 1,000 Unit Tablet, 1000 UNIT PO DAILY, TAB 03/25/16 Levothyroxine Sodium* (Levothyroxine Sodium*) 100 Mcg Tablet, 100 MCG PO DAILY, TAB 03/20/14 Discontinued Scripts Acetaminophen* (Tylophen*) 500 Mg Capsule, 1 CAP PO Q6H PRN for PAIN AND OR ELEVATED TEMP, #14 CAP Prov:JULISSA TORO PA-C 06/16/18 Amoxicillin/Potassium Clav (Amox-Clav 875-125 mg Tablet) 875-125 mg Tab, 1 TAB PO BID for 10 Days, #20 TAB Prov:JULISSA TORO PA-C 06/16/18 Tramadol HCl (Tramadol HCl) 50 Mg Tablet, 50 MG PO Q4 PRN for PAIN, #20 TAB Prov:ERENDIRA CANTRELL 07/25/17 Polyethylene Glycol* (Miralax*) 17 Gm Powd.pack, 17 GM PO DAILY, #10 Prov:ELIECER CORREA DO 12/01/16 Tramadol HCl (Tramadol HCl) 50 Mg Tablet, 50 MG PO Q4 PRN for PAIN, #10 TAB Prov:TREVA ANAYA MD 11/24/16 Docusate Sodium* (Colace*) 100 Mg Capsule, 100 MG PO TID, #30 CAP Prov:TREVA ANAYA MD 11/24/16 Bisacodyl* (Dulcolax*) 5 Mg Tablet.dr, 10 MG AR DAILY PRN for CONSTIPATION, #10 TAB Prov:MITCH ROSADO MD 11/10/16 Ibuprofen* (Motrin*) 400 Mg Tab, 400 MG PO Q6, #20 TAB Prov:MITCH ROSADO MD 10/10/16 Allergies Allergies: Coded Allergies: hydromorphone (Unverified Allergy, Intermediate, 07/08/18) Influenza Virus Vaccines (Unverified Allergy, Mild, 07/08/18) iodine (Unverified Adverse Reaction, Mild, DIFFICULTY OF BREATHING, 07/08/18) PMhx/Soc History of Surgery: Yes (gastrectomy, hysterectomy, laminectomy, kyphoplastia.) Anesthesia Reaction: No Hx Neurological Disorder: Yes (fibromyalgia, neuropathy) Hx Respiratory Disorders: No Hx Cardiac Disorders: Yes (HTN) Hx Psychiatric Problems: Yes (anxiety) Hx Miscellaneous Medical Probl: Yes (stomach CA, arthritis, OP, HLD,chronic body pain) Hx Alcohol Use: No Hx Substance Use: No Hx Tobacco Use: Yes (quit) Smoking Status: Current every day smoker FmHx Family History: No diabetes Physical Exam Vitals Vital Signs Date Temp Pulse Resp B/P (MAP) Pulse Ox O2 O2 Flow FiO2 Time Delivery Rate 07/08/18 76 20 144/81 99 Room Air 19:16 (102) 07/08/18 97.8 88 18 156/72 98 15:22 (100) Physical Exam Const: Mild distress secondary to pain Head: Atraumatic Eyes: Normal Conjunctiva ENT: Normal External Ears, Nose and Mouth. Neck: Full range of motion. No meningismus. Resp: Clear to auscultation bilaterally Cardio: Regular rate and rhythm, no murmurs Abd: Soft, non tender, non distended. Normal bowel sounds Skin: No petechiae or rashes Back: Back pain in the lower lumbar area without step-off or deformity noted Ext: No cyanosis, or edema Neur: Awake and alert Psych: Normal Mood and Affect Results 24 hrs Current Medications Medications Dose Sig/Jayashree Start Time Status Last (Trade) Ordered Route PRN Stop Time Admin Dose Reason Admin 1 tab ONCE ONCE 07/08/18 DC 07/08/18 Acetaminophen PO 18:30 18:54 / 07/08/18 18:31 Hydrocodone Bitart ([place] (5/325)) Ondansetron 4 mg ONCE STAT 07/08/18 DC 07/08/18 HCl (Zofran ODT 18:28 18:50 Odt) 07/08/18 18:29 Procedures/MDM Four x-rays done and read by radiology showed no fracture or dislocation. Patient is an 88-year-old female with hypertension who presents with a fall. The patient has muscular skeletal back pain. There is no fracture or dislocation noted. The patient will be discharged and can return for worsening symptoms. I will give a prescription for [place], Zofran, and Colace. Departure Diagnosis: Primary Impression: Back pain Back pain location: low back pain Chronicity: acute Back pain laterality: unspecified Sciatica presence: without sciatica Qualified Codes: M54.5 - Low back pain Additional Impression: Fall Encounter type: initial encounter Qualified Codes: W19.XXXA - Unspecified fall, initial encounter Condition: Fair Patient Instructions: Back Pain (Acute Or Chronic), Fall, Mechanical Additional Instructions: Llame al doctor MAANA y shannan vito OJ PARA DENTRO DE 1-2 SEVERINO.Dgale a la secretaria que nosotros le instruimos hacer esta oj.Avise o llame si breen condicin se empeora antes de la oj. Regresa aqui si peor o no mejor. TREVA ANAYA MD July 08, 2018 20:39
== END 2018-07-08 19:17 | disposition home or self-care (01) ==
LOC: E/R 15:18
DX: M54.5 Low back pain (principal); I10 Essential (primary) hypertension; F17.210 Nicotine dependence, cigarettes, uncomplicated; Z85.028 Personal history of other malignant neoplasm of stomach
CPT/HCPCS: 72100; 72170; 73510; 73562

== ENCOUNTER 2018-07-11 17:03 | Observation (INO) | payer MEDICARE, OTHER ==
[~2018-07-11] VITALS: Ht 147.3 cm; Wt 49.4 kg
[~2018-07-11 17:03] MED LIST changes: -ACET500C5 PO; -AMOX1TAB10 PO; -BISA-57 PR; -CHOL100062 PO; -DRON5CAP2 PO; -ESOM40CA PO; +HYDR-4011 PO; -IBUP-1561 PO; -MAGN250T10 PO; -NAPR-688 PO; +OMEP20CA16 PO; +ONDA4TAB14 PO; -ONDA4TAB95 PO; -POLY17PO6 PO; +RANI150T5 PO; -TERI2.4P SQ; +TRAM50TA PO; -TRAM50TA2 PO; -VITA1CAP PO
[2018-07-11] MEDS ORDERED: morphine 4 MG/ML VIAL IV STA (17:18)
[2018-07-11] MEDS ORDERED: ONDANSETRON 4 MG INJ IV STA (17:18)
[2018-07-11] MEDS ORDERED: ONDANSETRON 4 MG INJ IV PRN (18:00)
[2018-07-11] MEDS ORDERED: ACETAMINOPHEN 325 MG TAB PO PRN (18:00)
--- NOTE | 2018-07-11 19:13 | ERD ---
ER Documentation Chief Complaint Chief Complaint BACK PAIN, SEEN HERE BEFORE C/O SAME, ALSO FEELS WEAK HPI Patient is an 88-year-old female who presents with lower back pain. She has had back pain for days now. She still having pain. She has been taking pain medication without relief. She was sent by Dr. Robbins for admission. Upon review of old medical record the patient has multiple visits for pain related complaints. I actually saw her personally on July 08 and discharge her with pain medication to go home with. She has had no incontinence or fevers. ROS All systems reviewed and are negative except as per history of present illness. Medications Home Meds Active Scripts Docusate Sodium* (Colace*) 100 Mg Capsule, 100 MG PO TID, #30 CAP Prov:TREVA ANAYA MD 07/08/18 Ondansetron (Ondansetron Odt) 4 Mg Tab.rapdis, 4 MG PO Q6H PRN for NAUSEA AND/OR VOMITING, #10 TAB Prov:TREVA ANAYA MD 07/08/18 Hydrocodone/Acetaminophen ([place] 5-325 Tablet) 1 Each Tablet, 1 TAB PO Q6H PRN for PAIN, #7 TAB Prov:TREVA ANAYA MD 07/08/18 Reported Medications Cyclobenzaprine Hcl* (Cyclobenzaprine Hcl*) 5 Mg Tablet, 2.5 MG PO BID, #60 TAB 07/08/18 Ranitidine Hcl* (Ranitidine Hcl*) 150 Mg Tablet, 150 MG PO HS PRN for NEEDED, #30 TAB 07/08/18 Tramadol Hcl* (Ultram*) 50 Mg Tablet, 50 MG PO BID PRN for PAIN, TAB 07/08/18 Omeprazole* (Omeprazole*) 20 Mg Capsule.dr, 20 MG PO DAILY, #30 CAP 07/08/18 Levothyroxine Sodium* (Levothyroxine Sodium*) 100 Mcg Tablet, 100 MCG PO BEFORE BREAKFAST, #30 TAB 07/08/18 Discontinued Reported Medications Teriparatide (Forteo) 2.4 Ml Pen.injctr, 20 MCG SQ DAILY, EA 10/10/16 Cyclobenzaprine Hcl* (Cyclobenzaprine Hcl*) 5 Mg Tablet, 2.5 MG PO Q8H, #60 TAB 10/10/16 Ondansetron Hcl* (Ondansetron Hcl*) 4 Mg Tablet, 4 MG PO DAILY PRN for NAUSEA AND OR VOMITING, TAB 10/10/16 Naproxen* (Naproxen*) 500 Mg Tablet, 500 MG PO BID, TAB 10/10/16 Dronabinol* (Dronabinol*) 5 Mg Capsule, 2.5 MG PO DAILY, CAP 09/27/16 Esomeprazole Mag Trihydrate (Nexium) 40 Mg Capsule.dr, 40 MG PO DAILY, #30 CAP 09/27/16 Vitamin B Complex (Vitamin B Complex) 1 Each Capsule, 1 EACH PO, CAP 09/27/16 Magnesium Oxide (Magnesium) 250 Mg Tablet, 250 MG PO DAILY, TAB 03/25/16 Cholecalciferol* (Vitamin D3*) 1,000 Unit Tablet, 1000 UNIT PO DAILY, TAB 03/25/16 Levothyroxine Sodium* (Levothyroxine Sodium*) 100 Mcg Tablet, 100 MCG PO DAILY, TAB 03/20/14 Discontinued Scripts Acetaminophen* (Tylophen*) 500 Mg Capsule, 1 CAP PO Q6H PRN for PAIN AND OR ELEVATED TEMP, #14 CAP Prov:JULISSA TORO PA-C 06/16/18 Amoxicillin/Potassium Clav (Amox-Clav 875-125 mg Tablet) 875-125 mg Tab, 1 TAB PO BID for 10 Days, #20 TAB Prov:JULISSA TORO PA-C 06/16/18 Tramadol HCl (Tramadol HCl) 50 Mg Tablet, 50 MG PO Q4 PRN for PAIN, #20 TAB Prov:ERENDIRA CANTRELL 07/25/17 Polyethylene Glycol* (Miralax*) 17 Gm Powd.pack, 17 GM PO DAILY, #10 Prov:ELIECER CORREA DO 12/01/16 Tramadol HCl (Tramadol HCl) 50 Mg Tablet, 50 MG PO Q4 PRN for PAIN, #10 TAB Prov:TREVA ANAYA MD 11/24/16 Docusate Sodium* (Colace*) 100 Mg Capsule, 100 MG PO TID, #30 CAP Prov:TREVA ANAYA MD 11/24/16 Bisacodyl* (Dulcolax*) 5 Mg Tablet., 10 MG NE DAILY PRN for CONSTIPATION, #10 TAB Prov:MITCH ROSADO MD 11/10/16 Ibuprofen* (Motrin*) 400 Mg Tab, 400 MG PO Q6, #20 TAB Prov:MITCH ROSADO MD 10/10/16 Allergies Allergies: Coded Allergies: hydromorphone (Unverified Allergy, Intermediate, 07/11/18) Influenza Virus Vaccines (Unverified Allergy, Mild, 07/11/18) iodine (Unverified Adverse Reaction, Mild, DIFFICULTY OF BREATHING, 07/11/18) PMhx/Soc History of Surgery: Yes (gastrectomy, hysterectomy, laminectomy, kyphoplastia.) Anesthesia Reaction: No Hx Neurological Disorder: Yes (fibromyalgia, neuropathy) Hx Respiratory Disorders: No Hx Cardiac Disorders: Yes (HTN) Hx Psychiatric Problems: Yes (anxiety) Hx Miscellaneous Medical Probl: Yes (stomach CA, arthritis, OP, HLD,chronic body pain) Hx Alcohol Use: No Hx Substance Use: No Hx Tobacco Use: Yes (quit) Smoking Status: Former smoker FmHx Family History: No diabetes Physical Exam Vitals Vital Signs Date Temp Pulse Resp B/P (MAP) Pulse Ox O2 O2 Flow FiO2 Time Delivery Rate 07/11/18 98.6 81 18 168/76 99 17:06 (106) Physical Exam Const: Moderate distress secondary to pain Head: Atraumatic Eyes: Normal Conjunctiva ENT: Normal External Ears, Nose and Mouth. Neck: Full range of motion. No meningismus. Resp: Clear to auscultation bilaterally Cardio: Regular rate and rhythm, no murmurs Abd: Soft, non tender, non distended. Normal bowel sounds Skin: No petechiae or rashes Back: Left lower back pain which is radiating down the left leg, no midline step-off or deformity noted Ext: No cyanosis, or edema Neur: Awake and alert Psych: Normal Mood and Affect Result Diagram: 07/11/18 1730 07/11/18 173 Results 24 hrs Laboratory Tests Test 07/11/18 17:30 White Blood Count 8.0 10^3/ul Red Blood Count 3.82 10^6/ul Hemoglobin 11.3 g/dl Hematocrit 35.1 % Mean Corpuscular Volume 91.9 fl Mean Corpuscular Hemoglobin 29.6 pg Mean Corpuscular Hemoglobin Concent 32.2 g/dl Red Cell Distribution Width 12.6 % Platelet Count 225 10^3/UL Mean Platelet Volume 10.7 fl Immature Granulocytes % 0.500 % Neutrophils % 70.2 % Lymphocytes % 15.7 % Monocytes % 11.7 % Eosinophils % 1.5 % Basophils % 0.4 % Nucleated Red Blood Cells % 0.0 /100WBC Immature Granulocytes # 0.040 10^3/ul Neutrophils # 5.7 10^3/ul Lymphocytes # 1.3 10^3/ul Monocytes # 0.9 10^3/ul Eosinophils # 0.1 10^3/ul Basophils # 0.0 10^3/ul Nucleated Red Blood Cells # 0.0 10^3/ul Sodium Level 132 mmol/L Potassium Level 4.3 mmol/L Chloride Level 99 mmol/L Carbon Dioxide Level 23 mmol/L Anion Gap 10 Blood Urea Nitrogen 28 mg/dl Creatinine 0.83 mg/dl Est Glomerular Filtrat Rate mL/min mL/min Glucose Level 131 mg/dl Calcium Level 8.7 mg/dl Total Bilirubin 0.2 mg/dl Direct Bilirubin 0.00 mg/dl Indirect Bilirubin 0.2 mg/dl Aspartate Amino Transf (AST/SGOT) 27 IU/L Alanine Aminotransferase (ALT/SGPT) 9 IU/L Alkaline Phosphatase 160 IU/L Total Protein 7.4 g/dl Albumin 4.0 g/dl Globulin 3.40 g/dl Albumin/Globulin Ratio 1.17 Lipase 77 U/L Current Medications Medications Dose Sig/Jayashree Start Time Status Last (Trade) Ordered Route PRN Stop Time Admin Dose Reason Admin Morphine 4 mg ONCE STAT 07/11/18 DC 07/11/18 Sulfate IV 17:18 17:37 (morphine) 07/11/18 17:20 Ondansetron 4 mg ONCE STAT 07/11/18 DC 07/11/18 HCl (Zofran IV 17:18 17:37 Inj) 07/11/18 17:20 Ondansetron 4 mg BRIDGE ORDER 07/11/18 HCl (Zofran PRN IV 18:00 Inj) NAUSEA/VOMITI 07/12/18 17:59 NG 650 mg ER BRIDGE 07/11/18 Acetaminophen PRN PO 18:00 (Tylenol .MILD PAIN 07/12/18 17:59 Tab) 1-3 OR TEMP Procedures/MDM CT abdomen and pelvis read by radiology. Patient is an 88-year-old female presents with acute on chronic lower back pain. She was given morphine and Zofran. She has failed outpatient treatment for her back pain at this time and has intractable back pain. She will be admitted to the care of Dr. Ferrera who is covering for the patient's primary doctor. I doubt epidural abscess, epidural hematoma, or cauda equina syndrome. Departure Diagnosis: Primary Impression: Back pain Back pain location: low back pain Chronicity: acute Back pain laterality: left Sciatica presence: with sciatica Sciatica laterality: sciatica of left side Qualified Codes: M54.42 - Lumbago with sciatica, left side Condition: TREVA Martinez MD July 11, 2018 19:13
[2018-07-11] MEDS ORDERED: HALOPERIDOL 5 MG INJ IV PRN (21:30)
[2018-07-11] MEDS ORDERED: LORAZEPAM 2 MG INJ IM ONE (22:30)
[2018-07-12] MEDS ORDERED: ONDANSETRON (ODT) 4 MG TAB ODT PRN
[2018-07-12] MEDS ORDERED: RANITIDINE 150 MG TAB PO PRN
[2018-07-12] MEDS ORDERED: LORAZEPAM 2 MG INJ IM PRN (00:30)
[2018-07-12 02:30] VITALS: BP 159/84; PULSE 87; RESP 17
[2018-07-12 03:13] VITALS: Ht 147.3 cm; Wt 49.4 kg
[2018-07-12] MEDS: LEVOTHYROXINE 100 MCG TAB PO SCH (07:00)
[2018-07-12 08:00] VITALS: BP 162/79; PULSE 84; RESP 18
[2018-07-12] MEDS: CYCLOBENZAPRINE 10 MG TAB PO SCH ×2 (08:26→21:00)
[2018-07-12] MEDS: DOCUSATE SODIUM 100 MG CAP PO SCH ×3 (08:26→21:04)
[2018-07-12] MEDS ORDERED: NA PHOSPHATE/BIPHOS 133 ML ENEMA PR ONE (09:00)
[2018-07-12] MEDS: HYDROCODONE/APAP (5/325) TAB PO PRN (13:32)
[2018-07-12 14:00] VITALS: BP 123/63; PULSE 84; RESP 20
--- NOTE | 2018-07-12 18:10 | HP ---
DATE OF ADMISSION: 07/11/2018 ADMITTING DIAGNOSIS: Intractable back pain, anxiety. HISTORY OF PRESENT ILLNESS: The patient is an 88-year-old female with post-laminectomy syndrome, lum bar radiculopathy/osteoarthritis, coronary artery disease/hypertension, peripheral neuropathy, who fe ll at home on Sunday x2. The patient went to the emergency room earlier this week and had no evide nce of fractures by x-rays, but continued to have severe pain despite receiving [place] to the emergenc y room. The patient continued to have escalating pain over the last several days, unrelieved with an y medications, including [place], cyclobenzaprine, Tylenol, immobilization. The patient's daughter has been trying to care for at home, but the patient has been screaming in pain and very anxious and vito ble to move secondary to the pain. The patient's daughter called my office and I told the patient kari espinoza to bring her to the emergency room for further evaluation and admission for pain control. In the emergency room, the patient was given morphine and after which the patient became more anxious, s tarted to pulling out IV lines, getting very agitated and needing Haldol and Ativan to be given to he r. The patient did settle down, but continued to remain restless and was admitted for further care. REVIEW OF SYSTEMS: The patient denies any incontinence. She has had some constipation, which is chr onic. No loss of bowel or bladder control. No fevers, chills or night sweats. No nausea or vomitin g. No chest pain. No shortness of breath. In addition, the patient also has a left greater than ri ght knee pain. PAST MEDICAL HISTORY: Post-laminectomy syndrome with lumbar radiculopathy, history of choledocholith iasis, status post ERCP stenting and stent removal, history of gastric cancer status post partial gas trectomy and radiation, coronary artery disease, hypertension, hypothyroidism, fibromyalgia, divertic ulosis, hyperlipidemia, osteoporosis, peripheral neuropathy and dementia. PAST SURGICAL HISTORY: 1. Partial gastrectomy. 2. Small-bowel resection and repair. 3. Hysterectomy and oophorectomy. 4. Cataract extraction with lens implantation of the right. 5. Laminectomy lumbar spine. FAMILY HISTORY: Noncontributory. ALLERGIES: IODINE. MEDICATIONS: Levothyroxine 100 mcg daily, Nexium 40 mg daily, Zo-Colace 1 to 2 daily, Curtiss p.r.n. , Tylenol p.r.n. and cyclobenzaprine 5 mg p.r.n. SOCIAL HISTORY: The patient is a . She lives with her daughter, who is her primary caregiver. No tobacco, no alcohol use. PHYSICAL EXAMINATION: VITAL SIGNS: IN the emergency room, the patient's temperature 98.6, pulse of 81, respirations 18, bl ood pressure 168/76. Currently, temperature 97.8, pulse of 84 and regular, respirations 18, blood pr essure 162/79, oxygen saturation 94. GENERAL: A well-developed, thin female in no acute distress, sitting up in bed eating. HEENT: EOMI, oropharynx with slight decreased mucous pooling, otherwise clear. NECK: Decreased range of motion in all directions. Mild tenderness to palpation along the cervical spine. A 2+ carotid upstroke without bruits. No lymphadenopathy, no thyromegaly. CHEST: Clear to auscultation bilaterally. HEART: Regular rate and rhythm. No murmurs, gallops or rubs noted. ABDOMEN: Mild left upper quadrant tenderness to deep palpation. Normoactive bowel sounds Nondistend ed, soft. No hepatosplenomegaly, no masses. GENITOURINARY: Deferred. EXTREMITIES: No cyanosis, clubbing or edema. There is moderate tenderness to palpation, left greate r than right lumbosacral junction with mild prominence to the left sacral area. There is a positive sciatic notch tenderness. Bilateral knees with moderate crepitance and joint line tenderness. No ef fusions. Bilateral shoulders with moderate crepitance with positive impingement bilaterally. NEUROLOGIC: The patient is alert and oriented x2 only. The patient has decreased pinprick, fine alex ch, temperature of bilateral upper and lower extremities in a stocking-glove distribution, otherwise nonfocal examination. LABORATORY EXAMINATION: Sodium of 132 initially, but now 136; potassium 4.2, chloride 102, bicarbona te 22, BUN of 22, creatinine 0.76, glucose of 147, calcium 9.0, alkaline phosphatase 160, ALT of 9, A ST of 27, albumin 4.0, hemoglobin 12.0, hematocrit 36.9, white blood cell count 9.2, platelets of 211 . The ESR is 34. Urinalysis is unremarkable. Chest x-ray shows mild peripheral interstitial opacit ies, suggestive of interstitial lung disease; calcified aortic atherosclerosis, but no superimposed i nfiltrate, CHF or pleural effusion. Abdominal pelvic CT scan without contrast shows distended gallbl adder, fatty liver, but no change; distended stomach with postsurgical sutures without improvement. Moderate stool in the large bowel. No free air or ascites noted. ASSESSMENT AND PLAN: The patient is an 88-year-old female with chronic pain due to post-adelaida ectomy syndrome, lumbar radiculitis and arthritis, who fell almost a week ago and has been having int ractable pain. The patient is being admitted to the hospital for further pain control and control of her anxiety and agitation. 1. Intractable back pain. The patient has failed Curtiss, Percocet, Tylenol, Flexeril, topicals, and is being admitted for further care. In the emergency room, the patient was given morphine, but this agitated her further and created more confusion on her part. We will admit to hospital, give p.r.n. Tramadol, Curtiss and consider methadone. The patient has had side effects with both Dilaudid, morphin e and fentanyl in the past and has tolerated methadone without side effects. When I give the methado ne in the hospital, we will have physical therapy evaluate the patient and see how pain control is. Continue with the p.r.n. analgesics and discharge when more stable. 2. Anxiety/agitation. The patient has been getting progressive with evidence of dementia with behav ioral change at home. The patient has tried Risperdal in the past with no real benefit. The patient did receive some Haldol yesterday without side effect, except for sedation, but help control her radha tation. We will continue with Haldol p.r.n. IV. 3. Hypertension/coronary disease. The patient with asymptomatic coronary artery disease, but labile high blood pressure. We will use p.r.n. clonidine and adjust meds as needed. 4. Hypothyroidism. We will continue the patient's levothyroxine. 5. Chronic constipation. This has been longstanding and the patient's CT scan shows evidence of mod erate stool. We will give an enema x1 and continue with the patient's Docusate. Dictated By: OLI CARR MD SR/NTS Conf#: [id number] [facility]#: [id number] CC: ALEXANDRIA LAYNE MD;*[facility]*
[2018-07-12] MEDS: traMADol 50 MG TAB PO PRN (18:38)
[2018-07-12 20:13] VITALS: BP 99/73; PULSE 90; RESP 18
[2018-07-13 02:11] VITALS: BP 165/79; PULSE 94; RESP 20
[2018-07-13 02:15] VITALS: BP 155/90
[2018-07-13] MEDS: LEVOTHYROXINE 100 MCG TAB PO SCH (06:50)
[2018-07-13] MEDS: HYDROCODONE/APAP (5/325) TAB PO PRN ×2 (06:53→13:54)
[2018-07-13 08:00] VITALS: BP 142/63; PULSE 91; RESP 20
[2018-07-13] MEDS: DOCUSATE SODIUM 100 MG CAP PO SCH ×2 (08:53→12:21)
[2018-07-13] MEDS: CYCLOBENZAPRINE 10 MG TAB PO SCH (08:53)
[2018-07-13] MEDS: traMADol 50 MG TAB PO PRN (11:03)
[2018-07-13 14:00] VITALS: BP 140/72; RESP 18
--- NOTE | 2018-07-13 15:24 | PN ---
Date/Time of Note Date/Time of Note DATE: 07/13/18 TIME: 15:21 Assessment/Plan VTE Prophylaxis Risk score (from Nsg)>0 risk: 5 SCD applied (from Nsg): No SCD contraindicated: low risk/ambulating Pharmacological prophylaxis: LMWH Lines/Catheters IV Catheter Type (from Nrsg): [place] Assessment/Plan Assessment/Plan Result Diagram: 07/12/1891907/12/18919 Exam/Review of Systems Exam Vitals Vital Signs Date Temp Pulse Resp B/P (MAP) Pulse Ox O2 O2 Flow FiO2 Time Delivery Rate 07/13/18 98.8 91 20 142/63 94 08:00 (89) 07/12/18 Room Air 02:13 Intake and Output 07/12/18 07/12/18 07/13/18 1515:00 23:00 07:00 IntakeIntake Total 480 ml 2 ml OutputOutput Total 200 ml BalanceBalance 280 ml 2 ml Medications Medication Current Medications Haloperidol (Haldol) 1 mg Q12H PRN IV AGITATION/ANXIETY Last administered on 07/11/18at 21:35; Admin Dose 1 MG; Start 07/11/18 at 21:30 Clonidine (Catapres) 0.1 mg Q6H PRN PO ELEVATED SYSTOLIC BP; Start 07/11/18 at 21:30 Cyclobenzaprine HCl (Flexeril) 2.5 mg BID PO Last administered on 07/13/18at 08:53; Admin Dose 2.5 MG; Start 07/12/18 at 09:00 Docusate Sodium (Colace) 100 mg TID PO Last administered on 07/13/18at 12:21; Admin Dose 100 MG; Start 07/12/18 at 09:00 Acetaminophen/ Hydrocodone Bitart ([place] (5/325)) 1 tab Q6H PRN PO PAIN Last administered on 07/13/18at 13:54; Admin Dose 1 TAB; Start 07/12/18 at 00:00 Levothyroxine Sodium (Synthroid) 100 mcg BEFORE BREAKFAST PO Last administered on 07/13/18at 06:50; Admin Dose 100 MCG; Start 07/12/18 at 07:00 Ondansetron HCl (Zofran Odt) 4 mg Q6H PRN ODT NAUSEA AND/OR VOMITING; Start 07/12/18 at 00:00 Ranitidine HCl (Zantac) 150 mg HS PRN PO NEEDED; Start 07/12/18 at 00:00 Tramadol HCl (Ultram) 50 mg BID PRN PO PAIN Last administered on 07/13/18at 11:03; Admin Dose 50 MG; Start 07/12/18 at 00:00 Lorazepam (Ativan) 1 mg Q8 PRN IM for agitation, anxiety Last administered on 07/12/18at 21:05; Admin Dose 1 MG; Start 07/12/18 at 00:30 ALEXANDRIA LAYNE MD July 13, 2018 15:24
--- NOTE | 2018-07-13 16:37 | DS ---
Date/Time of Note Date/Time of Note DATE: 07/13/18 TIME: 16:37 Discharge Summary Admission/Discharge Info Admit Date/Time July 11, 2018 at 17:31 Discharge Date/Time July 13, 2018 at 16:43 Discharge Diagnosis Intractable low back pain Lumbar degenerative disc disease Alzheimer's dementia with psychosis Generalized anxiety disorder Patient Condition: Fair Hx of Present Illness The patient is an 88-year-old female with post-laminectomy syndrome, lumbar radiculopathy/osteoarthritis, coronary artery disease/hypertension, peripheral neuropathy, who fell at home on Sunday x2. The patient went to the emergency room earlier this week and had no evidence of fractures by x-rays, but continued to have severe pain despite receiving [place] to the emergency room. The patient continued to have escalating pain over the last several days, unrelieved with any medications, including [place], cyclobenzaprine, Tylenol, immobilization. The patient's daughter has been trying to care for at home, but the patient has been screaming in pain and very anxious and unable to move secondary to the pain. The patient's daughter was told to bring her to the emergency room for further evaluation and admission for pain control. Hospital Course In the emergency room, the patient was given morphine after which the patient became more anxious, started to pulling out IV lines, getting very agitated and needing Haldol and Ativan to be given to her. The patient did settle down after getting haldol and ativan IM to the point that for the next 24 hours her pain was controlled on tramadol and low dose norco. Patient's daughter agreed to trial of haldol 0.25mg qd or bid and lorazepam (or if not covered, clonazepam) 0.25mg as needed for agitation. She will be continuing with tramadol and norco for pain control but if this does not work, she has prescription for methadone at home to try. Home Meds Active Scripts Lorazepam* (Lorazepam*) 0.5 Mg Tablet, 0.5 MG PO Q8 PRN for AGITATION/ANXIETY for 10 Days, #30 TAB Prov:ALEXANDRIA LAYNE MD 07/13/18 Haloperidol* (Haldol*) 0.5 Mg Tab, 0.5 MG PO BID for 30 Days, TAB Prov:ALEXANDRIA LAYNE MD 07/13/18 Docusate Sodium* (Colace*) 100 Mg Capsule, 100 MG PO TID, #30 CAP Prov:TREVA ANAYA MD 07/08/18 Ondansetron (Ondansetron Odt) 4 Mg Tab.rapdis, 4 MG PO Q6H PRN for NAUSEA AND/OR VOMITING, #10 TAB Prov:TREVA ANAYA MD 07/08/18 Hydrocodone/Acetaminophen ([place] 5-325 Tablet) 1 Each Tablet, 1 TAB PO Q6H PRN for PAIN, #7 TAB Prov:TREVA ANAYA MD 07/08/18 Reported Medications Cyclobenzaprine Hcl* (Cyclobenzaprine Hcl*) 5 Mg Tablet, 2.5 MG PO BID, #60 TAB 07/08/18 Ranitidine Hcl* (Ranitidine Hcl*) 150 Mg Tablet, 150 MG PO HS PRN for NEEDED, #30 TAB 07/08/18 Tramadol Hcl* (Ultram*) 50 Mg Tablet, 50 MG PO BID PRN for PAIN, TAB 07/08/18 Omeprazole* (Omeprazole*) 20 Mg Capsule.dr, 20 MG PO DAILY, #30 CAP 07/08/18 Levothyroxine Sodium* (Levothyroxine Sodium*) 100 Mcg Tablet, 100 MCG PO BEFORE BREAKFAST, #30 TAB 07/08/18 Discontinued Reported Medications Teriparatide ([place]) 2.4 Ml Pen.injctr, 20 MCG SQ DAILY, EA 10/10/16 Cyclobenzaprine Hcl* (Cyclobenzaprine Hcl*) 5 Mg Tablet, 2.5 MG PO Q8H, #60 TAB 10/10/16 Ondansetron Hcl* (Ondansetron Hcl*) 4 Mg Tablet, 4 MG PO DAILY PRN for NAUSEA AND OR VOMITING, TAB 10/10/16 Naproxen* (Naproxen*) 500 Mg Tablet, 500 MG PO BID, TAB 10/10/16 Dronabinol* (Dronabinol*) 5 Mg Capsule, 2.5 MG PO DAILY, CAP 09/27/16 Esomeprazole Mag Trihydrate (Nexium) 40 Mg Capsule.dr, 40 MG PO DAILY, #30 CAP 09/27/16 Vitamin B Complex (Vitamin B Complex) 1 Each Capsule, 1 EACH PO, CAP 09/27/16 Magnesium Oxide (Magnesium) 250 Mg Tablet, 250 MG PO DAILY, TAB 03/25/16 Cholecalciferol* (Vitamin D3*) 1,000 Unit Tablet, 1000 UNIT PO DAILY, TAB 03/25/16 Levothyroxine Sodium* (Levothyroxine Sodium*) 100 Mcg Tablet, 100 MCG PO DAILY, TAB 03/20/14 Discontinued Scripts Acetaminophen* (Tylophen*) 500 Mg Capsule, 1 CAP PO Q6H PRN for PAIN AND OR ELEVATED TEMP, #14 CAP Prov:JULISSA TORO PA-C 06/16/18 Amoxicillin/Potassium Clav (Amox-Clav 875-125 mg Tablet) 875-125 mg Tab, 1 TAB PO BID for 10 Days, #20 TAB Prov:JULISSA TORO PA-C 06/16/18 Tramadol HCl (Tramadol HCl) 50 Mg Tablet, 50 MG PO Q4 PRN for PAIN, #20 TAB Prov:ERENDIRA CANTRELL 07/25/17 Polyethylene Glycol* (Miralax*) 17 Gm Powd.pack, 17 GM PO DAILY, #10 Prov:ELIECER CORREA DO 12/01/16 Tramadol HCl (Tramadol HCl) 50 Mg Tablet, 50 MG PO Q4 PRN for PAIN, #10 TAB Prov:TREVA ANAYA MD 11/24/16 Docusate Sodium* (Colace*) 100 Mg Capsule, 100 MG PO TID, #30 CAP Prov:TREVA ANAYA MD 11/24/16 Bisacodyl* (Dulcolax*) 5 Mg Tablet.dr, 10 MG IN DAILY PRN for CONSTIPATION, #10 TAB Prov:MITCH ROSADO MD 11/10/16 Ibuprofen* (Motrin*) 400 Mg Tab, 400 MG PO Q6, #20 TAB Prov:MITCH ROSADO MD 10/10/16 Follow-up Plan Follow up with Dr. Robbins in 1-2 weeks Primary Care Provider Fareed Robbins Time spent on discharge: > 30 minutes ALEXANDRIA LAYNE MD July 13, 2018 16:37
[2018-07-13] MEDS ORDERED: LORA0.5T PO (16:42)
[2018-07-13] MEDS ORDERED: HAL05 PO (16:42)
[2018-07-14] MEDS ORDERED: ENOXAPARIN 30 MG/0.3 ML SYG SC SCH (09:00)
== END 2018-07-13 18:23 | disposition home or self-care (01) ==
LOC: E/R 17:03 → PP2 17:31 → CANRESERV 20:43 → EDBEDREQ 21:45
PROVIDERS: ADMIT Internal Medicine; ATTEND Internal Medicine
DX: M54.5 Low back pain (principal); M51.36 Other intervertebral disc degeneration, lumbar region; G30.9 Alzheimer's disease, unspecified; F02.81 Dementia in other diseases classified elsewhere, unspecified severity, with behavioral disturbance; F41.1 Generalized anxiety disorder; I10 Essential (primary) hypertension; E78.5 Hyperlipidemia, unspecified; M19.90 Unspecified osteoarthritis, unspecified site; I25.10 Atherosclerotic heart disease of native coronary artery without angina pectoris; E03.9 Hypothyroidism, unspecified; M81.0 Age-related osteoporosis without current pathological fracture; K59.00 Constipation, unspecified; Z87.891 Personal history of nicotine dependence; Z85.028 Personal history of other malignant neoplasm of stomach
CPT/HCPCS: 36415; 71045; 74176; 80048; 80053; 81003; 83690; 85025; 85651; 97110; 97116; 97161; 97530; 99285; G0378; J1630; J2060; J2270; J2405

== ENCOUNTER 2018-07-22 23:45 | Emergency (ER) | payer MEDICARE, OTHER ==
[~2018-07-22] VITALS: Wt 46.4 kg
[~2018-07-22 23:45] MED LIST changes: +HAL05 PO; +LORA0.5T PO
[2018-07-23] MEDS ORDERED: IBUPROFEN 200 MG TAB ONE (00:59)
[2018-07-23] MEDS ORDERED: IBUPROFEN 200 MG TAB PO ONE (01:00)
[2018-07-23 02:30] VITALS: BP 123/71; PULSE 82; RESP 20
--- NOTE | 2018-07-23 02:46 | ERD ---
ER Documentation Chief Complaint Chief Complaint p [facility] fall x3d; worsening pain to L shoulder. +cs, unable to lift shoulder HPI This is a very pleasant 80-year-old female status post mechanical fall 3 days ago complains of left shoulder pain. He said the pain is gotten worse over the past 3 days. Pain is mild to moderate intensity. No fevers no chills. No nausea no vomiting. No other current complaints. ROS All systems reviewed and are negative except as per history of present illness. Medications Home Meds Active Scripts Lorazepam* (Lorazepam*) 0.5 Mg Tablet, 0.5 MG PO Q8 PRN for AGITATION/ANXIETY for 10 Days, #30 TAB Prov:ALEXANDRIA LAYNE MD 07/13/18 Haloperidol* (Haldol*) 0.5 Mg Tab, 0.5 MG PO BID for 30 Days, TAB Prov:ALEXANDRIA LAYNE MD 07/13/18 Docusate Sodium* (Colace*) 100 Mg Capsule, 100 MG PO TID, #30 CAP Prov:TREVA ANAYA MD 07/08/18 Ondansetron (Ondansetron Odt) 4 Mg Tab.rapdis, 4 MG PO Q6H PRN for NAUSEA AND/OR VOMITING, #10 TAB Prov:TREVA ANAYA MD 07/08/18 Hydrocodone/Acetaminophen ([place] 5-325 Tablet) 1 Each Tablet, 1 TAB PO Q6H PRN f or PAIN, #7 TAB Prov:TREVA ANAYA MD 07/08/18 Reported Medications Cyclobenzaprine Hcl* (Cyclobenzaprine Hcl*) 5 Mg Tablet, 2.5 MG PO BID, #60 TAB 07/08/18 Ranitidine Hcl* (Ranitidine Hcl*) 150 Mg Tablet, 150 MG PO HS PRN for NEEDED, #30 TAB 07/08/18 Tramadol Hcl* (Ultram*) 50 Mg Tablet, 50 MG PO BID PRN for PAIN, TAB 07/08/18 Omeprazole* (Omeprazole*) 20 Mg Capsule.dr, 20 MG PO DAILY, #30 CAP 07/08/18 Levothyroxine Sodium* (Levothyroxine Sodium*) 100 Mcg Tablet, 100 MCG PO BEFORE BREAKFAST, #30 TAB 07/08/18 Allergies Allergies: Coded Allergies: morphine (Verified Allergy, Severe, 07/12/18) hydromorphone (Unverified Allergy, Intermediate, 07/11/18) Influenza Virus Vaccines (Unverified Allergy, Mild, 07/11/18) iodine (Unverified Adverse Reaction, Mild, DIFFICULTY OF BREATHING, 07/11/18) PMhx/Soc History of Surgery: Yes (gastrectomy, hysterectomy, laminectomy, kyphoplasty) Anesthesia Reaction: No Hx Neurological Disorder: Yes (neuropathy, ) Hx Respiratory Disorders: No Hx Cardiac Disorders: Yes (hypertension, HLD) Hx Psychiatric Problems: Yes (anxiety) Hx Miscellaneous Medical Probl: Yes (neuropathy, HTN, CLD, gastric CA, hysterectomy, fibromyalgia, arthritis, os) Hx Alcohol Use: No Hx Substance Use: No Hx Tobacco Use: No Smoking Status: Never smoker Physical Exam Vitals Vital Signs Date Temp Pulse Resp B/P (MAP) Pulse Ox O2 O2 Flow FiO2 Time Delivery Rate 07/23/18 98.8 82 20 123/71 99 Room Air 02:30 (88) 07/22/18 99.3 101 22 121/76 97 23:53 (91) Physical Exam Const: No acute distress Head: Atraumatic Eyes: Normal Conjunctiva ENT: Normal External Ears, Nose and Mouth. Neck: Full range of motion. No meningismus. Resp: Clear to auscultation bilaterally Cardio: Regular rate and rhythm, no murmurs Abd: Soft, non tender, non distended. Normal bowel sounds Skin: No petechiae or rashes Back: No midline or flank tenderness Ext: No cyanosis, or edema Neur: Awake and alert Psych: Normal Mood and Affect Results 24 hrs Current Medications Medications Dose Sig/Jayashree Start Time Status Last (Trade) Ordered Route PRN Stop Time Admin Dose Reason Admin Ibuprofen 200 mg ONCE ONCE 07/23/18 DC 07/23/18 (Motrin) PO 01:00 07/23/18 01:01 01:01 Ibuprofen 200 mg STK-MED 07/23/18 DC (Motrin) ONCE .ROUTE 00:59 07/23/18 01:00 Procedures/MDM X-ray Shoulder 3V Interpreted by me: Bones: No fracture Joints: No dislocation Foreign body: None X-ray Humerus 2V Interpreted by me: Bones: No fracture Joints: No dislocation Foreign body: None Medical decision makin-year-old female with left arm contusion. No evidence of fracture. Neurovascularly intact. Stable for trial of outpatient management. Placed in a sling. Advised follow-up with outpatient primary care physician and orthopedic surgery. Departure Diagnosis: Primary Impression: Pain of left arm Condition: Stable Patient Instructions: Shoulder Sprain Referrals: OLI CARR MD- (PCP) ERENDIRA CANTRELL Jul 23, 2018 02:46
== END 2018-07-23 02:45 | disposition home or self-care (01) ==
LOC: E/R 23:45
DX: S40.022A Contusion of left upper arm, initial encounter (principal); I10 Essential (primary) hypertension; W18.39XA Other fall on same level, initial encounter; Y92.9 Unspecified place or not applicable; Z85.028 Personal history of other malignant neoplasm of stomach
CPT/HCPCS: 73030; 73060

== ENCOUNTER 2018-08-27 02:07 | Emergency (ER) | payer MEDICARE, OTHER ==
[~2018-08-27] VITALS: Ht 144.8 cm; Wt 45.0 kg
[2018-08-27 02:10] VITALS: Ht 144.8 cm; Wt 45.0 kg
--- NOTE | 2018-08-27 04:48 | ERD ---
ER Documentation Chief Complaint Chief Complaint chest pain x 10 minutes, was given nitro sl x1 with little relief HPI Severe diffuse this is a very pleasant 88-year-old female comes in because of chest pain that started suddenly. She is very anxious. Denies any fevers or chills. Denies any nausea vomiting. Apparently she was upset by some family news and had chest pain. She is given nitro with no relief. Daughter then give n Ativan which did completely relieved her symptoms. She said multiple episodes of this in the past. Denies any pain at this time. Pain is reproducible to the touch in the left anterior chest wall. ROS All systems reviewed and are negative except as per history of present illness. Medications Home Meds Active Scripts Lorazepam* (Lorazepam*) 0.5 Mg Tablet, 0.5 MG PO Q8 PRN for AGITATION/ANXIETY for 10 Days, #30 TAB Prov:ALEXANDRIA LAYNE MD 07/13/18 Haloperidol* (Haldol*) 0.5 Mg Tab, 0.5 MG PO BID for 30 Days, TAB Prov:ALEXANDRIA LAYNE MD 07/13/18 Docusate Sodium* (Colace*) 100 Mg Capsule, 100 MG PO TID, #30 CAP Prov:TREVA ANAYA MD 07/08/18 Ondansetron (Ondansetron Odt) 4 Mg Tab.rapdis, 4 MG PO Q6H PRN for NAUSEA AND/OR VOMITING, #10 TAB Prov:TREVA ANAYA MD 07/08/18 Hydrocodone/Acetaminophen ([place] 5-325 Tablet) 1 Each Tablet, 1 TAB PO Q6H PRN for PAIN, #7 TAB Prov:TREVA ANAYA MD 07/08/18 Reported Medications Cyclobenzaprine Hcl* (Cyclobenzaprine Hcl*) 5 Mg Tablet, 2.5 MG PO BID, #60 TAB 07/08/18 Ranitidine Hcl* (Ranitidine Hcl*) 150 Mg Tablet, 150 MG PO HS PRN for NEEDED, #30 TAB 07/08/18 Tramadol Hcl* (Ultram*) 50 Mg Tablet, 50 MG PO BID PRN for PAIN, TAB 07/08/18 Omeprazole* (Omeprazole*) 20 Mg Capsule.dr, 20 MG PO DAILY, #30 CAP 07/08/18 Levothyroxine Sodium* (Levothyroxine Sodium*) 100 Mcg Tablet, 100 MCG PO BEFORE BREAKFAST, #30 TAB 07/08/18 Allergies Allergies: Coded Allergies: morphine (Verified Allergy, Severe, 07/12/18) hydromorphone (Unverified Allergy, Intermediate, 07/11/18) Influenza Virus Vaccines (Unverified Allergy, Mild, 07/11/18) iodine (Unverified Adverse Reaction, Mild, DIFFICULTY OF BREATHING, 07/11/18) PMhx/Soc History of Surgery: Yes (gastrectomy, hysterectomy, laminectomy, kyphoplasty) Anesthesia Reaction: No Hx Neurological Disorder: Yes (neuropathy, ) Hx Respiratory Disorders: No Hx Cardiac Disorders: Yes (hypertension, HLD) Hx Psychiatric Problems: Yes (anxiety) Hx Miscellaneous Medical Probl: Yes (neuropathy, HTN, CLD, gastric CA, hysterectomy, fibromyalgia, arthritis, os) Hx Alcohol Use: No Hx Substance Use: No Hx Tobacco Use: No Smoking Status: Never smoker Physical Exam Vitals Vital Signs Date Temp Pulse Resp B/P (MAP) Pulse Ox O2 O2 Flow FiO2 Time Delivery Rate 08/27/18 97.9 103 18 150/79 98 02:10 (102) Physical Exam Const: No acute distress Head: Atraumatic Eyes: Normal Conjunctiva ENT: Normal External Ears, Nose and Mouth. Neck: Full range of motion. No meningismus. Resp: Clear to auscultation bilaterally Cardio: Regular rate and rhythm, no murmurs Abd: Soft, non tender, non distended. Normal bowel sounds Skin: No petechiae or rashes Back: No midline or flank tenderness Ext: No cyanosis, or edema Neur: Awake and alert Psych: Normal Mood and Affect Result Diagram: 08/27/18 0341 08/27/18 0341 Results 24 hrs Laboratory Tests Test 08/27/18 03:41 White Blood Count 9.9 10^3/ul Red Blood Count 3.88 10^6/ul Hemoglobin 11.3 g/dl Hematocrit 35.0 % Mean Corpuscular Volume 90.2 fl Mean Corpuscular Hemoglobin 29.1 pg Mean Corpuscular Hemoglobin Concent 32.3 g/dl Red Cell Distribution Width 12.5 % Platelet Count 202 10^3/UL Mean Platelet Volume 11.0 fl Immature Granulocytes % 1.000 % Neutrophils % 73.6 % Lymphocytes % 13.7 % Monocytes % 10.0 % Eosinophils % 1.2 % Basophils % 0.5 % Nucleated Red Blood Cells % 0.0 /100WBC Immature Granulocytes # 0.100 10^3/ul Neutrophils # 7.3 10^3/ul Lymphocytes # 1.4 10^3/ul Monocytes # 1.0 10^3/ul Eosinophils # 0.1 10^3/ul Basophils # 0.1 10^3/ul Nucleated Red Blood Cells # 0.0 10^3/ul Sodium Level 141 mmol/L Potassium Level 4.6 mmol/L Chloride Level 106 mmol/L Carbon Dioxide Level 26 mmol/L Anion Gap 9 Blood Urea Nitrogen 25 mg/dl Creatinine 0.71 mg/dl Est Glomerular Filtrat Rate mL/min mL/min Glucose Level 105 mg/dl Calcium Level 9.4 mg/dl Total Bilirubin 0.4 mg/dl Direct Bilirubin 0.00 mg/dl Indirect Bilirubin 0.4 mg/dl Aspartate Amino Transf (AST/SGOT) 24 IU/L Alanine Aminotransferase (ALT/SGPT) 11 IU/L Alkaline Phosphatase 129 IU/L Troponin I < 0.012 ng/ml B-Type Natriuretic Peptide 102 PG/ML Total Protein 8.0 g/dl Albumin 4.0 g/dl Globulin 4.00 g/dl Albumin/Globulin Ratio 1.00 Procedures/MDM Chest X-ray 1V Interpreted by me: Soft Tissue: No acute abnormalit ies Bones: No acute abnormalities Mediastinum/Cardiac Silhouette/Lungs: [No acute abnormalities] EKG: Rate/Rhythm: [Normal Sinus Rhythm] QRS, ST, T-waves: [No changes consistent w/ acute ischemia] Impression: [No evidence of ischemia or arrhythmia] Medical decision making: Patient's thoracic symptoms have stabilized while in the department and are stable for outpatient follow up. Exam and work up not consistent w/ ischemia, arrhythmia, PE or dissection. Entomologist consistent with acute anxiety. At this point patient will be discharged home and told to follow-up with primary care physician. Departure Diagnosis: Primary Impression: Chest pain Chest pain type: unspecified Qualified Codes: R07.9 - Chest pain, unspecif ied Additional Impression: Anxiety Condition: Stable ERENDIRA CANTRELL Aug 27, 2018 04:48
[2018-08-27 05:28] VITALS: BP 159/81; PULSE 78; RESP 18
== END 2018-08-27 05:28 | disposition home or self-care (01) ==
LOC: E/R 02:07
DX: F41.9 Anxiety disorder, unspecified (principal); I10 Essential (primary) hypertension; R40.2142 Coma scale, eyes open, spontaneous, at arrival to emergency department; R40.2362 Coma scale, best motor response, obeys commands, at arrival to emergency department; R40.2252 Coma scale, best verbal response, oriented, at arrival to emergency department; Z85.028 Personal history of other malignant neoplasm of stomach
CPT/HCPCS: 36415; 71045; 80053; 83880; 84484; 85025; 93005

== ENCOUNTER 2018-09-03 03:18 | Emergency (ER) | payer MEDICARE, OTHER ==
[~2018-09-03] VITALS: Ht 144.8 cm; Wt 45.0 kg
[2018-09-03 03:19] VITALS: Ht 144.8 cm; Wt 45.0 kg
[2018-09-03] MEDS ORDERED: NITR0.4T39 SL (04:17)
[2018-09-03] MEDS ORDERED: METH10OR PO (04:22)
--- NOTE | 2018-09-03 04:49 | ERD ---
ER Documentation Chief Complaint Chief Complaint CP, PRESSURE X'S 30 MIN HPI This is an 88-year-old female well-known to me who comes in with chest pain and pressure approximately 1 hour prior to arrival. Pain was reproducible to the touch in the right side. Patient has history of long-standing chronic anxiety. Denies fevers or chills. Denies any other current complaints. ROS All systems reviewed and are negative except as per history of present illness. Medications Home Meds Active Scripts Lorazepam* (Lorazepam*) 0.5 Mg Tablet, 0.5 MG PO Q8 PRN for AGITATION/ANXIETY for 10 Days, #30 TAB Prov:ALEXANDRIA LAYNE MD 07/13/18 Haloperidol* (Haldol*) 0.5 Mg Tab, 0.5 MG PO BID for 30 Days, TAB Prov:ALEXANDRIA LAYNE MD 07/13/18 Docusate Sodium* (Colace*) 100 Mg Capsule, 100 MG PO TID, #30 CAP Prov:TREVA ANAYA MD 07/08/18 Ondansetron (Ondansetron Odt) 4 Mg Tab.rapdis, 4 MG PO Q6H PRN for NAUSEA AND/OR VOMITING, #10 TAB Prov:TREVA ANAYA MD 07/08/18 Reported Medications Methadone HCl (Methadone HCl) 10 Mg/1 Ml Oral.conc, 10 MG PO Q6H 09/03/18 Nitroglycerin* (Nitrostat*) 0.4 Mg Tab.subl, 0.4 MG SL Q5MIN PRN for CHEST PAIN, BOTTLE 09/03/18 Ranitidine Hcl* (Ranitidine Hcl*) 150 Mg Tablet, 150 MG PO HS PRN for NEEDED, #30 TAB 07/08/18 Omeprazole* (Omeprazole*) 20 Mg Capsule.dr, 20 MG PO DAILY, #30 CAP 07/08/18 Levothyroxine Sodium* (Levothyroxine Sodium*) 100 Mcg Tablet, 100 MCG PO BEFORE BREAKFAST, #30 TAB 07/08/18 Discontinued Reported Medications Cyclobenzaprine Hcl* (Cyclobenzaprine Hcl*) 5 Mg Tablet, 2.5 MG PO BID, #60 TAB 07/08/18 Tramadol Hcl* (Ultram*) 50 Mg Tablet, 50 MG PO BID PRN for PAIN, TAB 07/08/18 Discontinued Scripts Hydrocodone/Acetaminophen ([place] 5-325 Tablet) 1 Each Tablet, 1 TAB PO Q6H PRN for PAIN, #7 TAB Prov:TREVA ANAYA MD 07/08/18 Allergies Allergies: Coded Allergies: morphine (Verified Allergy, Severe, 07/12/18) hydromorphone (Unverified Allergy, Intermediate, 07/11/18) Influenza Virus Vaccines (Unverified Allergy, Mild, 07/11/18) iodine (Unverified Adverse Reaction, Mild, DIFFICULTY OF BREATHING, 07/11/18) PMhx/Soc History of Surgery: Yes (gastrectomy, hysterectomy, laminectomy, kyphoplasty) Anesthesia Reaction: No Hx Neurological Disorder: Yes (neuropathy, ) Hx Respiratory Disorders: No Hx Cardiac Disorders: Yes (hypertension, HLD) Hx Psychiatric Problems: Yes (anxiety) Hx Miscellaneous Medical Probl: Yes (neuropathy, HTN, CLD, gastric CA, hysterectomy, fibromyalgia, arthritis, os) Hx Alcohol Use: No Hx Substance Use: No Hx Tobacco Use: No Smoking Status: Never smoker Physical Exam Vitals Vital Signs Date Temp Pulse Resp B/P (MAP) Pulse Ox O2 O2 Flow FiO2 Time Delivery Rate 09/03/18 97.8 95 18 141/75 96 03:19 (97) Physical Exam Const: No acute distress Head: Atraumatic Eyes: Normal Conjunctiva ENT: Normal External Ears, Nose and Mouth. Neck: Full range of motion. No meningismus. Resp: Clear to auscultation bilaterally Cardio: Regular rate and rhythm, no murmurs Abd: Soft, non tender, non distended. Normal bowel sounds Skin: No petechiae or rashes Back: No midline or flank tenderness Ext: No cyanosis, or edema Neur: Awake and alert Psych: Normal Mood and Affect Result Diagram: 09/03/18 0420 09/03/18 0346 Results 24 hrs Laboratory Tests Test 09/03/18 03:46 09/03/18 04:20 Sodium Level 138 mmol/L Potassium Level 4.4 mmol/L Chloride Level 103 mmol/L Carbon Dioxide Level 25 mmol/L Anion Gap 10 Blood Urea Nitrogen 31 mg/dl Creatinine 0.80 mg/dl Est Glomerular Filtrat Rate mL/min mL/min Glucose Level 101 mg/dl Calcium Level 9.5 mg/dl Troponin I < 0.012 ng/ml White Blood Count 8.4 10^3/ul Red Blood Count 3.99 10^6/ul Hemoglobin 11.4 g/dl Hematocrit 36.5 % Mean Corpuscular Volume 91.5 fl Mean Corpuscular Hemoglobin 28.6 pg Mean Corpuscular Hemoglobin Concent 31.2 g/dl Red Cell Distribution Width 12.3 % Platelet Count 239 10^3/UL Mean Platelet Volume 10.7 fl Immature Granulocytes % 0.700 % Neutrophils % 70.1 % Lymphocytes % 16.3 % Monocytes % 11.9 % Eosinophils % 0.8 % Basophils % 0.2 % Nucleated Red Blood Cells % 0.0 /100WBC Immature Granulocytes # 0.060 10^3/ul Neutrophils # 5.9 10^3/ul Lymphocytes # 1.4 10^3/ul Monocytes # 1.0 10^3/ul Eosinophils # 0.1 10^3/ul Basophils # 0.0 10^3/ul Nucleated Red Blood Cells # 0.0 10^3/ul Procedures/MDM EKG: Rate/Rhythm: [Normal Sinus Rhythm] QRS, ST, T-waves: [No changes consistent w/ acute ischemia] Impression: [No evidence of ischemia or arrhythmia] Chest X-ray 1V Interpreted by me: Soft Tissue: No acute abnormalities Bones: No acute abnormalities Mediastinum/Cardiac Silhouette/Lungs: [No acute abnormalities] Patient's thoracic symptoms have stabilized while in the department and are stable for outpatient follow up. Exam and work up not consistent w/ ischemia, arrhythmia, PE or dissection. Departure Condition: Stable ERENDIRA CANTRELL Sep 03, 2018 04:49
[2018-09-03 05:19] VITALS: BP 143/78; PULSE 79; RESP 16
== END 2018-09-03 08:48 | disposition left against medical advice (07) ==
LOC: E/R 03:18
DX: Z53.21 Procedure and treatment not carried out due to patient leaving prior to being seen by health care provider (principal)
CPT/HCPCS: 71045; 80048; 84484; 85025; 93005

== ENCOUNTER 2018-09-16 02:31 | Emergency (ER) | payer MEDICARE, OTHER ==
[~2018-09-16] VITALS: Ht 144.8 cm; Wt 45.0 kg
[~2018-09-16 02:31] MED LIST changes: -CYCL5TAB PO; -HYDR-4011 PO; +METH10OR PO; +NITR0.4T39 SL; -TRAM50TA PO
[2018-09-16 02:37] VITALS: PULSE 90; Ht 144.8 cm; Wt 45.0 kg
[2018-09-16] MEDS ORDERED: SOD CHLORIDE 0.9% 1,000 ML IV STA (02:59)
[2018-09-16 03:45] VITALS: BP 138/87; RESP 18
--- NOTE | 2018-09-16 03:58 | ERD ---
ER Documentation Chief Complaint Chief Complaint abdominal pain x 1 hour. also c/o constipation HPI 88-year-old female history of chronic pain on methadone who presents to the emergency room with abdominal pain for approximately 1 hour. Patient has been dealing with constipation is noncompliant with her medications of stool soften ers. She denies any fevers or chills no nausea vomiting chest pain or shortness of breath. Her daughter had to manually disimpact her today with moderate relief. Pain is moderate currently. ROS All systems reviewed and are negative except as per history of present illness. Medications Home Meds Active Scripts Magnesium Citrate* (Magnesium Citrate*) 296 Ml Solution, 296 ML PO ONCE PRN for CONSTIPATION, #1 BOTTLE Prov:MISAEL LIGHT MD 09/16/18 Docusate Sodium* (Colace*) 100 Mg Capsule, 100 MG PO TID PRN for CONSTIPATION, #30 CAP Prov:MISAEL LIGHT MD 09/16/18 Lorazepam* (Lorazepam*) 0.5 Mg Tablet, 0.5 MG PO Q8 PRN for AGITATION/ANXIETY for 10 Days, #30 TAB Prov:ALEXANDRIA LAYNE MD 07/13/18 Haloperidol* (Haldol*) 0.5 Mg Tab, 0.5 MG PO BID for 30 Days, TAB Prov:ALEXANDRIA LAYNE MD 07/13/18 Docusate Sodium* (Colace*) 100 Mg Capsule, 100 MG PO TID, #30 CAP Prov:TREVA ANAYA MD 07/08/18 Ondansetron (Ondansetron Odt) 4 Mg Tab.rapdis, 4 MG PO Q6H PRN for NAUSEA AND/OR VOMITING, #10 TAB Prov:TREVA ANAYA MD 07/08/18 Reported Medications Methadone HCl (Methadone HCl) 10 Mg/1 Ml Oral.conc, 10 MG PO Q6H 09/03/18 Nitroglycerin* (Nitrostat*) 0.4 Mg Tab.subl, 0.4 MG SL Q5MIN PRN for CHEST PAIN, BOTTLE 09/03/18 Ranitidine Hcl* (Ranitidine Hcl*) 150 Mg Tablet, 150 MG PO HS PRN for NEEDED, #30 TAB 07/08/18 Omeprazole* (Omeprazole*) 20 Mg Capsule.dr, 20 MG PO DAILY, #30 CAP 07/08/18 Levothyroxine Sodium* (Levothyroxine Sodium*) 100 Mcg Tablet, 100 MCG PO BEFORE BREAKFAST, #30 TAB 07/08/18 Allergies Allergies: Coded Allergies: morphine (Verified Allergy, Severe, 07/12/18) hydromorphone (Unverified Allergy, Intermediate, 07/11/18) Influenza Virus Vaccines (Unverified Allergy, Mild, 07/11/18) iodine (Unverified Adverse Reaction, Mild, DIFFICULTY OF BREATHING, 07/11/18) PMhx/Soc History of Surgery: Yes (Hysterectomy, Gastrectomy, Laminectomy) Anesthesia Reaction: No Hx Neurological Disorder: No Hx Respiratory Disorders: No Hx Psychiatric Problems: No Hx Alcohol Use: No Hx Substance Use: No Hx Tobacco Use: No Smoking Status: Never smoker FmHx Family History: No diabetes Physical Exam Vitals Vital Signs Date Temp Pulse Resp B/P (MAP) Pulse Ox O2 O2 Flow FiO2 Time Delivery Rate 09/16/18 98.7 18 138/87 96 03:45 (104) 09/16/18 98.7 90 18 138/87 96 02:37 (104) Physical Exam General: Well developed, well nourished, no acute distress Head: Normocephalic, atraumatic. Eyes: Pupils equally reactive, EOM intact ENT: Moist mucous membranes Neck: Supple, no lymphadenopathy Respiratory: Lungs clear bilaterally, no distress Cardiovascular: RRR, no murmurs, rubs, or gallops Abdominal: Soft, non-tender, non-distended, no peritoneal signs : Deferred MSK: No edema, no unilateral swelling, 5/5 strength Neurologic: Alert and oriented, moving all extremities, normal speech, no focal weakness, no cerebellar signs Skin: No rash Psych: Normal mood Result Diagram: 09/16/18 0335 09/16/18 0335 Results 24 hrs Laboratory Tests Test 09/16/18 03:35 White Blood Count 7.5 10^3/ul Red Blood Count 4.23 10^6/ul Hemoglobin 12.0 g/dl Hematocrit 38.1 % Mean Corpuscular Volume 90.1 fl Mean Corpuscular Hemoglobin 28.4 pg Mean Corpuscular Hemoglobin Concent 31.5 g/dl Red Cell Distribution Width 12.3 % Platelet Count 214 10^3/UL Mean Platelet Volume 11.2 fl Immature Granulocytes % 0.700 % Neutrophils % 72.0 % Lymphocytes % 14.2 % Monocytes % 10.6 % Eosinophils % 2.0 % Basophils % 0.5 % Nucleated Red Blood Cells % 0.0 /100WBC Immature Granulocytes # 0.050 10^3/ul Neutrophils # 5.4 10^3/ul Lymphocytes # 1.1 10^3/ul Monocytes # 0.8 10^3/ul Eosinophils # 0.2 10^3/ul Basophils # 0.0 10^3/ul Nucleated Red Blood Cells # 0.0 10^3/ul Sodium Level 139 mmol/L Potassium Level 4.3 mmol/L Chloride Level 105 mmol/L Carbon Dioxide Level 26 mmol/L Anion Gap 8 Blood Urea Nitrogen 23 mg/dl Creatinine 0.81 mg/dl Est Glomerular Filtrat Rate mL/min mL/min Glucose Level 100 mg/dl Calcium Level 9.3 mg/dl Total Bilirubin 0.3 mg/dl Direct Bilirubin 0.00 mg/dl Indirect Bilirubin 0.3 mg/dl Aspartate Amino Transf (AST/SGOT) 27 IU/L Alanine Aminotransferase (ALT/SGPT) 10 IU/L Alkaline Phosphatase 117 IU/L Total Protein 7.8 g/dl Albumin 4.0 g/dl Globulin 3.80 g/dl Albumin/Globulin Ratio 1.05 Lipase 69 U/L Current Medications Medications Dose Sig/Jayashree Start Time Status Last (Trade) Ordered Route PRN Stop Time Admin Dose Reason Admin Sodium 1,000 ml @ Q1H STAT 09/16/18 DC 09/16/18 Chloride 1,000 mls/hr IV 02:59 03:45 09/16/18 03:58 Magnesium 300 ml ONCE ONCE 09/16/18 DC Citrate PO 04:00 (Citroma) 09/16/18 04:01 Procedures/MDM EKG, MONITORS, & DIAGNOSTIC IMAGING: CT abdomen and pelvis: IMPRESSION: No definite new acute intra-abdominal or pelvic abnormality including no specific findings of intestinal obstruction or appendicitis, free air or abscess. Postsurgical changes including previous gastric bypass and hysterectomy. Essentially stable appearance of the gallbladder and mild biliary ductal prominence, which could be correlated clinically with LFTs to guide timing of further follow-up evaluation such as MRI/MRCP. Additional findings as above.. RPTAT: [facility] INTERPRETATION: I reviewed the laboratory testing and it shows no evidence of acute process MEDICAL DECISION MAKING: Clinical exam and history likely consistent with narcotic related constipation. However given her age she is at risk for acute intra-abdominal process such as bowel obstruction, volvulus among others. CT imaging would be indicated. No signs or symptoms concerning for ACS or vascular process. ER COURSE: * Patient given magnesium citrate. Laboratory testing reassuring. Diagnostic imaging unrevealing. Clinical exam history and presentation seem to be consistent with narcotic related constipation. Outpatient follow-up with primary care physician is reasonable. The patient can be safely discharged. CONSULTATION: None DISPOSITION PLAN: The patient does not have an identifiable emergent medical condition that warrants inpatient hospitalization at this time. The patient is deemed safe for discharge with outpatient follow-up. We discussed follow up with the patient's primary care doctor within 24 to 48 hours as needed. We also discussed return to the emergency room for worsening symptoms or worsening condition. Outpatient referral: None required Discharge Medications: Colace and magnesium citrate Departure Diagnosis: Primary Impression: Abdominal pain Abdominal location: generalized Qualified Codes: R10.84 - Generalized abdominal pain Additional Impression: Constipation Constipation type: unspecified constipation type Qualified Codes: K59.00 - Constipation, unspecified Condition: Stable MISAEL LIGHT MD Sep 16, 2018 03:58
[2018-09-16] MEDS ORDERED: MAGNESIUM CITRATE 300 ML BTL PO ONE (04:00)
[2018-09-16] MEDS ORDERED: DOCU-144 PO (04:13)
[2018-09-16] MEDS ORDERED: MAGN296S40 PO (04:13)
== END 2018-09-16 05:04 | disposition home or self-care (01) ==
LOC: E/R 02:31
DX: K59.00 Constipation, unspecified (principal); R40.2142 Coma scale, eyes open, spontaneous, at arrival to emergency department; R40.2362 Coma scale, best motor response, obeys commands, at arrival to emergency department; R40.2252 Coma scale, best verbal response, oriented, at arrival to emergency department
CPT/HCPCS: 74176; 80053; 83690; 85025; J7030; 36415

== ENCOUNTER 2018-09-27 04:01 | Emergency (ER) | payer MEDICARE, OTHER ==
[~2018-09-27] VITALS: Ht 157.5 cm; Wt 60.0 kg
[~2018-09-27 04:01] MED LIST changes: +MAGN296S40 PO
[2018-09-27 04:06] VITALS: Ht 157.5 cm; Wt 60.0 kg
--- NOTE | 2018-09-27 06:00 | ERD ---
ER Documentation Chief Complaint Chief Complaint bib family for sob, cp, and anxiety for the past 3 days HPI 88-year-old female presenting with complaints of shortness of breath. Per her daughter, she has severe anxiety which has worsened over the past 3 days. No cough, fever, chills. No associated chest pain. Daughter states that she frequently has symptoms like this and she is never sure if it is serious or not. Currently the patient has no complaints and is laying comfortably in bed. ROS All systems reviewed and are negative except as per history of present illness. Medications Home Meds Active Scripts Magnesium Citrate* (Magnesium Citrate*) 296 Ml Solution, 296 ML PO ONCE PRN for CONSTIPATION, #1 BOTTLE Prov:MISAEL LIGHT MD 09/16/18 Docusate Sodium* (Colace*) 100 Mg Capsule, 100 MG PO TID PRN for CONSTIPATION, #30 CAP Prov:MISAEL LIGHT MD 09/16/18 Lorazepam* (Lorazepam*) 0.5 Mg Tablet, 0.5 MG PO Q8 PRN for AGITATION/ANXIETY for 10 Days, #30 TAB Prov:ALEXANDRIA LAYNE MD 07/13/18 Ondansetron (Ondansetron Odt) 4 Mg Tab.rapdis, 4 MG PO Q6H PRN for NAUSEA AND/OR VOMITING, #10 TAB Prov:TREVA ANAYA MD 07/08/18 Reported Medications Methadone HCl (Methadone HCl) 10 Mg/1 Ml Oral.conc, 10 MG PO Q6H 09/03/18 Nitroglycerin* (Nitrostat*) 0.4 Mg Tab.subl, 0.4 MG SL Q5MIN PRN for CHEST PAIN, BOTTLE 09/03/18 Ranitidine Hcl* (Ranitidine Hcl*) 150 Mg Tablet, 150 MG PO HS PRN for NEEDED, #30 TAB 07/08/18 Omeprazole* (Omeprazole*) 20 Mg Capsule.dr, 20 MG PO DAILY, #30 CAP 07/08/18 Levothyroxine Sodium* (Levothyroxine Sodium*) 100 Mcg Tablet, 100 MCG PO BEFORE BREAKFAST, #30 TAB 07/08/18 Discontinued Scripts Haloperidol* (Haldol*) 0.5 Mg Tab, 0.5 MG PO BID for 30 Days, TAB Prov:ALEXANDRIA LAYNE MD 07/13/18 Docusate Sodium* (Colace*) 100 Mg Capsule, 100 MG PO TID, #30 CAP Prov:TREVA ANAYA MD 07/08/18 Allergies Allergies: Coded Allergies: morphine (Verified Allergy, Severe, 07/12/18) hydromorphone (Unverified Allergy, Intermediate, 07/11/18) Influenza Virus Vaccines (Unverified Allergy, Mild, 07/11/18) iodine (Unverified Adverse Reaction, Mild, DIFFICULTY OF BREATHING, 07/11/18) PMhx/Soc History of Surgery: Yes (Hysterectomy, Gastrectomy, Laminectomy) Anesthesia Reaction: No Hx Neurological Disorder: No Hx Respiratory Disorders: No Hx Psychiatric Problems: No Hx Alcohol Use: No Hx Substance Use: No Hx Tobacco Use: No FmHx Family History: No diabetes Physical Exam Vitals Vital Signs Date Temp Pulse Resp B/P (MAP) Pulse Ox O2 O2 Flow FiO2 Time Delivery Rate 09/27/18 98.8 83 19 163/81 100 04:06 (108) Physical Exam Const: No acute distress Head: Atraumatic Eyes: Normal Conjunctiva ENT: Normal External Ears, Nose and Mouth. Neck: Full range of motion. No meningismus. Resp: Clear to auscultation bilaterally Cardio: Regular rate and rhythm, no murmurs. 2+ distal pulses Abd: Soft, non tender, non distended. Normal bowel sounds Skin: No petechiae or rashes Back: No midline or flank tenderness Ext: No cyanosis, or edema Neur: Awake and alert Psych: Normal Mood and Affect Result Diagram: 09/27/1844609/27/18446 Results 24 hrs Laboratory Tests Test 09/27/18 04:47 White Blood Count 8.0 10^3/ul Red Blood Count 3.79 10^6/ul Hemoglobin 10.7 g/dl Hematocrit 33.8 % Mean Corpuscular Volume 89.2 fl Mean Corpuscular Hemoglobin 28.2 pg Mean Corpuscular Hemoglobin Concent 31.7 g/dl Red Cell Distribution Width 12.4 % Platelet Count 205 10^3/UL Mean Platelet Volume 11.1 fl Immature Granulocytes % 0.400 % Neutrophils % 70.6 % Lymphocytes % 14.4 % Monocytes % 12.4 % Eosinophils % 1.8 % Basophils % 0.4 % Nucleated Red Blood Cells % 0.0 /100WBC Immature Granulocytes # 0.030 10^3/ul Neutrophils # 5.6 10^3/ul Lymphocytes # 1.2 10^3/ul Monocytes # 1.0 10^3/ul Eosinophils # 0.1 10^3/ul Basophils # 0.0 10^3/ul Nucleated Red Blood Cells # 0.0 10^3/ul Sodium Level 135 mmol/L Potassium Level 4.2 mmol/L Chloride Level 102 mmol/L Carbon Dioxide Level 26 mmol/L Anion Gap 7 Blood Urea Nitrogen 26 mg/dl Creatinine 0.76 mg/dl Est Glomerular Filtrat Rate mL/min mL/min Glucose Level 102 mg/dl Calcium Level 9.1 mg/dl Troponin I < 0.012 ng/ml Procedures/MDM EMERGENT LABS AND DIAGNOSTIC STUDIES: Lab Results above were reviewed and interpreted by me. CBC: Mild anemia. no evidence of infection BMP: Mild BUN elevation, likely due to dehydration. No evidence of clinically significant electrolyte abnormality, acidosis, renal failure, hypoglycemia Troponin within normal limits, not indicative of cardiac ischemia 12-lead EKG was interpreted by Roseline Nettles MD: Normal Sinus Rhythm Normal axis Normal intervals No acute ST or T wave changes suggestive of acute ischemia or STEMI. Radiology Results as interpreted by Radiology below were reviewed by Ravindra Nettles MD: Chest x-ray shows no acute abnormalities Initial Nursing notes reviewed. Previous Medical Records requested via the Electronic Health Record. EMERGENCY DEPARTMENT COURSE / MEDICAL DECISION MAKING: Patient is presenting with shortness of breath and likely anxiety. I do not suspect acute coronary syndrome, pneumonia, pulmonary embolism, or aortic dissection. Vitals are stable. Work-up did not show any significant abnormalities. I feel the patient is stable for discharge with continued outpatient follow-up with PCP within the next 1 to 2 days.. Return precautions discussed. Patient's blood pressure was elevated (>120/80) but appears stable without evidence of hypertensive emergency or urgency. The patient was counseled about the risks of hypertension and urged to pursue outpatient monitoring and therapy within a week with their primary care physician. Departure Diagnosis: Primary Impression: Shortness of breath Condition: Stable Patient Instructions: Coping with Shortness of Breath: Controlling Stress Referrals: OLI CARR MD- (PCP) Additional Instructions: Call your primary care doctor TOMORROW for an appointment during the next 1-2 days.See the doctor sooner or return here if your condition worsens before your appointment time. FLORENCE NETTLES MD Sep 27, 2018 06:00
[2018-09-27 06:09] VITALS: BP 150/67; PULSE 71; RESP 18
== END 2018-09-27 06:02 | disposition home or self-care (01) ==
LOC: E/R 04:01
DX: R06.02 Shortness of breath (principal)
CPT/HCPCS: 71045; 80048; 84484; 85025; 93005

== ENCOUNTER 2018-10-03 20:44 | Emergency (ER) | payer MEDICARE, OTHER ==
[~2018-10-03] VITALS: Ht 152.4 cm; Wt 60.0 kg
[~2018-10-03 20:44] MED LIST changes: -HAL05 PO; +MAG355OR14 PO; +MELO7.5T38 PO
[2018-10-03 20:46] VITALS: Ht 152.4 cm; Wt 60.0 kg
[2018-10-03] MEDS ORDERED: KETOROLAC 15 MG INJ IV STA (21:53)
[2018-10-03] MEDS ORDERED: LORAZEPAM 2 MG INJ IV ONE (22:00)
--- NOTE | 2018-10-03 23:44 | ERD ---
ER Documentation Chief Complaint Chief Complaint AP AND ANXIETY X TONIGHT. HPI Patient is a 80-year-old female with hypertension who presents with abdominal pain. The patient was given Zantac which did not help. She then started having anxiety. She still has abdominal pain currently which she describes in the left upper quadrant. She said that it started today. It has been constant. She did not take her methadone today. Upon review of old medical record the patient has multiple visits to the ER for similar complaints. Her primary doctor is Dr. Carr. ROS All systems reviewed and are negative except as per history of present illness. Medications Home Meds Active Scripts Magnesium Citrate* (Magnesium Citrate*) 296 Ml Solution, 296 ML PO ONCE PRN for CONSTIPATION, #1 BOTTLE Prov:MISAEL LIGHT MD 09/16/18 Docusate Sodium* (Colace*) 100 Mg Capsule, 100 MG PO TID PRN for CONSTIPATION, #30 CAP Prov:MISAEL LIGHT MD 09/16/18 Lorazepam* (Lorazepam*) 0.5 Mg Tablet, 0.5 MG PO Q8 PRN for AGITATION/ANXIETY for 10 Days, #30 TAB Prov:ALEXANDRIA LAYNE MD 07/13/18 Ondansetron (Ondansetron Odt) 4 Mg Tab.rapdis, 4 MG PO Q6H PRN for NAUSEA AND/OR VOMITING, #10 TAB Prov:TREVA ANAYA MD 07/08/18 Reported Medications Methadone HCl (Methadone HCl) 10 Mg/1 Ml Oral.conc, 10 MG PO Q6H 09/03/18 Nitroglycerin* (Nitrostat*) 0.4 Mg Tab.subl, 0.4 MG SL Q5MIN PRN for CHEST PAIN, BOTTLE 09/03/18 Ranitidine Hcl* (Ranitidine Hcl*) 150 Mg Tablet, 150 MG PO HS PRN for NEEDED, #30 TAB 07/08/18 Omeprazole* (Omeprazole*) 20 Mg Capsule.dr, 20 MG PO DAILY, #30 CAP 07/08/18 Levothyroxine Sodium* (Levothyroxine Sodium*) 100 Mcg Tablet, 100 MCG PO BEFORE BREAKFAST, #30 TAB 07/08/18 Discontinued Scripts Haloperidol* (Haldol*) 0.5 Mg Tab, 0.5 MG PO BID for 30 Days, TAB Prov:ALEXANDRIA LAYNE MD 07/13/18 Docusate Sodium* (Colace*) 100 Mg Capsule, 100 MG PO TID, #30 CAP Prov:TREVA ANAYA MD 07/08/18 Allergies Allergies: Coded Allergies: morphine (Verified Allergy, Severe, 07/12/18) hydromorphone (Unverified Allergy, Intermediate, 07/11/18) Influenza Virus Vaccines (Unverified Allergy, Mild, 07/11/18) iodine (Unverified Adverse Reaction, Mild, DIFFICULTY OF BREATHING, 07/11/18) PMhx/Soc History of Surgery: Yes (Hysterectomy, Gastrectomy, Laminectomy) Anesthesia Reaction: No Hx Neurological Disorder: No Hx Respiratory Disorders: No Hx Cardiac Disorders: Yes (HTN) Hx Psychiatric Problems: No Hx Alcohol Use: No Hx Substance Use: No Hx Tobacco Use: No Smoking Status: Never smoker FmHx Family History: No diabetes Physical Exam Vitals Vital Signs Date Temp Pulse Resp B/P (MAP) Pulse Ox O2 O2 Flow FiO2 Time Delivery Rate 10/03/18 97.7 76 24 170/90 99 20:46 (116) Physical Exam Const: Mild distress Head: Atraumatic Eyes: Normal Conjunctiva ENT: Normal External Ears, Nose and Mouth. Neck: Full range of motion. No meningismus. Resp: Clear to auscultation bilaterally Cardio: Regular rate and rhythm, no murmurs Abd: Diffuse tenderness to palpation without rebound or guarding Skin: No petechiae or rashes Back: No midline or flank tenderness Ext: No cyanosis, or edema Neur: Awake and alert Psych: Anxious Result Diagram: 10/03/188 10/03/188 Results 24 hrs Laboratory Tests Test 10/03/18 22:18 White Blood Count 8.2 10^3/ul Red Blood Count 3.84 10^6/ul Hemoglobin 10.9 g/dl Hematocrit 34.1 % Mean Corpuscular Volume 88.8 fl Mean Corpuscular Hemoglobin 28.4 pg Mean Corpuscular Hemoglobin Concent 32.0 g/dl Red Cell Distribution Width 12.4 % Platelet Count 201 10^3/UL Mean Platelet Volume 10.8 fl Immature Granulocytes % 0.400 % Neutrophils % 74.8 % Lymphocytes % 12.8 % Monocytes % 10.2 % Eosinophils % 1.6 % Basophils % 0.2 % Nucleated Red Blood Cells % 0.0 /100WBC Immature Granulocytes # 0.030 10^3/ul Neutrophils # 6.1 10^3/ul Lymphocytes # 1.0 10^3/ul Monocytes # 0.8 10^3/ul Eosinophils # 0.1 10^3/ul Basophils # 0.0 10^3/ul Nucleated Red Blood Cells # 0.0 10^3/ul Sodium Level 129 mmol/L Potassium Level 5.0 mmol/L Chloride Level 95 mmol/L Carbon Dioxide Level 27 mmol/L Anion Gap 7 Blood Urea Nitrogen 22 mg/dl Creatinine 0.75 mg/dl Est Glomerular Filtrat Rate mL/min mL/min Glucose Level 137 mg/dl Calcium Level 9.0 mg/dl Total Bilirubin 0.4 mg/dl Direct Bilirubin 0.00 mg/dl Indirect Bilirubin 0.4 mg/dl Aspartate Amino Transf (AST/SGOT) 28 IU/L Alanine Aminotransferase (ALT/SGPT) 18 IU/L Alkaline Phosphatase 108 IU/L Troponin I < 0.012 ng/ml Total Protein 7.5 g/dl Albumin 3.8 g/dl Globulin 3.70 g/dl Albumin/Globulin Ratio 1.02 Lipase 88 U/L Current Medications Medications Dose Sig/Jayashree Start Time Status Last (Trade) Ordered Route PRN Stop Time Admin Dose Reason Admin Ketorolac 15 mg ONCE STAT 10/03/18 DC 10/03/18 Tromethamine IV 21:53 22:29 (Toradol) 10/03/18 21:55 Lorazepam 0.5 mg ONCE ONCE 10/03/18 DC 10/03/18 (Ativan) IV 22:00 22:29 10/03/18 22:01 Procedures/MDM EKG read by me: Rate/Rhythm: Regular rate and rhythm at a rate of 75 Intervals: Normal Impression: No evidence of ischemia or arrhythmia CT abdomen pelvis read by radiology shows no active surgical process. Patient is a 88-year-old female with hypertension who presents with abdominal pain. Laboratory studies were basically normal other than a mild hyponatremia. CT scan of the abdomen pelvis shows no sign of surgical process at this time. I doubt appendicitis, cholecystitis, pancreatitis, or bowel obstruction. I believe outpatient management is appropriate at this time. The patient has a follow-up appointment for tomorrow scheduled with Dr. Carr. The patient can return for any worsening symptoms. Departure Diagnosis: Primary Impression: Abdominal pain Abdominal location: unspecified location Qualified Codes: R10.9 - Unspecified abdominal pain Condition: Fair Patient Instructions: Abdominal Pain Referrals: OLI CARR MD- (PCP) Additional Instructions: Visite a breen mis mosquera para un EXAMEN.Regrese a estas instalaciones si no se mejora ney esperbamos o ney le dijimos. TREVA ANAYA MD Oct 03, 2018 23:44
[2018-10-03 23:54] VITALS: BP 135/81; PULSE 72; RESP 24
== END 2018-10-04 00:24 | disposition home or self-care (01) ==
LOC: E/R 20:44
DX: R10.12 Left upper quadrant pain (principal); I10 Essential (primary) hypertension
CPT/HCPCS: 36415; 74176; 80053; 83690; 84484; 85025; 93005; 96374; 96375; 99285; J1885; J2060

== ENCOUNTER 2018-10-11 14:42 | Emergency (ER) | payer MEDICARE, OTHER ==
[~2018-10-11] VITALS: Ht 147.3 cm; Wt 44.1 kg
[2018-10-11 14:53] VITALS: Ht 147.3 cm; Wt 44.1 kg
[2018-10-11] MEDS ORDERED: KETOROLAC 30 MG INJ IM STA (15:56)
[2018-10-11 16:51] VITALS: BP 151/78; PULSE 66; RESP 18
[2018-10-11] MEDS ORDERED: LORAZEPAM 0.5 MG TAB PO ONE (17:00)
== END 2018-10-11 16:52 | disposition home or self-care (01) ==
LOC: E/R 14:42
DX: F41.9 Anxiety disorder, unspecified (principal); I10 Essential (primary) hypertension; E03.9 Hypothyroidism, unspecified; Z85.028 Personal history of other malignant neoplasm of stomach
CPT/HCPCS: 81003; 96372; 99284; J1885

== ENCOUNTER 2018-10-13 20:56 | Emergency (ER) | payer MEDICARE, OTHER ==
[~2018-10-13] VITALS: Ht 147.3 cm; Wt 44.1 kg
[2018-10-13 20:57] VITALS: Ht 147.3 cm; Wt 44.1 kg
[2018-10-13] MEDS ORDERED: MAGNESIUM CITRATE 300 ML BTL PO ONE (22:00)
[2018-10-13 22:35] VITALS: BP 133/77; PULSE 71; RESP 18
== END 2018-10-13 22:45 | disposition home or self-care (01) ==
LOC: E/R 20:56
DX: F41.0 Panic disorder [episodic paroxysmal anxiety] (principal); K59.00 Constipation, unspecified; I10 Essential (primary) hypertension
CPT/HCPCS: 93005

== ENCOUNTER 2018-10-29 17:25 | Emergency (ER) | payer MEDICARE, OTHER ==
[~2018-10-29] VITALS: Wt 44.1 kg
[2018-10-29] MEDS ORDERED: LORAZEPAM 1 MG TAB PO ONE (19:30)
[2018-10-29 19:35] VITALS: BP 131/78; PULSE 77; RESP 19
== END 2018-10-29 19:36 | disposition home or self-care (01) ==
LOC: E/R 17:25
DX: M54.5 Low back pain (principal); F41.9 Anxiety disorder, unspecified; I10 Essential (primary) hypertension
CPT/HCPCS: 99283

== ENCOUNTER 2018-11-13 18:16 | Emergency (ER) | payer MEDICARE, OTHER ==
[~2018-11-13] VITALS: Ht 157.5 cm; Wt 65.0 kg
[~2018-11-13 18:16] MED LIST changes: +ACET500C5 PO; +AMOX1TAB10 PO; +CLIN300C10 PO; +DENO60DI SQ; +DICL100G37 SUBDERMAL; +IBUP-1541 ORAL; +NALO4SPR NASAL; -OMEP20CA16 PO; +OMEP20CA17 PO; +[UNRECOGNIZED DRUG - CODE] ORAL
[2018-11-13 18:19] VITALS: Ht 157.5 cm; Wt 65.0 kg
[2018-11-13] MEDS ORDERED: LIDOCAINE/MYLANTA 40 ML BTL PO STA (20:21)
[2018-11-13] MEDS ORDERED: SOD CHLORIDE 0.9% 1,000 ML IV STA (20:21)
[2018-11-13] MEDS ORDERED: ONDANSETRON 4 MG INJ IV STA (20:21)
[2018-11-13 22:37] VITALS: BP 153/74; PULSE 72; RESP 18
== END 2018-11-14 01:58 | disposition home or self-care (01) ==
LOC: E/R 18:16
DX: R10.13 Epigastric pain (principal); I10 Essential (primary) hypertension; Z85.028 Personal history of other malignant neoplasm of stomach
CPT/HCPCS: 36415; 80053; 81003; 83690; 85025; 96374; 99284; J2405; J7030

== ENCOUNTER 2018-12-20 16:33 | Emergency (ER) | payer MEDICARE, OTHER ==
[~2018-12-20] VITALS: Ht 144.8 cm; Wt 42.3 kg
[~2018-12-20 16:33] MED LIST changes: -RANI150T5 PO
[2018-12-20 17:15] VITALS: BP 149/74; PULSE 88; RESP 18; Ht 144.8 cm; Wt 42.3 kg
[2018-12-20] MEDS ORDERED: DIPHTH/TET/ACEL PERTUSS (ADULT) 0.5 ML VIAL IM* ONE (18:00)
[2018-12-20] MEDS ORDERED: ACETAMINOPHEN 325 MG TAB PO ONE (18:00)
== END 2018-12-20 18:35 | disposition home or self-care (01) ==
LOC: FTE 16:33
DX: S61.212A Laceration without foreign body of right middle finger without damage to nail, initial encounter (principal); I10 Essential (primary) hypertension; S61.214A Laceration without foreign body of right ring finger without damage to nail, initial encounter; W54.0XXA Bitten by dog, initial encounter; Z85.028 Personal history of other malignant neoplasm of stomach; Z23 Encounter for immunization
CPT/HCPCS: 90471; 90715